=== PATIENT | female | born 1955 | race Caucasian/White ===

== ENCOUNTER 2019-12-10 15:19 | Emergency (ER) | payer MEDICARE, OTHER, SELFPAY ==
[2019-12-10 15:28] VITALS: BP 152/91; PULSE 60; RESP 17; TEMP 36.6; O2SAT 97; BMI 27.4
[2019-12-10 15:33] VITALS: O2SAT 97
--- NOTE | 2019-12-10 15:34 | ED_ITS ---
Entered by Elisa Manzo, acting as scribe for Austin Jones DO Dec 10, 2019 15:19 Documented by User: Sean Doran DO 12/10/19 21:23 HPI - Chest Pain General: Chief Complaint: Chest Pain Stated Complaint: CHEST PAIN Time Seen by Provider: 12/10/19 15:29 PFS ED PFSH: Statuses (acute, chronic, etc) shown below reflect problem list status as previously entered and may not be historically accurate Medical History Anxiety (Acute) Chronic obstructive pulmonary disease (Acute) Depression (Acute) Surgical History Hx of CABG (Acute) Social History Smoking and tobacco status: current every day smoker Course ED course: 63-year-old female checked out to me by Dr. Harkins. She presented with chest pains, on and off. Her pain started this morning, and woke her up. She is not currently having pain, and asking to go home. Her delta troponin is negative. Her EKGs did not show acute ST changes. Her chest x-ray is negative. Her other laboratory is benign. She will be allowed home for outpatient work- up Vital Signs: Vital signs: Vital Signs Temperature 97.9 F 12/10/19 15:28 Pulse Rate 84 12/10/19 19:34 Respiratory Rate 16 12/10/19 19:34 Blood Pressure 126/70 12/10/19 19:09 Pulse Oximetry 95 12/10/19 19:34 MDM - Chest Pain Lab Data: Labs: Lab Results 12/10/19 12/10/19 12/10/19 Range/Units 14:00 15:50 16:30 WBC 6.1 (4.0-10.0) 10^3/ uL RBC 5.06 (4.1-5.3) 10^6/u L Hgb 15.0 (11.5-15.3) g/dL Hct 45.8 (37.0-47.0) % MCV 90.5 (81-99) fL MCH 29.6 (28.0-34.0) pg MCHC 32.8 (30.0-36.0) g/dL RDW 13.7 (12.1-15.1) % Plt Count 216 (130-400) 10^3/c mm MPV 12.0 H (7.4-10.4) fL Neut % (Auto) 53.9 % Lymph % (Auto) 37.5 % [place] % (Auto) 6.4 % Eos % (Auto) 1.0 % Baso % (Auto) 0.5 % Neut # (Auto) 3.3 (1.8-7.7) 10^3/u L Lymph # (Auto) 2.3 (0.8-4.8) 10^3/u L [place] # (Auto) 0.4 (0.2-0.9) 10^3/u L Eos # (Auto) 0.1 (0.0-0.8) 10^3/u L Baso # (Auto) 0.0 (0.0-0.1) 10^3/u L Nucleated RBC % (a uto) 0 % Nucleated RBCs # 0.0 /100WBC Sodium 138 (136-145) mmol/L Potassium 4.4 (3.5-5.1) mmol/L Chloride 98 (98-107) mmol/L Carbon Dioxide 24 (22-29) mmol/L Anion Gap 20.4 H (5-19) BUN 16 (8-23) mg/dL Creatinine 0.9 (0.5-0.9) mg/dL GFR Calculation 63.2 L (90-130) mL/min Glucose 98 (74-106) mg/dL Calcium 10.0 (8.5-10.5) mg/dL Total Bilirubin 0.3 (0.15-1.2) mg/dL AST 15 (0-32) U/L ALT 20 (0-33) U/L Alkaline Phosphata se 65 (35-105) IU/L Troponin T Baselin e (0-10) ng/mL Troponin T 120 Min [place] (0-10) ng/mL Delta Troponin T (0-10) ABS# Total Protein 6.9 (6.6-8.7) g/dL Albumin 4.3 (3.5-5.2) g/dL Globulin 2.6 (1.3-4.6) g/dL Influenza Type A A g Negative (Negative) POC Influenza B Ag Negative (Negative) 12/10/19 12/10/19 Range/Units 16:30 18:30 WBC (4.0-10.0) 10^3/ uL RBC (4.1-5.3) 10^6/u L Hgb (11.5-15.3) g/dL Hct (37.0-47.0) % MCV (81-99) fL MCH (28.0-34.0) pg MCHC (30.0-36.0) g/dL RDW (12.1-15.1) % Plt Count (130-400) 10^3/c mm MPV (7.4-10.4) fL Neut % (Auto) % Lymph % (Auto) % [place] % (Auto) % Eos % (Auto) % Baso % (Auto) % Neut # (Auto) (1.8-7.7) 10^3/u L Lymph # (Auto) (0.8-4.8) 10^3/u L [place] # (Auto) (0.2-0.9) 10^3/u L Eos # (Auto) (0.0-0.8) 10^3/u L Baso # (Auto) (0.0-0.1) 10^3/u L Nucleated RBC % (a uto) % Nucleated RBCs # /100WBC Sodium (136-145) mmol/L Potassium (3.5-5.1) mmol/L Chloride (98-107) mmol/L Carbon Dioxide (22-29) mmol/L Anion Gap (5-19) BUN (8-23) mg/dL Creatinine (0.5-0.9) mg/dL GFR Calculation (90-130) mL/min Glucose (74-106) mg/dL Calcium (8.5-10.5) mg/dL Total Bilirubin (0.15-1.2) mg/dL AST (0-32) U/L ALT (0-33) U/L Alkaline Phosphata se (35-105) IU/L Troponin T Baselin e 9 (0-10) ng/mL Troponin T [address] [place] 9.48 (0-10) ng/mL Delta Troponin T 0.48 (0-10) ABS# Total Protein (6.6-8.7) g/dL Albumin (3.5-5.2) g/dL Globulin (1.3-4.6) g/dL Influenza Type A A g (Negative) POC Influenza B Ag (Negative) Discharge Plan Discharge Patient Disposition: Home, Self-Care Clinical Impression: Chest pain Qualifiers: Chest pain type: unspecified Qualified Code(s): R07.9 - Chest pain, unspecified Condition: Stable Prescriptions: No Action aspirin [Aspir-Low] 81 mg tablet,delayed release (DR/EC) 81 mg PO ONCE RF: 0 lisinopril 40 mg tablet 40 mg PO ONCE RF: 0 Spiriva with HandiHaler 18 mcg capsule, w/inhalation device 1 cap INHALATION ONCE RF: 0 fluticasone propion-salmeterol [Advair Diskus] 250-50 mcg/dose blister with device 1 inh INHALATION BID RF: 0 metoprolol succinate 50 mg tablet extended release 24 hr 50 mg PO ONCE RF: 0 atorvastatin 20 mg tablet 20 mg PO ONCE RF: 0 Trelegy Ellipta 100-62.5-25 mcg blister with device 1 inh INHALATION Q24H RF: 0 fluoxetine [Prozac] 20 mg capsule 20 mg PO ONCE RF: 0 fluoxetine [Prozac] 40 mg capsule 40 mg PO QAM RF: 0 Combivent Respimat 20-100 mcg/actuation mist 1 puff INHALATION QID RF: 0 omeprazole 40 mg capsule,delayed release(DR/EC) 40 mg PO ONCE RF: 0 epinephrine [EpiPen 2-Dmitri] 0.3 mg/0.3 mL auto-injector 0.3 mg IM ONCE PRNRF: 0 albuterol sulfate 2.5 mg /3 mL (0.083 %) solution for nebulization 2.5 mg INHALATION Q6H PRNRF: 0 clonazepam 1 mg tablet 1 mg PO BID PRNRF: 0 albuterol sulfate 2.5 mg /3 mL (0.083 %) solution for nebulization 2.5 mg INHALATION Q6H PRN (Reason: shortness of breath or wheezing) Qty: 180 RF: 1 ipratropium-albuterol 0.5 mg-3 mg(2.5 mg base)/3 mL solution for nebulization 3 ml INHALATION .every 6 hours PRN (Reason: wheezing) Qty: 180 RF: 1 Discharge Orders: Discharge Order (Routine); Ordered 12/10/19 Ordered By: Sean Doran Referrals: Payam Rosario, CRIMINAL INVESTIGATOR [Primary Care Provider] - 4-7 days Discharge Diet: Usual diet Discharge Activity: Limit activity as instructed Patient Instructions: Chest Pain (ED) Activity Restrictions/Additional Instructions: Return for return of her worsening chest pain, shortness of breath, cough, fever, other concerning symptoms. Follow-up with your doctor, outpatient testing will likely be needed. No strenuous activity until you have been cleared by your doctor Discharge Date/Time: 12/10/19 19:36 Sign Out Sign Out Data: Patient Sign Out occurred on 12/10/19 at 18:18. Patient's care was discussed, and care was transferred from Austin Jones DO to Sean Doran DO. Sign Out Comment: Awaiting second troponin for rule out [place] Last updated by Austin Jones DO at 12/10/19 18:13 Coding Level of Care Code ED Centrifugal Operator for Chg Fwd Documented by User: Austin Jones DO 12/11/19 10:29 HPI - Chest Pain General: Chief Complaint: Chest Pain Stated Complaint: CHEST PAIN Time Seen by Provider: 12/10/19 15:29 History of Present Illness: HPI narrative: 63 yo female presents with chest pain. pt states that she woke up this morning and had a racing heart rate, shortness of breath and cold sweats. Pt states that she felt like she might of had another heart attack. Pt states that she has had a heat attack in the past. MD complaint: chest pain Pertinent past history: coronary artery disease and CABG Onset (ago): hour(s) Timing of current episode: constant Prior episodes: Yes Onset: during rest Pain radiation: jaw/teeth Severity: moderate Quality: tightness and sharp Relieving factors: nothing Exacerbating factors: exertion Associated symptoms: Reports no associated symptoms; Deny abdominal pain, dyspnea, fever(s), nausea, palpitations, syncope or vomiting Treatment prior to arrival: none Review of Systems Const: Denies: fever, chills, body aches, fatigue, malaise or night sweats Eyes: Denies: change in vision or blurry vision ENMT: Denies: throat pain, oral sores/lesions, dental pain, nasal discharge or nasal congestion Card: Denies: chest pain, palpitations, irregular heart rhythm, edema, syncope, shortness of breath on exertion, shortness of breath when lying down or leg pain with exertion Resp: Denies: shortness of breath, productive cough, non-productive cough or wheezing GI: Denies: abdominal pain, nausea, vomiting, vomiting blood, coffee grounds in vomit, difficulty swallowing, heartburn/indigestion, diarrhea, constipation, cramping, blood in stool or black tarry stool : Denies: flank pain, painful urination, urinary frequency, urinary urgency, urinary incontinence or blood in urine Musc: Denies: neck pain, back pain, extremity pain, extremity swelling, joint pain or joint swelling Skin/Breast: Denies: rash, itching or redness Neuro: Denies: headache, numbness in extremities, weakness in extremities, changes in sensation, lack of coordination, difficulty walking, frequent falls, dizziness, vertigo or confusion Psych: Denies: anxiety, depression, loss of interest, visual hallucinations, auditory hallucinations, suicidal ideation or homicidal ideation Endo: Denies: excessive urination, excessive thirst, tired all the time or cold intolerance Tj/Lymph: Denies: easy bruising, easy bleeding, petechiae, enlarged lymph nodes or tender lymph nodes PFSH ED PFSH: Statuses (acute, chronic, etc) shown below reflect problem list status as previously entered and may not be historically accurate Medical History Anxiety (Acute) Chronic obstructive pulmonary disease (Acute) Depression (Acute) Surgical History Hx of CABG (Acute) Social History Smoking and tobacco status: current every day smoker Physical Exam Const: COMMON NORMALS: no apparent distress GENERAL APPEARANCE: cooperative and comfortable ORIENTATION/CONSCIOUSNESS: Yes awake, Yes oriented to person, Yes oriented to place and Yes oriented to time HENMT: COMMON NORMALS: normocephalic, head/scalp atraumatic, hearing grossly normal bilaterally, external ears normal, EAC's normal, TM's normal bilaterally, nasal mucous membranes and turbinates normal, moist oral mucous membranes and oropharynx normal HEAD & SCALP: normocephalic and atraumatic NOSE: nasal mucous membranes and turbinates normal EXTERNAL EAR: Yes external ears normal EXTERNAL AUDITORY CANAL: EAC's normal TYMPANIC MEMBRANE: TM's normal bilaterally Eye: COMMON NORMALS: PERRL, EOMs intact bilaterally, conjunctivae normal and no scleral icterus CONJUNCTIVA: Yes conjunctivae normal PUPIL: Yes PERRL Neck/C-Spine: COMMON NORMALS: full ROM, no lymphadenopathy, supple and no JVD Lymph: LYMPHATIC: no lymphadenopathy noted and no lymphedema noted Resp: COMMON NORMALS: normal respiratory effort, no retractions, no use of accessory muscles and clear to auscultation bilaterally AUSCULTATION: clear to auscultation bilaterally Cardio: COMMON NORMALS: no JVD, regular rate, regular rhythm and no murmurs RATE: regular rate RHYTHM: regular rhythm GI: COMMON NORMALS: soft to palpation and no hepatosplenomegaly AUSCULTATION: Yes normoactive bowel sounds PALPATION: Yes soft, No tender, No guarding and Yes no hepatosplenomegaly Extremity: COMMON NORMALS: normal to inspection, normal capillary refill, no clubbing, cyanosis or edema, no calf tenderness and no pedal edema Neuro: SENSORIUM/ORIENTATION: Yes oriented to person, Yes oriented to place and Yes oriented to time Skin: COMMON NORMALS: no rashes or lesions noted GENERAL SKIN EXAM: no rashes or lesions noted Course Vital Signs: Vital signs: Vital Signs Temperature 97.9 F 12/10/19 15:28 Pulse Rate 84 12/10/19 19:34 Respiratory Rate 16 12/10/19 19:34 Blood Pressure 126/70 12/10/19 19:09 Pulse Oximetry 95 12/10/19 19:34 MDM - Chest Pain Lab Data: Labs: Lab Results 12/10/19 12/10/19 12/10/19 Range/Units 14:00 15:50 16:30 WBC 6.1 (4.0-10.0) 10^3/ uL RBC 5.06 (4.1-5.3) 10^6/u L Hgb 15.0 (11.5-15.3) g/dL Hct 45.8 (37.0-47.0) % MCV 90.5 (81-99) fL MCH 29.6 (28.0-34.0) pg MCHC 32.8 (30.0-36.0) g/dL RDW 13.7 (12.1-15.1) % Plt Count 216 (130-400) 10^3/c mm MPV 12.0 H (7.4-10.4) fL Neut % (Auto) 53.9 % Lymph % (Auto) 37.5 % [place] % (Auto) 6.4 % Eos % (Auto) 1.0 % Baso % (Auto) 0.5 % Neut # (Auto) 3.3 (1.8-7.7) 10^3/u L Lymph # (Auto) 2.3 (0.8-4.8) 10^3/u L [place] # (Auto) 0.4 (0.2-0.9) 10^3/u L Eos # (Auto) 0.1 (0.0-0.8) 10^3/u L Baso # (Auto) 0.0 (0.0-0.1) 10^3/u L Nucleated RBC % (a uto) 0 % Nucleated RBCs # 0.0 /100WBC Sodium 138 (136-145) mmol/L Potassium 4.4 (3.5-5.1) mmol/L Chloride 98 (98-107) mmol/L Carbon Dioxide 24 (22-29) mmol/L Anion Gap 20.4 H (5-19) BUN 16 (8-23) mg/dL Creatinine 0.9 (0.5-0.9) mg/dL GFR Calculation 63.2 L (90-130) mL/min Glucose 98 (74-106) mg/dL Calcium 10.0 (8.5-10.5) mg/dL Total Bilirubin 0.3 (0.15-1.2) mg/dL AST 15 (0-32) U/L ALT 20 (0-33) U/L Alkaline Phosphata se 65 (35-105) IU/L Troponin T Baselin e (0-10) ng/mL Troponin T 120 Min [place] (0-10) ng/mL Delta Troponin T (0-10) ABS# Total Protein 6.9 (6.6-8.7) g/dL Albumin 4.3 (3.5-5.2) g/dL Globulin 2.6 (1.3-4.6) g/dL Influenza Type A A g Negative (Negative) POC Influenza B Ag Negative (Negative) 12/10/19 12/10/19 Range/Units 16:30 18:30 WBC (4.0-10.0) 10^3/ uL RBC (4.1-5.3) 10^6/u L Hgb (11.5-15.3) g/dL Hct (37.0-47.0) % MCV (81-99) fL MCH (28.0-34.0) pg MCHC (30.0-36.0) g/dL RDW (12.1-15.1) % Plt Count (130-400) 10^3/c mm MPV (7.4-10.4) fL Neut % (Auto) % Lymph % (Auto) % [place] % (Auto) % Eos % (Auto) % Baso % (Auto) % Neut # (Auto) (1.8-7.7) 10^3/u L Lymph # (Auto) (0.8-4.8) 10^3/u L [place] # (Auto) (0.2-0.9) 10^3/u L Eos # (Auto) (0.0-0.8) 10^3/u L Baso # (Auto) (0.0-0.1) 10^3/u L Nucleated RBC % (a uto) % Nucleated RBCs # /100WBC Sodium (136-145) mmol/L Potassium (3.5-5.1) mmol/L Chloride (98-107) mmol/L Carbon Dioxide (22-29) mmol/L Anion Gap (5-19) BUN (8-23) mg/dL Creatinine (0.5-0.9) mg/dL GFR Calculation (90-130) mL/min Glucose (74-106) mg/dL Calcium (8.5-10.5) mg/dL Total Bilirubin (0.15-1.2) mg/dL AST (0-32) U/L ALT (0-33) U/L Alkaline Phosphata se (35-105) IU/L Troponin T Baselin e 9 (0-10) ng/mL Troponin T [address] [place] 9.48 (0-10) ng/mL Delta Troponin T 0.48 (0-10) ABS# Total Protein (6.6-8.7) g/dL Albumin (3.5-5.2) g/dL Globulin (1.3-4.6) g/dL Influenza Type A A g (Negative) POC Influenza B Ag (Negative) Discharge Plan Discharge Patient Disposition: Home, Self-Care Clinical Impression: Chest pain Qualifiers: Chest pain type: unspecified Qualified Code(s): R07.9 - Chest pain, unspecified Condition: Stable Prescriptions: No Action aspirin [Aspir-Low] 81 mg tablet,delayed release (DR/EC) 81 mg PO ONCE RF: 0 lisinopril 40 mg tablet 40 mg PO ONCE RF: 0 Spiriva with HandiHaler 18 mcg capsule, w/inhalation device 1 cap INHALATION ONCE RF: 0 fluticasone propion-salmeterol [Advair Diskus] 250-50 mcg/dose blister with device 1 inh INHALATION BID RF: 0 metoprolol succinate 50 mg tablet extended release 24 hr 50 mg PO ONCE RF: 0 atorvastatin 20 mg tablet 20 mg PO ONCE RF: 0 Trelegy Ellipta 100-62.5-25 mcg blister with device 1 inh INHALATION Q24H RF: 0 fluoxetine [Prozac] 20 mg capsule 20 mg PO ONCE RF: 0 fluoxetine [Prozac] 40 mg capsule 40 mg PO QAM RF: 0 Combivent Respimat 20-100 mcg/actuation mist 1 puff INHALATION QID RF: 0 omeprazole 40 mg capsule,delayed release(DR/EC) 40 mg PO ONCE RF: 0 epinephrine [EpiPen 2-Dmitri] 0.3 mg/0.3 mL auto-injector 0.3 mg IM ONCE PRNRF: 0 albuterol sulfate 2.5 mg /3 mL (0.083 %) solution for nebulization 2.5 mg INHALATION Q6H PRNRF: 0 clonazepam 1 mg tablet 1 mg PO BID PRNRF: 0 albuterol sulfate 2.5 mg /3 mL (0.083 %) solution for nebulization 2.5 mg INHALATION Q6H PRN (Reason: shortness of breath or wheezing) Qty: 180 RF: 1 ipratropium-albuterol 0.5 mg-3 mg(2.5 mg base)/3 mL solution for nebulization 3 ml INHALATION .every 6 hours PRN (Reason: wheezing) Qty: 180 RF: 1 Discharge Orders: Discharge Order (Routine); Ordered 12/10/19 Ordered By: Sean Doran Referrals: Payam Rosario, CRIMINAL INVESTIGATOR [Primary Care Provider] - 4-7 days Discharge Diet: Usual diet Discharge Activity: Limit activity as instructed Patient Instructions: Chest Pain (ED) Activity Restrictions/Additional Instructions: Return for return of her worsening chest pain, shortness of breath, cough, fever, other concerning symptoms. Follow-up with your doctor, outpatient testing will likely be needed. No strenuous activity until you have been cleared by your doctor Discharge Date/Time: 12/10/19 19:36 Sign Out Sign Out Data: Patient Sign Out occurred on 12/10/19 at 18:18. Patient's care was discussed, and care was transferred from Austin Jones DO to Sean Doran DO. Sign Out Comment: Awaiting second troponin for rule out [place] Last updated by Austin Jones DO at 12/10/19 18:13 Coding Level of Care Code ED Centrifugal Operator for Chg Fwd The documentation recorded by the Jovany tabor Kialy, accurately reflects the service I personally performed and the decisions made by Karen shearer Curtis L, DO Dec 10, 2019 15:19
--- NOTE | 2019-12-10 15:39 | ECG_ITS ---
Measurements Intervals [place] Rate: 58 P: 37 IN: 159 QRS: 82 QRSD: 84 T: 92 QT: 418 QTc: [address] & T-WAVE ABNORMALITY Compared to ECG 06/18/2019 16:23:17 T-wave abnormality now present Sinus rhythm no longer present Electronically Signed On 12-11-2019 18:01:47 BAG BUILDER by Logan Hsieh M.D. [id number]
--- NOTE | 2019-12-10 15:39 | XRR_ITS ---
PROCEDURE INFORMATION: Exam: XR Chest, 1 View Exam date and time: 12/10/2019 4:02 PM Age: 63 years old Clinical indication: Pain; Shortness of breath; Chest pressure; Prior surgery; Surgery type: Bypass; Additional info: Chest pain, SOB TECHNIQUE: Imaging protocol: XR of the chest Views: 1 view. COMPARISON: CR Chest 1 [place] [id number] 06/18/2019 10:33 AM FINDINGS: Lungs: Lungs are mildly hyperinflated. There is no focal infiltrate. Pleural space: Unremarkable. No pleural effusion. No pneumothorax. Heart/Mediastinum: Sternotomy wires and mediastinal surgical clips are present, consistent with previous coronary arterial bypass grafting. Bones/joints: Unremarkable. XR/XR chest 1V portable [id number] IMPRESSION: No acute infiltrate
[2019-12-10 16:39] LABS: Basophils % 0.5 %; Eosinophils # 0.1 10^3/uL (0.0-0.8); Hematocrit 45.8 % (37.0-47.0); Lymphocytes # 2.3 10^3/uL (0.8-4.8); Lymphocytes % 37.5 %; Mean Corpuscular HGB Conc 32.8 g/dL (30.0-36.0); Mean Corpuscular Hemoglobin 29.6 pg (28.0-34.0); Mean Corpuscular Volume 90.5 fL (81-99); Monocytes # 0.4 10^3/uL (0.2-0.9); Monocytes % 6.4 %; Neutrophils # 3.3 10^3/uL (1.8-7.7); Neutrophils % 53.9 %; Nucleated Red Blood Cells % 0 %; Platelet Count 216 10^3/cmm (130-400); Red Blood Count 5.06 10^6/uL (4.1-5.3); Red Cell Distribution Width 13.7 % (12.1-15.1); White Blood Count 6.1 10^3/uL (4.0-10.0)
[2019-12-10 16:44] LABS: Influenza A by IFA Negative (Negative); Influenza B by IFA Negative (Negative)
[2019-12-10 17:14] LABS: Troponin(5th) Baseline 9 ng/mL (0-10)
--- NOTE | 2019-12-10 17:39 | ECG_ITS ---
Measurements Intervals [place] Rate: 75 P: 69 NV: 165 QRS: 87 QRSD: 90 T: 78 QT: 399 QTc: [address] & T-WAVE ABNORMALITY Compared to ECG 06/18/2019 16:23:17 T-wave abnormality now present Electronically Signed On 12-11-2019 18:02:38 DIRECTOR OF FLIGHT OPERATIONS by Logan Hsieh M.D. [id number]
[2019-12-10 18:30] LABS: Alanine Aminotransferase 20 U/L (0-33); Albumin Level 4.3 g/dL (3.5-5.2); Alkaline Phosphatase 65 IU/L (35-105); Anion Gap 20.4 (5-19); Aspartate Amino Transferase 15 U/L (0-32); Blood Urea Nitrogen 16 mg/dL (8-23); Carbon Dioxide 24 mmol/L (22-29); Chloride 98 mmol/L (98-107); Creatinine Clr Calc Pharmacy 62.4704; Globulin 2.6 g/dL (1.3-4.6); Glomerular Filtration Rate 63.2 mL/min (90-130); Glucose 98 mg/dL (74-106); Potassium 4.4 mmol/L (3.5-5.1); Sodium 138 mmol/L (136-145); Total Bilirubin 0.3 mg/dL (0.15-1.2); Total Protein 6.9 g/dL (6.6-8.7)
[2019-12-10 18:57] LABS: Troponin 5 2HR 9.48 ng/mL (0-10); Troponin 5 2HR Delta 0.48 ABS# (0-10)
--- NOTE | 2019-12-10 19:08 | PC.NURSE ---
requesting update on care, advised DR. Doran
[2019-12-10 19:09] VITALS: BP 126/70; PULSE 94; RESP 16; O2SAT 95
[2019-12-10 19:34] VITALS: PULSE 84; RESP 16; O2SAT 95
== END 2019-12-10 19:36 | disposition home or self-care (01) ==
PROVIDERS: Family Medicine; Emergency Provider Emergency Medicine; Family Provider Nurse Practitioner Family; PCP Nurse Practitioner Family
DX: R07.9 Chest pain, unspecified (principal); Z79.82 Long term (current) use of aspirin; J44.9 Chronic obstructive pulmonary disease, unspecified; F17.210 Nicotine dependence, cigarettes, uncomplicated
CPT/HCPCS: 36415; 71045; 80053; 84484; 85025; 87804; 93005; 99282

== ENCOUNTER → 2020-01-12 13:04 | Outpatient (BNVA) | payer MEDICARE, OTHER, SELFPAY | PROVIDERS: Family Provider Nurse Practitioner Family; PCP Nurse Practitioner Family; Visit Provider Nurse Practitioner | DX: F33.2 Major depressive disorder, recurrent severe without psychotic features (principal); F17.210 Nicotine dependence, cigarettes, uncomplicated | CPT/HCPCS: 99214 ==

== ENCOUNTER → 2020-01-19 11:00 | Outpatient (BNVA) | payer MEDICARE, OTHER, SELFPAY | PROVIDERS: Family Provider Nurse Practitioner Family; PCP Nurse Practitioner Family; Visit Provider Nurse Practitioner Family | DX: J22 Unspecified acute lower respiratory infection (principal); Z20.828 Contact with and (suspected) exposure to other viral communicable diseases | CPT/HCPCS: 86308 ==

== ENCOUNTER → 2020-03-13 17:11 | Outpatient (BNVA) | payer MEDICARE, OTHER, SELFPAY | PROVIDERS: Family Provider Nurse Practitioner Family; PCP Nurse Practitioner Family; Visit Provider Nurse Practitioner Family | DX: R05 Cough (principal); J44.1 Chronic obstructive pulmonary disease with (acute) exacerbation; Z20.828 Contact with and (suspected) exposure to other viral communicable diseases; Z68.27 Body mass index [BMI] 27.0-27.9, adult; F17.210 Nicotine dependence, cigarettes, uncomplicated; Z71.89 Other specified counseling | CPT/HCPCS: 87400; 87635 ==

== ENCOUNTER → 2020-04-12 08:19 | Outpatient (BNVA) | payer MEDICARE, OTHER, SELFPAY | PROVIDERS: Family Provider Nurse Practitioner Family; PCP Nurse Practitioner Family; Visit Provider Nurse Practitioner | DX: F33.2 Major depressive disorder, recurrent severe without psychotic features (principal); F17.210 Nicotine dependence, cigarettes, uncomplicated | CPT/HCPCS: 90832; 99214 ==

== ENCOUNTER 2020-04-19 13:57 | Emergency (ER) | payer MEDICARE, OTHER, SELFPAY ==
[2020-04-19 14:07] VITALS: BP 163/95; PULSE 94; RESP 24; TEMP 36.9; O2SAT 90; BMI 28.7
--- NOTE | 2020-04-19 14:14 | PC.NURSE ---
EKG done at 1412 and shown to ER doctor
--- NOTE | 2020-04-19 14:15 | XR_ITS ---
WS: [id number] XR chest 1V portable [id number] REASON FOR EXAM: dyspnea/cough FINDINGS: Previous coronary bypass changes are noted with sternotomy. Mediastinum are normal. The right lung armstrong are hyper aerated. There is no pneumonia, pleural effusion, pulmonary edema, or mass effect. [place] there is mild crease vascularity suggesting early chronic obstructive pulmonary disease change since December 10, 2019. XR/XR chest 1V portable [id number] IMPRESSION: Mild emphysematous changes. Coronary bypass changes
--- NOTE | 2020-04-19 14:15 | ECG_ITS ---
Measurements Intervals [place] Rate: 82 P: 69 [place]: 167 QRS: 88 QRSD: 80 T: 83 QT: 373 QTc: 438 SINUS RHYTHM LOW QRS VOLTAGE IN PRECORDIAL LEADS [QRS DEFLECTION < 1.0 mV IN CHEST LEADS] SEPTAL MYOCARDIAL INFARCTION , OF INDETERMINATE AGE [40+ ms Q WAVE IN V1/V2] Compared to ECG 12/10/2019 18:09:21 Low QRS voltage now present Myocardial infarct finding now present T-wave abnormality no longer present Electronically Signed On 04-19-2020 20:57:17 CDT by Petty Ward M.D. [id number]
[2020-04-19 14:36] VITALS: O2SAT 93
[2020-04-19 14:41] LABS: Basophils % 0.5 %; Eosinophils # 0.1 10^3/uL (0.0-0.8); Eosinophils % 2.1 %; Hemoglobin 12.8 g/dL (11.5-15.3); Lymphocytes # 1.7 10^3/uL (0.8-4.8); Lymphocytes % 40.6 %; Mean Corpuscular HGB Conc 31.2 g/dL (30.0-36.0); Mean Corpuscular Hemoglobin 30.1 pg (28.0-34.0); Mean Corpuscular Volume 96.5 fL (81-99); Mean Platelet Volume 11.4 fL (7.4-10.4); Monocytes # 0.3 10^3/uL (0.2-0.9); Monocytes % 6.4 %; Neutrophils # 2.1 10^3/uL (1.8-7.7); Neutrophils % 49.9 %; Nucleated Red Blood Cells % 0 %; Platelet Count 187 10^3/cmm (130-400); Red Blood Count 4.25 10^6/uL (4.1-5.3); Red Cell Distribution Width 12.7 % (12.1-15.1); White Blood Count 4.2 10^3/uL (4.0-10.0)
[2020-04-19 14:56] LABS: Alanine Aminotransferase 15 U/L (0-33); Albumin Level 3.9 g/dL (3.5-5.2); Alkaline Phosphatase 70 IU/L (35-105); Aspartate Amino Transferase 18 U/L (0-32); Blood Urea Nitrogen 8 mg/dL (8-23); Calcium 9.8 mg/dL (8.5-10.5); Carbon Dioxide 28 mmol/L (22-29); Chloride 105 mmol/L (98-107); Globulin 2.4 g/dL (1.3-4.6); Glomerular Filtration Rate 72.2 mL/min (90-130); Glucose 137 mg/dL (65-115); Osmolality Calculated 292 mOsm/kg (285-295); Sodium 142 mmol/L (136-145); Total Bilirubin 0.2 mg/dL (0.15-1.2); Total Protein 6.3 g/dL (6.6-8.7)
[2020-04-19 15:01] LABS: ABG PCO2 48.7 mmHg (35-45); Arterial Blood Gas Hematocrit 40.7 % (37-47); Base Excess ABG 3.9 mmol/L (-2.0-2.0); Blood Gas Allen Test Pos; Blood Gas Sample Site Radial, left; Blood Gas Sample Type Arterial; Carboxyhemoglobin 1.9 %THgb (0.4-20.1); HCO3 ABG 29.8 mmol/L (22-26); HGB O2 Sat 96.1 % (95-100); Ionized Calcium Level - ABG 1.3 mmol/L (1.1-1.4); Methemoglobin 0.8 % (0.4-1.5); Oxygen Device NC; Oxygen Saturation ABG 98.7; Potassium Level - ABG 3.9 mmol/L (3.5-5.0); Total Hemoglobin 13.3 g/dL (12-16)
[2020-04-19 15:27] VITALS: BP 140/86; PULSE 72; RESP 20; O2SAT 98
--- NOTE | 2020-04-19 15:32 | ED_ITS ---
HPI - SOB/Dyspnea General: Chief Complaint: Shortness of Breath/Dyspnea Stated Complaint: sob/chest pressure Time Seen by Provider: 04/19/20 14:13 History of Present Illness: HPI Narrative: 64-year-old female comes in complaining of shortness of breath last night she had some moderate fever sweats or chills with a nonproductive cough she has used inhalers in the past and has not run out she been using duo nebs regularly for the last couple of days but her last one was about 530 this morning she was using about every 3 hours she thought at home she did not get much relief from the DuoNeb this morning is not repeated throughout the day. She now would not been on any antibiotics throughout the last months she has had little chest pain associated with her coughing fits but has not had a significantly productive cough he normally is on oxygen specimen to enough liters per minute at home but only uses when she feel like she needs it she denies any other GI or symptoms or any abdominal pain lately no vomiting or diarrhea MD elicited complaint: shortness of breath, cough and chest pain (Associated with cough) Pertinent past history: COPD Onset (ago): day(s) Context: recent illness Timing: intermittent Severity: moderate Associated symptoms: Deny abdominal pain, chest pain, dizziness, extremity pain, fever(s), nausea, orthopnea, palpitations, polydipsia, polyuria, syncope or vomiting Review of Systems Const: Denies: fever(s), chills, body aches, fatigue, malaise or night sweats Eyes: Denies: change in vision or blurry vision ENMT: Denies: throat pain, oral sores, dental pain, nasal discharge or nasal congestion Card: Denies: chest pain, palpitations, irregular heart rhythm, edema, syncope, dyspnea on exertion, orthopnea or leg pain with exertion Resp: Denies: dyspnea, productive cough, non-productive cough or wheezing GI: Denies: abdominal pain, nausea, vomiting, hematemesis, coffee ground emesis, dysphagia, heartburn, diarrhea, constipation, GI cramping, hematochezia or melena : Denies: flank pain, dysuria, urinary frequency, urinary urgency, urinary incontinence or hematuria Musc: Denies: neck pain, back pain, extremity pain, extremity swelling, joint pain or joint swelling Skin/Breast: Denies: rash, pruritus or erythema Neuro: Denies: headache(s), numbness in extremities, weakness in extremities, sensory changes, lack of coordination, difficulty walking, frequent falls, dizziness, vertigo or confusion Psych: Denies: anxiety, depression, loss of interest, visual hallucinations, auditory hallucinations, suicidal ideation or homicidal ideation Endo: Denies: polyuria, polydipsia, tired all the time or cold intolerance Tj/Lymph: Denies: easy bruising, easy bleeding, petechiae, enlarged lymph nodes or tender lymph nodes PFSH ED PFSH: Medical History Anxiety Atherosclerosis of coronary artery of [place] heart with stable angina pectoris Benign essential hypertension with target blood pressure below 140/90 Chronic obstructive pulmonary disease Depression Essential hypertension Lung nodules Major depressive disorder, recurrent severe without psychotic features Mixed hyperlipidemia Nicotine dependence, cigarettes, uncomplicated Shortness of breath on exertion Surgical History Hx of CABG Social History Smoking and tobacco status: former smoker Smoking risk assessment/counseling performed?: Yes Tobacco counseling given: counseling >3 minutes Physical Exam Const: COMMON NORMALS: no acute distress GENERAL APPEARANCE: cooperative and comfortable ORIENTATION/CONSCIOUSNESS: Yes awake, Yes oriented to person, Yes oriented to place and Yes oriented to time HENMT: COMMON NORMALS: normocephalic, atraumatic, hearing grossly normal bilaterally, external ears normal, EAC's normal, TM's normal bilaterally, Normal nasal mucous membranes and turbinates present, moist oral mucous membranes and oropharynx normal HEAD & SCALP: normocephalic and atraumatic NOSE: Normal nasal mucous membranes and turbinates present EXTERNAL EAR: Yes external ears normal EXTERNAL AUDITORY CANAL: EAC's normal TYMPANIC MEMBRANE: TM's normal bilaterally Eye: COMMON NORMALS: Equal, round and reactive pupils present, EOMs intact bilaterally, conjunctivae normal and no scleral icterus CONJUNCTIVA: Yes conjunctivae normal PUPIL: Yes Equal, round and reactive pupils present Neck/C-Spine: COMMON NORMALS: full ROM, no lymphadenopathy, supple and no JVD Lymph: LYMPHATIC: no lymphadenopathy noted and no lymphedema noted Resp: EFFORT & INSPECTION: Yes tachypneic, Yes retractions and Yes audible wheezes AUSCULTATION: diminished lung sounds Cardio: COMMON NORMALS: no JVD, regular rate, regular rhythm and No murmurs present (Cardio) RATE: regular rate RHYTHM: regular rhythm GI: COMMON NORMALS: Soft to palpation and No hepatosplenomegaly present AUSCULTATION: Yes normoactive bowel sounds PALPATION: Yes Soft to palpation, No Tenderness to palpation present (GI), No Guarding due to palpation present (GI) and Yes No hepatosplenomegaly present Extremity: COMMON NORMALS: normal to inspection, capillary refill normal, no clubbing, cyanosis or edema, no calf tenderness and no pedal edema Neuro: SENSORIUM/ORIENTATION: Yes oriented to person, Yes oriented to place and Yes oriented to time Skin: COMMON NORMALS: no rashes or lesions noted GENERAL SKIN EXAM: no rashes or lesions noted Course Vital Signs: Vital signs: Vital Signs Temperature 98.5 F 04/19/20 14:07 Pulse Rate 86 04/19/20 18:00 Respiratory Rate 14 04/19/20 18:00 Blood Pressure 147/88 04/19/20 18:00 Pulse Oximetry 92 04/19/20 18:00 MDM - SOB/Dyspnea MDM Narrative: Medical decision making narrative: Patient repeatedly denies any chest pain. Thinks is acute exacerbation of her COPD the concern is whether or not she has COVID. I do not believe so at this point she is feeling much better after the nebulizers. We did test her asked her to stay in isolation until we get the results back we will start on Levaquin and Medrol Dosepak and gave her a solution for nebulizer if she has any worsening change symptoms should return immediately. Lab Data: Labs: Lab Results 04/19/20 04/19/20 04/19/20 Range/Units 14:33 14:33 14:50 WBC 4.2 (4.0-10.0) 10^3/ uL RBC 4.25 (4.1-5.3) 10^6/u L Hgb 12.8 (11.5-15.3) g/dL Hct 41.0 (37.0-47.0) % MCV 96.5 (81-99) fL MCH 30.1 (28.0-34.0) pg MCHC 31.2 (30.0-36.0) g/dL RDW 12.7 (12.1-15.1) % Plt Count 187 (130-400) 10^3/c mm MPV 11.4 H (7.4-10.4) fL Neut % (Auto) 49.9 % Lymph % (Auto) 40.6 % [place] % (Auto) 6.4 % Eos % (Auto) 2.1 % Baso % (Auto) 0.5 % Neut # (Auto) 2.1 (1.8-7.7) 10^3/u L Lymph # (Auto) 1.7 (0.8-4.8) 10^3/u L [place] # (Auto) 0.3 (0.2-0.9) 10^3/u L Eos # (Auto) 0.1 (0.0-0.8) 10^3/u L Baso # (Auto) 0.0 (0.0-0.1) 10^3/u L Nucleated RBC % (a uto) 0 % Nucleated RBCs # 0.0 /100WBC Specimen Type Arterial Sample Site Radial, left ABG pH 7.40 (7.35-7.45) ABG pCO2 48.7 H (35-45) mmHg ABG pO2 105.0 H (80.0-100.0) mmH g ABG HCO3 29.8 H (22-26) mmol/L ABG O2 Saturation 98.7 ABG Base Excess 3.9 H (-2.0-2.0) mmol/ L Jaquan Test Pos Hematocrit 40.7 (37-47) % Hgb O2 Saturation 96.1 (95-100) % Carboxyhemoglobin 1.9 (0.4-20.1) %THgb Methemoglobin 0.8 (0.4-1.5) % Total Hemoglobin 13.3 (12-16) g/dL Ionized Calcium 1.3 (1.1-1.4) mmol/L O2 Delivery Device Nc O2 Liters/Min 2.0 % Compliance Mgr ID [id number] Sodium 142 147.0 H (136-145) mmol/L Potassium 4.0 3.9 (3.5-5.1) mmol/L Chloride 105 (98-107) mmol/L Carbon Dioxide 28 (22-29) mmol/L Anion Gap 13.0 (5-19) BUN 8 (8-23) mg/dL Creatinine 0.8 (0.5-0.9) mg/dL GFR Calculation 72.2 L (90-130) mL/min Glucose 137 H 131.0 H (65-115) mg/dL Calculated Osmolal ity 292 (285-295) mOsm/k g Calcium 9.8 (8.5-10.5) mg/dL Total Bilirubin 0.2 (0.15-1.2) mg/dL AST 18 (0-32) U/L ALT 15 (0-33) U/L Alkaline Phosphata se 70 (35-105) IU/L Total Protein 6.3 L (6.6-8.7) g/dL Albumin 3.9 (3.5-5.2) g/dL Globulin 2.4 (1.3-4.6) g/dL Nasal/Oral COVID-1 9 PCR Influenza Type A A g (Negative) Influenza Type B A g (Negative) 04/19/20 04/19/20 Range/Units 15:05 15:20 WBC (4.0-10.0) 10^3/ uL RBC (4.1-5.3) 10^6/u L Hgb (11.5-15.3) g/dL Hct (37.0-47.0) % MCV (81-99) fL MCH (28.0-34.0) pg MCHC (30.0-36.0) g/dL RDW (12.1-15.1) % Plt Count (130-400) 10^3/c mm MPV (7.4-10.4) fL Neut % (Auto) % Lymph % (Auto) % [place] % (Auto) % Eos % (Auto) % Baso % (Auto) % Neut # (Auto) (1.8-7.7) 10^3/u L Lymph # (Auto) (0.8-4.8) 10^3/u L [place] # (Auto) (0.2-0.9) 10^3/u L Eos # (Auto) (0.0-0.8) 10^3/u L Baso # (Auto) (0.0-0.1) 10^3/u L Nucleated RBC % (a uto) % Nucleated RBCs # /100WBC Specimen Type Sample Site ABG pH (7.35-7.45) ABG pCO2 (35-45) mmHg ABG pO2 (80.0-100.0) mmH g ABG HCO3 (22-26) mmol/L ABG O2 Saturation ABG Base Excess (-2.0-2.0) mmol/ L Jaquan Test Hematocrit (37-47) % Hgb O2 Saturation (95-100) % Carboxyhemoglobin (0.4-20.1) %THgb Methemoglobin (0.4-1.5) % Total Hemoglobin (12-16) g/dL Ionized Calcium (1.1-1.4) mmol/L O2 Delivery Device O2 Liters/Min % Compliance Mgr ID Sodium (136-145) mmol/L Potassium (3.5-5.1) mmol/L Chloride (98-107) mmol/L Carbon Dioxide (22-29) mmol/L Anion Gap (5-19) BUN (8-23) mg/dL Creatinine (0.5-0.9) mg/dL GFR Calculation (90-130) mL/min Glucose (65-115) mg/dL Calculated Osmolal ity (285-295) mOsm/k g Calcium (8.5-10.5) mg/dL Total Bilirubin (0.15-1.2) mg/dL AST (0-32) U/L ALT (0-33) U/L Alkaline Phosphata se (35-105) IU/L Total Protein (6.6-8.7) g/dL Albumin (3.5-5.2) g/dL Globulin (1.3-4.6) g/dL Nasal/Oral COVID-1 9 PCR See comment Influenza Type A A g Negative (Negative) Influenza Type B A g Negative (Negative) Discharge Plan Discharge Patient Disposition: Home, Self-Care Clinical Impression: Acute exacerbation of chronic obstructive airways disease Condition: Stable Prescriptions: New Levaquin 750 mg tablet 750 mg PO DAILY 7 Days RF: 0 Medrol (Dmitri) 4 mg tablets,dose pack See Rx Instructions .ROUTE .COMPLEX Qty: 21 RF: 0 ipratropium-albuterol 0.5 mg-3 mg(2.5 mg base)/3 mL solution for nebulization 3 ml INHALATION Q4H PRN (Reason: shortness of breath or wheezing) Qty: 180 RF: 0 No Action fluoxetine [Prozac] 40 mg capsule 80 mg PO QAM Qty: 60 RF: 1 clonazepam 1 mg tablet 1 mg PO BID PRN (Reason: anxiety) Qty: 60 RF: 1 nitroglycerin 0.4 mg tablet, sublingual 0.4 mg SUBLINGUAL Q5M PRN (Reason: chest pain) 30 Days Qty: 30 RF: 3 aspirin [Aspir-Low] 81 mg tablet,delayed release (DR/EC) 81 mg PO DAILY RF: 0 lisinopril 40 mg tablet 40 mg PO DAILY RF: 0 fluticasone propion-salmeterol [Advair Diskus] 250-50 mcg/dose blister with device 1 inh INHALATION BID RF: 0 atorvastatin 20 mg tablet 20 mg PO DAILY RF: 0 epinephrine [EpiPen 2-Dmitri] 0.3 mg/0.3 mL auto-injector 0.3 mg IM ONCE PRN (Reason: Allergy Symptoms) RF: 0 albuterol sulfate 2.5 mg /3 mL (0.083 %) solution for nebulization 2.5 mg INHALATION Q6H PRN (Reason: Shortness Of Breath) RF: 0 omeprazole 40 mg capsule,delayed release(DR/EC) 40 mg PO DAILY RF: 0 metoprolol succinate 50 mg tablet extended release 24 hr 50 mg PO DAILY RF: 0 ipratropium-albuterol 0.5 mg-3 mg(2.5 mg base)/3 mL solution for nebulization 3 ml INHALATION .every 6 hours PRN (Reason: wheezing) Qty: 180 RF: 1 albuterol sulfate [ProAir HFA] 90 mcg/actuation HFA aerosol inhaler 2 puff INHALATION QID PRN (Reason: shortness of breath or wheezing) Qty: 8.5 RF: 5 Combivent Respimat 20-100 mcg/actuation mist 1 puff INHALATION QID Qty: 4 RF: 5 trazodone 50 mg tablet 25 mg PO BEDTIME RF: 0 Discharge Orders: Discharge Order (Routine); Ordered 04/19/20 Ordered By: Austin Jnoes Referrals: [place] Rosario, HEMODIALYSIS CHARGE NURSE [Primary Care Provider] - Discharge Diet: Advance as tolerated Discharge Activity: Limit activity as instructed Activity Restrictions/Additional Instructions: Follow-up with your doctor in the next 3 to 5 days. Return to the ER if you worsen. You were tested for Kovic today the results will be back within the next 48 hours we will contact you. Into the year the results she should self quarantine in your home and avoid contact with anyone else. Discharge Date/Time: 04/19/20 18:00 Coding Level of Care Code ED An Employee Sponsor Or Advocate And for Deidre Fwd Exam Comprehensive
[2020-04-19 16:02] LABS: Influenza A by IFA Negative (Negative); Influenza B by IFA Negative (Negative)
[2020-04-19 17:14] VITALS: BP 166/83; PULSE 80; O2SAT 94
[2020-04-19 17:30] VITALS: PULSE 70; RESP 16; O2SAT 98
[2020-04-19] MEDS: ipratropium-albuterol 3 mL Neb INHALATION (17:30)
[2020-04-19 18:00] VITALS: BP 147/88; PULSE 86; RESP 14; O2SAT 92
--- NOTE | 2020-04-19 18:00 | PC.NURSE ---
20g iv from left hand removed, tip intact, pressure dressing applied
== END 2020-04-19 18:00 | disposition home or self-care (01) ==
PROVIDERS: Emergency Provider Family Medicine; Family Provider Nurse Practitioner Family; PCP Nurse Practitioner Family
DX: J44.1 Chronic obstructive pulmonary disease with (acute) exacerbation (principal); Z79.82 Long term (current) use of aspirin; I10 Essential (primary) hypertension; E78.2 Mixed hyperlipidemia; Z87.891 Personal history of nicotine dependence
CPT/HCPCS: 12345; 36415; 36600; 71045; 80051; 80053; 82810; 83986; 85025; 87040; 87635; 87804; 93005; 94640; 96374; 96375; 99284; J2930

== ENCOUNTER → 2020-04-24 11:47 | Outpatient (BNVA) | payer MEDICARE, OTHER, SELFPAY | PROVIDERS: Family Provider Nurse Practitioner Family; PCP Nurse Practitioner Family; Visit Provider Nurse Practitioner Family | DX: I10 Essential (primary) hypertension (principal); R35.0 Frequency of micturition; J42 Unspecified chronic bronchitis | CPT/HCPCS: 80053; 81001; 83880 ==

== ENCOUNTER 2020-05-09 07:42 | Outpatient (CLI) | payer MEDICARE, OTHER, SELFPAY ==
[2020-05-09 07:55] VITALS: BMI 28.3
--- NOTE | 2020-05-09 07:58 | ECG_ITS ---
[facility] Test Date: 2020-05-09 Pat Name: Norma Varma Department: Room: Gender: Female Public Health: : 1955 Requested By: Petty Ward Order Number: [id number] Carmen MD: Petty Ward M.D. 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 Possible old anteroseptal OR. Some nonspecific T wave changes.. The baseline blood pressure was 151/83 mm Hg with a heart rate of 62 beats/min. Lexiscan was infused over a period of 20 seconds. A total of 0.4 milligrams of Lexiscan was infused. The stress phase was continued for a total of 5 minutes. Heart rate at the end of the stress phase was 127 with a blood pressure 146/88. The EKG at the peak infusion revealed no significant changes. Sestamibi was injected 20 seconds after the Lexiscan infusion. Blood pressure at the end of the recovery phase was 141/87 with a heart rate of 79 per minute. CONCLUSION: 1. No significant EKG changes with the LexiScan infusion 2. No LexiScan induced chest pain or cardiac arrhythmia 3. Normal blood pressure and heart rate response 4. Sestamibi/sestamibi perfusion scan pending; see separate report. Electronically Signed On 05-10-2020 18:24:29 CDT by Petty Ward M.D. [email or web address]
--- NOTE | 2020-05-09 07:59 | NMCV_ITS ---
NM hilaria perf SPECT r/s* [id number] Norma Varma Age: 64 Gender: F : 1955 Exam Date: 05/09/2020 09:15 Ordering Phys: Petty Ward MD ([email or web address]) Technologist: JUDITH Lewis Exam Location: [facility] Indications: CHEST PAIN STRESS TEST [facility] IMAGE PROTOCOL Rest/Stress 1 Lexiscan Day Radiopharmaceutical Dose (mCi) Administration Site Administered by Rest: Tc-99m 10.7 IV JUDITH Lewis Sestamibi Stress:Tc-99m 32.6 IV JUDITH Ramirez Sestamibi Rest: 09-May-2020 60 Discovery 630 Stress: 09-May-2020 30 Discovery 630 0.4mg Lexiscan. Images obtained in supine and prone position. SPECT RESULTS Technical Quality: Excellent Raw Data Analysis: Normal Image Corrections: No attenuation or motion correction applied Summed Stress Score: 2 Summed Rest Score: 3 Summed Difference Score: 0 PERFUSION FINDINGS Small areas of decreased tracer uptake in the apical regions FUNCTIONAL RESULTS (calculated via Gated SPECT) Stress Image LV EF (%): 65 Stress EDV (mL):75 TID: 1.02 Stress ESV (mL):26 FUNCTIONAL FINDINGS: Segmental wall motion analysis revealing no gross wall motion normalities IMPRESSIONS 1. Myocardial perfusion imaging revealing a small areas of persistent decreased tracer uptake in the apical regions, suggestive of myocardial scarring versus attenuation artifact. 2. Normal LV ejection fraction of 65%. 3. LV wall motion analysis revealing no gross wall motion abnormalities. 4. Normal LV volume. No significant coronary ischemia, based on the above findings Dr Petty Ward MD FACC (Electronically Signed) Final Date: 10 May 2020 13:34 S
--- NOTE | 2020-05-09 08:03 | USCV_ITS ---
Kojo Onrma Age: 64 Gender: F : 1955 Exam Date: 05/09/2020 08:23 Ordering Phys: Petty Ward MD ([email or web address]) Technologist: Sonya Boles Exam Location: [facility] Indication: SOB BP: 159 / 88 HR: 71 Rhythm: Sinus Technical Quality: Suboptimal MEASUREMENTS (Male / Female) Normal Values 2D ECHO LV Diastolic Diameter PLAX 3.9 cm 4.2 - 5.9 / 3.9 - 5.3 cm LV Systolic Diameter PLAX 2.9 cm LV Chamber Size 3.3 cm IVS Diastolic Thickness 1.8 cm 0.6 - 1.0 / 0.6 - 0.9 cm IVS Systolic Thickness 1.7 cm LVPW Diastolic Thickness 1.9 cm 0.6 - 1.0 / 0.6 - 0.9 cm LVPW Systolic Thickness 2.0 cm RV Chamber Size 2.0 cm LVOT Diameter 2.0 cm LV Ejection Fraction 2D Teich 48.4 % LV Ejection Fraction MOD 2C 63.4 % LV Ejection Fraction 2C AL 64.8 % LA Diameter 3.4 cm LA Width 3.6 cm LA Height 5.3 cm RA Width 2.8 cm RA Height 3.7 cm Aorta at Sinotubular Diameter 2.9 cm M-MODE LV Diastolic Diameter MM 5.1 cm 4.2 - 5.9 / 3.9 - 5.3 cm LV Systolic Diameter MM 3.1 cm LV Ejection Fraction MM Teich 69.2 % IVS Diastolic Thickness MM 1.0 cm 0.6 - 1.0 / 0.6 - 0.9 cm IVS Systolic Thickness MM 0.9 cm LVPW Diastolic Thickness MM 1.1 cm 0.6 - 1.0 / 0.6 - 0.9 cm LVPW Systolic Thickness MM 1.8 cm Aortic Annulus Diameter 3.6 cm LA Ao Ratio MM 0.9 MV E Point Septal Separation 0.8 cm DOPPLER AV Peak Velocity 134.0 cm/s LVOT Peak Velocity 113.0 cm/s AV Area Cont Eq vti 3.1 cm squared AV Area Cont Eq pk 2.7 cm squared MV Area PHT 4.0 cm squared Mitral E to A Ratio 1.0 MV E' Velocity 9.0 cm/s Mitral E to MV E' Ratio 7.5 Mitral E to LV E' Lateral Ratio 7.7 Mitral E to LV E' Septal Ratio 7.5 TR Peak Velocity 158.0 cm/s TR Peak Gradient 10.0 mmHg TV Peak E Velocity 51.0 cm/s Right Atrial Pressure 3.0 mmHg Pulmonary Artery Systolic Pressu 13.0 mmHg PV Peak Velocity 66.0 cm/s RV Acceleration Time 0.2 s RV Ejection Time 0.3 s RV AcT/ET 0.5 FINDINGS Left Ventricle Normal left ventricular size and systolic function, EF 76 %. No regional wall motion abnormalities. Mild concentric left ventricular hypertrophy Right Ventricle The right ventricle is normal in size and function. Right Atrium The right atrium is normal in size. Left Atrium Mildly increased left atrial size. Mitral Valve Thickened mitral valve. Aortic Valve Thickened aortic valve. Tricuspid Valve No gross abnormalities noted Pulmonic Valve Pulmonic valve not well visualized. Pericardium Normal pericardium without effusion. Aorta Normal aortic annulus size. CONCLUSIONS Normal left ventricular size and systolic function, EF 76 %. No regional wall motion abnormalities. Mild concentric left ventricular hypertrophy Thickened aortic and mitral valves There is no pericardial effusion. There are no intracardiac masses. Dr Petty Ward MD FACC (Electronically Signed) Final Date: 10 May 2020 01:07 S
--- NOTE | 2020-05-09 10:33 | SUR.PREOP ---
Patient reports no pain or discomfort prior to the start of the procedure.
[2020-05-09] MEDS: regadenoson 0.4 Mg/5 ml Syringe IVP (10:40)
[2020-05-09 11:08] VITALS: BP 151/83; PULSE 79
== END 2020-05-09 07:43 | disposition home or self-care (01) ==
LOC: CDL 07:50
PROVIDERS: PCP Nurse Practitioner Family; Visit Provider Internal Medicine Cardiovascular Disease
DX: R07.9 Chest pain, unspecified (principal); I35.0 Nonrheumatic aortic (valve) stenosis; R06.02 Shortness of breath; I05.8 Other rheumatic mitral valve diseases; I35.8 Other nonrheumatic aortic valve disorders
CPT/HCPCS: 78452; 93017; 93306; A9500; J2785

== ENCOUNTER → 2020-06-08 08:36 | Outpatient (BNVA) | payer MEDICARE, OTHER, SELFPAY | PROVIDERS: PCP Nurse Practitioner Family; Visit Provider Nurse Practitioner | DX: F33.2 Major depressive disorder, recurrent severe without psychotic features (principal); F17.210 Nicotine dependence, cigarettes, uncomplicated | CPT/HCPCS: 99213 ==

== ENCOUNTER 2020-06-13 11:00 | Outpatient (CLI) | payer MEDICARE, OTHER, SELFPAY | END 2020-06-13 11:01 | disposition home or self-care (01) | LOC: SLEEP 06-14 15:40 | PROVIDERS: PCP Nurse Practitioner Family; Visit Provider Internal Medicine Critical Care Medicine | DX: J44.9 Chronic obstructive pulmonary disease, unspecified (principal) | CPT/HCPCS: 94762 ==

== ENCOUNTER 2020-06-15 11:04 | Emergency (ER) | payer MEDICARE, OTHER, SELFPAY ==
[2020-06-15 11:10] VITALS: BMI 28.3
[2020-06-15 11:14] VITALS: BP 182/104; PULSE 80; RESP 18; TEMP 36.6; O2SAT 96
--- NOTE | 2020-06-15 11:20 | XRR_ITS ---
PROCEDURE INFORMATION: Exam: XR Right Toe(s) Exam date and time: 06/15/2020 11:21 AM Age: 64 years old Clinical indication: Injury or trauma; Fall; Initial encounter; Blunt trauma; Toes; Right lesser toe(s); Injury date: 06/05/20 TECHNIQUE: Imaging protocol: XR Right toes. Views: Minimum 2 views. COMPARISON: No relevant prior studies available. FINDINGS: Bones/joints: Normal. Soft tissues: Normal. Other findings: Visualized toes without fracture. XR/XR toe RT min 2V 90390 IMPRESSION: Visualized toes without fracture.
--- NOTE | 2020-06-15 11:20 | W.ED.EXTPRO ---
HPI - Extremity Problem General: Chief complaint: Extremity Injury, Lower Stated complaint: R TOE INJURY Time Seen by Provider: 06/15/20 11:10 History of Present Illness: HPI Narrative: Patient states that she stood up last night and fell backwards and her toe got caught underneath her and on her right foot #2 toe is painful now denies any other injuries Complaint: extremity pain Onset (ago): day(s) Pain Consistency: constant Location: right and toe Severity scale (1-10): 3 Quality: aching Associated symptoms: Reports no associated symptoms; Deny chest pain, fever(s) or rash Review of Systems Const: Denies: fever(s), chills or body aches Eyes: Denies: change in vision or blurry vision ENMT: Denies: throat pain or nasal congestion Card: Denies: chest pain or dyspnea on exertion Resp: Denies: dyspnea, productive cough or non-productive cough GI: Denies: abdominal pain, nausea or vomiting Musc: Reports: extremity pain (Right #2 toe with bruising from a fall last night) Skin/Breast: Denies: rash Neuro: Denies: headache(s) Psych: Denies: anxiety or depression Tj/Lymph: Denies: easy bruising PFSH ED PFSH: Medical History Acute UTI Anxiety Atherosclerosis of coronary artery of [place] heart with stable angina pectoris Benign essential hypertension with target blood pressure below 140/90 Chronic obstructive pulmonary disease Depression Essential hypertension Increased urinary frequency Lung nodules Major depressive disorder, recurrent severe without psychotic features Mixed hyperlipidemia Nicotine dependence, cigarettes, uncomplicated Otitis media Shortness of breath on exertion Surgical History Hx of CABG Social History Smoking and tobacco status: former smoker Quit status (tobacco): has quit using tobacco Year quit tobacco: 2017 - 1PPD x 50 Years Second hand smoke exposure: Yes Alcohol intake: never Lives independently: Yes Household members: family Marital status: / service: No Current occupational status: disabled History of recent travel: No Current gender identity: Female Physical Exam Const: COMMON NORMALS: no acute distress, average body habitus and patient oriented x3 HENMT: COMMON NORMALS: normocephalic HEAD & SCALP: normal to inspection and normocephalic FACE & SINUS: normal facial exam Eye: COMMON NORMALS: conjunctivae normal GENERAL EYE: appearance normal, both eyes and all related structures CONJUNCTIVA: Yes conjunctivae normal Neck/C-Spine: COMMON NORMALS: no JVD Chest: COMMONS NORMALS: normal inspection of the chest Resp: COMMON NORMALS: normal respiratory effort Cardio: COMMON NORMALS: no JVD, regular rate and regular rhythm RATE: regular rate RHYTHM: regular rhythm Extremity: COMMON NORMALS: normal to inspection and full ROM RIGHT LOWER EXTREMITY: Yes foot & digits (2. Toe with bruising tenderness mild swelling distal aspect) Neuro: COMMON NORMALS: patient oriented x3 Course Vital Signs: Vital signs: Vital Signs Temperature 97.9 F 06/15/20 11:14 Pulse Rate 80 06/15/20 11:14 Respiratory Rate 18 06/15/20 11:14 Blood Pressure 182/104 06/15/20 11:14 Pulse Oximetry 96 06/15/20 11:14 Discharge Plan Discharge Prescriptions: No Action Spiriva with HandiHaler 18 mcg capsule, w/inhalation device 1 cap INHALATION DAILY 30 Days Qty: 60 RF: 3 nitroglycerin 0.4 mg tablet, sublingual 0.4 mg SUBLINGUAL Q5M PRN (Reason: chest pain) 30 Days Qty: 30 RF: 3 aspirin [Aspir-Low] 81 mg tablet,delayed release (DR/EC) 81 mg PO DAILY RF: 0 lisinopril 40 mg tablet 40 mg PO DAILY RF: 0 fluticasone propion-salmeterol [Advair Diskus] 250-50 mcg/dose blister with device 1 inh INHALATION BID RF: 0 atorvastatin 20 mg tablet 20 mg PO DAILY RF: 0 epinephrine [EpiPen 2-Dmitri] 0.3 mg/0.3 mL auto-injector 0.3 mg IM ONCE PRN (Reason: Allergy Symptoms) RF: 0 omeprazole 40 mg capsule,delayed release(DR/EC) 40 mg PO DAILY RF: 0 metoprolol succinate 50 mg tablet extended release 24 hr 50 mg PO DAILY RF: 0 ipratropium-albuterol 0.5 mg-3 mg(2.5 mg base)/3 mL solution for nebulization 3 ml INHALATION .every 6 hours PRN (Reason: wheezing) Qty: 180 RF: 1 clonazepam 1 mg tablet 1 mg PO BID PRN (Reason: anxiety) Qty: 60 RF: 1 trazodone 50 mg tablet 50 mg PO BEDTIME Qty: 30 RF: 1 fluoxetine [Prozac] 40 mg capsule 80 mg PO QAM Qty: 180 RF: 0 albuterol sulfate [ProAir HFA] 90 mcg/actuation HFA aerosol inhaler 2 puff INHALATION QID PRN (Reason: shortness of breath or wheezing) Qty: 8.5 RF: 5 Combivent Respimat 20-100 mcg/actuation mist 1 puff INHALATION QID Qty: 4 RF: 5 Coding Level of Care Code ED Ribbon Cutter for Deidre Patton
== END 2020-06-15 12:20 | disposition home or self-care (01) ==
LOC: ER 12:16
PROVIDERS: Emergency Provider Nurse Practitioner Family; PCP Nurse Practitioner Family
DX: S90.121A Contusion of right lesser toe(s) without damage to nail, initial encounter (principal); W19.XXXA Unspecified fall, initial encounter; Z79.82 Long term (current) use of aspirin; I10 Essential (primary) hypertension; J44.9 Chronic obstructive pulmonary disease, unspecified; E78.2 Mixed hyperlipidemia; Z87.891 Personal history of nicotine dependence
CPT/HCPCS: 12345; 73660; 99281; 99282

== ENCOUNTER 2020-07-10 06:57 | Outpatient (CLI) | payer MEDICARE, OTHER, SELFPAY ==
[2020-07-10 07:50] VITALS: O2SAT 93
--- NOTE | 2020-07-10 10:20 | PFTS_ITS ---
Date of Study:07/10/20 Date of Dictation: MECHANICS: Forced vital capacity (FVC) is reduced. Forced expiratory volume in one second (FEV1) is reduced. FEV1/FVC is reduced. FLOW VOLUME LOOP: Reduced flow at all lung volumes with significant scooping. LUNG VOLUMES: Not performed due to claustrophobia. DIFFUSING CAPACITY FOR CARBON MONOXIDE: Moderate reduced. INTERPRETATION: The pulmonary function tests are consistent with moderate airflow obstruction. There is significant postbronchodilator response. Lung volumes are not measured. Gas exchange (DLCO) is moderately reduced. MTDD
== END 2020-07-10 06:58 | disposition home or self-care (01) ==
LOC: RT 06:57
PROVIDERS: PCP Nurse Practitioner Family; Visit Provider Internal Medicine Critical Care Medicine
DX: J42 Unspecified chronic bronchitis (principal)
CPT/HCPCS: 94060; 94729

== ENCOUNTER → 2020-07-19 15:15 | Outpatient (BNVA) | payer MEDICARE, OTHER, SELFPAY | PROVIDERS: PCP Nurse Practitioner Family; Visit Provider Internal Medicine Critical Care Medicine | DX: J30.9 Allergic rhinitis, unspecified (principal); J44.9 Chronic obstructive pulmonary disease, unspecified; R06.02 Shortness of breath; H66.90 Otitis media, unspecified, unspecified ear | CPT/HCPCS: 82785; 86003 ==

== ENCOUNTER → 2020-08-03 08:17 | Outpatient (BNVA) | payer MEDICARE, OTHER, SELFPAY | PROVIDERS: PCP Nurse Practitioner Family; Visit Provider Nurse Practitioner | DX: F33.2 Major depressive disorder, recurrent severe without psychotic features (principal); F17.210 Nicotine dependence, cigarettes, uncomplicated | CPT/HCPCS: 99213 ==

== ENCOUNTER → 2020-08-17 11:05 | Outpatient (BNVA) | payer MEDICARE, OTHER, SELFPAY | PROVIDERS: PCP Nurse Practitioner Family; Visit Provider Internal Medicine Cardiovascular Disease | DX: E78.2 Mixed hyperlipidemia (principal) | CPT/HCPCS: 80061; 80076 ==

== ENCOUNTER 2020-09-01 13:16 | Emergency (ER) | payer MEDICARE, OTHER, SELFPAY ==
[2020-09-01 14:05] VITALS: BP 155/75; PULSE 65; RESP 16; TEMP 36.8; O2SAT 95; BMI 28.0
== END 2020-09-01 14:43 | disposition left against medical advice (07) ==
LOC: ER 13:29
PROVIDERS: Emergency Provider Nurse Practitioner Family; PCP Nurse Practitioner Family
DX: Z53.21 Procedure and treatment not carried out due to patient leaving prior to being seen by health care provider (principal)
CPT/HCPCS: 99281

== ENCOUNTER 2020-09-19 12:05 | Outpatient (CLI) | payer MEDICARE, OTHER, SELFPAY ==
[2020-09-19 13:00] LABS: Hematocrit 44.3 % (37.0-47.0); Hemoglobin 14.2 g/dL (11.5-15.3); Mean Corpuscular HGB Conc 32.1 g/dL (30.0-36.0); Mean Corpuscular Hemoglobin 30.2 pg (28.0-34.0); Mean Corpuscular Volume 94.3 fL (81-99); Mean Platelet Volume 11.5 fL (7.4-10.4); Platelet Count 201 10^3/cmm (130-400); Red Cell Distribution Width 12.4 % (12.1-15.1); White Blood Count 4.5 10^3/uL (4.0-10.0)
[2020-09-19 13:09] LABS: Add Urine Culture? No; Bacteria Urine TRACE /hpf; Bilirubin Urine Neg (Negative); Blood Urine Neg (Negative); Glucose Urine UA Norm (Normal); Ketones Urine Negative (Negative); Leukocyte Esterase Urine Negative (Negative); Nitrate Urine Negative (Negative); Protein Urine Neg (Negative); Specific Gravity, Urine 1.015 (1.005-1.030); Squamous Epithelial Cell Urine 0-4 /hpf (0-5); Urine Appearance Clear (CLEAR); Urine Color Straw (Yellow); Urobilinogen Urine Neg (Negative); pH Urine 6.5 (5-7)
[2020-09-19 13:33] LABS: 25 Hydroxy Vitamin D 28 ng/mL (30-100); Alanine Aminotransferase 15 U/L (0-33); Albumin Level 4.2 g/dL (3.5-5.2); Alkaline Phosphatase 89 IU/L (35-105); Anion Gap 14.2 (5-19); Aspartate Amino Transferase 18 U/L (0-32); Blood Urea Nitrogen 11 mg/dL (8-23); Calcium 9.7 mg/dL (8.5-10.5); Carbon Dioxide 26 mmol/L (22-29); Chloride 103 mmol/L (98-107); Globulin 3.2 g/dL (1.3-4.6); Glomerular Filtration Rate 72.2 mL/min (90-130); Glucose 111 mg/dL (65-115); Osmolality Calculated 288 mOsm/kg (285-295); Potassium 4.2 mmol/L (3.5-5.1); Sodium 139 mmol/L (136-145); Thyroid Stimulating Hormone 1.82 uIU/mL (0.27-4.20); Total Bilirubin 0.2 mg/dL (0.15-1.2); Total Protein 7.4 g/dL (6.6-8.7)
[2020-09-19 13:51] LABS: Estmated Average Glucose 117; Hemoglobin A1C 5.7 % (4.0-6.0)
[2020-09-19 14:07] LABS: Occult Blood Stool Negative (Negative)
[2020-09-19 14:08] LABS: Occult Blood Stool Negative (Negative)
[2020-09-19 14:22] LABS: Absolute Segmented Neutrophil 2.6 10/cmm (1.6-7.1); Lymphocytes 35 %; Monocytes Absolute 0.2 10^3/cmm (0.1-0.6); Platelet Estimate Normal (Normal); Segmented Neutrophils 58 %; Total Cells Counted 100 (0-100)
[2020-09-19 17:55] LABS: Absolute Neutrophil 2.6 10^3/cmm (1.4-6.5)
[2020-09-19 17:56] LABS: Eosinophils 0 %
== END 2020-09-19 12:06 | disposition home or self-care (01) ==
LOC: LAB 12:11
PROVIDERS: PCP Nurse Practitioner Family; Visit Provider Nurse Practitioner Family
DX: R19.7 Diarrhea, unspecified (principal); E55.9 Vitamin D deficiency, unspecified; Z79.899 Other long term (current) drug therapy
CPT/HCPCS: 36415; 80053; 81001; 82306; 83036; 83630; 84443; 85007; 85027; 87506; G0328

== ENCOUNTER → 2020-10-11 16:05 | Outpatient (BNVA) | payer MEDICARE, OTHER, SELFPAY | PROVIDERS: PCP Nurse Practitioner Family; Visit Provider Internal Medicine | DX: R19.7 Diarrhea, unspecified (principal); K22.70 Barrett's esophagus without dysplasia | CPT/HCPCS: 82784; 83516 ==

== ENCOUNTER 2020-10-26 14:16 | Outpatient (CLI) | payer MEDICARE, OTHER, SELFPAY ==
--- NOTE | 2020-10-26 14:20 | XR_ITS ---
WS: [id number] XR lumbar spine 6V w f/e [id number] REASON FOR EXAM: M54.16 - Radiculopathy, lumbar region FINDINGS: There are 5 lumbar vertebral bodies. There is no significant compression deformity or focal vertebral body lesion. There is normal alignment with no significant listhesis. There is severe narrowing of the L1-L2 disc space with subchondral sclerosis and anterior spurring. T here is mild narrowing of the L1-L2 disc space. There is mild narrowing of the L5-S1 disc space. There are moderate degenerative changes in the facet joints L4-S1. There is no abnormal movement noted on the flexion and extension views. XR/XR lumbar spine 6V w f/e [id number] IMPRESSION: Changes of degenerative spondylosis as above.
--- NOTE | 2020-10-26 14:20 | XR_ITS ---
WS: [id number] PELVIS AND RIGHT HIP HISTORY: M19.90 - Unspecified osteoarthritis, unspecified site COMPARISON: None available. Right hip: No acute fracture or dislocation. No fractures or dislocation. Symmetric appearance of the hips and pelvis. XR/XR hip RT 2-3V wo/w pel* [id number] IMPRESSION: 1. No hip fracture. 2. No significant degenerative changes.
== END 2020-10-26 14:17 | disposition home or self-care (01) ==
PROVIDERS: PCP Nurse Practitioner Family; Visit Provider Nurse Practitioner Family
DX: M25.551 Pain in right hip (principal); M54.16 Radiculopathy, lumbar region
CPT/HCPCS: 72114; 73502

== ENCOUNTER 2020-11-02 07:58 | Outpatient (CLI) | payer MEDICARE, OTHER, SELFPAY ==
--- NOTE | 2020-11-02 08:00 | MR_ITS ---
WS: [id number] MRI LUMBAR SPINE NONCONTRAST HISTORY: M43.06 - Spondylolysis, lumbar region DDD COMPARISON: None available. TECHNIQUE: Sagittal and axial multisequence imaging is submitted. Mild straightening of the normal lumbar lordosis. Advanced degenerative disc space narrowing and desiccation at L1-2. There is an anterior disc protrus ion. Edema in the endplates of L1 and L2. There is also small amount of increased STIR signal along t he L1-2 disc. No adjacent soft tissue inflammatory changes. Conus terminates normally at L1. L1-L2: Diffuse annular disc bulging with a shallow central disc protrusion. No central or foraminal s tenosis. L2-L3: Diffuse annular disc bulging and mild osteophytic ridging. Very mild encroachment into the sub articular recesses with no significant stenosis. L3-L4: Mild annular disc bulging. No significant stenosis. L4-L5: Mild annular disc bulging with moderate ligamentum flavum and facet arthritis. Mild encroachme nt into the thecal sac. Mild central, subarticular recess and RIGHT foraminal stenosis. Annular fissu res in the RIGHT foraminal disc. L5-S1: Mild annular disc bulging with no stenosis. Small amount of fluid in the facet joints. Paravertebral soft tissues are normal. Mild ectasia of the abdominal aorta. MR/MR lumbar spine wo con* [id number] IMPRESSION: 1. Advanced degenerative disc disease at L1-2 with anterior disc protrusion. E lolita within the adjacent endplates of L1 and L2. These changes may all be relat ed to degenerative disc disease and spondylosis. Indolent discitis/osteomyeliti s may appear similar. There is not a lot of adjacent paravertebral body inflamm atory reaction to suggest a significant infectious process. Correlate clinicall y with any changes concerning for vertebral body osteomyelitis. Sedimentation r ate may be helpful. 2. Mild central, subarticular recess and RIGHT foraminal stenosis at L4-5.
== END 2020-11-02 07:59 | disposition home or self-care (01) ==
LOC: RADSHAW 08:02
PROVIDERS: PCP Nurse Practitioner Family; Visit Provider Nurse Practitioner Family
DX: M43.06 Spondylolysis, lumbar region (principal); M51.36 Other intervertebral disc degeneration, lumbar region; M48.061 Spinal stenosis, lumbar region without neurogenic claudication
CPT/HCPCS: 72148

== ENCOUNTER → 2020-11-07 08:14 | Outpatient (BNVA) | payer MEDICARE, OTHER, SELFPAY | PROVIDERS: PCP Nurse Practitioner Family; Visit Provider Nurse Practitioner | DX: F33.2 Major depressive disorder, recurrent severe without psychotic features (principal); F17.210 Nicotine dependence, cigarettes, uncomplicated | CPT/HCPCS: 99213 ==

== ENCOUNTER 2021-01-08 12:49 | Outpatient (CLI) | payer MEDICARE, OTHER, SELFPAY ==
[2021-01-08 13:36] LABS: Basophils % 0.8 %; Eosinophils # 0.1 10^3/uL (0.0-0.8); Eosinophils % 2.8 %; Hematocrit 43.6 % (37.0-47.0); Hemoglobin 14.1 g/dL (11.5-15.3); Lymphocytes # 2.2 10^3/uL (0.8-4.8); Lymphocytes % 44.7 %; Mean Corpuscular HGB Conc 32.3 g/dL (30.0-36.0); Mean Corpuscular Hemoglobin 30.7 pg (28.0-34.0); Mean Platelet Volume 11.4 fL (7.4-10.4); Monocytes # 0.4 10^3/uL (0.2-0.9); Neutrophils # 2.21 10^3/uL (1.8-7.7); Neutrophils % 44.5 %; Nucleated Red Blood Cells % 0 %; Platelet Count 201 10^3/cmm (130-400); Red Blood Count 4.59 10^6/uL (4.1-5.3); Red Cell Distribution Width 12.4 % (12.1-15.1)
[2021-01-08 14:01] LABS: C Reactive Protein 5.5 mg/L (0.0-4.9)
[2021-01-08 14:36] LABS: Erythrocyte Sedimentation Rate 29 mm/hr (0-15)
== END 2021-01-08 12:50 | disposition home or self-care (01) ==
PROVIDERS: PCP Nurse Practitioner Family; Visit Provider Student in an Organized Health Care Education/Training Program
DX: M86.9 Osteomyelitis, unspecified (principal)
CPT/HCPCS: 85025; 85651; 86140

== ENCOUNTER 2021-02-02 09:00 | Outpatient (CLI) | payer MEDICARE, OTHER, SELFPAY ==
--- NOTE | 2021-02-02 09:10 | CT_ITS ---
WS: [id number] LDCT LUNG CANCER SCREENING TECHNIQUE: Noncontrast CT of the chest with coronal and sagittal reformatted images. CLINICAL INFORMATION: HX OF TOBACCO USE COMPARISON: CTA chest November 2018 DLP: 51.02 mGy.cm DIvol: 1.[address] scans at [facility] use at least one of these dose optimization techniques: automat ed exposure control; mA and/or kV adjustment per patient size (includes targeted exams where dose is matched to clinical indication); or iterative reconstruction. FINDINGS: 3.5 mm noncalcified pulmonary nodule right lower lobe along the fissure. Mild chronic emphysematous changes. No acute pulmonary infiltrates. Sternotomy. Aortic calcification. Coronary calcification. No mediastinal or hilar lymphadenopathy. Adrenal glands are normal. No axillary lymphadenopathy. CT/CT lung screening [id number] IMPRESSION: LUNG-RADS: 2-Benign Appearance or Behavior FOLLOW UP: 12 Month: Continue annual screening with LDCT
== END 2021-02-02 09:01 | disposition home or self-care (01) ==
LOC: RAD 09:05
PROVIDERS: PCP Nurse Practitioner Family; Visit Provider Internal Medicine Critical Care Medicine
DX: Z12.2 Encounter for screening for malignant neoplasm of respiratory organs (principal); Z87.891 Personal history of nicotine dependence; I70.0 Atherosclerosis of aorta; I25.10 Atherosclerotic heart disease of native coronary artery without angina pectoris; R91.1 Solitary pulmonary nodule
CPT/HCPCS: 71271

== ENCOUNTER → 2021-02-16 11:20 | Outpatient (BNVA) | payer MEDICARE, OTHER, SELFPAY | PROVIDERS: PCP Nurse Practitioner Family; Visit Provider Nurse Practitioner | DX: F33.2 Major depressive disorder, recurrent severe without psychotic features (principal); F17.210 Nicotine dependence, cigarettes, uncomplicated | CPT/HCPCS: 99214 ==

== ENCOUNTER 2021-03-09 10:41 | Emergency (ER) | payer MEDICARE, OTHER, SELFPAY ==
--- NOTE | 2021-03-09 10:50 | XR_ITS ---
WS: [id number] Portable AP upright chest, 03/09/2021 Clinical Data: cough Comparison: Portable chest, 04/19/2020. Findings: There is a patchy opacity in the left lower lobe consistent with pneumonia. There is a smal l left effusion. The right lung is clear. Heart is normal. Midline sternotomy sutures are present. Th e aortic arch and descending aorta show calcification and tortuosity. No pneumothorax is seen. XR/XR chest 1V [id number] Impression: 1. Patchy left lower lobe opacity consistent with pneumonia. 2. Atherosclerosis.
[2021-03-09 11:15] VITALS: BP 118/58; PULSE 84; RESP 18; TEMP 37.3; O2SAT 90; BMI 29.7
--- NOTE | 2021-03-09 11:58 | W.ED.SOB ---
HPI - SOB/Dyspnea General: Chief Complaint: Shortness of Breath/Dyspnea Stated Complaint: TEMPM, SOB, HURTS EVERYWHERE Time Seen by Provider: 03/09/21 11:20 Source: patient Mode of arrival: ambulatory Limitations: no limitations History of Present Illness: HPI Narrative: This is a 65-year-old female with a history of COPD who presents to the emergency department with shortness of breath that started yesterday. She also noticed she had a fever yesterday as well as generalized body and joint aches. She normally wears oxygen at 3 L/min at night only but she was hypoxic in the emergency department with oxygen saturation 86% on room air so she was placed on oxygen at 3 L/min. She has increased cough and shortness of breath. MD elicited complaint: shortness of breath and cough Pertinent past history: COPD Onset (ago): day(s) (1) Timing: constant Severity: moderate Exacerbating factors: nothing Relieving factors: nothing Known history of: COPD Associated symptoms: Reports cough, fever(s), myalgias and nausea; Deny abdominal pain, chest congestion, chest pain, diaphoresis, dizziness, extremity pain, hemoptysis, lightheadedness, orthopnea, palpitations, paresthesias, polydipsia, polyuria, rash, sense of impending doom, syncope or vomiting Review of Systems General: Reports: 10 or more systems reviewed and unremarkable except in HPI and below Const: Reports: fever(s); Denies: diaphoresis Card: Denies: chest pain, palpitations, lightheadedness, syncope or orthopnea Resp: Denies: hemoptysis or chest congestion GI: Reports: nausea; Denies: abdominal pain or vomiting Musc: Denies: extremity pain Neuro: Denies: dizziness Endo: Denies: polyuria or polydipsia PFS ED PFSH: Medical History Acute exacerbation of chronic obstructive pulmonary disease Acute UTI Anxiety Arthritis Atherosclerosis of coronary artery of [place] with stable angina pectoris Benign essential hypertension with target blood pressure below 140/90 Chronic obstructive pulmonary disease DDD (degenerative disc disease), lumbar Depression Diarrhea Endometriosis Essential hypertension Increased urinary frequency Lower respiratory tract infection Lower respiratory tract infection Lumbar back pain with radiculopathy affecting right lower extremity Lumbar spondylolysis Lung nodules Major depressive disorder, recurrent severe without psychotic features Mixed hyperlipidemia Nicotine dependence, cigarettes, uncomplicated Osteomyelitis This is not a confirmed problem yet, patient is undergoing evaluation for possible osteomyelitis of the lumbar spine Otitis media Shortness of breath on exertion Urinary incontinence UTI (urinary tract infection), bacterial Vitamin D deficiency Surgical History Hx of CABG Family History Denies family history of Colon cancer Ovarian cancer Diabetes Heart disease Hypercholesteremia Breast cancer Hypertension Uterine cancer Thyroid disease Stroke Social History Smoking and tobacco status: former smoker Quit status (tobacco): has quit using tobacco Year quit tobacco: 2016 Former quit date comment: Hx of 1PPD x 40 Years Smoking risk assessment/counseling performed?: No Alcohol intake: never Counseling given: No Counseling given: No Lives independently: Yes Household members: none Marital status: / Current occupational status: retired and disabled History of recent travel: No Current gender identity: Female Physical Exam Const: COMMON NORMALS: no acute distress, average body habitus, patient oriented x3, no limitations, healthy appearing, alert and well nourished Neck/C-Spine: COMMON NORMALS: no meningeal signs and no JVD Chest: COMMONS NORMALS: normal inspection of the chest and normal palpation of entire chest wall Resp: COMMON NORMALS: normal respiratory effort, No retractions, No use of accessory muscles, clear to auscultation bilaterally and percussion normal AUSCULTATION: clear to auscultation bilaterally PERCUSSION: percussion normal Cardio: COMMON NORMALS: no JVD, regular rate, regular rhythm, S1 normal heart sound present, S2 normal heart sound present, No gallops present (Cardio), No clicks present (Cardio), No murmurs present (Cardio), No rub (Cardio) and Peripheral pulses 2+ throughout RATE: regular rate RHYTHM: regular rhythm HEART SOUNDS: S1 normal heart sound present and S2 normal heart sound present PERIPHERAL PULSES: Peripheral pulses 2+ throughout GI: COMMON NORMALS: Normal to inspection, nondistended, normoactive bowel sounds present, Soft to palpation, non-tender, No hepatosplenomegaly present, no masses and no bruits PALPATION: Yes Soft to palpation and Yes No hepatosplenomegaly present Extremity: COMMON NORMALS: normal to inspection, full ROM, capillary refill normal, no calf tenderness and no pedal edema Neuro: COMMON NORMALS: patient oriented x3 SENSORIUM/ORIENTATION: Yes alert MENINGEAL SIGNS: Yes no meningeal signs Course Reevaluation(s): Reevaluation #1: Discussed her lab and imaging findings with her. Discussed that she has pneumonia and since she is hypoxic discussed treatment options with her. Discussed inpatient versus outpatient therapy. She would like to try outpatient therapy first and if she does not improve she will return to be evaluated. Time: 14:02 Vital Signs: Vital signs: Vital Signs Temperature 99.1 F 03/09/21 11:15 Pulse Rate 88 03/09/21 15:54 Respiratory Rate 16 03/09/21 15:54 Blood Pressure 110/65 03/09/21 15:54 Pulse Oximetry 93 03/09/21 15:54 MDM - SOB/Dyspnea MDM Narrative: Medical decision making narrative: 65-year-old female patient who presents to the emergency department with a fever, myalgias, shortness of breath, cough. Evaluation in the emergency department is consistent with a left lower lobe pneumonia. Treatment options were offered to the patient and she wanted to try outpatient management, if she failed she return for hospital admission. She was given a dose of intravenous levofloxacin in the emergency department and discharged home on the same. Medical Records: Attestation: I reviewed the patient's medical records. Lab Data: Attestation: I reviewed the patient's lab results. Labs: Lab Results 03/09/21 03/09/21 03/09/21 Range/Units 11:32 11:32 12:11 WBC (4.0-10.0) 10^3/ uL RBC (4.1-5.3) 10^6/u L Hgb (11.5-15.3) g/dL Hct (37.0-47.0) % MCV (81-99) fL MCH (28.0-34.0) pg MCHC (30.0-36.0) g/dL RDW (12.1-15.1) % Plt Count (130-400) 10^3/c mm MPV (7.4-10.4) fL Neut % (Auto) % Lymph % (Auto) % Pierce % (Auto) % Eos % (Auto) % Baso % (Auto) % Neut # (Auto) (1.8-7.7) 10^3/u L Lymph # (Auto) (0.8-4.8) 10^3/u L Pierce # (Auto) (0.2-0.9) 10^3/u L Eos # (Auto) (0.0-0.8) 10^3/u L Baso # (Auto) (0.0-0.1) 10^3/u L Nucleated RBC % (a uto) % Nucleated RBCs # /100WBC Specimen Type Arterial Sample Site Radial, right ABG pH 7.41 (7.35-7.45) ABG pCO2 48.7 H (35-45) mmHg ABG pO2 70.9 L (80.0-100.0) mmH g ABG HCO3 30.5 H (22-26) mmol/L ABG Base Excess 4.8 H (-2.0-2.0) mmol/ L Jaquan Test Pos Hematocrit 38.9 (37-47) % Hgb O2 Saturation 92.6 L (95-100) % Carboxyhemoglobin 2.1 (0.4-20.1) %THgb Methemoglobin 0.9 (0.4-1.5) % Total Hemoglobin 12.7 (12-16) g/dL O2 Delivery Device Nc O2 Liters/Min 2.5 % FiO2 30.0 % Cartridge Assembler ID Monro Sodium Potassium Chloride Carbon Dioxide Anion Gap BUN Creatinine GFR Calculation Glucose Calculated Osmolal ity Lactic Acid Calcium Total Bilirubin AST ALT Alkaline Phosphata se NT-Pro-B Natriuret Pep Total Protein Albumin Globulin Influenza Type A A g Negative (Negative) Influenza Type B A g Negative (Negative) SARS-CoV-2 Ag (Rap id) Negative (Negative) 03/09/21 03/09/21 03/09/21 Range/Units 12:25 12:25 12:25 WBC 15.2 H (4.0-10.0) 10^3/ uL RBC 4.28 (4.1-5.3) 10^6/u L Hgb 13.0 (11.5-15.3) g/dL Hct 41.1 (37.0-47.0) % MCV 96.0 (81-99) fL MCH 30.4 (28.0-34.0) pg MCHC 31.6 (30.0-36.0) g/dL RDW 13.7 (12.1-15.1) % Plt Count 197 (130-400) 10^3/c mm MPV 11.5 H (7.4-10.4) fL Neut % (Auto) 84.0 % Lymph % (Auto) 10.1 % Pierce % (Auto) 4.5 % Eos % (Auto) 0.5 % Baso % (Auto) 0.3 % Neut # (Auto) 12.81 H (1.8-7.7) 10^3/u L Lymph # (Auto) 1.5 (0.8-4.8) 10^3/u L Pierce # (Auto) 0.7 (0.2-0.9) 10^3/u L Eos # (Auto) 0.1 (0.0-0.8) 10^3/u L Baso # (Auto) 0.1 (0.0-0.1) 10^3/u L Nucleated RBC % (a uto) 0 % Nucleated RBCs # 0.0 /100WBC Specimen Type Sample Site ABG pH (7.35-7.45) ABG pCO2 (35-45) mmHg ABG pO2 (80.0-100.0) mmH g ABG HCO3 (22-26) mmol/L ABG Base Excess (-2.0-2.0) mmol/ L Jaquan Test Hematocrit (37-47) % Hgb O2 Saturation (95-100) % Carboxyhemoglobin (0.4-20.1) %THgb Methemoglobin (0.4-1.5) % Total Hemoglobin (12-16) g/dL O2 Delivery Device O2 Liters/Min % FiO2 % Cartridge Assembler ID Sodium Cancelled Potassium Cancelled Chloride Cancelled Carbon Dioxide Cancelled Anion Gap Cancelled BUN Cancelled Creatinine Cancelled GFR Calculation Cancelled Glucose Cancelled Calculated Osmolal ity Cancelled Lactic Acid Cancelled Calcium Cancelled Total Bilirubin Cancelled AST Cancelled ALT Cancelled Alkaline Phosphata se Cancelled NT-Pro-B Natriuret Pep Cancelled Total Protein Cancelled Albumin Cancelled Globulin Cancelled Influenza Type A A g (Negative) Influenza Type B A g (Negative) SARS-CoV-2 Ag (Rap id) (Negative) 03/09/21 03/09/21 Range/Units 13:12 13:12 WBC (4.0-10.0) 10^3/ uL RBC (4.1-5.3) 10^6/u L Hgb (11.5-15.3) g/dL Hct (37.0-47.0) % MCV (81-99) fL MCH (28.0-34.0) pg MCHC (30.0-36.0) g/dL RDW (12.1-15.1) % Plt Count (130-400) 10^3/c mm MPV (7.4-10.4) fL Neut % (Auto) % Lymph % (Auto) % Pierce % (Auto) % Eos % (Auto) % Baso % (Auto) % Neut # (Auto) (1.8-7.7) 10^3/u L Lymph # (Auto) (0.8-4.8) 10^3/u L Pierce # (Auto) (0.2-0.9) 10^3/u L Eos # (Auto) (0.0-0.8) 10^3/u L Baso # (Auto) (0.0-0.1) 10^3/u L Nucleated RBC % (a uto) % Nucleated RBCs # /100WBC Specimen Type Sample Site ABG pH (7.35-7.45) ABG pCO2 (35-45) mmHg ABG pO2 (80.0-100.0) mmH g ABG HCO3 (22-26) mmol/L ABG Base Excess (-2.0-2.0) mmol/ L Jaquan Test Hematocrit (37-47) % Hgb O2 Saturation (95-100) % Carboxyhemoglobin (0.4-20.1) %THgb Methemoglobin (0.4-1.5) % Total Hemoglobin (12-16) g/dL O2 Delivery Device O2 Liters/Min % FiO2 % Cartridge Assembler ID Sodium 138 Potassium 4.0 Chloride 100 Carbon Dioxide 32 H Anion Gap 10.0 BUN 13 Creatinine 0.9 GFR Calculation 62.8 L Glucose 87 Calculated Osmolal ity 285 Lactic Acid 0.7 Calcium 8.6 Total Bilirubin 0.4 AST 9 ALT 11 Alkaline Phosphata se 70 NT-Pro-B Natriuret Pep 567 H Total Protein 6.0 L Albumin 3.5 Globulin 2.5 Influenza Type A A g (Negative) Influenza Type B A g (Negative) SARS-CoV-2 Ag (Rap id) (Negative) Imaging Data^: CXR: Attestation: I personally reviewed and interpreted this imaging study as follows: Radiologist's impression: [address] [address] XRay Report Signed Patient: Norma Varma #: [id number] : 6Acct#:[id number] Age/Sex: 65 / FADM Date: 03/09/21 Loc: ERRoom/Bed: Attending Dr: Ordering Provider/Ordering MD: Kelsea Harmon Date of Service: 03/09/21 Procedure(s): XR chest 1V 80464 Accession Number(s): [id number] Report Number: [id number] WS: [id number] Portable AP upright chest, 03/09/2021 Clinical Data: cough Comparison: Portable chest, 04/19/2020. Findings: There is a patchy opacity in the left lower lobe consistent with pneumonia. There is a small left effusion. The right lung is clear. Heart is normal. Midline sternotomy sutures are present. The aortic arch and descending aorta show calcification and tortuosity. No pneumothorax is seen. XR/XR chest 1V 95203 Impression: 1. Patchy left lower lobe opacity consistent with pneumonia. 2. Atherosclerosis. Dictated By:Penelope Madden MD Signed By:Penelope Madden MDSigned Date/Time:03/09/21 1116 DD/ 111 Discharge Plan Discharge Patient Disposition: Home Clinical Impression: Hypoxia Community acquired pneumonia Qualifiers: Laterality: left Lung location: lower lobe of lung Qualified Code(s): J18.9 - Pneumonia, unspecified organism Condition: Stable Prescriptions: Continued Spiriva with HandiHaler 18 mcg capsule, w/inhalation device 1 cap INHALATION DAILY 30 Days Qty: 60 RF: 3 azithromycin 250 mg tablet 250 mg PO .COMPLEX 90 Days Qty: 45 RF: 3 clonazepam 1 mg tablet 1 mg PO BID PRN (Reason: anxiety) Qty: 60 RF: 2 nitroglycerin 0.4 mg tablet, sublingual 0.4 mg SUBLINGUAL Q5M PRN (Reason: chest pain) 30 Days Qty: 30 RF: 3 fluticasone propion-salmeterol [Advair Diskus] 250-50 mcg/dose blister with device 1 inh INHALATION BID@1000,2200 RF: 0 epinephrine [EpiPen 2-Dmitri] 0.3 mg/0.3 mL auto-injector 0.3 mg IM ONCE PRN (Reason: Allergy Symptoms) RF: 0 albuterol sulfate [ProAir HFA] 90 mcg/actuation HFA aerosol inhaler 2 puff INHALATION QID PRN (Reason: shortness of breath or wheezing) Qty: 8.5 RF: 5 ipratropium-albuterol [Combivent Respimat] 20-100 mcg/actuation mist See Rx Instructions .ROUTE .COMPLEX Qty: 3 RF: 3 lidocaine [Lidoderm] 5 % adhesive patch,medicated 2 patch topical DAILY 30 Days Qty: 60 RF: 2 ipratropium-albuterol 0.5 mg-3 mg(2.5 mg base)/3 mL solution for nebulization 3 ml INHALATION .every 6 hours PRN (Reason: wheezing) Qty: 180 RF: 1 No Action Aspir-81 81 mg Tablet,Delayed Release (Dr/Ec) 81 mg PO DAILY@1000 RF: 0 Prozac 40 mg capsule 80 mg PO DAILY@1000 RF: 0 atorvastatin 40 mg tablet 40 mg PO DAILY@1000 RF: 0 trazodone 50 mg tablet 50 mg PO BEDTIME@2200 RF: 0 metoprolol succinate 50 mg tablet extended release 24 hr 50 mg PO DAILY@1000 RF: 0 lisinopril 40 mg tablet 40 mg PO DAILY@1000 RF: 0 Flonase Allergy Relief 50 mcg/actuation spray,suspension 2 spray INTRANASAL DAILY@1000 RF: 0 Discharge Orders: Discharge ED (Routine); Ordered 03/09/21 Ordered By: Rochelle Mosquera Referrals: [place] Rosario, SENIOR SALES OPERATIONS MANAGER [Primary Care Provider] - 1-3 days Discharge Diet: Usual diet Discharge Activity: Increase activity as tolerated Patient Instructions: Community-acquired Pneumonia (ED) Activity Restrictions/Additional Instructions: Return for any new or worsening symptoms. Follow-up with your primary care provider within 3 days. Use your oxygen all the time for now until you feel better. Take antibiotic as prescribed. Coding Level of Care Code ED Lead Supply Worker for Deidre Fwd Exam Detailed
[2021-03-09 12:13] LABS: Influenza A by IFA Negative (Negative); Influenza B by IFA Negative (Negative); SARS Covid-2 Antigen Negative (Negative)
[2021-03-09 12:24] LABS: ABG PCO2 48.7 mmHg (35-45); ABG PH Result 7.41 (7.35-7.45); Arterial Blood Gas Hematocrit 38.9 % (37-47); Base Excess ABG 4.8 mmol/L (-2.0-2.0); Blood Gas Allen Test Pos; Blood Gas LPM 2.5 %; Blood Gas Operator Identificat MONRO; Blood Gas Sample Site Radial, right; Blood Gas Sample Type Arterial; Carboxyhemoglobin 2.1 %THgb (0.4-20.1); HCO3 ABG 30.5 mmol/L (22-26); HGB O2 Sat 92.6 % (95-100); Methemoglobin 0.9 % (0.4-1.5); Oxygen Device NC; PO2 ABG 70.9 mmHg (80.0-100.0); Total Hemoglobin 12.7 g/dL (12-16)
[2021-03-09 12:38] LABS: Basophils # 0.1 10^3/uL (0.0-0.1); Basophils % 0.3 %; Eosinophils # 0.1 10^3/uL (0.0-0.8); Eosinophils % 0.5 %; Hematocrit 41.1 % (37.0-47.0); Lymphocytes # 1.5 10^3/uL (0.8-4.8); Lymphocytes % 10.1 %; Mean Corpuscular HGB Conc 31.6 g/dL (30.0-36.0); Mean Corpuscular Hemoglobin 30.4 pg (28.0-34.0); Mean Platelet Volume 11.5 fL (7.4-10.4); Monocytes # 0.7 10^3/uL (0.2-0.9); Monocytes % 4.5 %; Neutrophils # 12.81 10^3/uL (1.8-7.7); Nucleated Red Blood Cells % 0 %; Platelet Count 197 10^3/cmm (130-400); Red Blood Count 4.28 10^6/uL (4.1-5.3); Red Cell Distribution Width 13.7 % (12.1-15.1); White Blood Count 15.2 10^3/uL (4.0-10.0)
[2021-03-09 13:40] LABS: Lactic Sepsis W/Reflex 0.7 mmol/L (0.5-2.2)
[2021-03-09 13:49] LABS: Alanine Aminotransferase 11 U/L (0-33); Albumin Level 3.5 g/dL (3.5-5.2); Alkaline Phosphatase 70 IU/L (35-105); Aspartate Amino Transferase 9 U/L (0-32); Blood Urea Nitrogen 13 mg/dL (8-23); Calcium 8.6 mg/dL (8.5-10.5); Carbon Dioxide 32 mmol/L (22-29); Chloride 100 mmol/L (98-107); Globulin 2.5 g/dL (1.3-4.6); Glomerular Filtration Rate 62.8 mL/min (90-130); Glucose 87 mg/dL (65-115); NT Pro B Type Natriuretic Pept 567 pg/mL (0-125); Osmolality Calculated 285 mOsm/kg (285-295); Sodium 138 mmol/L (136-145); Total Bilirubin 0.4 mg/dL (0.15-1.2)
[2021-03-09] MEDS: levofloxacin-dextrose 5 % 750 MG/150 ML PREMIX 100 MG IV (14:24)
[2021-03-09 14:26] VITALS: BP 138/106; PULSE 83; RESP 17; O2SAT 95
[2021-03-09 15:54] VITALS: BP 110/65; PULSE 88; RESP 16; O2SAT 93
== END 2021-03-09 15:56 | disposition home or self-care (01) ==
PROVIDERS: Nurse Practitioner Family; Emergency Provider Family Medicine; PCP Nurse Practitioner Family
DX: J44.0 Chronic obstructive pulmonary disease with (acute) lower respiratory infection (principal); J18.9 Pneumonia, unspecified organism; J44.1 Chronic obstructive pulmonary disease with (acute) exacerbation; R09.02 Hypoxemia; Z79.82 Long term (current) use of aspirin; I25.10 Atherosclerotic heart disease of native coronary artery without angina pectoris; I10 Essential (primary) hypertension; E78.2 Mixed hyperlipidemia; Z95.1 Presence of aortocoronary bypass graft; Z87.891 Personal history of nicotine dependence
CPT/HCPCS: 36415; 36600; 71045; 80053; 82805; 83605; 83880; 85025; 87040; 87426; 87804; 96365; 99284; J1956

== ENCOUNTER → 2021-05-10 12:37 | Outpatient (BNVA) | payer MEDICARE, OTHER, SELFPAY | PROVIDERS: PCP Nurse Practitioner Family; Visit Provider Nurse Practitioner | DX: F33.2 Major depressive disorder, recurrent severe without psychotic features (principal); F17.210 Nicotine dependence, cigarettes, uncomplicated | CPT/HCPCS: 99214 ==

== ENCOUNTER 2021-06-18 11:33 | Inpatient (IN) | payer MEDICARE, OTHER, SELFPAY ==
[2021-06-18] VITALS (39 sets, daily range): BP systolic 111–186; BP diastolic 67–103; PULSE 46–93; RESP 12–28; TEMP 36.6; O2SAT 90–100; BMI 28.3
--- NOTE | 2021-06-18 11:36 | XR_ITS ---
WS: [id number] Portable AP upright chest, 06/18/2021 Clinical Data: dyspnea Comparison: Portable chest, 03/09/2021. Findings: No nodules, masses or effusions are seen. The heart is normal. The pulmonary vascularity is not increased. No pneumothorax is seen. There is minimal patchy opacity at the left cardiophrenic a ngle which could represent atelectasis and/or minimal pneumonia. The aortic arch shows minimal tortuo sity and calcification. There are midline sternotomy sutures. XR/XR chest 1V portable [id number] Impression: 1. Minimal patchy opacity at left cardiophrenic angle which may represent pneum onia. 2. Atherosclerosis.
--- NOTE | 2021-06-18 11:37 | ECG_ITS ---
[facility] ED Test Date: 2021-06-18 Pat Name: Norma Varma Department: Room: Gender: Female Graphic Art Designer: ARLYN : 1955 Requested By: Austin Garnett Order Number: [id number] Carmen MD: Violetta Mc M.D. Measurements Intervals [place] Rate: 44 P: 52 NC: 173 QRS: 78 QRSD: 88 T: 83 QT: 488 QTc: 418 Interpretive Statements SINUS BRADYCARDIA Compared to ECG 06/18/2021 11:37:54 No significant changes Electronically Signed On 06-21-2021 9:54:42 CDT by Violetta Mc M.D. [id number]
--- NOTE | 2021-06-18 12:05 | ED_ITS ---
HPI - Chest Pain General: Chief Complaint: Chest Pain Stated Complaint: chest pain Time Seen by Provider: 06/18/21 11:36 History of Present Illness: HPI narrative: 65-year-old female with a history of coronary disease presents emergency room with complaints of chest pain that began this morning around 830. She took sublingual nitro a total of 3. At that time she said her chest pain was 10 of 10 got down to a 5-6 out of 10 on arrival here with an inch Nitropaste on her chest that is down to 2 or 3. She is a former smoker is nondiabetic. She does have chronic bronchitis wears oxygen at night. She is also noticed some orthopnea recently. She denies fever sweats or chills. Pain did radiate into her neck back and her arms. Patient has a known history of coronary disease and previously had an PA with coronary artery bypass graft approximately 4 years ago. Per EMS she was given an additional 3 aspirin in the field as well as an inch of Nitropaste after the sublingual nitro she had taken. MD complaint: chest pain and chest heaviness Pertinent past history: coronary artery disease Onset (ago): hour(s) Timing of current episode: episodic Prior episodes: No Onset: during rest Pain location: substernal Pain radiation: back, neck and jaw/teeth Pain scale (0-10): 10 Quality: heaviness and sharp Relieving factors: nitroglycerin Exacerbating factors: nothing Associated symptoms: Reports dyspnea; Deny abdominal pain, diaphoresis, leg edema, palpitations or sense of impending doom Treatment prior to arrival: aspirin and nitroglycerin Review of Systems Const: Denies: diaphoresis ENMT: Denies: throat pain, ear or mastoid pain, nasal discharge or nasal co ngestion Card: Denies: palpitations Resp: Reports: dyspnea GI: Denies: abdominal pain : Denies: flank pain, difficulty voiding, dysuria, urinary frequency or urinary urgency Skin/Breast: Denies: rash or pruritus PFS ED PFSH: Medical History (Updated 06/20/21 @ 16:58 by Austin Jones DO) Acute exacerbation of chronic obstructive pulmonary disease Acute UTI Anxiety Arthritis Atherosclerosis of coronary artery of [place] heart with stable angina pectoris Benign essential hypertension with target blood pressure below 140/90 Chronic obstructive pulmonary disease DDD (degenerative disc disease), lumbar Depression Diarrhea Endometriosis Essential hypertension Increased urinary frequency Lower respiratory tract infection Lower respiratory tract infection Lumbar back pain with radiculopathy affecting right lower extremity Lumbar spondylolysis Lung nodules Major depressive disorder, recurrent severe without psychotic features Mixed hyperlipidemia Nicotine dependence, cigarettes, uncomplicated Osteomyelitis This is not a confirmed problem yet, patient is undergoing evaluation for possible osteomyelitis of the lumbar spine Otitis media Shortness of breath on exertion Urinary incontinence UTI (urinary tract infection), bacterial Vitamin D deficiency Surgical History (Updated 06/18/21 @ 19:28 by Logan Hsieh MD) Hx of CABG Family History Denies family history of Colon cancer Ovarian cancer Diabetes Heart disease Hypercholesteremia Breast cancer Hypertension Uterine cancer Thyroid disease Stroke Social History Smoking and tobacco status: former smoker Quit status (tobacco): has quit using tobacco Year quit tobacco: 2016 Former quit date comment: Hx of 1PPD x 40 Years Smoking risk assessment/counseling performed?: No Alcohol intake: never Counseling given: No Counseling given: No Lives independently: Yes Household members: none Marital status: / Current occupational status: retired and disabled History of recent travel: No Current gender identity: Female Physical Exam Const: COMMON NORMALS: no acute distress GENERAL APPEARANCE: cooperative and comfortable ORIENTATION/CONSCIOUSNESS: Yes awake, Yes oriented to person, Yes oriented to place and Yes oriented to time HENMT: COMMON NORMALS: normocephalic, atraumatic and hearing grossly normal bilaterally HEAD & SCALP: normocephalic and atraumatic Neck/C-Spine: COMMON NORMALS: no JVD Resp: AUSCULTATION: crackles Cardio: COMMON NORMALS: no JVD, regular rate, regular rhythm and No murmurs present (Cardio) RATE: regular rate RHYTHM: regular rhythm GI: COMMON NORMALS: Soft to palpation and No hepatosplenomegaly present AUSCULTATION: Yes normoactive bowel sounds PALPATION: Yes Soft to palpation, No Tenderness to palpation present (GI), No Guarding due to palpation present (GI) and Yes No hepatosplenomegaly present Extremity: COMMON NORMALS: normal to inspection, capillary refill normal, no clubbing, cyanosis or edema, no calf tenderness and no pedal edema Neuro: SENSORIUM/ORIENTATION: Yes oriented to person, Yes oriented to place and Yes oriented to time Skin: COMMON NORMALS: no rashes or lesions noted GENERAL SKIN EXAM: no rashes or lesions noted Course Vital Signs: Vital signs: Vital Signs Temperature 98 F 06/19/21 03:14 Pulse Rate 57 L 06/19/21 16:45 Respiratory Rate 21 H 06/19/21 14:15 Blood Pressure 136/68 06/19/21 17:15 Pulse Oximetry 94 06/19/21 16:39 MDM - Chest Pain MDM Narrative: Medical decision making narrative: Reviewed with hospitalist orders written will admit for complete rule out and further cardiac evaluation Lab Data: Labs: Lab Results 06/18/21 06/18/21 06/18/21 Range/Units 12:48 12:48 12:48 WBC 4.7 (4.0-10.0) 10^3/ uL RBC 4.25 (4.1-5.3) 10^6/u L Hgb 12.8 (11.5-15.3) g/dL Hct 41.0 (37.0-47.0) % MCV 96.5 (81-99) fL MCH 30.1 (28.0-34.0) pg MCHC 31.2 (30.0-36.0) g/dL RDW 13.1 (12.1-15.1) % Plt Count 150 (130-400) 10^3/c mm MPV 11.5 H (7.4-10.4) fL Neut % (Auto) 46.3 % Lymph % (Auto) 43.4 % [place] % (Auto) 6.2 % Eos % (Auto) 2.8 % Baso % (Auto) 0.9 % Neut # (Auto) 2.15 (1.8-7.7) 10^3/u L Lymph # (Auto) 2.0 (0.8-4.8) 10^3/u L [place] # (Auto) 0.3 (0.2-0.9) 10^3/u L Eos # (Auto) 0.1 (0.0-0.8) 10^3/u L Baso # (Auto) 0.0 (0.0-0.1) 10^3/u L Nucleated RBC % (a uto) 0 % Nucleated RBCs # 0.0 /100WBC Sodium 140 (136-145) mmol/L Potassium 4.4 (3.5-5.1) mmol/L Chloride 105 (98-107) mmol/L Carbon Dioxide 28 (22-29) mmol/L Anion Gap 11.4 (5-19) BUN 9 (8-23) mg/dL Creatinine 0.6 (0.5-0.9) mg/dL GFR Calculation 100.3 (90-130) mL/min Glucose 87 (65-115) mg/dL Calculated Osmolal ity 288 (285-295) mOsm/k g Calcium 9.3 (8.5-10.5) mg/dL Total Bilirubin 0.2 (0.15-1.2) mg/dL AST 16 (0-32) U/L ALT 12 (0-33) U/L Alkaline Phosphata se 72 (35-105) IU/L Troponin T Baselin e 6 (0-10) ng/L C-Reactive Protein (0.0-4.9) mg/L NT-Pro-B Natriuret Pep 421 H (0-125) pg/mL Total Protein 6.0 L (6.6-8.7) g/dL Albumin 3.9 (3.5-5.2) g/dL Globulin 2.1 (1.3-4.6) g/dL SARS-CoV-2 Ag (Rap id) (Negative) 06/18/21 06/18/21 Range/Units 12:48 13:24 WBC (4.0-10.0) 10^3/ uL RBC (4.1-5.3) 10^6/u L Hgb (11.5-15.3) g/dL Hct (37.0-47.0) % MCV (81-99) fL MCH (28.0-34.0) pg MCHC (30.0-36.0) g/dL RDW (12.1-15.1) % Plt Count (130-400) 10^3/c mm MPV (7.4-10.4) fL Neut % (Auto) % Lymph % (Auto) % [place] % (Auto) % Eos % (Auto) % Baso % (Auto) % Neut # (Auto) (1.8-7.7) 10^3/u L Lymph # (Auto) (0.8-4.8) 10^3/u L [place] # (Auto) (0.2-0.9) 10^3/u L Eos # (Auto) (0.0-0.8) 10^3/u L Baso # (Auto) (0.0-0.1) 10^3/u L Nucleated RBC % (a uto) % Nucleated RBCs # /100WBC Sodium (136-145) mmol/L Potassium (3.5-5.1) mmol/L Chloride (98-107) mmol/L Carbon Dioxide (22-29) mmol/L Anion Gap (5-19) BUN (8-23) mg/dL Creatinine (0.5-0.9) mg/dL GFR Calculation (90-130) mL/min Glucose (65-115) mg/dL Calculated Osmolal ity (285-295) mOsm/k g Calcium (8.5-10.5) mg/dL Total Bilirubin (0.15-1.2) mg/dL AST (0-32) U/L ALT (0-33) U/L Alkaline Phosphata se (35-105) IU/L Troponin T Baselin e (0-10) ng/L C-Reactive Protein 1.5 (0.0-4.9) mg/L NT-Pro-B Natriuret Pep (0-125) pg/mL Total Protein (6.6-8.7) g/dL Albumin (3.5-5.2) g/dL Globulin (1.3-4.6) g/dL SARS-CoV-2 Ag (Rap id) Negative (Negative) Discharge Plan Discharge Patient Disposition: Admitted As Inpatient Admit Provider: Devang Cobian Clinical Impression: Chest pain, Atherosclerosis of coronary artery of [place] heart with stable angina pectoris, Essential hypertension Condition: Stable Coding Level of Care Code ED [employer] for Chg Fwd Exam Comprehensive
[2021-06-18 12:56] LABS: Basophils % 0.9 %; Eosinophils # 0.1 10^3/uL (0.0-0.8); Eosinophils % 2.8 %; Hemoglobin 12.8 g/dL (11.5-15.3); Lymphocytes % 43.4 %; Mean Corpuscular HGB Conc 31.2 g/dL (30.0-36.0); Mean Corpuscular Hemoglobin 30.1 pg (28.0-34.0); Mean Corpuscular Volume 96.5 fL (81-99); Mean Platelet Volume 11.5 fL (7.4-10.4); Monocytes # 0.3 10^3/uL (0.2-0.9); Monocytes % 6.2 %; Neutrophils # 2.15 10^3/uL (1.8-7.7); Neutrophils % 46.3 %; Nucleated Red Blood Cells % 0 %; Platelet Count 150 10^3/cmm (130-400); Red Blood Count 4.25 10^6/uL (4.1-5.3); Red Cell Distribution Width 13.1 % (12.1-15.1); White Blood Count 4.7 10^3/uL (4.0-10.0)
[2021-06-18 13:24] LABS: Alanine Aminotransferase 12 U/L (0-33); Albumin Level 3.9 g/dL (3.5-5.2); Alkaline Phosphatase 72 IU/L (35-105); Blood Urea Nitrogen 9 mg/dL (8-23); Calcium 9.3 mg/dL (8.5-10.5); Carbon Dioxide 28 mmol/L (22-29); Chloride 105 mmol/L (98-107); Creatinine Clr Calc Pharmacy 66.9264; Globulin 2.1 g/dL (1.3-4.6); Glomerular Filtration Rate 100.3 mL/min (90-130); Glucose 87 mg/dL (65-115); NT Pro B Type Natriuretic Pept 421 pg/mL (0-125); Osmolality Calculated 288 mOsm/kg (285-295); Sodium 140 mmol/L (136-145); Total Bilirubin 0.2 mg/dL (0.15-1.2)
[2021-06-18 13:28] LABS: Troponin(5th) Baseline 6 ng/L (0-10)
--- NOTE | 2021-06-18 13:37 | ECG_ITS ---
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 Measurements Intervals [place] Rate: 52 P: 71 DE: 174 QRS: 95 QRSD: 93 T: 91 QT: 469 QTc: 437 Interpretive Statements SINUS BRADYCARDIA BORDERLINE RIGHT AXIS DEVIATION [QRS AXIS > 90] Compared to ECG 04/19/2020 14:17:19 Sinus rhythm no longer present Myocardial infarct finding no longer present Electronically Signed On 06-21-2021 12:41:44 CDT by Violetta Mc M.D. [id number]
[2021-06-18] MEDS: nitroglycerin drip 50 MG/250 ML PREMIX IV (13:39)
[2021-06-18 13:40] LABS: Anion Gap 11.4 (5-19); Aspartate Amino Transferase 16 U/L (0-32); Potassium 4.4 mmol/L (3.5-5.1)
[2021-06-18 14:49] LABS: C Reactive Protein 1.5 mg/L (0.0-4.9)
--- NOTE | 2021-06-18 14:52 | PM.HP ---
Providers/Chief Complaint Primary Care Provider: YORDAN Mclain Chief Complaint: chest pain History of Present Illness Norma Varma is a 65 year old female with a past medical history of CAD with four-vessel bypass graft, history of COPD asthma overlap, degenerative disc disease, hypertension, anxiety and depression, who presents to [facility] due to complaints of chest pain. Patient tells me that last night she just did not feel well, she was tossing and turning in bed, recently she has been feeling more weak, she has had generalized weakness is feeling tired all the time. No reported shortness of breath with exertion, no recent chest pain. She tells me that this morning she, when she woke up she developed severe substernal chest pain, radiating to the back, radiating to the left shoulder, her right under her left breast, a pressure-like pain, lasting a few minutes, she had to lie down due to the pain, some associate shortness of breath, no lightheadedness, dizziness, no diaphoresis, she is never had pain like this before, no hematemesis, no calf pain, no calf swelling, recent travel, no Covid vaccine, no known exposure to Covid. She took 2 nitroglycerin and EMS were called and she had a nitro paste placed and the pain started to joanie, she also received full dose aspirin, here in the emergency room she continued to have episodes of chest pain, and she was started on nitroglycerin drip, and then became chest pain-free. Patient's initial EKG shows sinus bradycardia, no acute ST-T wave changes, her first baseline troponin is 6, EKG shows some pulmonary vascular congestion, some degree of patchy opacity of left cardiophrenic angle. Currently she is chest pain-free, on 5 nitroglycerin, blood pressure 156/82, pulse 54, respiratory rate 17, temperature 97.9. During my discussion with patient, I did notice that she was speaking her oxygen saturations would drop into high 80s. Hospitalist team was called for admission. Review of Systems Const: Denies: fever(s) ENMT: Denies: nasal congestion Card: Reports: chest pain; Denies: palpitations, irregular heart rhythm, edema, lightheadedness, syncope, dyspnea on exertion or orthopnea Resp: Denies: dyspnea or non-productive cough GI: Denies: abdominal pain, nausea or vomiting : Denies: flank pain Skin/Breast: Denies: rash Neuro: Denies: headache(s) Psych: Denies: anxiety Medications/Allergies Home Medications Medication Instructions Recorded Confirmed Last Taken Type epinephrine 0.3 mg/0.3 mL 0.3 mg IM ONCE PRN 11/21/19 06/18/21 06/17/21 History injection, auto-injector nitroglycerin 0.4 mg sublingual 0.4 mg SUBLINGUAL Q5M PRN 30 Days 04/11/20 06/18/21 06/18/21 Rx tablet #30 tab tiotropium bromide 18 mcg capsule 1 cap INHALATION DAILY 30 Days #60 05/24/20 06/18/21 03/08/21 Rx with inhalation device inh ipratropium 20 mcg-albuterol 100 See Rx Instructions .ROUTE 12/25/20 06/18/21 06/17/21 Rx mcg/actuation mist for inhalation .COMPLEX #3 g lidocaine 5 % topical patch 2 patch TOPICAL DAILY 30 Days #60 12/27/20 06/18/21 06/17/21 Rx ea azithromycin 250 mg tablet 250 mg PO .COMPLEX 90 Days #45 tab 02/01/21 06/18/21 06/15/21 Rx ipratropium 0.5 mg-albuterol 3 mg 3 ml INHALATION .every 6 hours PRN 02/09/21 06/18/21 06/17/21 Rx (2.5 mg base)/3 mL nebulization #180 ml soln aspirin [Aspir-81] 81 mg PO DAILY@1000 03/09/21 06/18/21 06/17/21 History atorvastatin 40 mg PO DAILY@99903/09/21 06/18/21 06/17/21 History fluticasone propionate [Flonase 2 spray INTRANASAL DAILY@99903/09/21 06/18/21 06/17/21 History Allergy Relief] lisinopril 40 mg PO DAILY@99903/09/21 06/18/21 06/17/21 History metoprolol succinate 50 mg PO DAILY@99903/09/21 06/18/21 06/17/21 History albuterol sulfate 90 mcg/actuation 2 puff INHALATION QID PRN #8.5 gm 03/15/21 06/18/21 06/17/21 Rx aerosol inhaler fluticasone 250 mcg-salmeterol 50 1 inh INHALATION BID@1000,2200 #60 04/17/21 06/18/21 06/17/21 Rx mcg/dose blistr powdr for ea inhalation clonazepam 1 mg tablet 1 mg PO BID PRN #60 tab 05/10/21 06/18/21 06/17/21 Rx fluoxetine 40 mg capsule 80 mg PO DAILY@1000 #30 cap 05/10/21 06/18/21 06/17/21 Rx trazodone 50 mg tablet 50 mg PO BEDTIME@2200 #30 tab 05/10/21 06/18/21 06/17/21 Rx wei-oltreophcgx-ansadjaonnbfy 1 tab PO Q4H PRN 06/18/21 06/18/21 06/17/21 History [Sinus Aid] guaifenesin [Mucinex] 1,200 mg PO BID 06/18/21 06/18/21 06/17/21 History Allergies Allergy/AdvReac Type Severity Reaction Status Date / Time aspirin Allergy ADR-Diarrhe Verified 05/28/21 09:02 a cefaclor [From Ceclor] Allergy ALGY-Anaphy Verified 05/28/21 09:02 laxis PFSH Acute PFSH: Medical History Acute exacerbation of chronic obstructive pulmonary disease Acute UTI Anxiety Arthritis Atherosclerosis of coronary artery of [place] heart with stable angina pectoris Benign essential hypertension with target blood pressure below 140/90 Chronic obstructive pulmonary disease DDD (degenerative disc disease), lumbar Depression Diarrhea Endometriosis Essential hypertension Increased urinary frequency Lower respiratory tract infection Lower respiratory tract infection Lumbar back pain with radiculopathy affecting right lower extremity Lumbar spondylolysis Lung nodules Major depressive disorder, recurrent severe without psychotic features Mixed hyperlipidemia Nicotine dependence, cigarettes, uncomplicated Osteomyelitis This is not a confirmed problem yet, patient is undergoing evaluation for possible osteomyelitis of the lumbar spine Otitis media Shortness of breath on exertion Urinary incontinence UTI (urinary tract infection), bacterial Vitamin D deficiency Surgical History Hx of CABG Family History Denies family history of Colon cancer Ovarian cancer Diabetes Heart disease Hypercholesteremia Breast cancer Hypertension Uterine cancer Thyroid disease Stroke Social History Smoking and tobacco status: former smoker Quit status (tobacco): has quit using tobacco Year quit tobacco: 2016 Former quit date comment: Hx of 1PPD x 40 Years Smoking risk assessment/counseling performed?: No Alcohol intake: never Counseling given: No Counseling given: No Lives independently: Yes Household members: none Marital status: / Current occupational status: retired and disabled History of recent travel: No Current gender identity: Female Vitals/I&O/Wt Last Vital Signs Temp 97.9 F 06/18/21 12:13 Pulse 54 L 06/18/21 14:30 Resp 17 06/18/21 14:30 BP 156/82 06/18/21 14:30 Pulse Ox 90 06/18/21 14:05 Weight last 48 hrs Weight 72.575 kg Physical Exam Const: COMMON NORMALS: no acute distress and patient oriented x3 GENERAL APPEARANCE: cooperative and comfortable HENMT: COMMON NORMALS: normocephalic HEAD & SCALP: normocephalic Eye: COMMON NORMALS: Equal, round and reactive pupils present GENERAL EYE: appearance normal, both eyes and all related structures PUPIL: Yes Equal, round and reactive pupils present Neck/C-Spine: COMMON NORMALS: full ROM and no JVD THYROID: Thyroid normal Lymph: LYMPHATIC: no lymphadenopathy noted Resp: COMMON NORMALS: normal respiratory effort, No retractions, No use of accessory muscles and clear to auscultation bilaterally AUSCULTATION: clear to auscultation bilaterally Cardio: COMMON NORMALS: no JVD, regular rate, regular rhythm, S1 normal heart sound present, S2 normal heart sound present, No gallops present (Cardio), No clicks present (Cardio) and No murmurs present (Cardio) RATE: regular rate RHYTHM: regular rhythm HEART SOUNDS: S1 normal heart sound present and S2 normal heart sound present GI: COMMON NORMALS: Normal to inspection, nondistended, normoactive bowel sounds present, Soft to palpation and non-tender Extremity: COMMON NORMALS: no pedal edema Neuro: COMMON NORMALS: CN's II-XII intact bilaterally, moves all extremities and no focal motor deficits Psych: COMMON NORMALS: mental status grossly normal, Normal thought process present and cooperative THOUGHT PROCESS: Normal thought process present Data : 06/18/21 12:48 06/18/21 12:48 A&P Assessment and plan (1) Chest pain: -History sounds cardiac in nature -Initial troponin -Initial EKG no acute ST-T wave changes, sinus bradycardia -Currently chest pain-free on 5 of nitro -However does have complaints of chest pain radiating to the back, will need to evaluate for aortic dissection and/or PE -Stress test on May 10, 2020 showed an EF of 65%, small areas of persistent decreased tracer uptake in the apical regions, suggestive of myocardial scarring versus attenuation artifact, no gross wall motion abnormalities -EF of 76%, no regional wall motion abnormalities, mild LVH Plan: -Admit to cardiac stepdown unit -Aspirin, statin, metoprolol, continue nitro drip, wean as tolerated -Await CT angiogram -Cardiac echo -Serial troponins, serial EKGs, telemetry monitoring -Monitor chest pain -We will discuss with cardiology service -Potential for n.p.o. midnight, stress test tomorrow morning Status: Acute (2) DDD (degenerative disc disease), lumbar: Status: Acute (3) Asthma-COPD overlap syndrome: Status: Acute (4) Essential hypertension: Status: Acute (5) Mixed hyperlipidemia: Status: Acute (6) Benign essential hypertension with target blood pressure below 140/90: Status: Acute (7) Atherosclerosis of coronary artery of [place] heart with stable angina pectoris: Status: Acute Qualifiers: Coronary Disease-Associated Artery/Lesion type: unspecified vessel or lesion type Qualified Code(s): I25.118 - Atherosclerotic heart disease of [place] coronary artery with other forms of angina pectoris (8) Anxiety: Status: Acute (9) Depression: Status: Acute (10) Major depressive disorder, recurrent severe without psychotic features: Status: Acute Attestations Medical Necessity Statement*: Patient requires hospitalization, inpatient, greater than 2 midnights, for chest pain Coding Level of Care Code Acute Chief Privacy Officer for [facility] Diagnoses Chest pain R07.9 DDD (degenerative disc disease), lumbar M51.36 Asthma-COPD overlap syndrome J44.9 Essential hypertension I10 Mixed hyperlipidemia E78.2 Benign essential hypertension with target blood pressure below 140/90 I10 Atherosclerosis of coronary artery of [place] heart with stable angina pectoris I25.118 Coronary Disease-Associated Artery/Lesion type: unspecified vessel or lesion type Anxiety F41.9 Depression F32.9 Major depressive disorder, recurrent severe without psychotic features F33.2
[2021-06-18 15:08] LABS: SARS Covid-2 Antigen Negative (Negative)
[2021-06-18 15:13] LABS: D Dimer 1.15 ug/mIFEU (0-0.59)
[2021-06-18 15:26] LABS: Troponin 5 2HR Delta 0 ABS# (0-10)
--- NOTE | 2021-06-18 19:19 | P.CONIM_ITS ---
Providers/Reason For Consult Consulting Physician/Specialty*: Cardiology Reason for Consult*: Chest pain in a patient with history of CABG Attending Physician: Devang Cobian MD Primary Care Provider: YORDAN Mclain History of Present Illness History of Present Illness Norma Varma is a 65 year old female past medical history significant for hypertension hyperlipidemia coronary disease status post CABG with normal ejection fraction presented with worsening of chest pain shortness of breath. Upon arrival patient complained of that chest pressure like a squeeze and 8 x 10. It was relieved with painkiller and IV nitroglycerin. Patient had negative stress test last year. According to her this is going on for the last few months menses experiencing off-and-on these kind of symptoms and not become consistent difficulty came to the hospital. She is being admitted to rule out for acute coronary syndrome initial cardiac markers are negative Review of Systems Const: Denies: fever(s) or diaphoresis Eyes: Reports: photophobia ENMT: Denies: throat pain, enlarged tonsils, ear or mastoid pain, nasal discharge or nasal congestion Card: Reports: chest pain; Denies: palpitations, irregular heart rhythm, edema, lightheadedness, syncope, dyspnea on exertion or orthopnea Resp: Denies: dyspnea or non-productive cough GI: Denies: abdominal pain, nausea or vomiting : Denies: flank pain, difficulty voiding, dysuria, urinary frequency or urinary urgency Musc: Denies: joint warmth Skin/Breast: Denies: rash or pruritus Neuro: Denies: headache(s) Psych: Denies: anxiety All/Imm: Denies: acute wheezing Meds/Allergies Home Medications and Allergies Home Medications Medication Instructions Recorded Confirmed Last Taken Type epinephrine 0.3 mg/0.3 mL 0.3 mg IM ONCE PRN 11/21/19 06/18/21 06/17/21 History injection, auto-injector nitroglycerin 0.4 mg sublingual 0.4 mg SUBLINGUAL Q5M PRN 30 Days 04/11/20 06/18/21 06/18/21 Rx tablet #30 tab tiotropium bromide 18 mcg capsule 1 cap INHALATION DAILY 30 Days #60 05/24/20 06/18/21 03/08/21 Rx with inhalation device inh ipratropium 20 mcg-albuterol 100 See Rx Instructions .ROUTE 12/25/20 06/18/21 06/17/21 Rx mcg/actuation mist for inhalation .COMPLEX #3 g lidocaine 5 % topical patch 2 patch TOPICAL DAILY 30 Days #60 12/27/20 06/18/21 06/17/21 Rx ea azithromycin 250 mg tablet 250 mg PO .COMPLEX 90 Days #45 tab 02/01/21 06/18/21 06/15/21 Rx ipratropium 0.5 mg-albuterol 3 mg 3 ml INHALATION .every 6 hours PRN 02/09/21 06/18/21 06/17/21 Rx (2.5 mg base)/3 mL nebulization #180 ml soln aspirin [Aspir-81] 81 mg PO DAILY@1000 03/09/21 06/18/21 06/17/21 History atorvastatin 40 mg PO DAILY@1000 03/09/21 06/18/21 06/17/21 History fluticasone propionate [Flonase 2 spray INTRANASAL DAILY@1000 03/09/21 06/18/21 06/17/21 History Allergy Relief] lisinopril 40 mg PO DAILY@1000 03/09/21 06/18/21 06/17/21 History metoprolol succinate 50 mg PO DAILY@1000 03/09/21 06/18/21 06/17/21 History albuterol sulfate 90 mcg/actuation 2 puff INHALATION QID PRN #8.5 gm 03/15/21 06/18/21 06/17/21 Rx aerosol inhaler fluticasone 250 mcg-salmeterol 50 1 inh INHALATION BID@1000,2200 #60 04/17/21 06/18/21 06/17/21 Rx mcg/dose blistr powdr for ea inhalation clonazepam 1 mg tablet 1 mg PO BID PRN #60 tab 05/10/21 06/18/21 06/17/21 Rx fluoxetine 40 mg capsule 80 mg PO DAILY@1000 #30 cap 05/10/21 06/18/21 06/17/21 Rx trazodone 50 mg tablet 50 mg PO BEDTIME@2200 #30 tab 05/10/21 06/18/21 06/17/21 Rx aqt-iqjrpujxnco-qiwnhezmnspxh 1 tab PO Q4H PRN 06/18/21 06/18/21 06/17/21 History [Sinus Aid] guaifenesin [Mucinex] 1,200 mg PO BID 06/18/21 06/18/21 06/17/21 History Allergies Allergy/AdvReac Type Severity Reaction Status Date / Time aspirin Allergy ADR-Diarrhe Verified 05/28/21 09:02 a cefaclor [From Ceclor] Allergy ALGY-Anaphy Verified 05/28/21 09:02 laxis Current Medications Current Medications Generic Name Dose Route Start Last Admin Trade Name Freq PRN Reason Stop Dose Admin Nitroglycerin/Dextrose 50 mg in 250 mls @ 0 mls/hr 06/18/21 13:15 06/18/21 13:39 Nitroglycerin Drip IV 5 mcg/min .Q0M ROB 1.5 mls/hr Administration Protocol Per Protocol PFSH Acute PFSH: Medical History (Updated 06/18/21 @ 19:28 by Logan Hsieh MD) Acute exacerbation of chronic obstructive pulmonary disease Acute UTI Anxiety Arthritis Atherosclerosis of coronary artery of [place] heart with stable angina pectoris Benign essential hypertension with target blood pressure below 140/90 Chronic obstructive pulmonary disease DDD (degenerative disc disease), lumbar Depression Diarrhea Endometriosis Essential hypertension Increased urinary frequency Lower respiratory tract infection Lower respiratory tract infection Lumbar back pain with radiculopathy affecting right lower extremity Lumbar spondylolysis Lung nodules Major depressive disorder, recurrent severe without psychotic features Mixed hyperlipidemia Nicotine dependence, cigarettes, uncomplicated Osteomyelitis This is not a confirmed problem yet, patient is undergoing evaluation for possible osteomyelitis of the lumbar spine Otitis media Shortness of breath on exertion Urinary incontinence UTI (urinary tract infection), bacterial Vitamin D deficiency Surgical History (Updated 06/18/21 @ 19:28 by Logan Hsieh MD) Hx of CABG Family History Denies family history of Colon cancer Ovarian cancer Diabetes Heart disease Hypercholesteremia Breast cancer Hypertension Uterine cancer Thyroid disease Stroke Social History Smoking and tobacco status: former smoker Quit status (tobacco): has quit using tobacco Year quit tobacco: 2017 Former q uit date comment: Hx of 1PPD x 40 Years Smoking risk assessment/counseling performed?: No Alcohol intake: never Counseling given: No Counseling given: No Lives independently: Yes Household members: none Marital status: / Current occupational status: retired and disabled History of recent travel: No Current gender identity: Female Dietary Habits: Current diet type/program: regular Caffeine: Yes Vitals/I&O/Wt Last Vital Signs Temp 97.9 F 06/18/21 12:13 Pulse 54 L 06/18/21 18:57 Resp 16 06/18/21 18:57 BP 158/78 06/18/21 18:57 Pulse Ox 96 06/18/21 18:57 Weight last 48 hrs Weight 160 lb Physical Exam Narrative: EXAM NARRATIVE: GENERAL: Patient is alert, awake and oriented x3. NECK: No jugular vein distension. HEENT: No cyanosis. No icterus. No pallor. HEART: Regular S1 and S2. No murmur, rub or gallop. LUNGS: Clear to auscultate bilaterally. ABDOMEN: Soft, nontender and nondistended. Positive bowel sounds. No guarding, rebound or tenderness. CENTRAL NERVOUS SYSTEM: Grossly nonfocal. EXTREMITIES: Lower extremities without edema bilaterally. Data Labs: Other Labs: SINUS BRADYCARDIA BORDERLINE RIGHT AXIS DEVIATION [QRS AXIS > 90] Compared to ECG 04/19/2020 14:17:19 Sinus rhythm no longer present Myocardial infarct finding no longer present A&P Assessment and plan (1) Chest pain: Worsening of chest pain along with shortness of breath in a patient with history of CABG despite of optimal medical management meant with concern for angina. Patient is stable on nitro drip continue anticoagulation continue aspirin statin beta-mayte. We are planning to proceed with left heart cath patient may be appropriate in her case as she had a negative stress test last year and would not like to do another one. I have explained all risk benefit and already for the procedure she would like to proceed with left heart cath in the morning. She will be n.p.o. in the morning. Status: Acute Qualifiers: Chest pain type: precordial pain Qualified Code(s): R07.2 - Precordial pain (2) Hx of CABG: S/p history of CABG chest pain suspicious for angina patient is high risk for acute coronary syndrome we will proceed with left heart cath. Status: Acute (3) Essential hypertension: Well-controlled continue current regimen Status: Acute Consult Attestations Medical Necessity Statement: Patient require continuation hospitalization for above defined care. 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
[2021-06-18] MEDS: sodium chloride 0.9% 1,000 ML 50 ML IV (20:31)
[2021-06-18] MEDS: diphenhydrAMINE 50 mg Capsule PO (20:31)
--- NOTE | 2021-06-18 21:09 | CTR_ITS ---
PROCEDURE INFORMATION: Exam: CTA Chest With and Without Contrast Exam date and time: 06/18/2021 9:09 PM Age: 65 years old Clinical indication: Shortness of breath; Sternal or substernal pain; Prior surgery; Additional info: Chest pain radiating to the back, evaluate for dissection and pe TECHNIQUE: Imaging protocol: Computed tomographic angiography of the chest with contrast. 3D rendering (Not supervised by radiologist): MIP and/or 3D reconstructed images were created by the technologist. Total images: 558 Radiation optimization: All CT scans at this facility use at least one of these dose optimization techniques: automated exposure control; mA and/or kV adjustment per patient size (includes targeted exams where dose is matched to clinical indication); or iterative reconstruction. Contrast material: OMNI 350; Contrast volume: 95 ml; Contrast route: INTRAVENOUS (IV); COMPARISON: 1. CTA Chest-Pulmonary Emb [id number] 11/25/2018 5:57 PM 2. CTA Chest-Pulmonary Emb [id number] 05/06/2018 4:09:43 PM RADIATION DOSE METRICS: Total DLP (mGy-cm): 927.26 FINDINGS: Pulmonary arteries: No visible evidence of pulmonary embolism/pulmonary arterial thrombus. Aorta: The thoracic aorta is is without evidence of intimal flap or dissection. No fusiform aneurysmal dilatation. Moderate arterial sclerotic disease. Mild intramural thrombus of the distal thoracic aorta stable. 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 Other arteries: Incidental note of hemodynamically significant stenosis of greater than 60% ostium of the right renal artery. No occlusion. Lungs: No visible active interstitial or alveolar airspace disease. Pleural spaces: Unremarkable. No pneumothorax. No pleural effusion. Heart: Status post sternotomy chest and CABG. No cardiomegaly. No visible pericardial effusion. Left ventricular prominence. Coronary artery disease. Lymph nodes: No visible evidence of active mediastinal or hilar lymphadenopathy. Calcified complexes of antecedent granulomatous disease. Bones/joints: No visible active or acute osseous pathology. Soft tissues: Unremarkable. CT/CT angio chest [id number] IMPRESSION: 1. No visible evidence of pulmonary embolism/pulmonary arterial thrombus. 2. No visible evidence of thoracic aortic dissection or intimal flap. 3. Other nonurgent, nonemergent, chronic, and age related findings as detailed in text above. Radiation Dose CTDIVOL = (mGy): DLP = 927.26 (mGy-cm)
--- NOTE | 2021-06-18 21:28 | PC.NURSE ---
report to Arabella SAUCEDA
[2021-06-18] MEDS: iohexol 350 mg/mL 100 mL Btl IV (21:36)
[2021-06-18] MEDS: trazodone 50 mg Tablet PO (23:07)
[2021-06-18] MEDS: enoxaparin 40 mg/0.4 mL Syringe SUBCUT (23:07)
[2021-06-19] VITALS (57 sets, daily range): BP systolic 94–153; BP diastolic 47–103; PULSE 49–89; RESP 12–24; TEMP 36.6; O2SAT 86–99
--- NOTE | 2021-06-19 00:44 | PC.NURSE ---
Patient alert and oriented. Nitro gtt running at 5 mcg. Patient is alert and oriented and has been oriented to her room and call light and verbalized understanding. Patient does not c/o any pain. Patient states that she has chronic diarrhea and goes several times a day.
--- NOTE | 2021-06-19 00:55 | PC.NURSE ---
Patient is currently resting with eyes closed. Will monitor.
[2021-06-19 04:26] LABS: Basophils % 0.8 %; Eosinophils # 0.1 10^3/uL (0.0-0.8); Eosinophils % 2.9 %; Hematocrit 40.4 % (37.0-47.0); Hemoglobin 12.4 g/dL (11.5-15.3); Lymphocytes # 2.2 10^3/uL (0.8-4.8); Lymphocytes % 46.7 %; Mean Corpuscular HGB Conc 30.7 g/dL (30.0-36.0); Mean Corpuscular Hemoglobin 30.2 pg (28.0-34.0); Mean Corpuscular Volume 98.5 fL (81-99); Mean Platelet Volume 11.6 fL (7.4-10.4); Monocytes # 0.3 10^3/uL (0.2-0.9); Monocytes % 6.7 %; Neutrophils # 2.04 10^3/uL (1.8-7.7); Neutrophils % 42.5 %; Nucleated Red Blood Cells % 0 %; Platelet Count 169 10^3/cmm (130-400); White Blood Count 4.8 10^3/uL (4.0-10.0)
[2021-06-19 04:48] LABS: Alanine Aminotransferase 11 U/L (0-33); Albumin Level 3.5 g/dL (3.5-5.2); Alkaline Phosphatase 70 IU/L (35-105); Aspartate Amino Transferase 14 U/L (0-32); Blood Urea Nitrogen 10 mg/dL (8-23); Calcium 8.8 mg/dL (8.5-10.5); Carbon Dioxide 26 mmol/L (22-29); Chloride 105 mmol/L (98-107); Creatinine Clr Calc Pharmacy 66.9264; Globulin 2.3 g/dL (1.3-4.6); Glucose 76 mg/dL (65-115); Osmolality Calculated 284 mOsm/kg (285-295); Sodium 138 mmol/L (136-145); Total Bilirubin 0.3 mg/dL (0.15-1.2); Total Protein 5.8 g/dL (6.6-8.7)
[2021-06-19 05:02] LABS: Chol HDL Ratio 3.31 mg/dL (0.0-4.40); Cholesterol 195 mg/dL (0-200); HDL Cholesterol 59 mg/dL (60-100); LDL Cholesterol Calculated 108 mg/dL (50-129); LDL HDL Ratio 1.83 RATIO (0.00-3.22); Magnesium 1.8 mg/dL (1.7-2.3); NT Pro B Type Natriuretic Pept 337 pg/mL (0-125); Phosphorus 3.9 mg/dL (2.5-4.5); Thyroid Stimulating Hormone 1.48 uIU/mL (0.27-4.20); Triglycerides 138 mg/dL (0-150)
[2021-06-19] MEDS: albuterol 8 gm MDI 2 PUFF INHALATION ×2 (08:34→16:48)
[2021-06-19] MEDS: lidocaine 5% Patch 2 PATCH TOPICAL (09:53)
[2021-06-19] MEDS: aspirin 81 mg EC Tablet PO (09:54)
[2021-06-19] MEDS: lisinopril 20 mg Tablet 40 MG PO (09:54)
[2021-06-19] MEDS: fluoxetine 20 mg Capsule 80 MG PO (09:54)
[2021-06-19] MEDS: atorvastatin 40 mg Tablet PO (09:55)
[2021-06-19] MEDS: metoprolol succinate ER (24 HR) 50 mg Tablet PO (09:55)
[2021-06-19] MEDS: fluticasone nasal spray 16gm Btl 2 SPRAY INTRANASAL (09:57)
--- NOTE | 2021-06-19 10:17 | PC.CHAP ---
Pastoral Care Encounter/Spiritual Assessment Type of Contact [] Declined automation machine builder visit [] Patient/Family/Request visit [] Outpatient visit [] Follow-up visit [] Physician referral [] Code/Alert [x] Routine visit [] Staff referral [] Actively dying [] Patient sleeping [] Family support [] [] Out of room [] Palliative care [] [] Receiving care in room [] Pre-surgical visit [] Trauma [] Long length of stay [] ICU visit [] Other: Relational/Emotional Strength [] Patient feels connected with others/family/visitors/staff [] Distress [] Loneliness/isolation [] Abandonment Spirituality of Patient [] Person of Arabella [] Attends Mandaeism of their Arabella [] Believes in Prayer [] Reads Bible or Cheondoism materials [] There are Spiritual issues to be addressed Bead Builder Interventions [x] Prayer [] Active listening [] Non-anxious presence [] Spiritual/emotional support [] Crisis/trauma care [] Spiritual counseling [] Bereavement support [] Provided bereavement packet [] Provided Bible/devotional materials [] Provided toy/stuffed animal, coloring book to patient or family member [] Provided Communion [] Anointing/[place] [] Salvation [x] Completed spiritual assessment [] Other: Impact on Illness or Injury [] Angry [] Fearful [] Anxious [] Often cries [] Exhaustion [] Unable to work [] Unable to attend yarsanism [] Unable to walk/stand [] Unable to read [] Unable to drive [] Unable to eat/drink [] Unable to sleep [] Unable to be with family [] Patient intubated [] Other: Summary feeling somewhat better... Time spent with patient 5 min
--- NOTE | 2021-06-19 11:17 | W.PM.OPSUD ---
Surgery/Procedure H&P Update DATE OF PROCEDURE: June 19, 2021 DATE H&P PERFORMED: 06/19/21 H&P UPDATE INFORMATION: I have reviewed H&P completed within last 30 days, I have examined patient prior to procedure and No changes to prior documentation PREOP DIAGNOSIS: Unstable angina PATIENT REASSESSED PRIOR TO SEDATION, WITH NO CHANGE NOTED: Yes PHYSICAL EXAM: alert, oriented x 3 and clear to auscultation bilaterally AIRWAY EVAL/ANESTHESIA PLAN: ASA II, Risks, benefits & alternatives of sedation and/or procedure discussed and Patient agrees to continue as planned
--- NOTE | 2021-06-19 11:18 | XACV_ITS ---
Exam Room: [facility] Ht: 160 cm Wt: 73 kg BSA: 1.82 m2 Gender: Female : 1955 Any Known Allergies: Other Exam Priority: Routine Indication(s): - Unstable angina Procedure(s): Procedure Description: Diagnostic procedure Procedure Description: Venous Graft Catheterization Procedure Description: NOLASCO Graft Catheterization Procedure Description: Coronary Angiography Diagnostic Cath Status: Urgent Diagnostic Findings * Left Main has no disease. * Mid Left Anterior Descending: total occlusion, BONIFACIO: 0 flow. * Left Internal Mammary Artery to Distal Left Anterior Descending graft: patent. * Proximal Right Coronary Artery to Mid Right Coronary Artery: total occlusion, BONIFACIO: 0 flow. * Ascending Aorta to Distal Right Coronary Artery graft: patent. * Proximal Circumflex: severe 90% stenosis, BONIFACIO: 3 flow. * 1st Diagonal: severe 90% stenosis, BONIFACIO: 0 flow. * Ascending Aorta to Lateral First Obtuse Marginal Branch Segment graft: patent. * Sequential SVG graft from Lateral First Obtuse Marginal Branch Segment to 1st Diagonal: patent. * Four grafts visualized. * Coronary angiography shows right dominance. Conclusions 1. There is total occlusion coronary artery disease with three vessel disease. 2. Four coronary grafts visualized: all grafts patent. 3. Patient has prior CABG. Recommendations * Continue current medical management and risk factor modification. Pressures Phase:Rest AO : 87 / 22 ( 33 ) @ 10:36:00 AM 116 / 65 ( 84 ) @ 10:39:00 AM 96 / 55 ( 74 ) @ 10:44:00 AM Clinical Evaluation EBL: 5mL-10mL Procedural Details Procedure Consent Obtained. Pre-Procedure Time Out. Identified patient by full name and date of as verbalized by the patient/guarantor. Does the consent match the physician's order: Yes. Accurate & Complete Informed Consent: Yes. Inpatient/Outpatient History & Physical on Chart: Yes. If H&P is completed, is and addenduem needed: No. Visualize and Verify Site with Patient/Guarantor: N/A. Relevant Radiology Images available: Yes. The risks, benefits, and alternatives of sedation and/or procedure were discussed by physician. The patient agrees to continue. Procedure started. [facility] Clinical Fraility Score: 3: Managing Well. Block Layer Indications: New Onset Angina (unstable angina). Chest Pain Symptom Assessment: Typical Angina Symptoms. Cardiovascular Instability: No. Correct patient, site and procedure confirmed by cath team. Current diagnosis: Unstable angina. PERRLA. 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 Lungs clear x 5 lobes. IV Site on Arrival: 20 gauge in the left wrist. IV Fluids: 0.9% NaCl at KVO. 500 mL infused prior to medical lab director. Pre Procedural Pulses: bilateral dorsalis pedis was 2+. Pre Procedural Pulses: bilateral posterior tibial was 2+. Pre Procedural Pulses: bilateral radial was 2+. Oxygen started at 2liters/min via nasal canula. right groin was prepped with chloroprep then draped in the usual sterile fashion. Physician notified. Baseline sample Acquired. HR: 56 BPM. Patient's family unavailable due to current Covid restrictions. Equipment: 6F - Femoral. Physician arrived. Physician scrubbed in. Immediate Pre-Procedure Time Out. Correct Patient: Yes; Correct Procedure: Yes; Correct Site: Yes; Correct Patient Position: Yes; Correct Supplies: Yes Dried Flammable Prep: Yes; Blood Products Available: N/A. Current Diagnosis : Unstable angina. Lidocaine 1% infiltrated to the right groin. ACIST Manifold Kit Model BT 2000. Heparinized Saline (2 units/mL), 1000 mL bag. Cardiac Cath Pack. Kit, Micropuncture. Arterial access obtained with micropuncture set. A 5 slovenian JL4 catheter in over wire. Multiple views taken of left coronary artery. Catheter removed over the standard wire. A 5 slovenian JR4 catheter in over wire. Cine of right coronary artery performed. SVG's to RCA visualized and patent. Y-Graft to the OM and Diagonal visualized and patent. NOLASCO to LAD visualized and patent. Catheter removed over the standard wire. Physician scrubbed out to view cine. A Right femoral angiogram was performed to determine safe placement of closure device. Mynx placed without complications. No signs or symptoms of hematoma noted. Sterile dressing applied per usual sterile fashion. Lot #[id number]. Post Procedure: Pulses reassessed and unchanged. PERRLA. 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 No VTE prophylaxis required. Medication's Wasted: Lidocaine 1% = 10 mL. Medication's Wasted: Heparin = 1000 units. Total IV fluids: 34.7 mL. Post-op diagnosis: Multi vessel CAD/Patent grafts. Complications: none. Estimated blood loss: 5mL-10mL. A Mynx was successful obtaining hemostatsis at the Right Femoral artery insertion site. Lot # [id number]. Procedure completed. Patient transferred by bed to 1st floor. Vital chart was stopped. Access Site Site: Right Femoral artery Sheath Size: 6 Fr Hemostasis Method: Mynx Hemostasis Success: Successful Procedure Medications Start: 11:23 AM Stop: 11:23 AM Medication: Benadryl Amount: 50 mg Route: I.V. Start: 11:27 AM Stop: 11: AM Medication: Versed Amount: 1 mg Route: I.V. Start: 11:27 AM Stop: 11: AM Medication: Fentanyl Amount: 50 mcg Route: I.V. Start: 11:28 AM Stop: 11:28 AM Medication: Versed Amount: 1 mg Route: I.V. Start: 11:28 AM Stop: 11: AM Medication: Fentanyl Amount: 50 mcg Route: I.V. I, the attending physician, have reviewed and verified all procedure medications. Yes, all medications given per verbal order History/Risk Factors Hypertension: Yes Dyslipidemia: Yes Peripheral Arterial Disease (PAD): No Myocardial Infarction (NC): No Obesity: No Renal Disease: No Tobacco Use: Former Prior Interventions PCI: No CABG: Yes Valve Surgery: No Report Signatures Finalized by Logan Hsieh MD on 07/02/2021 07:46 PM
--- NOTE | 2021-06-19 12:43 | P.DS_ITS ---
Discharge Providers Date of Admission: 06/18/21 14:20 Date of Discharge: June 19, 2021 Attending Provider at Admission: Devang Cobian MD Attending Provider at Discharge: Devang Cobian MD Primary Care Provider: YORDAN Mclain Diagnoses at Discharge Discharge Diagnosis (1) Chest pain: Status: Acute Qualifiers: Chest pain type: precordial pain Qualified Code(s): R07.2 - Precordial pain (2) Hx of CABG: Status: Acute (3) Essential hypertension: Status: Acute Reason for Visit Reason for Visit: chest pain Hospital Course Hospital Course This is a 65 old female with a past medical history of CAD with four-vessel bypass, COPD asthma overlap, degenerative disc disease, hypertension, anxiety depression, who presents to [facility] due to complaints of chest pain Patient was admitted to [facility] for chest pain, EKG had no acute ST-T wave changes, troponin no significant delta, she underwent cardiac catheterization with no intervention. Patient is to follow-up with cardiology as outpatient, continue aspirin, statin. Incidentally noted was hemodynamically significant stenosis of greater than 60% ostium of the right renal artery, no occlusion, patient is on lisinopril, patient is to follow-up with nephrology within 1 week, monitor blood pressures through primary care, follow-up with vascular surgery in 1 month Patient was also found to have: Mild intramural thrombus of the distal thoracic aorta stable. 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 Patient is to follow-up with vascular surgery as outpatient Physical Exam Const: COMMON NORMALS: no acute distress and patient oriented x3 Resp: COMMON NORMALS: normal respiratory effort, No retractions, No use of accessory muscles and clear to auscultation bilaterally AUSCULTATION: clear to auscultation bilaterally Cardio: COMMON NORMALS: regular rate, regular rhythm, S1 normal heart sound present and S2 normal heart sound present RATE: regular rate RHYTHM: regular rhythm HEART SOUNDS: S1 normal heart sound present and S2 normal heart sound present GI: COMMON NORMALS: Normal to inspection, nondistended, normoactive bowel so unds present, Soft to palpation and non-tender PALPATION: Yes Soft to palpation Extremity: COMMON NORMALS: no pedal edema Neuro: COMMON NORMALS: patient oriented x3 Discharge Data Data Completed and Pending: Completed Studies During Hospitalization Category Date Time Status CT angio chest 71 275 Urgent Cat Scan 06/18/21 21:09 Completed XR chest 1V nina ble [id number] Stat Exams 06/18/21 11:36 Completed Pending at discharge Category Date Time Status PREPAROLE COUNSELING AIDE request for service Routin e Exams 06/19/21 11:18 Taken Magnesium AM LABS Lab 06/20/21 04:00 Ordered Magnesium AM LABS Lab 06/21/21 04:00 Ordered Partial Thrombopl astin Time Routine Lab 06/19/21 14:05 Ordered Phosphorus AM LAB S Lab 06/20/21 04:00 Ordered Phosphorus AM LAB S Lab 06/21/21 04:00 Ordered CV. echo wo/w con trast [id number] Routin e Ultrasound 06/19/21 21:09 Taken Labs from last 24 hours 06/19/21 06/19/21 06/19/21 03:57 03:57 03:57 WBC RBC Hgb Hct MCV MCH MCHC RDW Plt Count MPV Neut % (Auto) Lymph % (Auto) [place] % (Auto) Eos % (Auto) Baso % (Auto) Neut # (Auto) Lymph # (Auto) [place] # (Auto) Eos # (Auto) Baso # (Auto) Nucleated RBC % (a uto) Nucleated RBCs # D-Dimer Sodium 138 Potassium 4.0 Chloride 105 Carbon Dioxide 26 Anion Gap 11.0 BUN 10 Creatinine 0.7 GFR Calculation 84.0 L Glucose 76 Calculated Osmolal ity 284 L Calcium 8.8 Phosphorus 3.9 Magnesium 1.8 Total Bilirubin 0.3 AST 14 ALT 11 Alkaline Phosphata se 70 Troponin T Baselin e Troponin T 120 Min [place] Delta Troponin T C-Reactive Protein NT-Pro-B Natriuret Pep Cancelled 337 H Total Protein 5.8 L Albumin 3.5 Globulin 2.3 Triglycerides Cancelled 138 Cholesterol Cancelled 195 LDL Cholesterol, C alc Cancelled 108 HDL Cholesterol Cancelled 59 L LDL/HDL Ratio Cancelled 1.83 Cholesterol/HDL Ra samuel Cancelled 3.31 TSH 1.48 SARS-CoV-2 Ag (Rap id) 06/19/21 06/18/21 06/18/21 03:57 14:54 14:54 WBC 4.8 RBC 4.10 Hgb 12.4 Hct 40.4 MCV 98.5 MCH 30.2 MCHC 30.7 RDW 13.0 Plt Count 169 MPV 11.6 H Neut % (Auto) 42.5 Lymph % (Auto) 46.7 [place] % (Auto) 6.7 Eos % (Auto) 2.9 Baso % (Auto) 0.8 Neut # (Auto) 2.04 Lymph # (Auto) 2.2 [place] # (Auto) 0.3 Eos # (Auto) 0.1 Baso # (Auto) 0.0 Nucleated RBC % (a uto) 0 Nucleated RBCs # 0.0 D-Dimer 1.15 H Sodium Potassium Chloride Carbon Dioxide Anion Gap BUN Creatinine GFR Calculation Glucose Calculated Osmolal ity Calcium Phosphorus Magnesium Total Bilirubin AST ALT Alkaline Phosphata se Troponin T Baselin e Troponin T 120 Min [place] 6.00 Delta Troponin T 0 C-Reactive Protein NT-Pro-B Natriuret Pep Total Protein Albumin Globulin Triglycerides Cholesterol LDL Cholesterol, C alc HDL Cholesterol LDL/HDL Ratio Cholesterol/HDL Ra samuel TSH SARS-CoV-2 Ag (Rap id) 06/18/21 06/18/21 06/18/21 13:24 12:48 12:48 WBC RBC Hgb Hct MCV MCH MCHC RDW Plt Count MPV Neut % (Auto) Lymph % (Auto) [place] % (Auto) Eos % (Auto) Baso % (Auto) Neut # (Auto) Lymph # (Auto) [place] # (Auto) Eos # (Auto) Baso # (Auto) Nucleated RBC % (a uto) Nucleated RBCs # D-Dimer Sodium Potassium Chloride Carbon Dioxide Anion Gap BUN Creatinine GFR Calculation Glucose Calculated Osmolal ity Calcium Phosphorus Magnesium Total Bilirubin AST ALT Alkaline Phosphata se Troponin T Baselin e 6 Troponin T 120 Min [place] Delta Troponin T C-Reactive Protein 1.5 NT-Pro-B Natriuret Pep Total Protein Albumin Globulin Triglycerides Cholesterol LDL Cholesterol, C alc HDL Cholesterol LDL/HDL Ratio Cholesterol/HDL Ra samuel TSH SARS-CoV-2 Ag (Rap id) Negative 06/18/21 06/18/21 12:48 12:48 WBC 4.7 RBC 4.25 Hgb 12.8 Hct 41.0 MCV 96.5 MCH 30.1 MCHC 31.2 RDW 13.1 Plt Count 150 MPV 11.5 H Neut % (Auto) 46.3 Lymph % (Auto) 43.4 [place] % (Auto) 6.2 Eos % (Auto) 2.8 Baso % (Auto) 0.9 Neut # (Auto) 2.15 Lymph # (Auto) 2.0 [place] # (Auto) 0.3 Eos # (Auto) 0.1 Baso # (Auto) 0.0 Nucleated RBC % (a uto) 0 Nucleated RBCs # 0.0 D-Dimer Sodium 140 Potassium 4.4 Chloride 105 Carbon Dioxide 28 Anion Gap 11.4 BUN 9 Creatinine 0.6 GFR Calculation 100.3 Glucose 87 Calculated Osmolal ity 288 Calcium 9.3 Phosphorus Magnesium Total Bilirubin 0.2 AST 16 ALT 12 Alkaline Phosphata se 72 Troponin T Baselin e Troponin T 120 Min [place] Delta Troponin T C-Reactive Protein NT-Pro-B Natriuret Pep 421 H Total Protein 6.0 L Albumin 3.9 Globulin 2.1 Triglycerides Cholesterol LDL Cholesterol, C alc HDL Cholesterol LDL/HDL Ratio Cholesterol/HDL Ra samuel TSH SARS-CoV-2 Ag (Rap id) Vitals: Last Vital Signs Temp 98 F 06/19/21 03:14 Pulse 89 06/19/21 08:00 Resp 15 06/19/21 08:00 BP 138/65 06/19/21 08:00 Pulse Ox 97 06/19/21 08:00 Discharge Plan Discharge Patient Disposition: Home Condition: Stable Prescriptions: Continued Spiriva with HandiHaler 18 mcg capsule, w/inhalation device 1 cap INHALATION DAILY 30 Days Qty: 60 RF: 3 azithromycin 250 mg tablet 250 mg PO .COMPLEX 90 Days Qty: 45 RF: 3 trazodone 50 mg tablet 50 mg PO BEDTIME@2200 Qty: 30 RF: 2 Prozac 40 mg capsule 80 mg PO DAILY@1000 Qty: 30 RF: 2 clonazepam 1 mg tablet 1 mg PO BID PRN (Reason: anxiety) Qty: 60 RF: 2 nitroglycerin 0.4 mg tablet, sublingual 0.4 mg SUBLINGUAL Q5M PRN (Reason: chest pain) 30 Days Qty: 30 RF: 3 epinephrine [EpiPen 2-Dmitri] 0.3 mg/0.3 mL auto-injector 0.3 mg IM ONCE PRN (Reason: Allergy Symptoms) RF: 0 albuterol sulfate [ProAir HFA] 90 mcg/actuation HFA aerosol inhaler 2 puff INHALATION QID PRN (Reason: shortness of breath or wheezing) Qty: 8.5 RF: 0 ipratropium-albuterol [Combivent Respimat] 20-100 mcg/actuation mist See Rx Instructions .ROUTE .COMPLEX Qty: 3 RF: 3 lidocaine [Lidoderm] 5 % adhesive patch,medicated 2 patch topical DAILY 30 Days Qty: 60 RF: 2 ipratropium-albuterol 0.5 mg-3 mg(2.5 mg base)/3 mL solution for nebulization 3 ml INHALATION .every 6 hours PRN (Reason: wheezing) Qty: 180 RF: 1 fluticasone propion-salmeterol [Advair Diskus] 250-50 mcg/dose blister with device 1 inh INHALATION BID@1000,2200 Qty: 60 RF: 2 Sinus Aid 2-30-500 mg Tablet 1 tab PO Q4H PRN (Reason: sinus/allergy symptoms) RF: 0 Mucinex 1,200 mg Tablet Extended Release 12hr 1,200 mg PO BID RF: 0 aspirin [Aspir-81] 81 mg Tablet,Delayed Release (Dr/Ec) 81 mg PO DAILY@1000 RF: 0 atorvastatin 40 mg tablet 40 mg PO DAILY@1000 RF: 0 metoprolol succinate 50 mg tablet extended release 24 hr 50 mg PO DAILY@1000 RF: 0 lisinopril 40 mg tablet 40 mg PO DAILY@1000 RF: 0 fluticasone propionate [Flonase Allergy Relief] 50 mcg/actuation spray,suspension 2 spray INTRANASAL DAILY@1000 RF: 0 Discharge Orders: Discharge Order (Routine); Ordered 06/19/21 Ordered By: Devang Cobian Referrals: Janis Toscano NP [Referring] - 1 week (old thrombosed lateral 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 and proximal aortic arch measuring 33 mm x 18 mm x 28 mm stable left right renal artery stenosis ) Jayson Pepe MD [Referring] - 1 month (right renal artery stenosis) Leonidas Babcock APRN [Nurse Practitioner] - Discharge Diet: Cardiac Discharge Activity: Resume usual activity Patient Instructions: Opioid Safety Activity Restrictions/Additional Instructions: -If you have chest pain please come back to emergency room -For your right renal artery stenosis please follow-up with nephrology and vascular surgery -For your aneurysm dilatation of descending thoracic aorta follow-up with vascular surgery Discharge Attestations Time Spent in Discharge Care*: less than 30 min Quality Metrics Clinical Quality Measures During this hospital stay, did patient experience: None Coding Level of Care Code Acute Chg FW DC note Exam Detailed Diagnoses Chest pain R07.2 Chest pain type: precordial pain Hx of CABG Z95.1 Essential hypertension I10
--- NOTE | 2021-06-19 15:09 | PC.NURSE ---
received from cardiac laboratory machinist at 1230 via bed.report received.pt is alert and awake.denies pain at present.sr on monitor.right femoral sheath is out..minx closure device was used to achieve hemostasis.drsg to site is dry and intact.no hematoma noted.right leg is warm to touch and with brisk capillary refill.palpable radial pulse noted.instructed in activity restrictions s/p femoral artery procedure ...and instructed to notify staff for any bleeding,pain,sob..or for any concerns at all.pt verb understanding of instructions.
[2021-06-19 15:14] LABS: Partial Thromboplastin Time 29.9 SECONDS (23.9-36.7)
--- NOTE | 2021-06-19 17:21 | PC.NURSE ---
discharge instructions given and explaine.pt verb understanding of instructions.discharged via w/c to exit.daughter to drive pt home.
--- NOTE | 2021-06-19 20:54 | P.PN_ITS ---
Subjective Subjective: Interval history: Patient underwent left heart cath noted to have patent all grafts including SVG to RCA, SVG to obtuse marginal and Y graft to diagonal, NOLASCO to LAD. [place] vessels LAD chronically occluded in the proximal segment while there is a high-grade stenosis in the proximal circumflex and RCA is chronically occluded in the proximal segment. Vitals/I&O/Wt Last Vital Signs Temp 98 F 06/19/21 03:14 Pulse 57 L 06/19/21 16:45 Resp 21 H 06/19/21 14:15 BP 136/68 06/19/21 17:15 Pulse Ox 94 06/19/21 16:39 06/19/21 06/19/21 06/19/21 06:59 14:59 22:59 Intake Total 18.325 / 18.325 Output Total 200 / 200 Balance -181.675 / -181.675 Weight last 48 hrs Weight 160 lb Physical Exam Narrative: EXAM NARRATIVE: GENERAL: Patient is alert, awake and oriented x3. NECK: No jugular vein distension. HEENT: No cyanosis. No icterus. No pallor. HEART: Regular S1 and S2. No murmur, rub or gallop. LUNGS: Clear to auscultate bilaterally. ABDOMEN: Soft, nontender and nondistended. Positive bowel sounds. No guarding, rebound or tenderness. CENTRAL NERVOUS SYSTEM: Grossly nonfocal. EXTREMITIES: Lower extremities without edema bilaterally. Const: COMMON NORMALS: alert Resp: COMMON NORMALS: clear to auscultation bilaterally AUSCULTATION: clear to auscultation bilaterally Neuro: SENSORIUM/ORIENTATION: Yes alert Data : 06/19/21 03:57 06/19/21 03:57 A&P Assessment and plan (1) Chest pain: Most likely noncardiac or small vessel disease continue optimization medicine patent all the grafts as above. Continue to follow with Dr. Ward Status: Acute Qualifiers: Chest pain type: precordial pain Qualified Code(s): R07.2 - Precordial pain (2) Hx of CABG: Stable from a coronary disease perspective . 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
--- NOTE | 2021-06-19 21:09 | USCV_ITS ---
Norma Varma Age: 65 Gender: F : 1955 Exam Date: 06/19/2021 06:36 Ordering Phys: Devang Cobian MD Technologist: Exam Location: [facility] – [place] Indication: SOB BP: 123 / 74 HR: 50 Rhythm: Sinus Technical Quality: Adequate MEASUREMENTS (Male / Female) Normal Values 2D ECHO LV Diastolic Diameter PLAX 4.2 cm 4.2 - 5.9 / 3.9 - 5.3 cm LV Systolic Diameter PLAX 2.5 cm IVS Diastolic Thickness 0.8 cm 0.6 - 1.0 / 0.6 - 0.9 cm IVS Systolic Thickness 1.4 cm LVPW Diastolic Thickness 1.1 cm 0.6 - 1.0 / 0.6 - 0.9 cm LVPW Systolic Thickness 1.5 cm LVOT Diameter 2.0 cm LV Ejection Fraction 2D Teich 71.4 % LV Ejection Fraction MOD 2C 57.7 % LV Ejection Fraction 2C AL 58.6 % LA Diameter 3.6 cm LA Width 3.7 cm LA Height 4.9 cm RA Width 3.6 cm RA Height 4.0 cm Aorta at Sinotubular Diameter 2.6 cm DOPPLER AV Peak Velocity 129.0 cm/s LVOT Peak Velocity 69.0 cm/s AV Area Cont Eq vti 1.8 cm squared AV Area Cont Eq pk 1.7 cm squared MV Area PHT 5.0 cm squared Mitral E to A Ratio 1.3 MV E' Velocity 46.5 cm/s Mitral E to MV E' Ratio 11.8 Mitral E to LV E' Lateral Ratio 11.7 Mitral E to LV E' Septal Ratio 12.1 TR Peak Velocity 134.7 cm/s TR Peak Gradient 7.3 mmHg TV Peak E Velocity 77.0 cm/s Right Atrial Pressure 3.0 mmHg Pulmonary Artery Systolic Pressu 10.3 mmHg FINDINGS Left Ventricle Normal left ventricular size and systolic function. Left ventricular ejection fraction is estimated at 60 %. There is moderate hypokinesis of apical septal and apical sylvester. Normal diastolic function. Right Ventricle Normal right ventricular size and systolic function. RVSP could not be calculated due to incomplete tricuspid regurgitation velocity profile. Right Atrium Normal right atrial size. Left Atrium Mildly increased left atrial size. Mitral Valve Structurally normal mitral valve. No mitral valve stenosis. No significant mitral valve regurgitation. Aortic Valve Aortic valve not well visualized. No aortic valve stenosis. No aortic valve regurgitation. Tricuspid Valve Tricuspid valve not well visualized. Pulmonic Valve Pulmonic valve not well visualized. Pericardium No pericardial effusion. Aorta Normal-sized aortic root. CONCLUSIONS 1. This is a technically difficult study. Ultrasound enhancing agent Optison was used per protocol. 2. Normal left ventricular size and systolic function. Left ventricular ejection fraction is estimated at 60 %. There is moderate hypokinesis of apical septal and apical sylvester. Normal diastolic function. 3. Normal right ventricular size and systolic function. 4. Mildly increased left atrial size. 5. No gross valvular abnormality based on the study. Violetta Mc MD (Electronically Signed) Final Date: 19 June 2021 12:57 S
--- NOTE | 2021-06-20 16:17 | PC.RESP ---
Pulmonary Rehab information sent to patient.
== END 2021-06-19 17:22 | disposition home or self-care (01) | DRG 287 ==
LOC: ER 11:52 → CSU 19:14
PROVIDERS: Internal Medicine Cardiovascular Disease; Admitting Provider Family Medicine; Emergency Provider Family Medicine; PCP Nurse Practitioner Family; Visit Provider Family Medicine
PROC: B2131ZZ Fluoroscopy of Multiple Coronary Artery Bypass Grafts using Low Osmolar Contrast (ICD-10-PCS; principal; 2021-06-19 10:00)
DX: R07.2 Precordial pain (principal); I25.10 Atherosclerotic heart disease of native coronary artery without angina pectoris; Z95.1 Presence of aortocoronary bypass graft; J44.9 Chronic obstructive pulmonary disease, unspecified; M51.16 Intervertebral disc disorders with radiculopathy, lumbar region; I10 Essential (primary) hypertension; F41.8 Other specified anxiety disorders; E78.2 Mixed hyperlipidemia; Z87.891 Personal history of nicotine dependence; Z87.440 Personal history of urinary (tract) infections; I71.2 Thoracic aortic aneurysm, without rupture; Z79.51 Long term (current) use of inhaled steroids; Z79.82 Long term (current) use of aspirin
CPT/HCPCS: 36415; 71045; 71275; 80053; 80061; 83735; 83880; 84100; 84443; 84484; 85025; 85378; 85730; 86140; 87426; 93005; 93455; 94640; 96365; 96372; 99291; C1760; C1769; C1887; C1894; C8929; J1200; J1644; J1650; J2250; J3010; J3490; J3535; J7030; Q0163; Q9967

== ENCOUNTER 2021-06-24 14:09 | Emergency (ER) | payer MEDICARE, OTHER, SELFPAY ==
[2021-06-24 14:30] VITALS: BP 148/80; PULSE 73; RESP 20; O2SAT 92; BMI 28.3
[2021-06-24 14:38] VITALS: BP 148/80; PULSE 66; O2SAT 94
--- NOTE | 2021-06-24 14:47 | W.ED.GENADLT ---
HPI - General Adult General: Chief complaint: General Medical Stated complaint: Bruising/Inflammation on R. Leg/Trouble Walking Time Seen by Provider: 06/24/21 14:41 History of Present Illness: HPI narrative: Ms. Varma is a 65-year-old lady with a significant past medical history of hypertension, hyperlipidemia, CAD status post CABG who presents to the emergency department with a chief complaint of groin pain. Symptom onset was approximately 4 and described as aching. She was hospitalized and underwent heart cath without intervention. She does take 81 mg of aspirin but no other anticoagulation or antiplatelet agent. The patient reports associated increased pain with range of motion and ambulation. They rate the intensity of their symptoms as moderate to severe and describe the character as aching. Overall the course of symptoms has been persistent The patient has tried Tylenol at home which has provided minimal relief. There are no other specific exacerbating or alleviating factors reported. Review of Systems General: Reports: 10 or more systems reviewed and unremarkable except in HPI and below Narrative: CONSTITUTIONAL: denies fever, fatigue, weakness EYES - denies pain, denies loss of vision EARS - denies ear issues. NOSE - denies congestion or rhinorrhea. THROAT - denies sore throat or difficulty swallowing. CARDIOVASCULAR - denies chest pain and palpitations RESPIRATORY - denies shortness of breath and cough GASTROINTESTINAL - denies abdominal pain, no nausea vomiting, no changes in bowel habits GENITOURINARY - denies dysuria or urinary frequency MUSCULOSKELETAL- denies deformity or pain SKIN - denies rashes. Bruising at right access site with mild tracking down anterior thigh. No active bleeding. Swelling as noted in HPI. NEUROLOGIC - denies focal weakness or sensory changes HEMATOLOGIC/LYMPHATIC - denies easy bruising or lymphadenopathy. PFS ED PFSH: Medical History Acute exacerbation of chronic obstructive pulmonary disease Acute UTI Anxiety Arthritis Atherosclerosis of coronary artery of [place] with stable angina pectoris Benign essential hypertension with target blood pressure below 140/90 Chronic obstructive pulmonary disease DDD (degenerative disc disease), lumbar Depression Diarrhea Endometriosis Essential hypertension Increased urinary frequency Lower respiratory tract infection Lower respiratory tract infection Lumbar back pain with radiculopathy affecting right lower extremity Lumbar spondylolysis Lung nodules Major depressive disorder, recurrent severe without psychotic features Mixed hyperlipidemia Nicotine dependence, cigarettes, uncomplicated Osteomyelitis This is not a confirmed problem yet, patient is undergoing evaluation for possible osteomyelitis of the lumbar spine Otitis media Shortness of breath on exertion Urinary incontinence UTI (urinary tract infection), bacterial Vitamin D deficiency Surgical History Hx of CABG Family History Denies family history of Colon cancer Ovarian cancer Diabetes Heart disease Hypercholesteremia Breast cancer Hypertension Uterine cancer Thyroid disease Stroke Social History Smoking and tobacco status: former smoker Quit status (tobacco): has quit using tobacco Year quit tobacco: 2016 Former quit date comment: Hx of 1PPD x 40 Years Smoking risk assessment/counseling performed?: No Alcohol intake: never Counseling given: No Counseling given: No Lives independently: Yes Household members: none Marital status: / Current occupational status: retired and disabled History of recent travel: No Current gender identity: Female Physical Exam Narrative: EXAM NARRATIVE: GENERAL/CONSTITUTIONAL - well-appearing. No acute distress. Mildly uncomfortable. Eyes - PERRL, no conjunctival injection ENMT - Atraumatic external nose and ears. Moist mucous membranes NECK - supple. trachea midline CARDIOVASCULAR - regular rate and rhythm. Peripheral pulses 2+ and equal RESPIRATORY -clear to auscultation bilaterally. No retractions or accessory muscle use. ABDOMEN/GI - Nontender/Nondistended. No tenderness to percussion or evidence of peritonitis. Palpable approximately 3 cm in diameter mass which is mildly tender and nonpulsatile in the groin region. MSK - Extremities without obvious deformity or tenderness to palpation SKIN - Warm, Dry. Bruising in the medial thigh region and right groin along the inguinal ligament tracking mildly superiorly and laterally. No active bleeding or lesion appreciated. Palpable approximately 3 cm in diameter mass which is mildly tender and nonpulsatile in the groin region. NEURO - alert and appropriately oriented. strength and sensation intact. Moves all extremities equally. PSYCH - Appropriate mood and affect Course ED course: - Patient was seen and evaluated by me at bedside - Patient placed on cardiac monitors - Initial evaluation notable for mildly uncomfortable appearance, no acute distress. The patient has a palpable tender nonerythematous area at groin access site without palpable thrill or pulse. - In the absence of symptoms of hypovolemia or significant anemia labs not ordered at this time - Imaging notable for no evidence of clot or pseudoaneurysm or hematoma. X-ray negative. - Upon serial reexamination after treatment the patient was improved with oral analgesia - Based on patient history, evaluation, labs, and imaging as interpreted the most likely cause of the patient's condition is unclear, may be local tissue irritation/induration without evidence of infection secondary to procedure - The results of ED evaluation were discussed with the patient including prescriptions and/or symptomatic cares including appropriate and responsible use, followup plan, and return precautions. The patient verbalized understanding and felt safe for discharge. - Patient discharged in satisfactory condition. Vital Signs: Vital signs: Vital Signs Pulse Rate 70 06/24/21 19:32 Respiratory Rate 18 06/24/21 19:32 Blood Pressure 132/74 06/24/21 19:32 Pulse Oximetry 96 06/24/21 19:32 [facility] - General Adult Medical Records: Attestation: I reviewed the patient's medical records. Lab Data: Attestation: I reviewed the patient's lab results. Imaging Data^: Xray Ortho: Attestation: I personally reviewed and interpreted this imaging study as follows: My impression: No acute hip fracture US: Radiologist's impression: IMPRESSION: There is edema in the right inguinal soft tissues. No mass or pseudoaneurysm identified. Discharge Plan Discharge Patient Disposition: Home Clinical Impression: Acute hip pain, Post-op pain Condition: Stable Prescriptions: New oxycodone 5 mg capsule 5 mg PO Q6H Qty: 14 RF: 0 No Action Spiriva with HandiHaler 18 mcg capsule, w/inhalation device 1 cap INHALATION DAILY 30 Days Qty: 60 RF: 3 azithromycin 250 mg tablet 250 mg PO .COMPLEX 90 Days Qty: 45 RF: 3 trazodone 50 mg tablet 50 mg PO BEDTIME@2200 Qty: 30 RF: 2 Prozac 40 mg capsule 80 mg PO DAILY@1000 Qty: 30 RF: 2 clonazepam 1 mg tablet 1 mg PO BID PRN (Reason: anxiety) Qty: 60 RF: 2 nitroglycerin 0.4 mg tablet, sublingual 0.4 mg SUBLINGUAL Q5M PRN (Reason: chest pain) 30 Days Qty: 30 RF: 3 epinephrine [EpiPen 2-Dmitri] 0.3 mg/0.3 mL auto-injector 0.3 mg IM ONCE PRN (Reason: Allergy Symptoms) RF: 0 albuterol sulfate [ProAir HFA] 90 mcg/actuation HFA aerosol inhaler 2 puff INHALATION QID PRN (Reason: shortness of breath or wheezing) Qty: 8.5 RF: 0 ipratropium-albuterol [Combivent Respimat] 20-100 mcg/actuation mist See Rx Instructions .ROUTE .COMPLEX Qty: 3 RF: 3 lidocaine [Lidoderm] 5 % adhesive patch,medicated 2 patch topical DAILY 30 Days Qty: 60 RF: 2 ipratropium-albuterol 0.5 mg-3 mg(2.5 mg base)/3 mL solution for nebulization 3 ml INHALATION .every 6 hours PRN (Reason: wheezing) Qty: 180 RF: 1 fluticasone propion-salmeterol [Advair Diskus] 250-50 mcg/dose blister with device 1 inh INHALATION BID@1000,2200 Qty: 60 RF: 2 evc-[id number]-ijcgvwfymehsd 2-30-500 mg Tablet 1 tab PO Q4H PRN (Reason: sinus/allergy symptoms) RF: 0 Mucinex 1,200 mg Tablet Extended Release 12hr 1,200 mg PO BID RF: 0 aspirin 81 mg Tablet,Delayed Release (Dr/Ec) 81 mg PO DAILY@1000 RF: 0 atorvastatin 40 mg tablet 40 mg PO DAILY@1000 RF: 0 metoprolol succinate 50 mg tablet extended release 24 hr 50 mg PO DAILY@1000 RF: 0 lisinopril 40 mg tablet 40 mg PO DAILY@1000 RF: 0 fluticasone propionate [Flonase Allergy Relief] 50 mcg/actuation spray,suspension 2 spray INTRANASAL DAILY@1000 RF: 0 Discharge Orders: Discharge ED (Routine); Ordered 06/24/21 Ordered By: Onel Chamberlain Referrals: [place] Rosario, WARM IN WORKER [Primary Care Provider] - Discharge Diet: Usual diet Discharge Activity: Resume usual activity Patient Instructions: Arthralgia (ED), Opioid Safety Activity Restrictions/Additional Instructions: Thank you for visiting the emergency department. You were seen and evaluated for hip pain. The exact cause of your symptoms is somewhat unclear though there is some soft tissue swelling. Please follow-up with your primary care provider. Please return to the emergency department if your symptoms worsen, you have numbness or tingling, you have uncontrolled swelling or bleeding, or anything else that you are concerned about and feel needs emergency department evaluation. You will be given a prescription for oxycodone, you may continue to use Tylenol and ibuprofen as long as no other doctors told you to avoid those. Do not combine opioids with other sedating medications or substances. Do not drive while taking opioids. Coding Level of Care Code ED Laundry Assistant for Deidre Patton
--- NOTE | 2021-06-24 14:54 | USR_ITS ---
/ soft tissue/extremity [id number] PROCEDURE INFORMATION: Exam: US Noninvasive Physiologic Study of the right groin Exam date and time: 06/24/2021 2:54 PM Age: 65 years old Clinical indication: Pain: Bruising, inflammation, pain right groin area. (s/p angiogram 4 days ago); Additional info: Right groin eval for pseudoaneurysm vs hematoma post cath TECHNIQUE: Imaging protocol: Limited evaluation of the right groin COMPARISON: CR XR toe RT min 2V [id number] 06/15/2020 11:41 AM FINDINGS: There are normal appearing right inguinal lymph nodes. Edema is present in the soft tissues of the right groin. No definite mass or pseudoaneurysm identified. Right common femoral artery and common femoral vein show normal flow. Please note the images submitted to me labeled left common femoral artery and left common femoral vein however after speaking to the cotton program technician, she assured me these were mislabeled and they are the right common femoral artery and common femoral vein. IMPRESSION: There is edema in the right inguinal soft tissues. No mass or pseudoaneurysm identified.
[2021-06-24] MEDS: oxyCODONE 5 mg IR Tab/Cap PO ×2 (14:58→18:05)
--- NOTE | 2021-06-24 17:23 | XRR_ITS ---
PROCEDURE INFORMATION: Exam: XR Right Hip Exam date and time: 06/24/2021 5:23 PM Age: 65 years old Clinical indication: Hip pain; Right hip; Additional info: Non traumatic hip pain TECHNIQUE: Imaging protocol: XR Right hip. Views: 1 view hip with pelvis when performed. COMPARISON: CR XR hip RT 2-3V wo/w pel* [id number] 10/26/2020 2:58 PM FINDINGS: Bones/joints: Unremarkable. No acute fracture. Soft tissues: Unremarkable. XR/XR hip RT 2-3V wo/w pel* [id number] IMPRESSION: No acute findings.
[2021-06-24] MEDS: acetaminophen 325 mg Tablet 650 MG PO (18:05)
[2021-06-24] MEDS: ketorolac 30 mg/mL INJ 15 MG IM (18:05)
[2021-06-24 19:32] VITALS: BP 132/74; PULSE 70; RESP 18; O2SAT 96
== END 2021-06-24 19:25 | disposition home or self-care (01) ==
PROVIDERS: Emergency Provider Emergency Medicine; PCP Nurse Practitioner Family
DX: G89.18 Other acute postprocedural pain (principal); M25.551 Pain in right hip; I25.10 Atherosclerotic heart disease of native coronary artery without angina pectoris; I10 Essential (primary) hypertension; J44.9 Chronic obstructive pulmonary disease, unspecified; E78.2 Mixed hyperlipidemia; Z95.1 Presence of aortocoronary bypass graft; Z87.891 Personal history of nicotine dependence
CPT/HCPCS: 73502; 76882; 96372; 99283; J1885

== ENCOUNTER → 2021-07-03 15:31 | Outpatient (BNVA) | payer MEDICARE, OTHER, SELFPAY | PROVIDERS: PCP Nurse Practitioner Family; Referring Provider Nurse Practitioner Family; Visit Provider Orthopaedic Surgery | DX: S62.306A Unspecified fracture of fifth metacarpal bone, right hand, initial encounter for closed fracture (principal); S61.411A Laceration without foreign body of right hand, initial encounter; W19.XXXA Unspecified fall, initial encounter; Z46.89 Encounter for fitting and adjustment of other specified devices; S62.396D Other fracture of fifth metacarpal bone, right hand, subsequent encounter for fracture with routine healing; X58.XXXD Exposure to other specified factors, subsequent encounter | CPT/HCPCS: 73130; 97760; L3984 ==

== ENCOUNTER 2021-07-03 16:18 | Outpatient (CLI) | payer MEDICARE, OTHER, SELFPAY | END 2021-07-03 16:19 | disposition home or self-care (01) | LOC: SPT 16:19 | PROVIDERS: PCP Nurse Practitioner Family; Visit Provider Orthopaedic Surgery | DX: Z46.89 Encounter for fitting and adjustment of other specified devices (principal); S62.396D Other fracture of fifth metacarpal bone, right hand, subsequent encounter for fracture with routine healing; X58.XXXD Exposure to other specified factors, subsequent encounter | CPT/HCPCS: 97760; L3984 ==

== ENCOUNTER → 2021-07-24 08:29 | Outpatient (BNVA) | payer MEDICARE, OTHER, SELFPAY | PROVIDERS: PCP Nurse Practitioner Family; Visit Provider Orthopaedic Surgery | DX: S62.306A Unspecified fracture of fifth metacarpal bone, right hand, initial encounter for closed fracture (principal); X58.XXXA Exposure to other specified factors, initial encounter | CPT/HCPCS: 73130 ==

== ENCOUNTER → 2021-08-06 12:40 | Outpatient (BNVA) | payer MEDICARE, OTHER, SELFPAY | PROVIDERS: PCP Nurse Practitioner Family; Visit Provider Nurse Practitioner | DX: F33.2 Major depressive disorder, recurrent severe without psychotic features (principal); F17.210 Nicotine dependence, cigarettes, uncomplicated | CPT/HCPCS: 99214 ==

== ENCOUNTER 2021-09-21 16:40 | Outpatient (CLI) | payer MEDICARE, OTHER, SELFPAY ==
--- NOTE | 2021-09-21 16:49 | MR_ITS ---
WS: [id number] MRCP (MAGNETIC RESONANCE CHOLANGIOPANCREATOGRAPHY) HISTORY: LEFT upper quadrant pain. Diarrhea. COMPARISON: None available. TECHNIQUE: Multiple sequences are performed to evaluate the intra and extrahepatic ducts. Normal common bile duct. Size normal. Diameter is approximately 4 mm. No intrahepatic duct dilatation . No pancreatic head mass. Gallbladder is normally distended. Liver and spleen are normal. No adrenal mass. Aorta demonstrates mild atherosclerotic change. Irregular eccentric thrombus in the aorta near the diaphragmatic hiatus. No adenopathy or ascites. MR/MR MRCP [id number] IMPRESSION: 1. Normal common bile duct. 2. Normal gallbladder. 3. Eccentric atherosclerotic plaque within the aorta near the diaphragmatic hi atus.
== END 2021-09-21 16:41 | disposition home or self-care (01) ==
PROVIDERS: PCP Nurse Practitioner Family; Visit Provider Internal Medicine
DX: K86.81 Exocrine pancreatic insufficiency (principal); R10.12 Left upper quadrant pain; R19.7 Diarrhea, unspecified; I70.0 Atherosclerosis of aorta
CPT/HCPCS: 74181

== ENCOUNTER → 2021-10-30 10:27 | Outpatient (BNVA) | payer MEDICARE, OTHER, SELFPAY | PROVIDERS: PCP Nurse Practitioner Family; Visit Provider Nurse Practitioner | DX: F33.2 Major depressive disorder, recurrent severe without psychotic features (principal); F17.210 Nicotine dependence, cigarettes, uncomplicated | CPT/HCPCS: 99214 ==

== ENCOUNTER 2021-12-05 13:37 | Outpatient (CLI) | payer MEDICARE, OTHER, SELFPAY ==
[2021-12-05 14:22] LABS: Hematocrit 44.1 % (37.0-47.0); Hemoglobin 14.4 g/dL (11.5-15.3); Mean Corpuscular HGB Conc 32.7 g/dL (30.0-36.0); Mean Corpuscular Hemoglobin 30.8 pg (28.0-34.0); Mean Corpuscular Volume 94.2 fl (81-99); Mean Platelet Volume 10.8 fL (7.4-10.4); Platelet Count 206 10^3/cmm (130-400); Red Blood Count 4.68 10^6/uL (4.1-5.3); Red Cell Distribution Width 12.3 % (12.1-15.1); White Blood Count 5.6 10^3/uL (4.0-10.0)
[2021-12-05 14:42] LABS: Absolute Segmented Neutrophil 2.5 10/cmm (1.6-7.1); Lymphocytes 40 %; Segmented Neutrophils 45 %; Total Cells Counted 100 (0-100)
[2021-12-05 14:43] LABS: Absolute Eosinophils 0.1 10^3/cmm (0.0-0.7); Absolute Neutrophil 2.5 10^3/cmm (1.4-6.5); Alanine Aminotransferase 11 U/L (0-33); Albumin Level 4.4 g/dL (3.5-5.2); Alkaline Phosphatase 85 IU/L (35-105); Amylase 44 U/L (28-100); Anion Gap 17.9 (5-19); Aspartate Amino Transferase 16 U/L (0-32); Blood Urea Nitrogen 10 mg/dL (8-23); C Reactive Protein 4.1 mg/L (0.0-4.9); Calcium 9.2 mg/dL (8.5-10.5); Carbon Dioxide 23 mmol/L (22-29); Chloride 100 mmol/L (98-107); Eosinophils 3 %; Glucose 71 mg/dL (65-115); Lipase 80 U/L (13-60); Lymphocytes Absolute 2.6 10^3/cmm (1.2-3.4); Monocytes Absolute 0.3 10^3/cmm (0.1-0.6); Osmolality Calculated 282 mOsm/kg (285-295); Platelet Estimate Normal (Normal); Potassium 3.9 mmol/L (3.5-5.1); Sodium 137 mmol/L (136-145); Total Bilirubin 0.3 mg/dL (0.15-1.2); Total Protein 7.4 g/dL (6.6-8.7)
[2021-12-08 05:54] LABS: Immunoglobulin A 226 mg/dL (70-320); Tissue Transglutaminase AB IGA <1.0 U/mL
== END 2021-12-05 13:38 | disposition home or self-care (01) ==
PROVIDERS: Visit Provider Nurse Practitioner
DX: R10.84 Generalized abdominal pain (principal); R19.7 Diarrhea, unspecified
CPT/HCPCS: 80053; 82150; 82784; 83516; 83690; 85007; 85027; 86140; 87177; 87209; 87338; 87493

== ENCOUNTER → 2022-01-28 10:39 | Outpatient (BNVA) | payer MEDICARE, OTHER, SELFPAY | PROVIDERS: PCP Nurse Practitioner Family; Visit Provider Nurse Practitioner | DX: F33.2 Major depressive disorder, recurrent severe without psychotic features (principal); F17.210 Nicotine dependence, cigarettes, uncomplicated | CPT/HCPCS: 99214 ==

== ENCOUNTER 2022-01-28 19:37 | Emergency (ER) | payer MEDICARE, OTHER, SELFPAY ==
[2022-01-28 19:57] VITALS: BP 188/92; PULSE 59; RESP 16; TEMP 36.5; O2SAT 96; BMI 27.4
[2022-01-28 21:24] LABS: Basophils # 0.1 10^3/uL (0.0-0.1); Basophils % 0.6 %; Eosinophils # 0.1 10^3/uL (0.0-0.8); Eosinophils % 0.9 %; Hematocrit 42.9 % (37.0-47.0); Hemoglobin 13.5 g/dL (11.5-15.3); Lymphocytes # 3.7 10^3/uL (0.8-4.8); Lymphocytes % 45.7 %; Mean Corpuscular HGB Conc 31.5 g/dL (30.0-36.0); Mean Corpuscular Hemoglobin 30.1 pg (28.0-34.0); Mean Corpuscular Volume 95.8 fl (81-99); Monocytes # 0.6 10^3/uL (0.2-0.9); Monocytes % 6.9 %; Neutrophils # 3.65 10^3/uL (1.8-7.7); Nucleated Red Blood Cells % 0 %; Platelet Count 318 10^3/cmm (130-400); Red Blood Count 4.48 10^6/uL (4.1-5.3); Red Cell Distribution Width 13.1 % (12.1-15.1); White Blood Count 8.1 10^3/uL (4.0-10.0)
[2022-01-28 21:44] LABS: Alanine Aminotransferase 16 U/L (0-33); Albumin Level 4.2 g/dL (3.5-5.2); Alkaline Phosphatase 84 IU/L (35-105); Anion Gap 14.4 (5-19); Aspartate Amino Transferase 14 U/L (0-32); Blood Urea Nitrogen 15 mg/dL (8-23); Carbon Dioxide 27 mmol/L (22-29); Chloride 102 mmol/L (98-107); Globulin 2.9 g/dL (1.3-4.6); Glomerular Filtration Rate 62.6 mL/min (90-130); Glucose 100 mg/dL (65-115); Lipase 76 U/L (13-60); Osmolality Calculated 291 mOsm/kg (285-295); Potassium 3.4 mmol/L (3.5-5.1); Sodium 140 mmol/L (136-145); Total Bilirubin 0.2 mg/dL (0.15-1.2); Total Protein 7.1 g/dL (6.6-8.7)
[2022-01-28 22:52] LABS: Add Urine Microscopic? NO; Charge for UA Resulting for Rev
--- NOTE | 2022-01-28 22:52 | USR_ITS ---
PROCEDURE INFORMATION: Exam: US Abdomen, Limited; Right Upper Quadrant Exam date and time: 01/28/2022 10:52 PM Age: 66 years old Clinical indication: Nausea and vomiting; Abdominal pain; Acute; Prior surgery; Surgery date: 1-6 months; Surgery type: Pancreas surgery for stint placement/removal; Additional info: Ruq pain, n/v? D, worse after eating TECHNIQUE: Imaging protocol: US abdomen. Real time ultrasound with image documentation. Limited exam focused on the right upper quadrant. COMPARISON: US gall bladder [id number] 02/13/2015 7:07 AM FINDINGS: Liver: Unremarkable liver, no focal abnormality. Gallbladder: No cholelithiasis. Gallbladder wall thickness is upper range of normal, measuring up to about 3 mm. No pericholecystic fluid. The gallbladder does not appear abnormally distended at this time. Common bile duct: No biliary dilation, common duct measures 4.2 mm. Pancreas: Pancreas may be upper normal in size, significance uncertain. No peripancreatic fluid on the provided images. Right kidney: Images of the right kidney show no hydronephrosis. US/US gall bladder [id number] IMPRESSION: 1. No cholelithiasis or biliary tree dilation. 2. Other details/findings discussed above.
[2022-01-28 22:54] VITALS: BP 173/83; PULSE 65; RESP 16; O2SAT 95
[2022-01-28 22:54] LABS: Bilirubin Urine Neg (Negative); Blood Urine Neg (Negative); Glucose Urine UA Norm (Normal); Ketones Urine Negative (Negative); Leukocyte Esterase Urine Negative (Negative); Nitrate Urine Negative (Negative); Protein Urine Neg (Negative); Specific Gravity, Urine 1.025 (1.005-1.030); Urine Appearance Clear (CLEAR); Urine Color Yellow (Yellow); Urobilinogen Urine Norm (Negative); pH Urine 5 (5-7)
--- NOTE | 2022-01-28 22:56 | ED_ITS ---
Documented by User: JUAN Phillips 01/29/22 02:01 HPI - Abdominal Pain General: Chief Complaint: Abdominal Pain Stated Complaint: Gall Bladder Pain N\V Time Seen by Provider: 01/28/22 22:40 History of Present Illness: Patient is a 66-year-old male comes to the ED with abdominal pain. Symptoms started approximately 2 days ago. She reports having nausea, vomiting and diarrhea as well. Abdominal pain is located in the right upper quadrant of the abdomen. Pain radiates to middle of the back. She rates it currently a 7 out of 10. Pain worsens after she eats. She has had trouble keeping any food or fluids down for the past couple days since onset of symptoms. She had some temporary stents placed in pancreas approximately 3 weeks ago at a hospital up in [facility]. They were going to electively remove her gallbladder as well at that time, but patient tested positive for Covid and they elected not to go forward with the surgery then. Denies any fever, chills, chest pain, shortness of breath, upper respiratory symptoms, dysuria or hematuria. Associated Symptoms: Reports diarrhea, nausea and vomiting; Denies chills, constipation, dysuria, fever(s), hematochezia and hematuria Review of Systems Const: Denies: fever(s), chills or fatigue Eyes: Denies: change in vision or eye discomfort ENMT: Denies: throat pain, odynophagia, nasal discharge or nasal congestion Card: Denies: chest pain, palpitations, edema, swelling of feet/ankles, dysp gillian on exertion or orthopnea Resp: Denies: dyspnea, productive cough or non-productive cough GI: Reports: abdominal pain, nausea, vomiting and diarrhea; Denies: constipation or hematochezia : Denies: flank pain, dysuria or hematuria Musc: Denies: neck pain, back pain or extremity swelling Skin/Breast: Denies: rash or new lesions Neuro: Denies: headache(s), numbness in extremities or weakness in extremities PFS ED PFSH: Medical History Acute exacerbation of chronic obstructive pulmonary disease Acute UTI Anxiety Arthritis Atherosclerosis of coronary artery of [place] heart with stable angina pectoris Benign essential hypertension with target blood pressure below 140/90 Chronic obstructive pulmonary disease Comminuted fracture DDD (degenerative disc disease), lumbar Depression Desmoplastic malignant melanoma Diarrhea Endometriosis Essential hypertension H/O angiography Increased urinary frequency Lower respiratory tract infection Lower respiratory tract infection Lumbar back pain with radiculopathy affecting right lower extremity Lumbar spondylolysis Lung nodules Major depressive disorder, recurrent severe without psychotic features Mixed hyperlipidemia Nicotine dependence, cigarettes, uncomplicated No pertinent past medical history neghx: dm,thyroid,dvt/pe PCP: [place] [facility] Osteomyelitis This is not a confirmed problem yet, patient is undergoing evaluation for possible osteomyelitis of the lumbar spine Otitis media Psychiatric care Renal artery stenosis Shortness of breath on exertion Urinary incontinence UTI (urinary tract infection), bacterial Vitamin D deficiency Surgical History Hx of CABG Family History Denies family history of Colon cancer Ovarian cancer Diabetes Heart disease Hypercholesteremia Breast cancer Hypertension Uterine cancer Thyroid disease Stroke Social History Quit status (tobacco): has quit using tobacco Year quit tobacco: 2016 Former quit date comment: Hx of 1PPD x 40 Years Smoking risk assessment/counseling performed?: No Alcohol intake: never Counseling given: No Counseling given: No Lives independently: Yes Household members: none Marital status: / Current occupational status: retired and disabled History of recent travel: No Current gender identity: Female Physical Exam Const: COMMON NORMALS: patient oriented x3, healthy appearing and alert GENERAL APPEARANCE: cooperative and comfortable HENMT: COMMON NORMALS: normocephalic HEAD & SCALP: normocephalic MOUTH: Normal oral and palatal mucosa present THROAT: posterior oropharynx normal and uvula midline Eye: COMMON NORMALS: Equal, round and reactive pupils present and conjunctivae normal CONJUNCTIVA: Yes conjunctivae normal PUPIL: Yes Equal, round and reactive pupils present Neck/C-Spine: COMMON NORMALS: supple GENERAL: Yes normal visual inspection Resp: COMMON NORMALS: normal respiratory effort, No retractions, No use of accessory muscles and clear to auscultation bilaterally AUSCULTATION: clear to auscultation bilaterally Cardio: COMMON NORMALS: regular rate, regular rhythm, S1 normal heart sound present, S2 normal heart sound present, No gallops present (Cardio), No clicks present (Cardio), No murmurs present (Cardio) and Peripheral pulses 2+ t hroughout RATE: regular rate RHYTHM: regular rhythm HEART SOUNDS: S1 normal heart sound present and S2 normal heart sound present PERIPHERAL PULSES: Peripheral pulses 2+ throughout GI: COMMON NORMALS: Normal to inspection, nondistended, normoactive bowel sounds present, Soft to palpation and no masses PALPATION: Yes Soft to palpation and Yes Tenderness to palpation present (GI) Details: RUQ (Right upper quadrant tenderness with positive Pelayo sign.) : COMMON NORMALS: Yes no CVA tenderness BLADDER/KIDNEY EXAM: Yes no CVA t enderness Back/Pelvis: COMMON NORMALS: no CVA tenderness Extremity: COMMON NORMALS: normal to inspection and no pedal edema Neuro: COMMON NORMALS: patient oriented x3 SENSORIUM/ORIENTATION: Yes alert GAIT: Yes Normal gait present Skin: GENERAL SKIN EXAM: dry skin Course Reevaluation(s): Reevaluation #1: After patient received IV fluids, Zofran and morphine her pain was controlled. She says she is feeling a lot better and does not have any nausea currently. Vital Signs: Vital signs: Vital Signs Temperature 97.7 F 01/28/22 19:57 Pulse Rate 74 01/29/22 02:20 Respiratory Rate 16 01/29/22 02:20 Blood Pressure 149/82 01/29/22 02:20 Pulse Oximetry 97 01/29/22 02:20 MDM - Abdominal Pain Medical Decision Making Patient is a 66-year-old female comes to the ED with right upper quadrant abdominal pain. Patient had a couple stents put in pancreas approximately 3 weeks ago at a hospital in [place] [facility].Symptoms started 2 days ago and worsen after eating. She has some nausea and vomiting and diarrhea. Vitals are stable. Patient is right upper quadrant abdominal tenderness but rest of exam is benign. She appears nontoxic and in no acute distress or pain. Labs are unremarkable and white blood cell count was 8.1. Ultrasound of gallbladder showed no cholelithiasis, biliary tree dilation or cholecystitis. Patient was g iven IV fluids, Zofran and morphine here in the ED and symptoms improved greatly. She felt a lot better and was stable for discharge home. I placed an order with case management for patient be referred to general surgery for further evaluation of gallbladder. Return to ED precautions given. Patient discharged home with prescription for Zofran and hydrocodone for pain. She was told to go on a clear liquid diet for the next 24 hours and advance as tolerated. Patient understood and agreed with plan. Lab Data I reviewed the patient's lab results. : 01/28/22 21:20 01/28/22 21:20 Labs/Radiology: Radiology Impressions Gallbladder Ultrasound 01/28/22 22:52 IMPRESSION: 1. No cholelithiasis or biliary tree dilation. 2. Other details/findings discussed above. Laboratory Results WBC 8.1 10^3/uL (4.0-10.0) 01/28/22 21:20 RBC 4.48 10^6/uL (4.1-5.3) 01/28/22 21:20 Hgb 13.5 g/dL (11.5-15.3) 01/28/22 21:20 Hct 42.9 % (37.0-47.0) 01/28/22 21:20 MCV 95.8 fl (81-99) 01/28/22 21:20 MCH 30.1 pg (28.0-34.0) 01/28/22 21: MCHC 31.5 g/dL (30.0-36.0) 01/28/22 21:20 RDW 13.1 % (12.1-15.1) 01/28/22 21:20 Plt Count 318 10^3/cmm (130-400) 01/28/22 21:20 MPV 11.0 fL (7.4-10.4) H 01/28/22 21:20 Neut % (Auto) 45.0 % 01/28/22 21:20 Lymph % (Auto) 45.7 % 01/28/22 21:20 [place] % (Auto) 6.9 % 01/28/22 21:20 Eos % (Auto) 0.9 % 01/28/22 21:20 Baso % (Auto) 0.6 % 01/28/22 21:20 Neut # (Auto) 3.65 10^3/uL (1.8-7.7) 01/28/22 21:20 Lymph # (Auto) 3.7 10^3/uL (0.8-4.8) 01/28/22 21:20 [place] # (Auto) 0.6 10^3/uL (0.2-0.9) 01/28/22 21:20 Eos # (Auto) 0.1 10^3/uL (0.0-0.8) 01/28/22 21:20 Baso # (Auto) 0.1 10^3/uL (0.0-0.1) 01/28/22 21:20 Nucleated RBC % (auto) 0 % 01/28/22 21:20 Nucleated RBCs # 0.0 /100WBC 01/28/22 21:20 Sodium 140 mmol/L (136-145) 01/28/22 21:20 Potassium 3.4 mmol/L (3.5-5.1) L 01/28/22 21:20 Chloride 102 mmol/L (98-107) 01/28/22 21:20 Carbon Dioxide 27 mmol/L (22-29) 01/28/22 21:20 Anion Gap 14.4 (5-19) 01/28/22 21:20 BUN 15 mg/dL (8-23) 01/28/22 21:20 Creatinine 0.9 mg/dL (0.5-0.9) 01/28/22 21:20 GFR Calculation 62.6 mL/min (90-130) L 01/28/22 21:20 Glucose 100 mg/dL (65-115) 01/28/22 21:20 Calculated Osmolality 291 mOsm/kg (285-295) 01/28/22 21:20 Calcium 9.0 mg/dL (8.5-10.5) 01/28/22 21:20 Total Bilirubin 0.2 mg/dL (0.15-1.2) 01/28/22 21:20 AST 14 U/L (0-32) 01/28/22 21:20 ALT 16 U/L (0-33) 01/28/22 21:20 Alkaline Phosphatase 84 IU/L (35-105) 01/28/22 21:20 Total Protein 7.1 g/dL (6.6-8.7) 01/28/22 21:20 Albumin 4.2 g/dL (3.5-5.2) 01/28/22 21:20 Globulin 2.9 g/dL (1.3-4.6) 01/28/22 21:20 Lipase 76 U/L (13-60) H 01/28/22 21:20 Urine Color Yellow (Yellow) 01/28/22 22:45 Urine Appearance Clear (CLEAR) 01/28/22 22:45 Urine pH 5 (5-7) 01/28/22 22:45 Ur Specific [place] 1.025 (1.005-1.030) 01/28/22 22:45 Urine Protein Neg (Negative) 01/28/22 22:45 Urine Glucose (UA) Norm (Normal) 01/28/22 22:45 Urine Ketones Negative (Negative) 01/28/22 22:45 Urine Blood Neg (Negative) 01/28/22 22:45 Urine Nitrate Negative (Negative) 01/28/22 22:45 Urine Bilirubin Neg (Negative) 01/28/22 22:45 Urine Urobilinogen Norm mg/dL (Negative) 01/28/22 22:45 Ur Leukocyte Esterase Negative (Negative) 01/28/22 22:45 Discharge Plan Discharge Patient Disposition: Home Clinical Impression: Biliary colic Condition: Stable Prescriptions: New ondansetron 4 mg tablet,disintegrating 4 mg PO Q8H PRN (Reason: nausea and vomiting) Qty: 20 0RF No Action fluoxetine [Prozac] 40 mg capsule 80 mg PO DAILY@1000 Qty: 30 2RF trazodone 50 mg tablet 50 mg PO BEDTIME@2200 Qty: 30 2RF clonazepam 1 mg tablet 1 mg PO BID PRN (Reason: anxiety) Qty: 60 2RF Rx Instructions: 1/2 to 1 tablet twice daily nitroglycerin 0.4 mg tablet, sublingual 0.4 mg SUBLINGUAL Q5M PRN (Reason: chest pain) 30 Days Qty: 30 3RF Rx Instructions: until response; do not exceed 3 doses per episode epinephrine [EpiPen 2-Dmitri] 0.3 mg/0.3 mL auto-injector 0.3 mg IM ONCE PRN (Reason: Allergy Symptoms) 0RF (DME) Fast Form ulnar gutter See Rx Instructions .ROUTE .MEDSUPPLY Qty: 1 0RF Rx Instructions: As directed Creon 3,000-9,500- 15,000 unit capsule,delayed release(DR/EC) 1 cap PO TID Qty: 30 8RF mupirocin 2 % ointment 1 applic topical BID Qty: 15 0RF Rx Instructions: Apply to both nostrils two times a day x 10 days. lidocaine [Lidoderm] 5 % adhesive patch,medicated 2 patch topical DAILY 30 Days Qty: 60 2RF Rx Instructions: leave on most painful area for up to 12 hrs ipratropium-albuterol 0.5 mg-3 mg(2.5 mg base)/3 mL solution for nebulization 3 ml INHALATION .every 6 hours PRN (Reason: wheezing) Qty: 180 1RF fluticasone propion-salmeterol [Advair Diskus] 250-50 mcg/dose blister with device 1 inh INHALATION BID@1000,2200 Qty: 60 2RF omeprazole 40 mg capsule,delayed release(DR/EC) 40 mg PO DAILY Qty: 90 3RF Combivent Respimat 20-100 mcg/actuation mist See Rx Instructions .ROUTE .COMPLEX Qty: 3 3RF Dose Instruction: INHALE ONE PUFF BY MOUTH FOUR TIMES A DAY SPACE EVENLY DURING WAKING HOURS- (DISCARD UNIT 3 MONTHS AFTER INITIAL USE) Rx Instructions: INHALE ONE PUFF BY MOUTH FOUR TIMES A DAY SPACE EVENLY DURING WAKING HOURS- (DISCARD UNIT 3 MONTHS AFTER INITIAL USE) albuterol sulfate [ProAir HFA] 90 mcg/actuation HFA aerosol inhaler 2 puff INHALATION QID PRN (Reason: shortness of breath or wheezing) Qty: 8.5 3RF Spiriva with HandiHaler 18 mcg capsule, w/inhalation device 1 cap INHALATION DAILY 30 Days Qty: 60 3RF Rx Instructions: puncture 1 cap using device; one dose = 2 inhalations fluticasone propionate [Flonase Allergy Relief] 50 mcg/actuation spray,suspension 2 spray INTRANASAL DAILY@1000 Qty: 16 5RF Rx Instructions: administer into each nostril dicyclomine 10 mg capsule 10 mg PO TID Qty: 90 0RF yjf-liyrmzynnis-ftwsejfynrnvr 2-30-500 mg Tablet 1 tab PO Q4H PRN (Reason: sinus/allergy symptoms) 0RF Mucinex 1,200 mg Tablet Extended Release 12hr 1,200 mg PO BID 0RF aspirin 81 mg Tablet,Delayed Release (Dr/Ec) 81 mg PO DAILY@1000 0RF atorvastatin 40 mg tablet 40 mg PO DAILY@1000 0RF metoprolol succinate 50 mg tablet extended release 24 hr 50 mg PO DAILY@1000 0RF lisinopril 40 mg tablet 40 mg PO DAILY@1000 0RF Discharge Orders: Discharge ED (Routine); Ordered 01/29/22 Ordered By: Johny Amos Referrals: [place] Rosario, GL[place]BLOWER [Primary Care Provider] - Discharge Diet: Advance as tolerated and Clear Liquid Discharge Activity: Increase activity as tolerated Patient Instructions: Biliary Colic (ED), Opioid Safety Activity Restrictions/Additional Instructions: Follow-up with medical provider as directed. Case management should be contacting you in the next several days to set up an appointment with general surgery for follow-up on right upper quadrant abdominal pain. take medications as prescribed. Have a clear liquid diet for the next 24 hours then slowly advance diet as tolerated. Return to the ER or your medical provider if condition worsens. Please read and understand discharge instructions. Thank you for choosing [facility] for your healthcare needs today. Please realize this is an emergency room and that we are providing you with a medical screening exam and this may not be complete and all inclusive of all the testing and or work up that you may need to determine your ailment or severity of your illness. It is very important that you follow up as instructed or that you return to the Emergency Department should you have concerns or if your condition changes or worsens in any way. Coding Level of Care Code ED [employer] Paral[employer] for Chg Fwd Exam Comprehensive Documented by User: Onel Chamberlain MD 02/01/22 07:58 HPI - Abdominal Pain General: Chief Complaint: Abdominal Pain Stated Complaint: Gall Bladder Pain N\V Time Seen by Provider: 01/28/22 22:40 [facility] ED PFSH: Medical History Acute exacerbation of chronic obstructive pulmonary disease Acute UTI Anxiety Arthritis Atherosclerosis of coronary artery of [place] heart with stable angina pectoris Benign essential hypertension with target blood pressure below 140/90 Chronic obstructive pulmonary disease Comminuted fracture DDD (degenerative disc disease), lumbar Depression Desmoplastic malignant melanoma Diarrhea Endometriosis Essential hypertension H/O angiography Increased urinary frequency Lower respiratory tract infection Lower respiratory tract infection Lumbar back pain with radiculopathy affecting right lower extremity Lumbar spondylolysis Lung nodules Major depressive disorder, recurrent severe without psychotic features Mixed hyperlipidemia Nicotine dependence, cigarettes, uncomplicated No pertinent past medical history neghx: dm,thyroid,dvt/pe PCP: [place] [facility] Osteomyelitis This is not a confirmed problem yet, patient is undergoing evaluation for possible osteomyelitis of the lumbar spine Otitis media Psychiatric care Renal artery stenosis Shortness of breath on exertion Urinary incontinence UTI (urinary tract infection), bacterial Vitamin D deficiency Surgical History Hx of CABG Family History Denies family history of Colon cancer Ovarian cancer Diabetes Heart disease Hypercholesteremia Breast cancer Hypertension Uterine cancer Thyroid disease Stroke Social History Quit status (tobacco): has quit using tobacco Year quit tobacco: 2016 Former quit date comment: Hx of 1PPD x 40 Years Smoking risk assessment/counseling performed?: No Alcohol intake: never Counseling given: No Counseling given: No Lives independently: Yes Household members: none Marital status: / Current occupational status: retired and disabled History of recent travel: No Current gender identity: Female Course Vital Signs: Vital signs: Vital Signs Temperature 97.7 F 01/28/22 19:57 Pulse Rate 74 01/29/22 02:20 Respiratory Rate 16 01/29/22 02:20 Blood Pressure 149/82 01/29/22 02:20 Pulse Oximetry 97 01/29/22 02:20 MDM - Abdominal Pain Medical Decision Making Patient is a 66-year-old female comes to the ED with right upper quadrant abdominal pain. Patient had a couple stents put in pancreas approximately 3 weeks ago at a hospital in [place] [facility].Symptoms started 2 days ago and worsen after eating. She has some nausea and vomiting and diarrhea. Vitals are stable. Patient is right upper quadrant abdominal tenderness but rest of exam is benign. She appears nontoxic and in no acute distress or pain. Labs are unremarkable and white blood cell count was 8.1. Ultrasound of gallbladder showed no cholelithiasis, biliary tree dilation or cholecystitis. Patient was given IV fluids, Zofran and morphine here in the ED and symptoms improved greatly. She felt a lot better and was stable for discharge home. I placed an order with case management for patient be referred to general surgery for further evaluation of gallbladder. Return to ED precautions given. Patient discharged home with prescription for Zofran and hydrocodone for pain. She was told to go on a clear liquid diet for the next 24 hours and advance as tolerated. Patient understood and agreed with plan. I have reviewed this documentation by JUAN Phillips. Onel Chamberlain MD Emergency Medicine Lab Data : 01/28/22 21:20 01/28/22 21:20 Labs/Radiology: Radiology Impressions Gallbladder Ultrasound 01/28/22 22:52 IMPRESSION: 1. No cholelithiasis or biliary tree dilation. 2. Other details/findings discussed above. Laboratory Results WBC 8.1 10^3/uL (4.0-10.0) 01/28/22 21:20 RBC 4.48 10^6/uL (4.1-5.3) 01/28/22 21:20 Hgb 13.5 g/dL (11.5-15.3) 01/28/22 21:20 Hct 42.9 % (37.0-47.0) 01/28/22 21:20 MCV 95.8 fl (81-99) 01/28/22 21:20 MCH 30.1 pg (28.0-34.0) 01/28/22 21:20 MCHC 31.5 g/dL (30.0-36.0) 01/28/22 21:20 RDW 13.1 % (12.1-15.1) 01/28/22 21:20 Plt Count 318 10^3/cmm (130-400) 01/28/22 21:20 MPV 11.0 fL (7.4-10.4) H 01/28/22 21:20 Neut % (Auto) 45.0 % 01/28/22 21:20 Lymph % (Auto) 45.7 % 01/28/22 21:20 [place] % (Auto) 6.9 % 01/28/22 21:20 Eos % (Auto) 0.9 % 01/28/22 21:20 Baso % (Auto) 0.6 % 01/28/22 21:20 Neut # (Auto) 3.65 10^3/uL (1.8-7.7) 01/28/22 21:20 Lymph # (Auto) 3.7 10^3/uL (0.8-4.8) 01/28/22 21:20 [place] # (Auto) 0.6 10^3/uL (0.2-0.9) 01/28/22 21:20 Eos # (Auto) 0.1 10^3/uL (0.0-0.8) 01/28/22 21:20 Baso # (Auto) 0.1 10^3/uL (0.0-0.1) 01/28/22 21:20 Nucleated RBC % (auto) 0 % 01/28/22 21:20 Nucleated RBCs # 0.0 /100WBC 01/28/22 21:20 Sodium 140 mmol/L (136-145) 01/28/22 21:20 Potassium 3.4 mmol/L (3.5-5.1) L 01/28/22 21:20 Chloride 102 mmol/L (98-107) 01/28/22 21:20 Carbon Dioxide 27 mmol/L (22-29) 01/28/22 21:20 Anion Gap 14.4 (5-19) 01/28/22 21:20 BUN 15 mg/dL (8-23) 01/28/22 21:20 Creatinine 0.9 mg/dL (0.5-0.9) 01/28/22 21:20 GFR Calculation 62.6 mL/min (90-130) L 01/28/22 21:20 Glucose 100 mg/dL (65-115) 01/28/22 21:20 Calculated Osmolality 291 mOsm/kg (285-295) 01/28/22 21:20 Calcium 9.0 mg/dL (8.5-10.5) 01/28/22 21:20 Total Bilirubin 0.2 mg/dL (0.15-1.2) 01/28/22 21:20 AST 14 U/L (0-32) 01/28/22 21:20 ALT 16 U/L (0-33) 01/28/22 21:20 Alkaline Phosphatase 84 IU/L (35-105) 01/28/22 21:20 Total Protein 7.1 g/dL (6.6-8.7) 01/28/22 21:20 Albumin 4.2 g/dL (3.5-5.2) 01/28/22 21:20 Globulin 2.9 g/dL (1.3-4.6) 01/28/22 21:20 Lipase 76 U/L (13-60) H 01/28/22 21:20 Urine Color Yellow (Yellow) 01/28/22 22:45 Urine Appearance Clear (CLEAR) 01/28/22 22:45 Urine pH 5 (5-7) 01/28/22 22:45 Ur Specific [place] 1.025 (1.005-1.030) 01/28/22 22:45 Urine Protein Neg (Negative) 01/28/22 22:45 Urine Glucose (UA) Norm (Normal) 01/28/22 22:45 Urine Ketones Negative (Negative) 01/28/22 22:45 Urine Blood Neg (Negative) 01/28/22 22:45 Urine Nitrate Negative (Negative) 01/28/22 22:45 Urine Bilirubin Neg (Negative) 01/28/22 22:45 Urine Urobilinogen Norm mg/dL (Negative) 01/28/22 22:45 Ur Leukocyte Esterase Negative (Negative) 01/28/22 22:45 Discharge Plan Discharge Patient Disposition: Home Clinical Impression: Biliary colic Condition: Stable Prescriptions: New ondansetron 4 mg tablet,disintegrating 4 mg PO Q8H PRN (Reason: nausea and vomiting) Qty: 20 0RF No Action fluoxetine [Prozac] 40 mg capsule 80 mg PO DAILY@1000 Qty: 30 2RF trazodone 50 mg tablet 50 mg PO BEDTIME@2200 Qty: 30 2RF clonazepam 1 mg tablet 1 mg PO BID PRN (Reason: anxiety) Qty: 60 2RF Rx Instructions: 1/2 to 1 tablet twice daily nitroglycerin 0.4 mg tablet, sublingual 0.4 mg SUBLINGUAL Q5M PRN (Reason: chest pain) 30 Days Qty: 30 3RF Rx Instructions: until response; do not exceed 3 doses per episode epinephrine [EpiPen 2-Dmitri] 0.3 mg/0.3 mL auto-injector 0.3 mg IM ONCE PRN (Reason: Allergy Symptoms) 0RF (DME) Fast Form dennise raman See Rx Instructions .ROUTE .MEDSUPPLY Qty: 1 0RF Rx Instructions: As directed Creon 3,000-9,500- 15,000 unit capsule,delayed release(DR/EC) 1 cap PO TID Qty: 30 8RF mupirocin 2 % ointment 1 applic topical BID Qty: 15 0RF Rx Instructions: Apply to both nostrils two times a day x 10 days. lidocaine [Lidoderm] 5 % adhesive patch,medicated 2 patch topical DAILY 30 Days Qty: 60 2RF Rx Instructions: leave on most painful area for up to 12 hrs ipratropium-albuterol 0.5 mg-3 mg(2.5 mg base)/3 mL solution for nebulization 3 ml INHALATION .every 6 hours PRN (Reason: wheezing) Qty: 180 1RF fluticasone propion-salmeterol [Advair Diskus] 250-50 mcg/dose blister with device 1 inh INHALATION BID@1000,2200 Qty: 60 2RF omeprazole 40 mg capsule,delayed release(DR/EC) 40 mg PO DAILY Qty: 90 3RF Combivent Respimat 20-100 mcg/actuation mist See Rx Instructions .ROUTE .COMPLEX Qty: 3 3RF Dose Instruction: INHALE ONE PUFF BY MOUTH FOUR TIMES A DAY SPACE EVENLY DURING WAKING HOURS- (DISCARD UNIT 3 MONTHS AFTER INITIAL USE) Rx Instructions: INHALE ONE PUFF BY MOUTH FOUR TIMES A DAY SPACE EVENLY DURING WAKING HOURS- (DISCARD UNIT 3 MONTHS AFTER INITIAL USE) albuterol sulfate [ProAir HFA] 90 mcg/actuation HFA aerosol inhaler 2 puff INHALATION QID PRN (Reason: shortness of breath or wheezing) Qty: 8.5 3RF Spiriva with HandiHaler 18 mcg capsule, w/inhalation device 1 cap INHALATION DAILY 30 Days Qty: 60 3RF Rx Instructions: puncture 1 cap using device; one dose = 2 inhalations fluticasone propionate [Flonase Allergy Relief] 50 mcg/actuation spray,suspension 2 spray INTRANASAL DAILY@1000 Qty: 16 5RF Rx Instructions: administer into each nostril dicyclomine 10 mg capsule 10 mg PO TID Qty: 90 0RF plk-yhpxfraahvg-wtrbxlolwpxya 2-30-500 mg Tablet 1 tab PO Q4H PRN (Reason: sinus/allergy symptoms) 0RF Mucinex 1,200 mg Tablet Extended Release 12hr 1,200 mg PO BID 0RF aspirin 81 mg Tablet,Delayed Release (Dr/Ec) 81 mg PO DAILY@1000 0RF atorvastatin 40 mg tablet 40 mg PO DAILY@1000 0RF metoprolol succinate 50 mg tablet extended release 24 hr 50 mg PO DAILY@1000 0RF lisinopril 40 mg tablet 40 mg PO DAILY@1000 0RF Discharge Orders: Discharge ED (Routine); Ordered 01/29/22 Ordered By: Johny Amos Referrals: [place] Rosario, [place] [Primary Care Provider] - Discharge Diet: Advance as tolerated and Clear Liquid Discharge Activity: Increase activity as tolerated Patient Instructions: Biliary Colic (ED), Opioid Safety Activity Restrictions/Additional Instructions: Follow-up with medical provider as directed. Case management should be contacting you in the next several days to set up an appointment with general surgery for follow-up on right upper quadrant abdominal pain. take medications as prescribed. Have a clear liquid diet for the next 24 hours then slowly advance diet as tolerated. Return to the ER or your medical provider if condition worsens. Please read and understand discharge instructions. Thank you for choosing [facility] for your healthcare needs today. Please realize this is an emergency room and that we are providing you with a medical screening exam and this may not be complete and all inclusive of all the testing and or work up that you may need to determine your ailment or severity o f your illness. It is very important that you follow up as instructed or that you return to the Emergency Department should you have concerns or if your condition changes or worsens in any way. Coding Level of Care Code ED [employer] Paralegal for Deidre Patton Exam Comprehensive
[2022-01-28 23:10] VITALS: RESP 16
[2022-01-28] MEDS: morphine 4 mg/mL SDV 1 mL IVP (23:10)
[2022-01-28] MEDS: ondansetron 2 mg/ML SDV 2 mL 4 MG IVP (23:10)
[2022-01-28] MEDS: sodium chloride 0.9% 500 ML 999 ML IV (23:18)
[2022-01-29] MEDS: HYDROcodone-acetaminophen 5-325 mg Tablet 1 TAB PO (02:07)
[2022-01-29 02:20] VITALS: BP 149/82; PULSE 74; RESP 16; O2SAT 97
--- NOTE | 2022-01-29 11:33 | DCPLANNER ---
Addendum entered by Eneida Ivey 02/22/22 08:51: Patient had a follow up appointment scheduled with general surgery - patient did attend appointment. Addendum entered by Eneida Ivey 02/04/22 08:35: Patient has a follow up appointment scheduled for Friday, February 06, 2022 at 11:[address] Andrews at [facility] General Surgery / ENT clinic. Clinic will call patient with appointment information. Original Note: instrumentation manager had message to schedule a follow up appointment for patient with general surgery. instrumentation manager emailed patients information to Teresa Ling at [facility] General Surgery. Patients information will be printed and reviewed. Clinic will call patient with appointment information.
== END 2022-01-29 02:22 | disposition home or self-care (01) ==
PROVIDERS: Emergency Provider Physician Assistant; PCP Nurse Practitioner Family
DX: R10.11 Right upper quadrant pain (principal); Z79.82 Long term (current) use of aspirin; Z96.49 Presence of other endocrine implants; Z87.891 Personal history of nicotine dependence; I10 Essential (primary) hypertension; E78.2 Mixed hyperlipidemia
CPT/HCPCS: 76705; 80053; 81003; 83690; 85025; 96361; 96374; 96375; 99284; J2270; J2405; J7040

== ENCOUNTER 2022-03-15 07:32 | Outpatient (CLI) | payer MEDICARE, OTHER, SELFPAY ==
--- NOTE | 2022-03-15 08:00 | NM_ITS ---
WS: [id number] NUCLEAR MEDICINE HIDA SCAN CLINICAL INFORMATION: R10.11 - Right upper quadrant pain TECHNIQUE: Following intravenous administration of 7.8 mCi of technetium 99m mebrofenin, images of th e abdomen were obtained over the course of 60 minutes. Next, gallbladder ejection fraction was determ ined by obtaining preprandial and one-hour postprandial images of the gallbladder following oral steve stion of Ensure. COMPARISON: Ultrasound January 28, 2022 FINDINGS: Normal hepatic uptake at 5 minutes. Normal hepatic excretion. Gallbladder is visualized by 10-15 janine priti. No evidence of acute cholecystitis. Normal common bile duct and small bowel activity. Gallbladder ejection fraction 99% within normal limits. No evidence of chronic cholecystitis. NM/NM hepatobiliary w phar* [id number] IMPRESSION: 1. No evidence of acute or chronic cholecystitis. 2. Gallbladder ejection fraction 99% within normal limits.
== END 2022-03-15 07:33 | disposition home or self-care (01) ==
PROVIDERS: PCP Nurse Practitioner Family; Visit Provider Surgery
DX: R10.11 Right upper quadrant pain (principal)
CPT/HCPCS: 78227; A9537

== ENCOUNTER → 2022-04-03 11:34 | Outpatient (BNVA) | payer MEDICARE, OTHER, SELFPAY | PROVIDERS: PCP Nurse Practitioner Family; Visit Provider Registered Nurse Neonatal Intensive Care | DX: A49.9 Bacterial infection, unspecified (principal); N39.0 Urinary tract infection, site not specified | CPT/HCPCS: 81000 ==

== ENCOUNTER → 2022-04-29 11:15 | Outpatient (BNVA) | payer MEDICARE, OTHER, SELFPAY | PROVIDERS: PCP Nurse Practitioner Family; Visit Provider Internal Medicine Critical Care Medicine | DX: J42 Unspecified chronic bronchitis (principal); J30.9 Allergic rhinitis, unspecified; G47.34 Idiopathic sleep related nonobstructive alveolar hypoventilation; R53.82 Chronic fatigue, unspecified; Z87.891 Personal history of nicotine dependence; I10 Essential (primary) hypertension; E78.5 Hyperlipidemia, unspecified | CPT/HCPCS: 99214 ==

== ENCOUNTER → 2022-04-30 12:53 | Outpatient (BNVA) | payer MEDICARE, OTHER, SELFPAY | PROVIDERS: PCP Nurse Practitioner Family; Visit Provider Nurse Practitioner | DX: F33.2 Major depressive disorder, recurrent severe without psychotic features (principal); F17.210 Nicotine dependence, cigarettes, uncomplicated | CPT/HCPCS: 99214 ==

== ENCOUNTER → 2022-05-30 13:05 | Outpatient (BNVA) | payer MEDICARE, OTHER, SELFPAY | PROVIDERS: PCP Nurse Practitioner Family; Visit Provider Internal Medicine Cardiovascular Disease | DX: I25.118 Atherosclerotic heart disease of native coronary artery with other forms of angina pectoris (principal); I10 Essential (primary) hypertension; J42 Unspecified chronic bronchitis; F41.9 Anxiety disorder, unspecified; E78.2 Mixed hyperlipidemia; Z87.891 Personal history of nicotine dependence | CPT/HCPCS: 99214 ==

== ENCOUNTER → 2022-06-28 09:34 | Outpatient (BNVA) | payer MEDICARE, OTHER, SELFPAY | PROVIDERS: PCP Nurse Practitioner Family; Visit Provider Internal Medicine Critical Care Medicine | DX: J30.9 Allergic rhinitis, unspecified (principal); G47.34 Idiopathic sleep related nonobstructive alveolar hypoventilation; R53.82 Chronic fatigue, unspecified; J43.2 Centrilobular emphysema; F41.9 Anxiety disorder, unspecified; F32.A Depression, unspecified; Z87.891 Personal history of nicotine dependence | CPT/HCPCS: 99214 ==

== ENCOUNTER 2022-06-29 07:39 | Emergency (ER) | payer MEDICARE, OTHER, SELFPAY ==
[2022-06-29] VITALS (7 sets, daily range): BP systolic 144–162; BP diastolic 69–89; PULSE 52–71; RESP 14–20; TEMP 36.5; O2SAT 96–100; BMI 26.5
--- NOTE | 2022-06-29 07:44 | CTR_ITS ---
PROCEDURE INFORMATION: Exam: CT Abdomen And Pelvis Without Contrast Exam date and time: 06/29/2022 8:19 AM Age: 66 years old Clinical indication: Abdominal pain; Generalized; Additional info: Abd pain TECHNIQUE: Imaging protocol: Computed tomography of the abdomen and pelvis without contrast. Radiation optimization: All CT scans at this facility use at least one of these dose optimization techniques: automated exposure control; mA and/or kV adjustment per patient size (includes targeted exams where dose is matched to clinical indication); or iterative reconstruction. COMPARISON: MR MRCP [id number] 09/21/2021 5:08 PM RADIATION DOSE METRICS: Total DLP (mGy-cm): 462.99 FINDINGS: Lungs: The visualized portions of the lung bases are normal. The patient is status post prior median sternotomy with sternal wires. Some retained inferior epicardial leads are seen. Liver: The non-contrast enhanced liver appears unremarkable. Gallbladder and bile ducts: The gallbladder is normal. Pancreas: The non-contrast enhanced pancreas appears grossly unremarkable. No ductal dilation. Spleen: The non-contrast enhanced spleen appears unremarkable. No splenomegaly. Adrenal glands: Unremarkable non-contrast CT appearance of the adrenals. No definte masses. Kidneys and ureters: No contour deforming masses seen on the non-contrast CT. No renal calculi. Some intrarenal atherosclerotic vascular calcifications are seen bilaterally. No hydronephrosis or ureterectasis. Stomach and bowel: The noncontrast opacified stomach appears unremarkable. The noncontrast opacified small bowel loops appear unremarkable. The noncontrast opacified loops of colon show poor distension of the ascending colon and transverse colon with relative mild wall prominence. Mild segmental colitis cannot be excluded. Recommend correlation with clinical findings. Some sigmoid colonic diverticula are seen, without CT evidence of diverticulitis. The lack of orally administered contrast material limits assessment. Appendix: No appendix is specifically identified. There is no evidence of fluid collections or inflammatory stranding in the right lower quadrant. Intraperitoneal space: No abdominal ascites. No free air. There are numerous benign phleboliths in the pelvis. Vasculature: Moderate to severe atherosclerotic vascular calcifications are seen. Curvilinear calcification is seen in the upper infrarenal abdominal aorta (series 4 images 31 and 32), which may represent a calcified intimal flap. 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 Associated intimal calcified flap is seen. Contrast enhanced CT may be performed for further assessment. Lymph nodes: No enlarged lymph nodes. Urinary bladder: Unremarkable as visualized. Reproductive: Status post prior hysterectomy. Bones/joints: Severe degenerative disc disease and endplate degenerative changes are seen at the L1-L2 level. Mild bilateral hip degenerative changes are seen. Moderate symphysis pubis and sacroiliac joint degenerative changes are seen. Soft tissues: Unremarkable. CT/CT abdomen pelvis wo con [id number] IMPRESSION: 1. Poor distension of the ascending colon and transverse colon with relative mild wall prominence. Mild segmental colitis cannot be excluded. Recommend correlation with clinical findings. Some sigmoid colonic diverticula, without CT evidence of diverticulitis. 2. Curvilinear calcification seen in the upper infrarenal abdominal aorta (series 4 images 31 and 32), which may represent a calcified intimal flap. 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 Associated intimal calcified flap seen. Contrast enhanced CT may be performed for further assessment. 3. Severe degenerative changes at the L1-L2 level.
--- NOTE | 2022-06-29 07:46 | ED_ITS ---
HPI - Abdominal Pain General: Chief Complaint: Abdominal Pain Stated Complaint: RUQ PAIN Time Seen by Provider: 06/29/22 07:42 Source: patient Mode of arrival: ambulatory Limitations: no limitations History of Present Illness: 66-year-old female states that she woke up this morning at 6 AM with abdominal pain she states she is having severe epigastric and right upper quadrant pain. States pain is sharp in nature rates an 8 out of 10 has had some nausea no vomiting denies any fever she states it radiates all over her abdomen denies any chest pain she had appendectomy in the past still has her gallbladder. Associated Symptoms: Denies chills, dysuria and fever(s) Review of Systems Const: Denies: fever(s), chills, body aches or change in appetite Eyes: Denies: blurry vision or eye discomfort ENMT: Denies: throat pain or dental pain Card: Denies: chest pain Resp: Denies: dyspnea GI: Reports: abdominal pain : Denies: dysuria Musc: Denies: neck pain or back pain Skin/Breast: Denies: rash Neuro: Denies: headache(s) Psych: Denies: depression Tj/Lymph: Denies: easy bruising All/Imm: Denies: urticaria PFSH ED PFSH: Medical History Acute exacerbation of chronic obstructive pulmonary disease Acute UTI Anxiety Arthritis Atherosclerosis of coronary artery of [place] heart with stable angina pectoris Benign essential hypertension with target blood pressure below 140/90 Chronic obstructive pulmonary disease Comminuted fracture DDD (degenerative disc disease), lumbar Depression Desmoplastic malignant melanoma Diarrhea Endometriosis Essential hypertension H/O angiography Increased urinary frequency Lower respiratory tract infection Lower respiratory tract infection Lumbar back pain with radiculopathy affecting right lower extremity Lumbar spondylolysis Lung nodules Major depressive disorder, recurrent severe without psychotic features Mixed hyperlipidemia MRSA nasal colonization Nicotine dependence, cigarettes, uncomplicated No pertinent past medical history neghx: dm,thyroid,dvt/pe PCP: [place] Gross Osteomyelitis This is not a confirmed problem yet, patient is undergoing evaluation for possible osteomyelitis of the lumbar spine Otitis media Psychiatric care Renal artery stenosis Shortness of breath on exertion Urinary incontinence UTI (urinary tract infection), bacterial Vitamin D deficiency Surgical History Hx of CABG Family History Father CAD (coronary artery disease) 50s Cancer Lung disease Sister CAD (coronary artery disease) 40s Cancer Chronic kidney disease (CKD) Lung disease Brother CAD (coronary artery disease) 40s Lung disease Mother Cancer Lung disease Family/Other Cancer Suicide Denies family history of Colon cancer Ovarian cancer Diabetes Clotting disorder Dementia Heart disease Hypercholesteremia Breast cancer Anesthesia complication Bleeding disorder Hypertension Uterine cancer Thyroid disease Stroke Social History Smoking and tobacco status: former smoker Quit status (tobacco): has quit using tobacco Year quit tobacco: 2016 Former quit date comment: Hx of 1PPD x 40 Years Smoking risk assessment/counseling performed?: No Alcohol intake: never Counseling given: No Counseling given: No Lives independently: Yes Household members: none Marital status: / Current occupational status: retired and disabled History of recent travel: No Current gender identity: Female Physical Exam Const: COMMON NORMALS: no acute distress, patient oriented x3 and healthy appearing HENMT: COMMON NORMALS: normocephalic and atraumatic HEAD & SCALP: normocephalic and atraumatic Eye: COMMON NORMALS: Equal, round and reactive pupils present and EOMs intact bilaterally PUPIL: Yes Equal, round and reactive pupils present Neck/C-Spine: COMMON NORMALS: full ROM and supple Chest: COMMONS NORMALS: normal inspection of the chest and normal palpation of entire chest wall Resp: COMMON NORMALS: normal respiratory effort, No retractions, No use of accessory muscles and clear to auscultation bilaterally AUSCULTATION: clear to auscultation bilaterally Cardio: COMMON NORMALS: regular rate, regular rhythm and No murmurs present (Cardio) RATE: regular rate RHYTHM: regular rhythm GI: COMMON NORMALS: Normal to inspection, nondistended, normoactive bowel sounds present, Soft to palpation and no masses PALPATION: Yes Soft to p alpation OTHER: epigastric tenderness Extremity: COMMON NORMALS: normal to inspection and full ROM Neuro: COMMON NORMALS: patient oriented x3, moves all extremities and no focal motor deficits Psych: COMMON NORMALS: mental status grossly normal, Normal thought process present and cooperative THOUGHT PROCESS: Normal thought process present Skin: COMMON NORMALS: no rashes or lesions noted and no wounds GENERAL SKIN EXAM: no rashes or lesions noted Course Vital Signs: Vital signs: Vital Signs Temperature 97.7 F 06/29/22 07:49 Pulse Rate 71 06/29/22 10:30 Respiratory Rate 18 06/29/22 10:30 Blood Pressure 149/80 06/29/22 10:30 Pulse Oximetry 98 06/29/22 10:30 Oxygen Delivery Me thod 06/29/22 09:33 Oxygen Flow Rate 2 06/29/22 09:33 MDM - Abdominal Pain Medical Decision Making Patient presents with abdominal pain likely a colitis. Patient CT did find in a abdominal aortic plaque that was very small I discussed this with vascular surgeon Dr. Bernabe her pains improved she has no signs of rupture blood counts normal I informed her of this plaque we will get her follow-up with Dr. Bernabe next week informed her if she pains worsen she is to return immediately she understands agrees to plan we will put her on Cipro Flagyl for the colitis. Lab Data : 06/29/22 08:05 06/29/22 08:05 Labs/Radiology: Radiology Impressions Abdomen/Pelvis CT 06/29/22 07:44 IMPRESSION: 1. Poor distension of the ascending colon and transverse colon with relative mild wall prominence. Mild segmental colitis cannot be excluded. Recommend correlation with clinical findings. Some sigmoid colonic diverticula, without CT evidence of diverticulitis. 2. Curvilinear calcification seen in the upper infrarenal abdominal aorta (series 4 images 31 and 32), which may represent a calcified intimal flap. 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 Associated intimal calcified flap seen. Contrast enhanced CT may be performed for further assessment. 3. Severe degenerative changes at the L1-L2 level. Abdomen CTA 06/29/22 08:40 IMPRESSION: 1. Mild calcified atherosclerotic plaque of the abdominal aorta with scattered eccentric irregular soft plaque. Small region of ulcerated soft plaque seen in the upper infrarenal abdominal aorta (series 5 images 78 to 80). A small intimal flap is seen in this region. This correlates with the prior noncontrast CT findings. This is suggestive of ulcerated plaque with a small focal dissection. No abdominal aortic aneurysm. 2. Right common iliac artery aneurysmal dilatation seen with maximal axial dimension of 2.2 x 2 cm. Associated 2.5 cm long segment of dissection with intimal flap seen. This correlates with the CT noncontrast CT findings. This terminates at the level of the right common iliac artery bifurcation. 3. Unchanged poor distension of the ascending colon and transverse colon with relative mild colonic wall prominence. Underlying mild proctocolitis cannot be excluded. 4. Severe degenerative disc disease changes at the L1-L2 level. Laboratory Results WBC 6.1 10^3/uL (4.0-10.0) 06/29/22 08:05 RBC 4.27 10^6/uL (4.1-5.3) 06/29/22 08:05 Hgb 12.7 g/dL (11.5-15.3) 06/29/22 08:05 Hct 41.2 % (37.0-47.0) 06/29/22 08:05 MCV 96.5 fl (81-99) 06/29/22 08:05 MCH 29.7 pg (28.0-34.0) 06/29/22 08:05 MCHC 30.8 g/dL (30.0-36.0) 06/29/22 08:05 RDW 12.6 % (12.1-15.1) 06/29/22 08:05 Plt Count 166 10^3/cmm (130-400) 06/29/22 08:05 MPV 11.3 fL (7.4-10.4) H 06/29/22 08:05 Neut % (Auto) 56.2 % 06/29/22 08:05 Lymph % (Auto) 32.5 % 06/29/22 08:05 [place] % (Auto) 7.2 % 06/29/22 08:05 Eos % (Auto) 2.8 % 06/29/22 08:05 Baso % (Auto) 0.8 % 06/29/22 08:05 Neut # (Auto) 3.45 10^3/uL (1.8-7.7) 06/29/22 08:05 Lymph # (Auto) 2.0 10^3/uL (0.8-4.8) 06/29/22 08:05 [place] # (Auto) 0.4 10^3/uL (0.2-0.9) 06/29/22 08:05 Eos # (Auto) 0.2 10^3/uL (0.0-0.8) 06/29/22 08:05 Baso # (Auto) 0.1 10^3/uL (0.0-0.1) 06/29/22 08:05 Nucleated RBC % (auto) 0 % 06/29/22 08:05 Nucleated RBCs # 0.0 /100WBC 06/29/22 08:05 Sodium 142 mmol/L (136-145) 06/29/22 08:05 Potassium 4.2 mmol/L (3.5-5.1) 06/29/22 08:05 Chloride 105 mmol/L (98-107) 06/29/22 08:05 Carbon Dioxide 31 mmol/L (22-29) H 06/29/22 08:05 Anion Gap 10.2 (5-19) 06/29/22 08:05 BUN 10 mg/dL (8-23) 06/29/22 08:05 Creatinine 0.8 mg/dL (0.5-0.9) 06/29/22 08:05 GFR Calculation 71.8 mL/min (90-130) L 06/29/22 08:05 Glucose 100 mg/dL (65-115) 06/29/22 08:05 Calculated Osmolality 293 mOsm/kg (285-295) 06/29/22 08:05 Lactate 0.8 mmol/L (0.5-2.2) 06/29/22 08:05 Calcium 9.2 mg/dL (8.5-10.5) 06/29/22 08:05 Total Bilirubin 0.2 mg/dL (0.15-1.2) 06/29/22 08:05 AST 14 U/L (0-32) 06/29/22 08:05 ALT 10 U/L (0-33) 06/29/22 08:05 Alkaline Phosphatase 75 IU/L (35-105) 06/29/22 08:05 Total Protein 6.0 g/dL (6.6-8.7) L 06/29/22 08:05 Albumin 3.9 g/dL (3.5-5.2) 06/29/22 08:05 Globulin 2.1 g/dL (1.3-4.6) 06/29/22 08:05 Lipase 33 U/L (13-60) 06/29/22 08:05 Urine Color Yellow (Yellow) 06/29/22 09:22 Urine Appearance Clear (CLEAR) 06/29/22 09:22 Urine pH 5 (5-7) 06/29/22 09:22 Ur Specific [place] 1.015 (1.005-1.030) 06/29/22 09:22 Urine Protein Neg (Negative) 06/29/22 09:22 Urine Glucose (UA) Norm (Normal) 06/29/22 09:22 Urine Ketones 1+ (Negative) H 06/29/22 09:22 Urine Blood Neg (Negative) 06/29/22 09:22 Urine Nitrate Negative (Negative) 06/29/22 09:22 Urine Bilirubin Neg (Negative) 06/29/22 09:22 Urine Urobilinogen Norm mg/dL (Negative) 06/29/22 09:22 Ur Leukocyte Esterase Negative (Negative) 06/29/22 09:22 EKG Data EKG 1: I personally reviewed and interpreted this EKG as follows: EKG interpretation date: 06/29/22 EKG interpretation time: 08:00 Interpretation: sinus brandon hr [address] or t wave abnormalities qrs 89 qtc 420 Discharge Plan Discharge Patient Disposition: Home Clinical Impression: Colitis Condition: Stable Prescriptions: New hydrocodone-acetaminophen 5-325 mg tablet 1 tab PO Q6H PRN (Reason: pain) Qty: 14 0RF Cipro 500 mg tablet 500 mg PO BID Qty: 14 0RF ondansetron 4 mg tablet,disintegrating 4 mg PO Q6H PRN (Reason: nausea and vomiting) Qty: 14 0RF metronidazole 500 mg tablet 500 mg PO Q8H 7 Days Qty: 21 0RF No Action nitroglycerin 0.4 mg tablet, sublingual 0.4 mg SUBLINGUAL Q5M PRN (Reason: chest pain) 30 Days Qty: 30 3RF Rx Instructions: until response; do not exceed 3 doses per episode fluoxetine [Prozac] 40 mg capsule 80 mg PO DAILY@1000 Qty: 30 2RF trazodone 50 mg tablet 50 mg PO BEDTIME@2200 Qty: 30 2RF Spiriva with HandiHaler 18 mcg capsule, w/inhalation device 1 cap INHALATION DAILY 30 Days Qty: 60 3RF Rx Instructions: puncture 1 cap using device; one dose = 2 inhalations azithromycin 250 mg tablet 250 mg PO .COMPLEX 90 Days Qty: 45 0RF Rx Instructions: 250 mg PO Friday; start on day 2 of therapy fluticasone propion-salmeterol [Wixela Inhub] 250-50 mcg/dose blister with device 1 inh inhalation BID losartan 100 mg tablet 100 mg PO DAILY Qty: 30 0RF lidocaine [Lidoderm] 5 % adhesive patch,medicated 2 patch topical DAILY 30 Days Qty: 60 6RF Rx Instructions: leave on most painful area for up to 12 hrs omeprazole 40 mg capsule,delayed release(DR/EC) 40 mg PO DAILY Qty: 90 3RF epinephrine [EpiPen 2-Dmitri] 0.3 mg/0.3 mL auto-injector 0.3 mg IM ONCE PRN (Reason: Allergy Symptoms) Qty: 2 1RF clonazepam 1 mg tablet 2 mg PO BID PRN (Reason: anxiety) Rx Instructions: 1/2 to 1 tablet twice daily ipratropium-albuterol 0.5 mg-3 mg(2.5 mg base)/3 mL solution for nebulization 3 ml INHALATION .every 6 hours PRN (Reason: wheezing) Qty: 180 1RF Combivent Respimat 20-100 mcg/actuation mist See Rx Instructions .ROUTE .COMPLEX Qty: 3 3RF Dose Instruction: INHALE ONE PUFF BY MOUTH FOUR TIMES A DAY SPACE EVENLY DURING WAKING HOURS- (DISCARD UNIT 3 MONTHS AFTER INITIAL USE) Rx Instructions: INHALE ONE PUFF BY MOUTH FOUR TIMES A DAY SPACE EVENLY DURING WAKING HOURS- (DISCARD UNIT 3 MONTHS AFTER INITIAL USE) albuterol sulfate [ProAir HFA] 90 mcg/actuation HFA aerosol inhaler 2 puff INHALATION QID PRN (Reason: shortness of breath or wheezing) Qty: 8.5 3RF fluticasone propionate [Flonase Allergy Relief] 50 mcg/actuation s pray,suspension 2 spray INTRANASAL DAILY@1000 Qty: 16 5RF Rx Instructions: administer into each nostril metoprolol succinate 50 mg tablet extended release 24 hr 50 mg PO DAILY@1000 Qty: 60 0RF Rx Instructions: MUST MAKE A APPOINTMENT AND BE SEEN PRIOR TO ANY MORE REFILLS clb-gimzidolwpg-jictkytdxrkce 2-30-500 mg Tablet 1 tab PO Q4H PRN (Reason: sinus/allergy symptoms) Mucinex 1,200 mg Tablet Extended Release 12hr 1,200 mg PO BID aspirin 81 mg Tablet,Delayed Release (Dr/Ec) 81 mg PO DAILY@1000 atorvastatin 40 mg tablet 40 mg PO DAILY@1000 Discharge Orders: Discharge ED (Routine); Ordered 06/29/22 Ordered By: Sherrell Flor Referrals: [place] Rosario, FLAP LINING BINDER [Primary Care Provider] - Mayank Bernabe MD [Physician] - 1-3 days Discharge Diet: Advance as tolerated Discharge Activity: Resume usual activity Patient Instructions: Abdominal Pain (ED), Opioid Safety Coding Level of Care Code ED Luggage Liner for Chg Fwd Exam Comprehensive
--- NOTE | 2022-06-29 08:00 | ECG_ITS ---
[facility] Test Date: 2022-06-29 Pat Name: Norma Varma Department: Room: Gender: Female Reel Operator: : 1955 Requested By: Sherrell Flor Order Number: [id number] Carmen MD: Praveen Gurrola M.D. Measurements Intervals [place] Rate: 53 P: 54 NC: 191 QRS: 80 QRSD: 89 T: 91 QT: 437 QTc: 412 Interpretive Statements SINUS BRADYCARDIA LOW QRS VOLTAGE IN PRECORDIAL LEADS [QRS DEFLECTION < 1.0 mV IN CHEST LEADS] SEPTAL MYOCARDIAL INFARCTION , OF INDETERMINATE AGE [40+ ms Q WAVE IN V1/V2] Compared to ECG 06/18/2021 16:51:59 Low QRS voltage now present Myocardial infarct finding now present Electronically Signed On 06-29-2022 20:31:56 CDT by Praveen Gurrola M.D. [email or web address]
[2022-06-29 08:14] LABS: Basophils # 0.1 10^3/uL (0.0-0.1); Basophils % 0.8 %; Eosinophils # 0.2 10^3/uL (0.0-0.8); Eosinophils % 2.8 %; Hematocrit 41.2 % (37.0-47.0); Hemoglobin 12.7 g/dL (11.5-15.3); Lymphocytes % 32.5 %; Mean Corpuscular HGB Conc 30.8 g/dL (30.0-36.0); Mean Corpuscular Hemoglobin 29.7 pg (28.0-34.0); Mean Corpuscular Volume 96.5 fl (81-99); Mean Platelet Volume 11.3 fL (7.4-10.4); Monocytes # 0.4 10^3/uL (0.2-0.9); Monocytes % 7.2 %; Neutrophils # 3.45 10^3/uL (1.8-7.7); Neutrophils % 56.2 %; Nucleated Red Blood Cells % 0 %; Platelet Count 166 10^3/cmm (130-400); Red Blood Count 4.27 10^6/uL (4.1-5.3); Red Cell Distribution Width 12.6 % (12.1-15.1); White Blood Count 6.1 10^3/uL (4.0-10.0)
[2022-06-29] MEDS: sodium chloride 0.9% 1,000 ML 999 ML IV (08:31)
--- NOTE | 2022-06-29 08:31 | PC.NURSE ---
patient denies pain or nausea at this time, hold medication per her request. Fluids started.
[2022-06-29 08:34] LABS: Lactate (Lactic Acid level) 0.8 mmol/L (0.5-2.2)
[2022-06-29 08:35] LABS: Alanine Aminotransferase 10 U/L (0-33); Albumin Level 3.9 g/dL (3.5-5.2); Alkaline Phosphatase 75 IU/L (35-105); Anion Gap 10.2 (5-19); Aspartate Amino Transferase 14 U/L (0-32); Blood Urea Nitrogen 10 mg/dL (8-23); Calcium 9.2 mg/dL (8.5-10.5); Carbon Dioxide 31 mmol/L (22-29); Chloride 105 mmol/L (98-107); Globulin 2.1 g/dL (1.3-4.6); Glomerular Filtration Rate 71.8 mL/min (90-130); Glucose 100 mg/dL (65-115); Lipase 33 U/L (13-60); Osmolality Calculated 293 mOsm/kg (285-295); Potassium 4.2 mmol/L (3.5-5.1); Sodium 142 mmol/L (136-145); Total Bilirubin 0.2 mg/dL (0.15-1.2)
--- NOTE | 2022-06-29 08:40 | CTR_ITS ---
PROCEDURE INFORMATION: Exam: CTA Abdomen With Contrast Exam date and time: 06/29/2022 9:36 AM Age: 66 years old Clinical indication: Abdominal pain; Epigastric; Prior surgery; Additional info: Abd pain TECHNIQUE: Imaging protocol: Computed tomographic angiography of the abdomen with contrast. 3D rendering (Not supervised by radiologist): MIP and/or 3D reconstructed images were created by the technologist. Radiation optimization: All CT scans at this facility use at least one of these dose optimization techniques: automated exposure control; mA and/or kV adjustment per patient size (includes targeted exams where dose is matched to clinical indication); or iterative reconstruction. Contrast material: OMNI 350; Contrast volume: 95 ml; Contrast route: INTRAVENOUS (IV); COMPARISON: CT abdomen pelvis wo con [id number] 06/29/2022 8:19 AM RADIATION DOSE METRICS: Total DLP (mGy-cm): 378.49 FINDINGS: Aorta: Mild calcified atherosclerotic plaque of the abdominal aorta is seen with scattered eccentric irregular soft plaque. There is a small region of ulcerated soft plaque seen in the upper infrarenal abdominal aorta (series 5 images 78 to 80). A small intimal flap is seen in this region. This correlates with the prior noncontrast CT findings. This is suggestive of ulcerated plaque with a small focal dissection. There is no abdominal aortic aneurysm. Celiac trunk and mesenteric arteries: No occlusion or significant stenosis. Renal arteries: No occlusion or significant stenosis. Right iliac arteries: Iliac arteries: Right common iliac artery aneurysmal dilatation is seen with maximal axial dimension of 2.2 x 2 cm. There is an associated 2.5 cm long segment of dissection with intimal flap seen. This correlates with the CT noncontrast CT findings. This terminates at the level of the right common iliac artery bifurcation. The visualized proximal right external and internal iliac arteries are patent. No left common iliac artery aneurysm or dissection flap is seen. The visualized left proximal internal and external iliac arteries are patent. Liver: Normal. No mass. Gallbladder and bile ducts: Normal. No calcified stones. No ductal dilation. Pancreas: Normal. No ductal dilation. Spleen: Normal. No splenomegaly. Adrenal glands: Normal. No mass. Kidneys and ureters: Normal. No hydronephrosis. Some intrarenal atherosclerotic vascular calcifications are once again seen. Stomach and bowel: The non-contrast opacified stomach is not well distended, limiting assessment. No gross abnormalities seen. The noncontrast opacified small bowel loops appear unremarkable. The visualized noncontrast opacified loops of colon show unchanged poor distension of the ascending colon and transverse colon with relative mild colonic wall prominence. Lymph nodes: No enlarged lymph nodes. Intraperitoneal space: . No free air. No significant fluid collection. Bones/joints: No acute fracture. Unchanged severe degenerative disc disease and endplate degenerative changes are seen at the L1-L2 level. Unchanged small Schmorl's nodes are seen. Soft tissues: Unremarkable. CT/CT angio abdomen [id number] IMPRESSION: 1. Mild calcified atherosclerotic plaque of the abdominal aorta with scattered eccentric irregular soft plaque. Small region of ulcerated soft plaque seen in the upper infrarenal abdominal aorta (series 5 images 78 to 80). A small intimal flap is seen in this region. This correlates with the prior noncontrast CT findings. This is suggestive of ulcerated plaque with a small focal dissection. No abdominal aortic aneurysm. 2. Right common iliac artery aneurysmal dilatation seen with maximal axial dimension of 2.2 x 2 cm. Associated 2.5 cm long segment of dissection with intimal flap seen. This correlates with the CT noncontrast CT findings. This terminates at the level of the right common iliac artery bifurcation. 3. Unchanged poor distension of the ascending colon and transverse colon with relative mild colonic wall prominence. Underlying mild proctocolitis cannot be excluded. 4. Severe degenerative disc disease changes at the L1-L2 level.
[2022-06-29 09:32] LABS: Add Urine Microscopic? NO; Charge for UA Resulting for Rev
[2022-06-29] MEDS: iohexol 350 mg/mL 100 mL Btl IV (09:41)
[2022-06-29 09:44] LABS: Bilirubin Urine Neg (Negative); Blood Urine Neg (Negative); Glucose Urine UA Norm (Normal); Ketones Urine 1+ (Negative); Nitrate Urine Negative (Negative); Protein Urine Neg (Negative); Specific Gravity, Urine 1.015 (1.005-1.030); Urine Appearance Clear (CLEAR); Urine Color Yellow (Yellow); pH Urine 5 (5-7)
[2022-06-29 09:45] LABS: Leukocyte Esterase Urine Negative (Negative); Urobilinogen Urine Norm (Negative)
--- NOTE | 2022-07-02 09:39 | DCPLANNER ---
Addendum entered by Eneida Ivey 07/19/22 08:42: Patient had a follow up appointment scheduled for 07.18.[address] Bernabe at [facility] - patient did attend appointment. Original Note: vehicle leasing and rental manager had message to schedule a follow up appointment for patient with cardiology. vehicle leasing and rental manager sent patients information to the front office staff at [facility]. Patients information will be printed and reviewed. Clinic will call patient with appointment information.
== END 2022-06-29 10:34 | disposition home or self-care (01) ==
PROVIDERS: Emergency Provider Emergency Medicine; PCP Nurse Practitioner Family
DX: K52.9 Noninfective gastroenteritis and colitis, unspecified (principal); Z79.82 Long term (current) use of aspirin; Z87.891 Personal history of nicotine dependence; Z95.1 Presence of aortocoronary bypass graft; J44.9 Chronic obstructive pulmonary disease, unspecified; I25.10 Atherosclerotic heart disease of native coronary artery without angina pectoris; I10 Essential (primary) hypertension; E78.2 Mixed hyperlipidemia
CPT/HCPCS: 74175; 74176; 80053; 81003; 83605; 83690; 85025; 93005; 96360; 99285; J7030; Q9967

== ENCOUNTER → 2022-07-11 13:06 | Outpatient (BNVA) | payer MEDICARE, OTHER, SELFPAY | PROVIDERS: PCP Nurse Practitioner Family; Visit Provider Surgery | DX: Z09 Encounter for follow-up examination after completed treatment for conditions other than malignant neoplasm (principal); K52.9 Noninfective gastroenteritis and colitis, unspecified | CPT/HCPCS: 99213 ==

== ENCOUNTER → 2022-07-18 11:14 | Outpatient (BNVA) | payer MEDICARE, OTHER, SELFPAY | PROVIDERS: PCP Nurse Practitioner Family; Visit Provider Thoracic Surgery (Cardiothoracic Vascular Surgery) | DX: I72.3 Aneurysm of iliac artery (principal); Z09 Encounter for follow-up examination after completed treatment for conditions other than malignant neoplasm; Z87.891 Personal history of nicotine dependence | CPT/HCPCS: 99203 ==

== ENCOUNTER → 2022-08-13 14:57 | Outpatient (BNVA) | payer MEDICARE, OTHER, SELFPAY | PROVIDERS: PCP Nurse Practitioner Family; Visit Provider Internal Medicine | DX: I72.3 Aneurysm of iliac artery (principal); I10 Essential (primary) hypertension; F17.210 Nicotine dependence, cigarettes, uncomplicated; Z95.1 Presence of aortocoronary bypass graft | CPT/HCPCS: 99204 ==

== ENCOUNTER 2022-10-14 19:32 | Emergency (ER) | payer MEDICARE, SELFPAY ==
[2022-10-14] VITALS (12 sets, daily range): BP systolic 126–178; BP diastolic 58–90; PULSE 63–78; RESP 16–18; TEMP 36.7; O2SAT 91–98
--- NOTE | 2022-10-14 19:34 | ECG_ITS ---
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 Measurements Intervals [place] Rate: 71 P: 66 DC: 175 QRS: 79 QRSD: 85 T: 75 QT: 404 QTc: 441 Interpretive Statements SINUS RHYTHM POSSIBLE LEFT ATRIAL ENLARGEMENT [-0.1mV P-WAVE IN V1/V2] LOW QRS VOLTAGE IN PRECORDIAL LEADS [QRS DEFLECTION < 1.0 mV IN CHEST LEADS] SEPTAL MYOCARDIAL INFARCTION , OF INDETERMINATE AGE [40+ ms Q WAVE IN V1/V2] Compared to ECG 06/29/2022 08:00:37 Sinus bradycardia no longer present Myocardial infarct finding still present Electronically Signed On 10-14-2022 23:59:02 LAYER OFF by Petty Ward M.D. [id number]
--- NOTE | 2022-10-14 19:34 | XRR_ITS ---
PROCEDURE INFORMATION: Exam: XR Chest Exam date and time: 10/14/2022 9:28 PM Age: 66 years old Clinical indication: Shortness of breath; Additional info: SOB TECHNIQUE: Imaging protocol: Radiologic exam of the chest. Views: 1 view. COMPARISON: CR XR chest 1V portable [id number] 06/18/2021 11:58 AM FINDINGS: Lungs: Unremarkable. No consolidation. Pleural spaces: Unremarkable. No pleural effusion. No pneumothorax. Heart/Mediastinum: Unremarkable. No cardiomegaly. Bones/joints: Sternotomy wires. XR/XR chest 1V portable [id number] IMPRESSION: Lungs are clear
--- NOTE | 2022-10-14 19:49 | W.ED.SOB ---
HPI - SOB/Dyspnea General: Chief Complaint: Shortness of Breath/Dyspnea Stated Complaint: SOB,fever, cough Time Seen by Provider: 10/14/22 19:43 Source: patient Mode of arrival: ambulatory Limitations: no limitations History of Present Illness: HPI Narrative: 66-year-old female has a history of COPD former smoker states she been having cough and wheezing for over a week. Patient has been on steroids she states that her shortness of breath and wheezing has not improved her pulse ox here is normal she denies any fever her cough has been dry in nature she has had a headache as well states is worse with her coughing. Associated symptoms: Deny abdominal pain, chest pain, fever(s), nausea or vomiting Review of Systems Const: Denies: fever(s), chills, body aches or change in appetite Eyes: Denies: blurry vision or eye discomfort ENMT: Denies: throat pain or dental pain Card: Denies: chest pain Resp: Reports: dyspnea, non-productive cough and wheezing GI: Denies: abdominal pain, nausea, vomiting or diarrhea : Denies: dysuria Musc: Denies: neck pain or back pain Skin/Breast: Denies: rash Neuro: Reports: headache(s) Psych: Denies: depression Tj/Lymph: Denies: easy bruising All/Imm: Denies: urticaria PFSH ED PFSH: Medical History Acute exacerbation of chronic obstructive pulmonary disease Acute UTI Anxiety Arthritis Atherosclerosis of coronary artery of [place] heart with stable angina pectoris Benign essential hypertension with target blood pressure below 140/90 Chronic obstructive pulmonary disease Comminuted fracture DDD (degenerative disc disease), lumbar Depression Desmoplastic malignant melanoma Diarrhea Endometriosis Essential hypertension H/O angiography History of lipoma Hx of myocardial infarction Iliac artery aneurysm Iliac artery aneurysm Increased urinary frequency Lower respiratory tract infection Lower respiratory tract infection Lumbar back pain with radiculopathy affecting right lower extremity Lumbar spondylolysis Lung nodules Major depressive disorder, recurrent severe without psychotic features Melanoma Mixed hyperlipidemia MRSA nasal colonization Nicotine dependence, cigarettes, uncomplicated No pertinent past medical history neghx: dm,thyroid,dvt/pe PCP: [place] Gross Osteomyelitis This is not a confirmed problem yet, patient is undergoing evaluation for possible osteomyelitis of the lumbar spine Otitis media Psychiatric care Renal artery stenosis Shortness of breath on exertion Suicide attempt Urinary incontinence UTI (urinary tract infection), bacterial Vitamin D deficiency Surgical History History of extraction of renal calculus History of laparoscopic appendectomy History of pancreatic surgery Hx of CABG Family History Father CAD (coronary artery disease) 50s Cancer Lung disease Sister CAD (coronary artery disease) 40s Cancer Chronic kidney disease (CKD) Lung disease Brother CAD (coronary artery disease) 40s Lung disease Mother Cancer Lung disease Family/Other Cancer Suicide Denies family history of Colon cancer Ovarian cancer Diabetes Clotting disorder Dementia Heart disease Hypercholesteremia Breast cancer Anesthesia complication Bleeding disorder Hypertension Uterine cancer Thyroid disease Stroke Social History Smoking and tobacco status: current every day smoker cigarettes Quit status (tobacco): has quit using tobacco Year quit tobacco: 2016 Former quit date comment: Hx of 1PPD x 40 Years Smoking risk assessment/counseling performed?: No Alcohol intake: never Counseling given: No Counseling given: No Lives independently: Yes Household members: none Marital status: / Current occupational status: retired and disabled History of recent travel: No Current gender identity: Female Physical Exam Const: COMMON NORMALS: no acute distress, patient oriented x3 and healthy appearing HENMT: COMMON NORMALS: normocephalic and atraumatic HEAD & SCALP: normocephalic and atraumatic Eye: COMMON NORMALS: Equal, round and reactive pupils present and EOMs intact bilaterally PUPIL: Yes Equal, round and reactive pupils present Neck/C-Spine: COMMON NORMALS: full ROM and supple Chest: COMMONS NORMALS: normal inspection of the chest and normal palpation of entire chest wall Resp: COMMON NORMALS: normal respiratory effort, No retractions and No use of accessory muscles AUSCULTATION: wheezes Cardio: COMMON NORMALS: regular rate, regular rhythm and No murmurs present (Cardio) RATE: regular rate RHYTHM: regular rhythm GI: COMMON NORMALS: Normal to inspection, nondistended, normoactive bowel sounds present, Soft to palpation, non-tender and no masses PALPATION: Yes Soft to palpation Extremity: COMMON NORMALS: normal to inspection and full ROM Neuro: COMMON NORMALS: patient oriented x3, moves all extremities and no focal motor deficits Psych: COMMON NORMALS: mental status grossly normal, Normal thought process present and cooperative THOUGHT PROCESS: Normal thought process present Skin: COMMON NORMALS: no rashes or lesions noted and no wounds GENERAL SKIN EXAM: no rashes or lesions noted Course Vital Signs: Vital signs: Vital Signs Temperature 98.0 F 10/14/22 19:38 Pulse Rate 67 10/14/22 21:51 Respiratory Rate 17 10/14/22 21:51 Blood Pressure 142/64 10/14/22 21:51 Pulse Oximetry 97 10/14/22 21:51 Oxygen Delivery Me thod 10/14/22 19:54 MDM - SOB/Dyspnea Medical Decision Making Patient presents here with COPD exacerbation feels improved here after steroids and breathing treatments we will place her on antibiotics for home she is continue breathing treatments return if worsening. Lab Data 10/14/22 19:48 10/14/22 19:48 Labs/Radiology: Radiology Impressions Chest X-Ray 10/14/22 19:34 IMPRESSION: Lungs are clear Laboratory Results WBC 8.5 10^3/uL (4.0-10.0) 10/14/22 19:48 RBC 4.16 10^6/uL (4.1-5.3) 10/14/22 19:48 Hgb 12.6 g/dL (11.5-15.3) 10/14/22 19:48 Hct 38.8 % (37.0-47.0) 10/14/22 19:48 MCV 93.3 fl (81-99) 10/14/22 19:48 MCH 30.3 pg (28.0-34.0) 10/14/22 19:48 MCHC 32.5 g/dL (30.0-36.0) 10/14/22 19:48 RDW 12.6 % (12.1-15.1) 10/14/22 19:48 Plt Count 330 10^3/cmm (130-400) 10/14/22 19:48 MPV 10.1 fL (7.4-10.4) 10/14/22 19:48 Neut % (Auto) 58.9 % 10/14/22 19:48 Lymph % (Auto) 30.4 % 10/14/22 19:48 [place] % (Auto) 6.0 % 10/14/22 19:48 Eos % (Auto) 3.0 % 10/14/22 19:48 Baso % (Auto) 0.5 % 10/14/22 19:48 Neut # (Auto) 4.99 10^3/uL (1.8-7.7) 10/14/22 19:48 Lymph # (Auto) 2.6 10^3/uL (0.8-4.8) 10/14/22 19:48 [place] # (Auto) 0.5 10^3/uL (0.2-0.9) 10/14/22 19:48 Eos # (Auto) 0.3 10^3/uL (0.0-0.8) 10/14/22 19:48 Baso # (Auto) 0.0 10^3/uL (0.0-0.1) 10/14/22 19:48 Nucleated RBC % (auto) 0 % 10/14/22 19:48 Nucleated RBCs # 0.0 /100WBC 10/14/22 19:48 PT 12.30 SECONDS (12.1-14.9) 10/14/22 19:48 INR 0.89 (0.8-1.2) 10/14/22 19:48 Sodium 136 mmol/L (136-145) 10/14/22 19:48 Potassium 3.7 mmol/L (3.5-5.1) 10/14/22 19:48 Chloride 100 mmol/L (98-107) 10/14/22 19:48 Carbon Dioxide 27 mmol/L (22-29) 10/14/22 19:48 Anion Gap 12.7 (5-19) 10/14/22 19:48 BUN 14 mg/dL (8-23) 10/14/22 19:48 Creatinine 0.9 mg/dL (0.5-0.9) 10/14/22 19:48 GFR Calculation 62.6 mL/min (90-130) L 10/14/22 19:48 Glucose 103 mg/dL (65-115) 10/14/22 19:48 Calculated Osmolality 283 mOsm/kg (285-295) L 10/14/22 19:48 Calcium 9.0 mg/dL (8.5-10.5) 10/14/22 19:48 Total Bilirubin 0.2 mg/dL (0.15-1.2) 10/14/22 19:48 AST 17 U/L (0-32) 10/14/22 19:48 ALT 18 U/L (0-33) 10/14/22 19:48 Alkaline Phosphatase 87 U/L (35-105) 10/14/22 19:48 NT-Pro-B Natriuret Pep 516 pg/mL (0-125) H 10/14/22 19:48 Total Protein 6.6 g/dL (6.6-8.7) 10/14/22 19:48 Albumin 3.6 g/dL (3.5-5.2) 10/14/22 19:48 Globulin 3.0 g/dL (1.3-4.6) 10/14/22 19:48 Influenza Type A Ag negative (Negative) 10/14/22 19:48 Influenza Type B Ag negative (Negative) 10/14/22 19:48 SARS-CoV-2 Ag (Rapid) negative (Negative) 10/14/22 19:48 EKG Data EKG 1: I personally reviewed and interpreted this EKG as follows: EKG Interpretation Date: 10/14/22 EKG interpretation time: 19:50 Interpretation: nsr hr [address] or t wave abnormalities qrs 85 qtc 427 Discharge Plan Discharge Patient Disposition: Home Clinical Impression: Acute exacerbation of chronic obstructive airways disease Condition: Stable Prescriptions: New levofloxacin 750 mg tablet 750 mg PO DAILY 5 Days Qty: 5 0RF No Action nitroglycerin 0.4 mg tablet, sublingual 0.4 mg SUBLINGUAL Q5M PRN (Reason: chest pain) 30 Days Qty: 30 3RF Rx Instructions: until response; do not exceed 3 doses per episode Spiriva with HandiHaler 18 mcg capsule, w/inhalation device 1 cap INHALATION DAILY 30 Days Qty: 60 3RF Rx Instructions: puncture 1 cap using device; one dose = 2 inhalations fluticasone propion-salmeterol [Wixela Inhub] 250-50 mcg/dose blister with device 1 inh inhalation BID lidocaine [Lidoderm] 5 % adhesive patch,medicated 2 patch topical DAILY 30 Days Qty: 60 6RF Rx Instructions: leave on most painful area for up to 12 hrs epinephrine [EpiPen 2-Dmitri] 0.3 mg/0.3 mL auto-injector 0.3 mg IM ONCE PRN (Reason: Allergy Symptoms) Qty: 2 1RF omeprazole 40 mg capsule,delayed release(DR/EC) 40 mg PO DAILY Qty: 90 3RF cetirizine [Zyrtec] 10 mg tablet 10 mg PO DAILY PRN (Reason: allergy symptoms) Qty: 30 0RF clonazepam 1 mg tablet 1 mg PO BID PRN (Reason: anxiety) Qty: 60 2RF Rx Instructions: 1/2 to 1 tablet twice daily trazodone 50 mg tablet 50 mg PO BEDTIME@2200 Qty: 90 0RF fluoxetine [Prozac] 40 mg capsule 80 mg PO DAILY@1000 Qty: 180 0RF ipratropium-albuterol 0.5 mg-3 mg(2.5 mg base)/3 mL solution for nebulization 3 ml INHALATION .every 6 hours PRN (Reason: wheezing) Qty: 180 1RF Combivent Respimat 20-100 mcg/actuation mist See Rx Instructions .ROUTE .COMPLEX Qty: 3 3RF Dose Instruction: INHALE ONE PUFF BY MOUTH FOUR TIMES A DAY SPACE EVENLY DURING WAKING HOURS- (DISCARD UNIT 3 MONTHS AFTER INITIAL USE) Rx Instructions: INHALE ONE PUFF BY MOUTH FOUR TIMES A DAY SPACE EVENLY DURING WAKING HOURS- (DISCARD UNIT 3 MONTHS AFTER INITIAL USE) albuterol sulfate [ProAir HFA] 90 mcg/actuation HFA aerosol inhaler 2 puff INHALATION QID PRN (Reason: shortness of breath or wheezing) Qty: 8.5 3RF fluticasone propionate [Flonase Allergy Relief] 50 mcg/actuation spray,suspension 2 spray INTRANASAL DAILY@1000 Qty: 16 5RF Rx Instructions: administer into each nostril atorvastatin 40 mg tablet 40 mg PO DAILY@1000 Qty: 90 1RF metoprolol succinate 50 mg tablet extended release 24 hr 50 mg PO DAILY@1000 Qty: 90 1RF losartan 100 mg tablet 100 mg PO DAILY Qty: 90 1RF Mucinex 1,200 mg Tablet Extended Release 12hr 1,200 mg PO BID hydrocodone-acetaminophen 5-325 mg tablet 1 tab PO Q6H PRN (Reason: pain) Qty: 14 0RF ondansetron 4 mg tablet,disintegrating 4 mg PO Q6H PRN (Reason: nausea and vomiting) Qty: 14 0RF Discharge Orders: Discharge ED (Routine); Ordered 10/14/22 Ordered By: Sherrell Flor Discharge Diet: Advance as tolerated Discharge Activity: Resume usual activity Patient Instructions: Acute Bronchitis (ED) Coding Level of Care Code ED Outreach Director for Deidre Fwd Exam Comprehensive
[2022-10-14] MEDS: albuterol 2.5 mg/3 mL Neb INHALATION (19:58)
[2022-10-14] MEDS: ipratropium-albuterol 3 mL Neb INHALATION (19:58)
[2022-10-14 20:10] LABS: Basophils % 0.5 %; Eosinophils # 0.3 10^3/uL (0.0-0.8); Hematocrit 38.8 % (37.0-47.0); Hemoglobin 12.6 g/dL (11.5-15.3); Lymphocytes # 2.6 10^3/uL (0.8-4.8); Lymphocytes % 30.4 %; Mean Corpuscular HGB Conc 32.5 g/dL (30.0-36.0); Mean Corpuscular Hemoglobin 30.3 pg (28.0-34.0); Mean Corpuscular Volume 93.3 fl (81-99); Mean Platelet Volume 10.1 fL (7.4-10.4); Monocytes # 0.5 10^3/uL (0.2-0.9); Neutrophils # 4.99 10^3/uL (1.8-7.7); Neutrophils % 58.9 %; Nucleated Red Blood Cells % 0 %; Platelet Count 330 10^3/cmm (130-400); Red Blood Count 4.16 10^6/uL (4.1-5.3); Red Cell Distribution Width 12.6 % (12.1-15.1); White Blood Count 8.5 10^3/uL (4.0-10.0)
[2022-10-14] MEDS: morphine 4 mg/mL SDV 1 mL IVP (20:19)
[2022-10-14] MEDS: ondansetron 2 mg/ML SDV 2 mL 4 MG IVP (20:20)
[2022-10-14 20:38] LABS: INR 0.89 (0.8-1.2)
[2022-10-14 20:43] LABS: Influenza A by IFA negative (Negative); Influenza B by IFA negative (Negative)
[2022-10-14 20:44] LABS: SARS Covid-2 Antigen negative (Negative)
[2022-10-14 20:57] LABS: Alanine Aminotransferase 18 U/L (0-33); Albumin Level 3.6 g/dL (3.5-5.2); Alkaline Phosphatase 87 U/L (35-105); Anion Gap 12.7 (5-19); Aspartate Amino Transferase 17 U/L (0-32); Blood Urea Nitrogen 14 mg/dL (8-23); Carbon Dioxide 27 mmol/L (22-29); Chloride 100 mmol/L (98-107); Glomerular Filtration Rate 62.6 mL/min (90-130); Glucose 103 mg/dL (65-115); NT Pro B Type Natriuretic Pept 516 pg/mL (0-125); Osmolality Calculated 283 mOsm/kg (285-295); Potassium 3.7 mmol/L (3.5-5.1); Sodium 136 mmol/L (136-145); Total Bilirubin 0.2 mg/dL (0.15-1.2); Total Protein 6.6 g/dL (6.6-8.7)
== END 2022-10-14 21:52 | disposition home or self-care (01) ==
PROVIDERS: Emergency Provider Emergency Medicine
DX: J44.1 Chronic obstructive pulmonary disease with (acute) exacerbation (principal); I10 Essential (primary) hypertension
CPT/HCPCS: 71045; 80053; 83880; 85025; 85610; 87426; 87804; 93005; 94640; 96374; 96375; 99285; J2270; J2405; J2930; J7613

== ENCOUNTER 2022-11-19 13:00 | Outpatient (CLI) | payer MEDICARE, OTHER, SELFPAY ==
--- NOTE | 2022-11-19 14:45 | CT_ITS ---
WS: [id number] LDCT LUNG CANCER SCREENING TECHNIQUE: Noncontrast CT of the chest with coronal and sagittal reformatted images. CLINICAL INFORMATION: Former Smoker COMPARISON: CT lung screening February 02, 2021 DLP: 74.70 mGy.cm DIvol: Mean CTDIvol: 1.60 (mGy) All CT scans at [facility] use at least one of these dose optimization techniques: automat ed exposure control; mA and/or kV adjustment per patient size (includes targeted exams where dose is matched to clinical indication); or iterative reconstruction. FINDINGS:Stable 3 - 3.5 mm noncalcified nodules along the fissure. 3.5 mm noncalcified nodule RIGHT u pper lobe. Small subpleural nodule RIGHT lower lobe measuring 4 mm. This is stable compared to previo us. Additional small subpleural noncalcified nodule LEFT lower lobe measuring 4 mm. Tiny 3.7 mm opaci ty LEFT lung apex. Moderate chronic erythematous changes. No acute pulmonary infiltrates. No focal pneumonia or pleural fluid. Sternotomy. CABG. Aortic calcification. Coronary calcification. No mediastinal or hilar lymphadenopat hy. Adrenal glands are normal. Normal GE junction. No axillary lymphadenopathy. Aneurysmal descending tho racic aorta measuring 3.4 cm in maximum AP dimension. This is unchanged since the CTA chest June. Moderate aortic atheromatous disease. Adrenal glands are normal. Pneumobilia. CT/CT lung screening [id number] IMPRESSION: LUNG-RADS: 2-Benign Appearance or Behavior FOLLOW UP: 12 Month: Continue annual screening with LDCT
== END 2022-11-19 13:01 | disposition home or self-care (01) ==
LOC: RAD 13:01
PROVIDERS: PCP Family Medicine; Visit Provider Internal Medicine Pulmonary Disease
DX: Z12.2 Encounter for screening for malignant neoplasm of respiratory organs (principal); Z87.891 Personal history of nicotine dependence
CPT/HCPCS: 71271

== ENCOUNTER 2022-11-19 13:00 | Outpatient (CLI) | payer MEDICARE, OTHER, SELFPAY ==
--- NOTE | 2022-11-19 13:10 | MM_ITS ---
WS: [id number] BILATERAL 3D TOMOSYNTHESIS DIGITAL SCREENING MAMMOGRAPHY WITH CAD CLINICAL INFORMATION: breast cancer screening HISTORY: Screening mammogram. No current complaints. COMPARISON: 2017 TECHNIQUE: Bilateral CC and MLO views. FINDINGS: The breasts are composed of heterogeneous fibroglandular density tissue, which can limit the detectio n of small underlying mass lesions. No suspicious mass, asymmetry, calcifications, or architectural d istortion. No evidence of malignancy. Punctate and dystrophic calcifications. Coarse Clustered calcif ications LEFT breast slightly progressed but similar in appearance. MM/[place] [id number] IMPRESSION: BI-RADS: 2-Benign FOLLOW UP: 1 Year Follow-up Recommend return to annual screening mammography.
== END 2022-11-19 13:01 | disposition home or self-care (01) ==
LOC: RAD 13:01
PROVIDERS: PCP Family Medicine; Visit Provider Family Medicine
DX: Z12.31 Encounter for screening mammogram for malignant neoplasm of breast (principal)
CPT/HCPCS: 77063; 77067

== ENCOUNTER 2022-12-18 12:07 | Outpatient (CLI) | payer MEDICARE, OTHER, SELFPAY ==
--- NOTE | 2022-12-18 12:00 | CT_ITS ---
WS: [id number] CT ANGIOGRAPHY OF THE ABDOMINAL AORTA WITH RUNOFF TO THE ANKLES HISTORY: Aneurysm of iliac artery TECHNIQUE: Arterial injection is performed during imaging to evaluate the aorta and runoff vessels to the ankles. MIP and volume rendering imaging has also been performed. All images are reviewed. All C T scans at [facility] use at least one of these dose optimization techniques: automated exposu re control; mA and/or kV adjustment per patient size (includes targeted exams where dose is matched t o clinical indication); or iterative reconstruction. Contrast: Omnipaque 350; 95 mL IV. DLP: 479.18 mGy.cm COMPARISON: 06/29/2022 CT angiogram abdomen. Lung bases are clear. Normal size heart. Small hiatal hernia. Abdominal aorta: Moderate calcified plaque and intimal thickening throughout the abdominal aorta exte nding to the bifurcation. Soft plaque with irregular surface is involving the aorta at multiple level s. There are several small plaque ulcerations in the suprarenal aorta and infrarenal aorta. Previousl y described focal dissection and plaque ulceration in the infrarenal aorta is reidentified without pr ogression. No aneurysms. Focal stenosis involving origin of the RIGHT common iliac artery. Stenosis e stimated at 50%. Mild aneurysmal dilatation of the mid RIGHT common iliac artery measuring 2.0 x 1.8 cm with an associated focal dissection and plaque. No progression of the plaque or increase in size o f the aneurysm. Internal and external iliac arteries heavily diseased. Mild atherosclerotic plaque th roughout the LEFT common iliac artery through the internal and external iliacs. No occlusions. RIGHT lower extremity arterial system: Focal plaque throughout the femoral artery into the SFA and de ep profunda. 50% stenosis near Harsha's canal. Limited runoff to the extremities due to poor bolus. T he vessels do appear patent although small. LEFT lower extremity due to system: Patent LEFT femoral artery. Bifurcation is intact. 50% stenosis d istal common femoral artery. Calcified plaque is intermittently throughout the SFA. Very high-grade s tenosis in Harsha's canal. Runoff beyond the knee is small caliber and intermittently visualized. Bes t runoff is via the posterior tibial artery. Central biliary air. There is also small amount of air in the gallbladder which may have reflux to th e cystic duct. No wall thickening of the gallbladder or evidence for acute cholecystitis. Liver and s pleen are negative otherwise. No pancreatic head mass. Pancreatic duct is normal. Normal size adrenal glands. Mild atrophy of each kidney with no obstruction. No adenopathy or ascites. The GI tract nega tive for acute process. CT/CT angio abd aorta runof [id number] IMPRESSION: 1. No abdominal aortic aneurysm. 2. The extent of the calcified plaque and soft plaque with ulcerations in the abdominal aorta has not significantly progressed. No change in appearance of th e focal aortic dissection in the infrarenal aorta. 3. RIGHT common iliac artery aneurysm with a maximum diameter of 2.0 cm with a ssociated dissection is stable. 4. High-grade stenosis LEFT SFA through Harsha's canal at approximately 70%. 5. 50% stenosis RIGHT SFA at Harsha's canal. 6. Three-vessel runoff to the ankle. Small caliber vessels but not occluded. 7. Pneumobilia and also air in the gallbladder. Probably refluxed from the GI tract. No evidence for duct dilatation or acute cholecystitis. May be related t o prior instrumentation or patulous sphincter.
[2022-12-18] MEDS: iohexol 350 mg/mL 500 mL Btl (per mL) IV (13:08)
== END 2022-12-18 12:08 | disposition home or self-care (01) ==
PROVIDERS: PCP Family Medicine; Visit Provider Internal Medicine
DX: I72.3 Aneurysm of iliac artery (principal)
CPT/HCPCS: 75635; Q9967

== ENCOUNTER → 2022-12-20 10:35 | Outpatient (BNVA) | payer MEDICARE, OTHER, SELFPAY | PROVIDERS: PCP Family Medicine; Visit Provider Internal Medicine Pulmonary Disease | DX: J44.9 Chronic obstructive pulmonary disease, unspecified (principal); J30.9 Allergic rhinitis, unspecified; G47.34 Idiopathic sleep related nonobstructive alveolar hypoventilation; R53.82 Chronic fatigue, unspecified; Z87.891 Personal history of nicotine dependence; F32.A Depression, unspecified | CPT/HCPCS: 99214 ==

== ENCOUNTER → 2022-12-31 09:08 | Outpatient (BNVA) | payer MEDICARE, OTHER, SELFPAY | PROVIDERS: PCP Family Medicine; Visit Provider Otolaryngology | DX: H91.93 Unspecified hearing loss, bilateral (principal); H93.13 Tinnitus, bilateral; M26.623 Arthralgia of bilateral temporomandibular joint | CPT/HCPCS: 99203 ==

== ENCOUNTER 2023-01-28 02:26 | Observation (INO) | payer MEDICARE, OTHER, SELFPAY ==
[2023-01-28] VITALS (20 sets, daily range): BP systolic 124–184; BP diastolic 77–113; PULSE 62–97; RESP 14–22; TEMP 36.5–36.8; O2SAT 91–99; BMI 25.7
--- NOTE | 2023-01-28 02:28 | W.ED.CHESTPA ---
HPI - Chest Pain General: Chief Complaint: Chest Pain Stated Complaint: cp; hx of cardiac activity Time Seen by Provider: 01/28/23 02:28 History of Present Illness: Ms. Varma is a 67-year-old lady with history of CABG presenting to the emergency department due to chest pain. She notes perhaps increased cough and shortness of breath earlier today as well as generally feeling unwell. Approximately 1 hour prior to arrival she began having substernal chest pain with radiation to the neck, arm, back. Associated with shortness of breath and nausea with generalized malaise. Intensity symptoms moderate to severe. Course has persisted. No improvement with nitro at home. No other specific changes in health, exacerbating, or alleviating factors identified. Onset (ago): minute(s) Timing of current episode: constant Onset: during exertion Pain location: substernal Pain radiation: left arm, back and neck Severity: severe Quality: aching and heaviness Relieving factors: nothing Exacerbating factors: nothing Associated symptoms: Reports dyspnea, nausea and other Treatment prior to arrival: nitroglycerin Review of Systems General: Reports: 10 or more systems reviewed and unremarkable except in HPI and below Resp: Reports: dyspnea GI: Reports: nausea PFSH ED PFSH: Medical History Anxiety Arthritis Atherosclerosis of coronary artery of [place] heart with stable angina pectoris Benign essential hypertension with target blood pressure below 140/90 Comminuted fracture DDD (degenerative disc disease), lumbar Desmoplastic malignant melanoma Diarrhea Essential hypertension H/O angiography History of lipoma Hx of myocardial infarction Iliac artery aneurysm Iliac artery aneurysm Lumbar back pain with radiculopathy affecting right lower extremity Lumbar spondylolysis Lung nodules Major depressive disorder, recurrent severe without psychotic features Melanoma Mixed hyperlipidemia MRSA nasal colonization Nicotine dependence, cigarettes, uncomplicated Osteomyelitis This is not a confirmed problem yet, patient is undergoing evaluation for possible osteomyelitis of the lumbar spine Psychiatric care Renal artery stenosis Suicide attempt Urinary incontinence Vitamin D deficiency Surgical History History of extraction of renal calculus History of laparoscopic appendectomy History of pancreatic surgery Hx of CABG Family History Father CAD (coronary artery disease) 50s Cancer Lung disease Sister CAD (coronary artery disease) 40s Cancer Chronic kidney disease (CKD) Lung disease Brother CAD (coronary artery disease) 40s Lung disease Mother Cancer Lung disease Family/Other Cancer Suicide Denies family history of Colon cancer Ovarian cancer Diabetes Clotting disorder Dementia Heart disease Hypercholesteremia Breast cancer Anesthesia complication Bleeding disorder Hypertension Uterine cancer Thyroid disease Stroke Social History Smoking and tobacco status: former smoker Quit status (tobacco): has quit using tobacco Year quit tobacco: 2016 Former quit date comment: Hx of 1PPD x 40 Years Smoking risk assessment/counseling performed?: No Alcohol intake: never Counseling given: No Counseling given: No Lives independently: Yes Household members: none Marital status: / Number of children: 2 Current occupational status: retired and disabled Current gender identity: Female Physical Exam Const: COMMON NORMALS: alert GENERAL APPEARANCE: cooperative, well developed and ill appearing (Uncomfortable appearing due to pain) HENMT: COMMON NORMALS: normocephalic and atraumatic HEAD & SCALP: normocephalic and atraumatic Eye: COMMON NORMALS: conjunctivae normal CONJUNCTIVA: Yes conjunctivae normal SCLERA: sclerae normal Neck/C-Spine: COMMON NORMALS: supple GENERAL: Yes trachea midline Resp: COMMON NORMALS: clear to auscultation bilaterally EFFORT & INSPECTION: Yes able to speak in complete sentences AUSCULTATION: clear to auscultation bilaterally Cardio: COMMON NORMALS: regular rate and regular rhythm RATE: regular rate RHYTHM: regular rhythm GI: COMMON NORMALS: Soft to palpation PALPATION: Yes Soft to palpation and No Tenderness to palpation present (GI) Extremity: GENERAL: Yes normal exam except as noted and No edema Neuro: COMMON NORMALS: moves all extremities SENSORIUM/ORIENTATION: Yes alert and No Orientation impaired Psych: COMMON NORMALS: mental status grossly normal and Normal thought process present THOUGHT PROCESS: Normal thought process present Course Vital Signs: Vital signs: Vital Signs Temperature 98.0 F 01/28/23 19:54 Pulse Rate 66 01/29/23 00:00 Respiratory Rate 18 01/29/23 00:00 Blood Pressure 134/77 01/28/23 19:54 Pulse Oximetry 95 01/29/23 00:00 Oxygen Delivery Me thod 01/29/23 00:00 Oxygen Flow Rate 2 01/28/23 12:00 MDM - Chest Pain Medical Decision Making 67-year-old lady with significant cardiac history presenting the emergency department due to concerning story for cardiac chest pain. She still is having some pain. Exam as above EKG notable for sinus rhythm, normal axis and intervals, no STEMI. Labs notable for essentially unremarkable hematologic panel. Metabolic panel without acute electrolyte derangement. D-dimer is elevated. Intermediate range 2-hour troponin. Lipase is mildly elevated. Chest x-ray negative for lobar consolidation or pneumothorax. Given elevated D-dimer CTA obtained. No evidence of PE on my interpretation, pending formal read at time of admission secondary to delay with [facility]. Patient treated in the emergency department with analgesia, antiemetic, aspirin. Patient is not low risk by heart score and his story is quite concerning with an intermediate range 2-hour delta troponin. She therefore requires further inpatient evaluation for cardiac etiology of symptoms. The results of ED evaluation were discussed with the patient including plan for admission due to requirement for level of care not available if discharged to prevent significant worsening/deterioration. Patient agreeable with plan. Discussed with hospitalist service who was agreeable to admit patient. Medical Records I reviewed the patient's medical records. Lab Data I reviewed the patient's lab results. 01/28/23 02:48 01/28/23 02:48 Radiology Impressions Chest X-Ray 01/28/23 02:40 IMPRESSION: 1. Mild bibasilar atelectasis. 2. No other acute findings. Chest CTA 01/28/23 03:15 IMPRESSION: 1. No evidence of pulmonary embolus. 2. Prior median sternotomy for coronary revascularization. Stable 12 mm deep infundibulum- like protrusion of the ascending thoracic aorta extending laterally adjacent to the origin of an aorto coronary arterial graft. This may represent a chronic postoperative intramural hematoma, less likely a pseudoaneurysm or penetrating ulcer. It is retrosternal in location, in the superior mediastinum. A follow-up CTA with the bolus timed to the aorta may be helpful for further characterization if clinically indicated (to see if it fills with contrast/blood). 3. No pulmonary consolidation. 4. Gas is present in the nina hepatis, likely in the intrahepatic bile ducts which may be secondary to prior common bile duct manipulation such as sphincteroplasty, sphincterotomy or surgery. Correlation with patient's history is recommended. This is a chronic finding as it is present in the CTA of the abdomen of 06/29/2022. CT scan of the abdomen and pelvis may be helpful for further characterization if clinically indicated. ADDENDUM: 01/28/23 0742 THIS REPORT CONTAINS FINDINGS THAT MAY BE CRITICAL TO PATIENT CARE. The findings were verbally communicated via telephone conference with Dr. Ferraro at 7:40 AM CDT on 01/28/2023. The findings were acknowledged and understood. Gallbladder Ultrasound 01/28/23 06:03 IMPRESSION: 1. Cholelithiasis. No evidence for acute cholecystitis. 2. No bile duct dilatation. Laboratory Results WBC 6.4 10^3/uL (4.0-10.0) 01/28/23 02:48 RBC 4.03 10^6/uL (4.1-5.3) L 01/28/23 02:48 Hgb 12.1 g/dL (11.5-15.3) 01/28/23 02:48 Hct 38.0 % (37.0-47.0) 01/28/23 02:48 MCV 94.3 fl (81-99) 01/28/23 02:48 MCH 30.0 pg (28.0-34.0) 01/28/23 02:48 MCHC 31.8 g/dL (30.0-36.0) 01/28/23 02:48 RDW 13.1 % (12.1-15.1) 01/28/23 02:48 Plt Count 180 10^3/cmm (130-400) 01/28/23 02:48 MPV 11.0 fL (7.4-10.4) H 01/28/23 02:48 Neut % (Auto) 31.2 % 01/28/23 02:48 Lymph % (Auto) 54.9 % 01/28/23 02:48 Aiken % (Auto) 6.8 % 01/28/23 02:48 Eos % (Auto) 5.9 % 01/28/23 02:48 Baso % (Auto) 0.9 % 01/28/23 02:48 Neut # (Auto) 2.00 10^3/uL (1.8-7.7) 01/28/23 02:48 Lymph # (Auto) 3.5 10^3/uL (0.8-4.8) 01/28/23 02:48 [place] # (Auto) 0.4 10^3/uL (0.2-0.9) 01/28/23 02:48 Eos # (Auto) 0.4 10^3/uL (0.0-0.8) 01/28/23 02:48 Baso # (Auto) 0.1 10^3/uL (0.0-0.1) 01/28/23 02:48 Nucleated RBC % (auto) 0 % 01/28/23 02:48 Nucleated RBCs # 0.0 /100WBC 01/28/23 02:48 D-Dimer 1.68 ug/mIFEU (0-0.59) H 01/28/23 02:48 Sodium 144 mmol/L (136-145) 01/28/23 02:48 Potassium 4.2 mmol/L (3.5-5.1) 01/28/23 02:48 Chloride 107 mmol/L (98-107) 01/28/23 02:48 Carbon Dioxide 26 mmol/L (22-29) 01/28/23 02:48 Anion Gap 15.2 (5-19) 01/28/23 02:48 BUN 11 mg/dL (8-23) 01/28/23 02:48 Creatinine 0.7 mg/dL (0.5-0.9) 01/28/23 02:48 GFR Calculation 83.5 mL/min (90-130) L 01/28/23 02:48 Glucose 98 mg/dL (65-115) 01/28/23 02:48 Calculated Osmolality 297 mOsm/kg (285-295) H 01/28/23 02:48 Calcium 9.3 mg/dL (8.5-10.5) 01/28/23 02:48 Total Bilirubin 0.2 mg/dL (0.15-1.2) 01/28/23 02:48 AST 19 U/L (0-32) 01/28/23 02:48 ALT 15 U/L (0-33) 01/28/23 02:48 Alkaline Phosphatase 72 U/L (35-105) 01/28/23 02:48 Troponin T Baseline 7 ng/L (0-10) 01/28/23 02:48 Troponin T 120 Minute 13.29 ng/L (0-10) H 01/28/23 04:43 Delta Troponin T 6.29 ABS# (0-10) 01/28/23 04:43 NT-Pro-B Natriuret Pep 109 pg/mL (0-125) 01/28/23 02:48 Total Protein 6.2 g/dL (6.6-8.7) L 01/28/23 02:48 Albumin 4.0 g/dL (3.5-5.2) 01/28/23 02:48 Globulin 2.2 g/dL (1.3-4.6) 01/28/23 02:48 Lipase 75 U/L (13-60) H 01/28/23 02:48 SARS-CoV-2 Ag (Rapid) negative (Negative) 01/28/23 02:48 Discharge Plan Discharge Patient Disposition: Placed in Observation Admit Provider: Boom Vu Clinical Impression: Chest pain Coding Level of Care Code ED 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
--- NOTE | 2023-01-28 02:32 | ECG_ITS ---
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
--- NOTE | 2023-01-28 02:40 | XRR_ITS ---
PROCEDURE INFORMATION: Exam: XR Chest Exam date and time: 01/28/2023 2:45 AM Age: 67 years old Clinical indication: Sternal or substernal pain; Prior surgery; Surgery type: Cabg; Patient HX: C/O substernal chest pain. History of copd. ; Additional info: Cp TECHNIQUE: Imaging protocol: Radiologic exam of the chest. Views: 1 view. COMPARISON: CT lung screening [id number] 11/19/2022 1:30 PM FINDINGS: Tubes, catheters and devices: EKG monitoring leads overlie the thoracic wall. Lungs: The visualized lung armstrong show mild bibasilar atelectasis. There is no evidence of focal pulmonary consolidation. Pleural spaces: There is no pleural effusion or pneumothorax. Heart/Mediastinum: Normal in size. Bones/joints: There has been a median sternotomy for coronary revascularization. The sternotomy wires remain in stable alignment. No acute fracture. XR/XR chest 1V portable [id number] IMPRESSION: 1. Mild bibasilar atelectasis. 2. No other acute findings.
[2023-01-28] MEDS: aspirin 81 mg Chew Tablet 324 MG PO (02:48)
[2023-01-28] MEDS: ondansetron 2 mg/ML SDV 2 mL 4 MG IVP (02:48)
[2023-01-28] MEDS: morphine 4 mg/mL SDV 1 mL IVP (02:48)
--- NOTE | 2023-01-28 02:57 | PC.NURSE ---
Pt presents to ED c/o chest pain. Pt took 3 nitroglycerin prior to arrival w/ no relief. Upon interviewing pt reveals that she has had productive cough and fever the last few days. Lung sounds are clear to auscultation bilaterally. Daughter revealed several family members having respiratory symptoms lately. Pt reports that chest pain radiates to epigastric region and R jaw. Tenderness noted upon palpation of epigastric region. Chronic diarrhea noted. Pt reports that she was supposed to have her gallbladder removed last year but did not due to COVID.
[2023-01-28 02:58] LABS: Basophils # 0.1 10^3/uL (0.0-0.1); Basophils % 0.9 %; Eosinophils # 0.4 10^3/uL (0.0-0.8); Eosinophils % 5.9 %; Hemoglobin 12.1 g/dL (11.5-15.3); Lymphocytes # 3.5 10^3/uL (0.8-4.8); Lymphocytes % 54.9 %; Mean Corpuscular HGB Conc 31.8 g/dL (30.0-36.0); Mean Corpuscular Volume 94.3 fl (81-99); Monocytes # 0.4 10^3/uL (0.2-0.9); Monocytes % 6.8 %; Neutrophils % 31.2 %; Nucleated Red Blood Cells % 0 %; Platelet Count 180 10^3/cmm (130-400); Red Blood Count 4.03 10^6/uL (4.1-5.3); Red Cell Distribution Width 13.1 % (12.1-15.1); White Blood Count 6.4 10^3/uL (4.0-10.0)
[2023-01-28 03:11] LABS: D Dimer 1.68 ug/mIFEU (0-0.59)
[2023-01-28 03:14] LABS: SARS Covid-2 Antigen negative (Negative)
--- NOTE | 2023-01-28 03:15 | CTR_ITS ---
PROCEDURE INFORMATION: Exam: CTA Chest With Contrast Exam date and time: 01/28/2023 3:40 AM Age: 67 years old Clinical indication: Pain and abnormal findings; Abnormal diagnostic tests; Elevated d-dimer; Sternal or substernal pain; Prior surgery; Surgery type: Cabg; Patient HX: Substernal chest pain. D dimer of 1.68. ; Additional info: Cp, elevated ddimer TECHNIQUE: Imaging protocol: Computed tomographic angiography of the chest with contrast. 3D rendering (Not supervised by radiologist): MIP and/or 3D reconstructed images were created by the technologist. Radiation optimization: All CT scans at this facility use at least one of these dose optimization techniques: automated exposure control; mA and/or kV adjustment per patient size (includes targeted exams where dose is matched to clinical indication); or iterative reconstruction. Contrast material: OMNI 350; Contrast volume: 65 ml; Contrast route: INTRAVENOUS (IV); REPORTING DATA: Count of CT and Cardiac NM exams in prior 12 months: This patient has received 4 known CTs and 0 known cardiac nuclear medicine studies in the 12 months prior to the current study. COMPARISON: CT angio chest [id number] 06/18/2021 9:32 PM RADIATION DOSE METRICS: Total DLP (mGy-cm): 364.31 FINDINGS: Pulmonary arteries: There are no filling defects in the pulmonary arteries to suggest pulmonary emboli. Aorta: There is no thoracic aortic aneurysm. In the ascending thoracic aorta proximal to the takeoff of the brachiocephalic artery, there is a small triangular exophytic dilatation of the aorta the aorta, 12 mm deep adjacent to the origin of a coronary artery graft (axial series 7, image 154; coronal series 14, image 35). This is stable from the comparison examination and likely represents a penetrating ulcer or pseudoaneurysm. It contains medial and lateral calcifications, the see it is likely in the media, between the intima the adventitia. On the CTA of 11/25/2018, this protrusion did not opacified with contrast and likely was thrombosed. As aorta is not significantly opacified on today's examination, are not able to tell whether or not there is flow in this pseudoaneurysm or hematoma. There is no para-aortic fluid or hematoma the. Lungs: The lung bases show mild bibasilar atelectasis. There is no evidence of focal pulmonary consolidation. Pleural spaces: Unremarkable. No pneumothorax. No pleural effusion. Heart: The heart is normal in size. There are no pericardial fluid collections. Coronary arteries: There is severe atherosclerotic calcification of the coronary arteries. Lymph nodes: There are multiple subcentimeter calcified left hilar lymph nodes. Some nonenlarged common nonspecific mediastinal lymph nodes are present. Liver: There are gas bubbles centrally, in the nina hepatis, presumed to be in the biliary system (axial series 7, image 418). Spleen: In the spleen, there is a 12 mm nodule with rim calcification that may be secondary to a calcified remote hematoma. The Bones/joints: There are mild chronic superior endplate compression fractures of T3 - T6. There is a hemangioma of the T6 vertebral body. There has been a median sternotomy for coronary revascularization. Soft tissues: Unremarkable. CT/CT angio chest PE protcl [id number] IMPRESSION: 1. No evidence of pulmonary embolus. 2. Prior median sternotomy for coronary revascularization. Stable 12 mm deep infundibulum- like protrusion of the ascending thoracic aorta extending laterally adjacent to the origin of an aorto coronary arterial graft. This may represent a chronic postoperative intramural hematoma, less likely a pseudoaneurysm or penetrating ulcer. It is retrosternal in location, in the superior mediastinum. A follow-up CTA with the bolus timed to the aorta may be helpful for further characterization if clinically indicated (to see if it fills with contrast/blood). 3. No pulmonary consolidation. 4. Gas is present in the nina hepatis, likely in the intrahepatic bile ducts which may be secondary to prior common bile duct manipulation such as sphincteroplasty, sphincterotomy or surgery. Correlation with patient's history is recommended. This is a chronic finding as it is present in the CTA of the abdomen of 06/29/2022. CT scan of the abdomen and pelvis may be helpful for further characterization if clinically indicated.
[2023-01-28 03:22] LABS: Troponin(5th) Baseline 7 ng/L (0-10)
--- NOTE | 2023-01-28 03:25 | PC.NURSE ---
Pt noted to have 87% saturation on monitor. Nurse at bedside. Pt repositioned and placed on 2L NC. Pt states that she normally wears oxygen at night. Pt reports feeling better, resting comfortably in bed.
[2023-01-28 03:30] LABS: Alanine Aminotransferase 15 U/L (0-33); Alkaline Phosphatase 72 U/L (35-105); Anion Gap 15.2 (5-19); Aspartate Amino Transferase 19 U/L (0-32); Blood Urea Nitrogen 11 mg/dL (8-23); Calcium 9.3 mg/dL (8.5-10.5); Carbon Dioxide 26 mmol/L (22-29); Chloride 107 mmol/L (98-107); Globulin 2.2 g/dL (1.3-4.6); Glomerular Filtration Rate 83.5 mL/min (90-130); Glucose 98 mg/dL (65-115); Lipase 75 U/L (13-60); NT Pro B Type Natriuretic Pept 109 pg/mL (0-125); Osmolality Calculated 297 mOsm/kg (285-295); Potassium 4.2 mmol/L (3.5-5.1); Sodium 144 mmol/L (136-145); Total Bilirubin 0.2 mg/dL (0.15-1.2); Total Protein 6.2 g/dL (6.6-8.7)
[2023-01-28] MEDS: iohexol 350 mg/mL 500 mL Btl (per mL) IV (03:43)
--- NOTE | 2023-01-28 04:40 | ECG_ITS ---
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1955 Requested By: Onel Chamberlain Order Number: [id number] Carmen MD: JOHAN MALHOTRA Measurements Intervals [place] Rate: 64 P: 70 VT: 179 QRS: 83 QRSD: 87 T: 86 QT: 464 QTc: 482 Interpretive Statements SINUS RHYTHM LOW QRS VOLTAGE IN PRECORDIAL LEADS [QRS DEFLECTION < 1.0 mV IN CHEST LEADS] PROLONGED QT INTERVAL Compared to ECG 10/14/2022 19:50:19 Prolonged QT interval now present Myocardial infarct finding no longer present Electronically Signed On 01-28-2023 17:42:50 CDT by JOHAN MALHOTRA [id number]
[2023-01-28 05:05] LABS: Troponin 5 2HR 13.29 ng/L (0-10)
[2023-01-28 05:26] LABS: Troponin 5 2HR Delta 6.29 ABS# (0-10)
--- NOTE | 2023-01-28 06:00 | P.HP_ITS ---
Providers/Chief Complaint Admitting Physician: Boom Vu Primary Care Provider: Eldon Corral MD Chief Complaint: cp; hx of cardiac activity History of Present Illness Pleasant 67-year-old lady with history of CABG, additionally right common iliac artery aneurysm, COPD, chronically on oxygen 2 L at night, recently increased by 1 L, other comorbidities as per PMH presented after starting to experience chest pain, central radiating to the left arm, to the back, with nausea that started around 1 AM as she was finishing watching TV and just about getting up to go to bed. Some exacerbation of pain with movement. He did not try to take deep breaths to see if it affects the pain. Having some epigastric pain as well. In ER afebrile, with unremarkable CBC. D-dimer abnormal at 1.68. Chemistry panel unremarkable. Baseline 27, chart troponin with rise up to 13.29, delta 6.29. NT proBNP 109. Lipase 75. Rapid COVID-19 negative. Chest x-ray with mild bibasilar atelectasis. CTA chest pending. In ER received morphine, aspirin and Zofran. She has not eaten since last night but has had caffeine yesterday. Review of Systems Const: Denies: fever(s), chills, body aches or malaise Eyes: Denies: change in vision, eye discomfort or eye redness ENMT: Denies: throat pain, oral sores or ear or mastoid pain Card: Reports: chest pain; Denies: edema, pre-syncope or dyspnea on exertion Resp: Reports: productive cough (chronic with COPD, kel in morning); Denies: dyspnea, change in phlegm color or hemoptysis GI: Denies: abdominal pain, nausea, vomiting, diarrhea, constipation, hematochezia or melena : Denies: flank pain, urinary frequency or hematuria Musc: Denies: back pain, joint swelling or joint redness Skin/Breast: Denies: rash or new lesions Neuro: Denies: headache(s), numbness in extremities, weakness in extremities, dizziness, confusion or seizure-like activity Endo: Denies: polyuria or polydipsia Tj/Lymph: Denies: easy bleeding or tender lymph nodes All/Imm: Denies: urticaria or tongue swelling Medications/Allergies Home Medications Medication Instructions Recorded Confirmed Last Taken Type guaifenesin 1,200 mg tablet, 1,200 mg PO BID 06/18/21 12/31/22 06/17/21 History extended release 12 hr (Mucinex) ipratropium 20 mcg-albuterol 100 See Rx Instructions .Route 11/02/21 12/31/22 Unknown Rx mcg/actuation mist for inhalation .COMPLEX #3 grams (Combivent Respimat) albuterol sulfate 90 mcg/actuation 2 puff inhalation QID PRN 11/15/21 12/31/22 Unknown Rx aerosol inhaler (ProAir HFA) shortness of breath or wheezing #8.5 grams fluticasone propionate 50 2 spray intranasal DAILY@1000 #16 11/15/21 12/31/22 Unknown Rx mcg/actuation nasal grams spray,suspension (Flonase Allergy Relief) tiotropium bromide 18 mcg capsule 1 cap inhalation DAILY 30 days #60 04/29/22 12/31/22 Unknown Rx with inhalation device (Spiriva inhalations with HandiHaler) epinephrine 0.3 mg/0.3 mL 0.3 mg (0.3 mL) IM ONCE PRN 05/22/22 12/31/22 Unknown Rx injection, auto-injector (EpiPen Allergy Symptoms #2 ea 2-Dmitri) lidocaine 5 % topical patch 2 patch topical DAILY 30 days #60 05/22/22 12/31/22 Unknown Rx (Lidoderm) ea fluticasone 250 mcg-salmeterol 50 1 inh inhalation BID 06/28/22 12/31/22 Unknown History mcg/dose blistr powdr for inhalation (Sy Inhub) ondansetron 4 mg disintegrating 4 mg PO Q6H PRN nausea and 06/29/22 12/31/22 Unknown Rx tablet vomiting #14 tabs cetirizine 10 mg tablet (Zyrtec) 10 mg PO DAILY PRN allergy 08/20/22 12/31/22 Unknown Rx symptoms #30 tabs atorvastatin 40 mg tablet 40 mg PO DAILY@1000 #90 tabs 09/12/22 12/31/22 Unknown Rx losartan 100 mg tablet 100 mg PO DAILY #90 tabs 09/12/22 12/31/22 Unknown Rx metoprolol succinate 50 mg 50 mg PO DAILY@1000 #90 tabs 09/12/22 12/31/22 Unknown Rx tablet,extended release 24 hr ipratropium 0.5 mg-albuterol 3 mg 3 ml inhalation .every 6 hours PRN 10/07/22 12/31/22 Unknown Rx (2.5 mg base)/3 mL nebulization wheezing #180 mL soln fluoxetine 40 mg capsule (Prozac) 80 mg PO DAILY@1000 #180 caps 11/14/22 12/31/22 Unknown Rx trazodone 50 mg tablet 50 mg PO BEDTIME@2200 #90 tabs 11/14/22 12/31/22 Unknown Rx clonazepam 1 mg tablet 1 mg PO TID PRN anxiety #90 tabs 12/18/22 12/31/22 Unknown Rx nitroglycerin 0.4 mg sublingual 0.4 mg sublingual Q5M PRN chest 01/14/23 Unknown Rx tablet pain #25 tabs azithromycin 500 mg tablet 500 mg PO .3 times/week 90 days 01/15/23 Unknown Rx #90 tabs Allergies Allergy/AdvReac Type Severity Reaction Status Date / Time aspirin Allergy ADR-Diarrhe Verified 12/31/22 09:15 a bee venom protein (honey bee) Allergy Unknown Verified 12/31/22 09:15 cefaclor [From Ceclor] Allergy ALGY-Anaphy Verified 12/31/22 09:15 laxis PFSH Acute PFSH: Medical History Anxiety Arthritis Atherosclerosis of coronary artery of [place] heart with stable angina pectoris Benign essential hypertension with target blood pressure below 140/90 Comminuted fracture DDD (degenerative disc disease), lumbar Desmoplastic malignant melanoma Diarrhea Essential hypertension H/O angiography History of lipoma Hx of myocardial infarction Iliac artery aneurysm Iliac artery aneurysm Lumbar back pain with radiculopathy affecting right lower extremity Lumbar spondylolysis Lung nodules Major depressive disorder, recurrent severe without psychotic features Melanoma Mixed hyperlipidemia MRSA nasal colonization Nicotine dependence, cigarettes, uncomplicated Osteomyelitis This is not a confirmed problem yet, patient is undergoing evaluation for possible osteomyelitis of the lumbar spine Psychiatric care Renal artery stenosis Suicide attempt Urinary incontinence Vitamin D deficiency Surgical History History of extraction of renal calculus History of laparoscopic appendectomy History of pancreatic surgery Hx of CABG Family History Father CAD (coronary artery disease) 50s Cancer Lung disease Sister CAD (coronary artery disease) 40s Cancer Chronic kidney disease (CKD) Lung disease Brother CAD (coronary artery disease) 40s Lung disease Mother Cancer Lung disease Family/Other Cancer Suicide Denies family history of Colon cancer Ovarian cancer Diabetes Clotting disorder Dementia Heart disease Hypercholesteremia Breast cancer Anesthesia complication Bleeding disorder Hypertension Uterine cancer Thyroid disease Stroke Social History Smoking and tobacco status: former smoker Quit status (tobacco): has quit using tobacco Year quit tobacco: 2016 Former quit date comment: Hx of 1PPD x 40 Years Smoking risk assessment/counseling performed?: No Alcohol intake: never Counseling given: No Counseling given: No Lives independently: Yes Household members: none Marital status: / Number of children: 2 Current occupational status: retired and disabled Current gender identity: Female Vitals/I&O/Wt Last Vital Signs Temp 97.7 F 01/28/23 02:38 Pulse 66 01/28/23 05:30 Resp 16 01/28/23 05:30 BP 154/81 01/28/23 05:30 Pulse Ox 98 01/28/23 05:30 O2 Del Method 01/28/23 04:36 O2 Flow Rate 2 01/28/23 04:36 Weight last 48 hrs Weight 65.771 kg Physical Exam Narrative: Accompanied by family Const: COMMON NORMALS: patient oriented x3 and alert GENERAL APPEARANCE: cooperative ORIENTATION/CONSCIOUSNESS: Yes awake HENMT: COMMON NORMALS: oropharynx normal Neck/C-Spine: COMMON NORMALS: no JVD Resp: COMMON NORMALS: normal respiratory effort and clear to auscultation bilaterally AUSCULTATION: clear to auscultation bilaterally Cardio: COMMON NORMALS: no JVD, regular rhythm, S1 normal heart sound present, S2 normal heart sound present and No murmurs present (Cardio) RHYTHM: regular rhythm HEART SOUNDS: S1 normal heart sound present and S2 normal heart sound present GI: COMMON NORMALS: Normal to inspection, nondistended, normoactive bowel sounds present, Soft to palpation and non-tender PALPATION: Yes Soft to palpation Extremity: COMMON NORMALS: no joint enlargement and no pedal edema Neuro: COMMON NORMALS: patient oriented x3 and moves all extremities SENSORIUM/ORIENTATION: Yes alert Skin: COMMON NORMALS: no rashes or lesions noted GENERAL SKIN EXAM: no rashes or lesions noted Data 01/28/23 02:48 01/28/23 02:48 A&P Assessment and plan (1) Chest pain: Complete troponin EKG series to assess for possible acute FL with noted rising troponin. Required IV morphine for chest pain. Prior history of CABG. Has not had additional issues or work-up since then. Reports having some cough recently, although also has chronic cough with COPD. CTA is pending. Monitor on telemetry. Assess TTE. Had caffeine within 24 hours, unable to obtain stress test currently. Complete cardiac work-up. Continue cardiac medication. Consider further assessment, possible stress test in the morning. Nitroglycerin as needed, morphine as needed. Continue aspirin, statin, beta-mayte. Discussed with ER physician, ER documentation reviewed. (2) Epigastric pain: Epigastric and upper quadrant pain. Lipase noted mild elevation 75. Has history of cholelithiasis. Liver parameters noted unremarkable. Assess right upper quadrant ultrasound. Follow-up lipase. Plan Elevated D-dimer: Assess lower extremity bilateral duplex for DVT. Pending CT angiogram for PE. Asthma-COPD overlap: Chronic nighttime oxygen 2 L, was increased by 1 L. Currently not in exacerbation. Right common iliac artery aneurysm: Follows with cardiology, note reviewed. Pulmonary notes reviewed. Lung nodules: Pulmonary notes reviewed. Other medical problems as per history. Attestations Medical Necessity Statement*: Place in observation for additional assessment of chest pain in a lady with history of CAD/CABG, abnormal D-dimer. Diagnoses Chest pain R07.9 Epigastric pain R10.13
--- NOTE | 2023-01-28 06:02 | USCV_ITS ---
Kojo Norma Age: 67 Gender: F : 1955 Exam Date: 01/28/2023 09:13 Ordering Phys: Boom Vu MD Technologist: Lenny Carpenter Exam Location: [facility] [place] Indication: chest pain BP: 160 / 89 HR: 64 Rhythm: Sinus Technical Quality: Fair MEASUREMENTS (Male / Female) Normal Values 2D ECHO LV Diastolic Diameter PLAX 4.6 cm 4.2 - 5.9 / 3.9 - 5.3 cm LV Systolic Diameter PLAX 3.1 cm IVS Diastolic Thickness 0.9 cm 0.6 - 1.0 / 0.6 - 0.9 cm IVS Systolic Thickness 1.2 cm LVPW Diastolic Thickness 1.0 cm 0.6 - 1.0 / 0.6 - 0.9 cm LVPW Systolic Thickness 1.7 cm LVOT Diameter 2.0 cm LV Ejection Fraction 2D Teich 61.5 % LV Ejection Fraction MOD 2C 69.4 % LV Ejection Fraction 2C AL 71.5 % LA Diameter 3.1 cm LA Width 3.0 cm LA Height 4.1 cm RA Width 3.1 cm RA Height 3.4 cm Aorta at Sinotubular Diameter 2.6 cm IVC Diameter 1.1 cm M-MODE Aortic Annulus Diameter 3.1 cm LA Ao Ratio MM 1.0 MV E Point Septal Separation 0.5 cm DOPPLER AV Peak Velocity 120.0 cm/s LVOT Peak Velocity 72.0 cm/s AV Area Cont Eq vti 2.1 cm squared AV Area Cont Eq pk 1.9 cm squared MV Peak Velocity 102.0 cm/s MV Area PHT 3.9 cm squared Mitral E to A Ratio 1.0 MV E' Velocity 35.5 cm/s Mitral E to MV E' Ratio 8.5 Mitral E to LV E' Lateral Ratio 7.7 Mitral E to LV E' Septal Ratio 9.6 TR Peak Velocity 122.3 cm/s TR Peak Gradient 6.0 mmHg TR Mean Velocity 79.1 cm/s TR Mean Gradient 2.8 mmHg TR Velocity Time Integral 21.1 cm Right Atrial Pressure 3.0 mmHg Pulmonary Artery Systolic Pressu 9.0 mmHg PV Peak Velocity 85.0 cm/s RV Acceleration Time 0.1 s RV Ejection Time 0.3 s RV AcT/ET 0.4 FINDINGS Left Ventricle Normal left ventricular size, systolic function and wall thickness, with no regional wall motion abnormalities.Grade I/IV diastolic dysfunction (abnormal relaxation filling pattern), normal to mildly elevated filling pressures. Left ventricular ejection fraction is estimated at 60 %. Right Ventricle The right ventricle is normal in size and function. Right Atrium The right atrium is normal in size. Left Atrium The left atrium is normal in size. Mitral Valve Structurally normal mitral valve without significant stenosis or prolapse. Moderate mitral annular calcification. There is no mitral regurgitation. Aortic Valve Structurally normal aortic valve without significant sclerosis or stenosis. There is no aortic regurgitation. Tricuspid Valve Structurally normal tricuspid valve without significant stenosis or regurgitation. Pulmonary artery systolic pressure is normal. Pulmonic Valve Structurally normal pulmonic valve without significant stenosis. There is no pulmonic regurgitation. Pericardium Normal pericardium without effusion. Aorta Normal ascending aorta dimension. IVC The inferior vena cava appears normal. CONCLUSIONS 1-Normal left ventricular size, systolic function and wall thickness, with no regional wall motion abnormalities.Grade I/IV diastolic dysfunction (abnormal relaxation filling pattern), normal to mildly elevated filling pressures. Left ventricular ejection fraction is estimated at 60 %. 2-Structurally normal mitral valve without significant stenosis or prolapse. Moderate mitral annular calcification. There is no mitral regurgitation. 3-There is no pericardial effusion. 4-Right atrial pressure is around 5 mm of mercury. Logan Hsieh MD (Electronically Signed) Final Date: 28 January 2023 15:27 S
--- NOTE | 2023-01-28 06:02 | USCV_ITS ---
KojoNorma Age: 67 Gender: F : 1955 Exam Date: 01/28/2023 08:05 Ordering Phys: Boom Vu MD Technologist: [place] [facility] [place] [facility] [place] Indication: swelling PROCEDURES: The venous duplex Doppler examination of both lower extremities was performed in the standard fashion. In addition, the posterior tibial and peroneal trunk were evaluated. Bilaterally, the common femoral, superficial femoral, profunda femoral, popliteal, posterior tibial, greater saphenous veins, and the peroneal trunk were identified and interrogated in the standard fashion. FINDINGS: Normal 2-D Doppler and augmentation and compressibility throughout the lower extremity venous structures. Additional imaging through the proximal calf veins also reveals no thrombus. Limited evaluation of the greater saphenous vein is patent with no thrombus. CONCLUSIONS No DVT bilateral lower extremities. Dr. Betsy Ferraro DO (Electronically Signed) Final Date: 28 January 2023 09:39 S
--- NOTE | 2023-01-28 06:03 | US_ITS ---
WS: [id number] RIGHT UPPER QUADRANT ULTRASOUND HISTORY: RUQ/epigastric pain COMPARISON: 01/28/2022 Liver: 14.1 cm in length. Normal size liver. No bile duct dilatation or mass. Portal Vein: Normal hepatopetal flow with monophasic waveform. Gallbladder: Normally distended gallbladder. There is a stone near the gallbladder neck measuring 6 m m. No wall thickening or acute cholecystitis. This stone was not identified on 01/28/2022. CBD: 0.2 cm Pancreas: Normal size and echogenicity. Right kidney: 9.6 cm in length. Normal size and echogenicity. No hydronephrosis or mass. Aorta and IVC: Unremarkable abdominal aorta and IVC. No ascites. US/US gall bladder [id number] IMPRESSION: 1. Cholelithiasis. No evidence for acute cholecystitis. 2. No bile duct dilatation.
--- NOTE | 2023-01-28 08:40 | ECG_ITS ---
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1955 Requested By: Onel Chamberlain Order Number: [id number] Reading MD: JOHAN MALHOTRA Measurements Intervals [place] Rate: 68 P: -8 ME: 182 QRS: -19 QRSD: 88 T: -22 QT: 446 QTc: 476 Interpretive Statements SINUS RHYTHM LOW QRS VOLTAGE IN PRECORDIAL LEADS [QRS DEFLECTION < 1.0 mV IN CHEST LEADS] SEPTAL MYOCARDIAL INFARCTION , OF INDETERMINATE AGE [40+ ms Q WAVE IN V1/V2] INTERPRETATION BASED ON A DEFAULT AGE OF 40 YEARS Compared to ECG 01/28/2023 05:25:21 Myocardial infarct finding now present Prolonged QT interval no longer present Electronically Signed On 01-28-2023 17:42:48 CDT by JOHAN MALHOTRA [id number]
[2023-01-28 08:55] LABS: Troponin 5 6HR 25.79 ng/L (0-10)
[2023-01-28 09:02] LABS: Troponin 5 6HR Delta 18.79 ng/L (0-12)
[2023-01-28] MEDS: atorvastatin 40 mg Tablet PO (20:56)
[2023-01-29] VITALS (11 sets, daily range): BP systolic 126–162; BP diastolic 73–97; PULSE 66–85; RESP 14–94; TEMP 36.6–36.7; O2SAT 92–95
--- NOTE | 2023-01-29 | ECG_ITS ---
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 Interpretive Statements NAME OF STUDY: LEXISCAN SESTAMIBI STRESS TEST INDICATION: Chest Pain PROCEDURE: At the baseline, the EKG revealed normal sinus rhythm with a poor R wave progression. Possible old septal [place]. Some nonspecific ST changes in the inferolateral leads. The baseline heart was 70 bpm with a blood pressue of 146/72 mm of Hg Lexiscan was infused over a period of 20 seconds. A total of 0.4 milligrams of Lexiscan was infused. The stress phase was continued for a total of 5 minutes. Heart rate at the end of the stress phase was 98 bpm with a blood pressure 128/74 mm of Hg. The EKG at the peak infusion revealed no significant changes. Sestamibi was injected 20 seconds after the Lexiscan infusion. Heart rate at the end of the recovery phase was 99 bpm with a blood pressure of 138/71 mm of Hg. CONCLUSION: 1. No significant EKG changes with the LexiScan infusion 2. No LexiScan induced chest pain or cardiac arrhythmia 3. Normal blood pressure and heart rate response 4. Sestamibi/sestamibi perfusion scan pending; see separate report. Electronically Signed On 01-31-2023 13:11:39 CDT by Petty Ward M.D. [id number]
[2023-01-29 04:38] LABS: Basophils % 0.6 %; Eosinophils # 0.4 10^3/uL (0.0-0.8); Eosinophils % 7.3 %; Hematocrit 41.7 % (37.0-47.0); Hemoglobin 12.8 g/dL (11.5-15.3); Lymphocytes # 2.3 10^3/uL (0.8-4.8); Lymphocytes % 47.5 %; Mean Corpuscular HGB Conc 30.7 g/dL (30.0-36.0); Mean Corpuscular Hemoglobin 29.8 pg (28.0-34.0); Mean Corpuscular Volume 97.2 fl (81-99); Mean Platelet Volume 11.4 fL (7.4-10.4); Monocytes # 0.3 10^3/uL (0.2-0.9); Monocytes % 5.6 %; Neutrophils # 1.86 10^3/uL (1.8-7.7); Neutrophils % 38.8 %; Nucleated Red Blood Cells % 0 %; Platelet Count 168 10^3/cmm (130-400); Red Blood Count 4.29 10^6/uL (4.1-5.3); White Blood Count 4.8 10^3/uL (4.0-10.0)
[2023-01-29 05:02] LABS: Alanine Aminotransferase 14 U/L (0-33); Albumin Level 3.5 g/dL (3.5-5.2); Alkaline Phosphatase 68 U/L (35-105); Anion Gap 14.3 (5-19); Aspartate Amino Transferase 16 U/L (0-32); Blood Urea Nitrogen 11 mg/dL (8-23); Calcium 9.2 mg/dL (8.5-10.5); Carbon Dioxide 29 mmol/L (22-29); Chloride 103 mmol/L (98-107); Globulin 2.5 g/dL (1.3-4.6); Glomerular Filtration Rate 83.5 mL/min (90-130); Glucose 77 mg/dL (65-115); Lipase 25 U/L (13-60); Osmolality Calculated 292 mOsm/kg (285-295); Potassium 4.3 mmol/L (3.5-5.1); Sodium 142 mmol/L (136-145); Total Bilirubin 0.3 mg/dL (0.15-1.2)
[2023-01-29] MEDS: regadenoson 0.4 Mg/5 ml Syringe IVP (07:24)
--- NOTE | 2023-01-29 08:00 | NMCV_ITS ---
NM hilaria perf SPECT r/s* [id number] Norma Varma Age: 67 Gender: F : 1955 Exam Date: 01/29/2023 06:46 Ordering Phys: Deon Ferraro MD Technologist: JUDITH Carty Exam Location: [facility] Indications: Chest Pain STRESS TEST Please [facility] IMAGE PROTOCOL Rest/Stress 1 Lexiscan Day Radiopharmaceutical Dose (mCi) Administration Site Administered by Rest: Tc-99m 10.4 IV Brenden Martinez, PROGRESS MAN Sestamibi Stress:Tc-99m 32.6 IV Brenedn Martinez, PROGRESS MAN Sestamibi Rest: 29-Jan-2023 60 Discovery 630 Stress: 29-Jan-2023 30 Discovery 630 0.4mg Lexiscan. Images obtained in supine and prone position. SPECT RESULTS Technical Quality: Excellent Raw Data Analysis: Breast attenuation, Adequate Image Corrections: No attenuation or motion correction applied Summed Stress Score: 0 Summed Rest Score: 0 Summed Difference Score: 0 PERFUSION FINDINGS Fairly uniform myocardial tracer uptake with no significant perfusion abnormalities FUNCTIONAL RESULTS (calculated via Gated SPECT) Stress Image LV EF (%): 61 Stress EDV (mL):64 TID: 0.94 Stress ESV (mL):25 FUNCTIONAL FINDINGS: Segmental wall motion analysis revealing no gross wall motion abnormalities IMPRESSIONS 1. Unremarkable Myocardial perfusion imaging 2. Normal LV ejection fraction of 61% 3. LV wall motion analysis revealing no gross wall motion abnormalities. 4. Normal LV volume. Low probability for coronary ischemia, based on the above findings No similar previous studies are available for comparison Dr Petty Ward MD FACC (Electronically Signed) Final Date: 29 January 2023 12:29 S
[2023-01-29] MEDS: aspirin 81 mg EC Tablet PO (09:21)
--- NOTE | 2023-01-29 14:00 | PM.PN ---
Subjective Medications: Medication Review Details: Generic Name Dose Route Start Last Admin Trade Name Komal PRN Reason Stop Dose Admin Aspirin 81 mg 01/29/23 09:00 01/29/23 09:21 Aspirin 81 Mg Ec Tablet PO 81 mg DAILY ROB Administration Atorvastatin Calci um 40 mg 01/28/23 21:00 01/28/23 20:56 Atorvastatin 40 Mg Tablet PO 40 mg BEDTIME ROB Administration Non-Formulary Medi cation 1 puff 01/29/23 06:00 01/29/23 05:09 Spiriva INHALATION Not Given QAM [facility] Vitals/I&O/Wt Last Vital Signs Temp 97.8 F 01/29/23 10:45 Pulse 82 01/29/23 12:00 Resp 94 H 01/29/23 12:00 BP 143/73 01/29/23 12:00 Pulse Ox 94 01/29/23 12:00 O2 Del Method 01/29/23 12:00 O2 Flow Rate 2 01/29/23 04:40 01/28/23 01/29/23 01/29/23 22:59 06:59 14:59 Intake Total 120 / 120 0 / 120 480 / 480 Balance 120 / 120 0 / 120 480 / 480 Weight last 48 hrs Weight 65.771 kg Physical Exam Const: COMMON NORMALS: patient oriented x3 HENMT: COMMON NORMALS: normocephalic and atraumatic HEAD & SCALP: normocephalic and atraumatic Resp: COMMON NORMALS: No use of accessory muscles and clear to auscultation bilaterally AUSCULTATION: clear to auscultation bilaterally Cardio: COMMON NORMALS: regular rate, regular rhythm, S1 normal heart sound present, S2 normal heart sound present, No gallops present (Cardio), No murmurs present (Cardio), No rub (Cardio) and Peripheral pulses 2+ throughout RATE: regular rate RHYTHM: regular rhythm HEART SOUNDS: S1 normal heart sound present and S2 normal heart sound present PERIPHERAL PULSES: Peripheral pulses 2+ throughout GI: COMMON NORMALS: Normal to inspection, nondistended, normoactive bowel sounds present, Soft to palpation, non-tender, No hepatosplenomegaly present and no masses AUSCULTATION: Yes normoactive bowel sounds PALPATION: Yes Soft to palpation and Yes No hepatosplenomegaly present RECTAL EXAM: deferred Extremity: COMMON NORMALS: no clubbing, cyanosis or edema and no pedal edema Neuro: COMMON NORMALS: patient oriented x3 Data 01/29/23 02:58 01/29/23 02:58 A&P Assessment and plan (1) Chest pain: (2) Epigastric pain: (3) CAD (coronary artery disease): (4) Asthma-COPD overlap syndrome: (5) Essential hypertension: (6) NSTEMI (non-ST elevated myocardial infarction): Coding Level of Care Code Acute Code for [facility] Diagnoses Chest pain R07.9 Epigastric pain R10.13 CAD (coronary artery disease) I25.10 Asthma-COPD overlap syndrome J44.9 Essential hypertension I10 NSTEMI (non-ST elevated myocardial infarction) I21.4
[2023-01-29] MEDS: pantoprazole DR 40 mg Tablet PO (14:31)
--- NOTE | 2023-01-29 15:56 | P.DS_ITS ---
Discharge Providers Date of Admission: 01/28/23 05:37 Date of Discharge: January 29, 2023 Attending Provider at Admission: Boom Vu Attending Provider at Discharge: Deon Ferraro MD Primary Care Provider: Eldon Corral MD Diagnoses at Discharge Discharge Diagnosis (1) Chest pain: Status: Acute (2) Epigastric pain: Status: Acute (3) CAD (coronary artery disease): Status: Acute (4) Asthma-COPD overlap syndrome: Status: Acute (5) Essential hypertension: Status: Acute (6) NSTEMI (non-ST elevated myocardial infarction): Status: Acute Reason for Visit Reason for Visit: cp; hx of cardiac activity Hospital Course Hospital Course HPI: Boom Vu Pleasant 67-year-old lady with history of CABG, additionally right common iliac artery aneurysm, COPD, chronically on oxygen 2 L at night, recently increased by 1 L, other comorbidities as per PMH presented after starting to experience chest pain, central radiating to the left arm, to the back, with nausea that started around 1 AM as she was finishing watching TV and just about getting up to go to bed.? Some exacerbation of pain with movement.? He did not try to take deep breaths to see if it affects the pain.? Having some epigastric pain as well.? In ER afebrile, with unremarkable CBC.? D-dimer abnormal at 1.68.? Chemistry panel unremarkable.? Baseline 27, chart troponin with rise up to 13.29, delta 6.29.? NT proBNP 109.? Lipase 75.? Rapid COVID-19 negative.? Chest x-ray with mild bibasilar atelectasis. In ER received morphine, aspirin and Zofran. Hospital course: She was admitted for the management of chest pain,NSTEMI: During the hospital stay patient had 2D echo: Which showed: Normal left ventricular size, systolic function and wall ?thickness, with no regional wall motion abnormalities.Grade I/IV?diastolic dysfunction (abnormal relaxation filling pattern), ?normal to mildly elevated filling pressures. Left ventricular?ejection fraction is estimated at 60 %.Structurally normal mitral valve without significant stenosis or prolapse. Moderate mitral annular calcification. There is ?no mitral regurgitation.? There is no pericardial effusion. She also underwent nuclear stress test: Which showed no ischemia. Cardiology was consulted as the patient was complaining of substernal pressure- like chest pain, for now it has been agreed upon that, patient should be started on Imdur, and should be closely monitored, in the event that if she continues to have similar chest pain, they might plan to do a coronary angiogram given her history of CAD S/P CABG.she likely experienced NSTEMI type II. Patient was also complaining of epigastric, as well as right upper quadrant abdominal pain : Ultrasound abdomen showed cholelithiasis, she has been asked to follow surgery as outpatient for possible elective cholecystectomy. She has also been started on Protonix for possible gastritis.Overall patient responded well to above medical management And she is being discharged in stable condition to home. She will continue to follow her primary care physician as outpatient. Physical Exam Const: COMMON NORMALS: patient oriented x3 HENMT: COMMON NORMALS: normocephalic, atraumatic, hearing grossly normal bilaterally and external ears normal HEAD & SCALP: normocephalic and at raumatic EXTERNAL EAR: Yes external ears normal Resp: COMMON NORMALS: clear to auscultation bilaterally AUSCULTATION: clear to auscultation bilaterally Cardio: COMMON NORMALS: regular rate, regular rhythm, S1 normal heart sound present, S2 normal heart sound present, No gallops present (Cardio), No murmurs present (Cardio), No rub (Cardio) and Peripheral pulses 2+ throughout RATE: regular rate RHYTHM: regular rhythm HEART SOUNDS: S1 normal heart sound present and S2 normal heart sound present PERIPHERAL PULSES: Peripheral pu lses 2+ throughout GI: COMMON NORMALS: Normal to inspection, nondistended, normoactive bowel sounds present, Soft to palpation, non-tender, No hepatosplenomegaly present and no masses AUSCULTATION: Yes normoactive bowel sounds PALPATION: Yes Soft to palpation and Yes No hepatosplenomegaly present RECTAL EXAM: deferred Extremity: COMMON NORMALS: no clubbing, cyanosis or edema and no pedal edema Neuro: COMMON NORMALS: patient oriented x3 Discharge Data Studies Completed and Pending Completed Studies During Hospitalization Category Date Time Status CTA chest [CT angio chest PE protcl [id number]] Stat Cat Scan 01/28/23 03:15 Completed Cardiac Stress Test MIBI [Sestamibi Stress Test Request Exams 01/29/23 06:51 Draft ] Routine XR chest 1V portable [id number] Stat Exams 01/28/23 02:40 Completed NM hilaria perf SPECT r/s* [id number] Routine Nuc Med 01/29/23 08:00 [place] [id number] Routine Ultrasound 01/28/23 06:02 Completed CV. echo complete* [id number] Routine Ultrasound 01/28/23 06:02 Completed US gall bladder [id number] Routine Ultrasound 01/28/23 06:03 Completed Pending at discharge Category Date Time Status Cardiac Stress Test MIBI [Sestamibi Stress Test Request Exams 01/28/23 10:46 Stop Req ] Routine Complete Blood Count w/Auto AM LABS Lab 01/30/23 04:00 Ordered Complete Blood Count w/Auto AM LABS Lab 01/31/23 04:00 Ordered Comprehensive Metabolic Panel AM LABS Lab 01/30/23 04:00 Ordered Comprehensive Metabolic Panel AM LABS Lab 01/31/23 04:00 Ordered Radiology Impressions Chest X-Ray 01/28/23 02:40 IMPRESSION: 1. Mild bibasilar atelectasis. 2. No other acute findings. Chest CTA 01/28/23 03:15 IMPRESSION: 1. No evidence of pulmonary embolus. 2. Prior median sternotomy for coronary revascularization. Stable 12 mm deep infundibulum- like protrusion of the ascending thoracic aorta extending laterally adjacent to the origin of an aorto coronary arterial graft. This may represent a chronic postoperative intramural hematoma, less likely a pseudoaneurysm or penetrating ulcer. It is retrosternal in location, in the superior mediastinum. A follow-up CTA with the bolus timed to the aorta may be helpful for further characterization if clinically indicated (to see if it fills with contrast/blood). 3. No pulmonary consolidation. 4. Gas is present in the nina hepatis, likely in the intrahepatic bile ducts which may be secondary to prior common bile duct manipulation such as sphincteroplasty, sphincterotomy or surgery. Correlation with patient's history is recommended. This is a chronic finding as it is present in the CTA of the abdomen of 06/29/2022. CT scan of the abdomen and pelvis may be helpful for further characterization if clinically indicated. ADDENDUM: 01/28/23 0742 THIS REPORT CONTAINS FINDINGS THAT MAY BE CRITICAL TO PATIENT CARE. The findings were verbally communicated via telephone conference with Dr. Ferraro at 7:40 AM CDT on 01/28/2023. The findings were acknowledged and understood. Gallbladder Ultrasound 01/28/23 06:03 IMPRESSION: 1. Cholelithiasis. No evidence for acute cholecystitis. 2. No bile duct dilatation. Laboratory Results WBC 4.8 10^3/uL (4.0-10.0) 01/29/23 02:58 RBC 4.29 10^6/uL (4.1-5.3) 01/29/23 02:58 Hgb 12.8 g/dL (11.5-15.3) 01/29/23 02:58 Hct 41.7 % (37.0-47.0) 01/29/23 02:58 MCV 97.2 fl (81-99) 01/29/23 02:58 MCH 29.8 pg (28.0-34.0) 01/29/23 02:58 MCHC 30.7 g/dL (30.0-36.0) 01/29/23 02:58 RDW 13.0 % (12.1-15.1) 01/29/23 02:58 Plt Count 168 10^3/cmm (130-400) 01/29/23 02:58 MPV 11.4 fL (7.4-10.4) H 01/29/23 02:58 Neut % (Auto) 38.8 % 01/29/23 02:58 Lymph % (Auto) 47.5 % 01/29/23 02:58 [place] % (Auto) 5.6 % 01/29/23 02:58 Eos % (Auto) 7.3 % 01/29/23 02:58 Baso % (Auto) 0.6 % 01/29/23 02:58 Neut # (Auto) 1.86 10^3/uL (1.8-7.7) 01/29/23 02:58 Lymph # (Auto) 2.3 10^3/uL (0.8-4.8) 01/29/23 02:58 [place] # (Auto) 0.3 10^3/uL (0.2-0.9) 01/29/23 02:58 Eos # (Auto) 0.4 10^3/uL (0.0-0.8) 01/29/23 02:58 Baso # (Auto) 0.0 10^3/uL (0.0-0.1) 01/29/23 02:58 Nucleated RBC % (auto) 0 % 01/29/23 02:58 Nucleated RBCs # 0.0 /100WBC 01/29/23 02:58 D-Dimer 1.68 ug/mIFEU (0-0.59) H 01/28/23 02:48 Sodium 142 mmol/L (136-145) 01/29/23 02:58 Potassium 4.3 mmol/L (3.5-5.1) 01/29/23 02:58 Chloride 103 mmol/L (98-107) 01/29/23 02:58 Carbon Dioxide 29 mmol/L (22-29) 01/29/23 02:58 Anion Gap 14.3 (5-19) 01/29/23 02:58 BUN 11 mg/dL (8-23) 01/29/23 02:58 Creatinine 0.7 mg/dL (0.5-0.9) 01/29/23 02:58 GFR Calculation 83.5 mL/min (90-130) L 01/29/23 02:58 Glucose 77 mg/dL (65-115) 01/29/23 02:58 Calculated Osmolality 292 mOsm/kg (285-295) 01/29/23 02:58 Calcium 9.2 mg/dL (8.5-10.5) 01/29/23 02:58 Total Bilirubin 0.3 mg/dL (0.15-1.2) 01/29/23 02:58 AST 16 U/L (0-32) 01/29/23 02:58 ALT 14 U/L (0-33) 01/29/23 02:58 Alkaline Phosphatase 68 U/L (35-105) 01/29/23 02:58 Troponin T Baseline 7 ng/L (0-10) 01/28/23 02:48 Troponin T 120 Minute 13.29 ng/L (0-10) H 01/28/23 04:43 Delta Troponin T 6.29 ABS# (0-10) 01/28/23 04:43 Troponin T Hi Sens 6Hr 25.79 ng/L (0-10) H 01/28/23 08:17 Troponin T Hi Sens 6Hr Delta 18.79 ng/L (0-12) H* 01/28/23 08:17 NT-Pro-B Natriuret Pep 109 pg/mL (0-125) 01/28/23 02:48 Total Protein 6.0 g/dL (6.6-8.7) L 01/29/23 02:58 Albumin 3.5 g/dL (3.5-5.2) 01/29/23 02:58 Globulin 2.5 g/dL (1.3-4.6) 01/29/23 02:58 Lipase 25 U/L (13-60) 01/29/23 02:58 SARS-CoV-2 Ag (Rapid) negative (Negative) 01/28/23 02:48 Vitals Last Vital Signs Temp 97.8 F 01/29/23 10:45 Pulse 82 01/29/23 12:00 Resp 94 H 01/29/23 12:00 BP 143/73 01/29/23 12:00 Pulse Ox 94 01/29/23 12:00 O2 Del Method 01/29/23 12:00 O2 Flow Rate 2 01/29/23 04:40 Discharge Plan Discharge Patient Disposition: Home Condition: Stable Prescriptions: New pantoprazole [Protonix] 40 mg tablet,delayed release (DR/EC) 40 mg PO DAILY 28 Days Qty: 30 1RF isosorbide mononitrate 30 mg tablet extended release 24 hr 30 mg PO DAILY 30 Days Qty: 30 0RF Continued Spiriva with HandiHaler 18 mcg capsule, w/inhalation device 1 cap INHALATION DAILY 30 Days Qty: 60 3RF Rx Instructions: puncture 1 cap using device; one dose = 2 inhalations fluticasone propion-salmeterol [Wixela Inhub] 250-50 mcg/dose blister with device 1 inh inhalation BID lidocaine [Lidoderm] 5 % adhesive patch,medicated 2 patch topical DAILY 30 Days Qty: 60 6RF Rx Instructions: leave on most painful area for up to 12 hrs epinephrine [EpiPen 2-Dmitri] 0.3 mg/0.3 mL auto-injector 0.3 mg IM ONCE PRN (Reason: Allergy Symptoms) Qty: 2 1RF cetirizine [Zyrtec] 10 mg tablet 10 mg PO DAILY PRN (Reason: allergy symptoms) Qty: 30 0RF fluoxetine [Prozac] 40 mg capsule 80 mg PO DAILY@1000 Qty: 180 0RF trazodone 50 mg tablet 50 mg PO BEDTIME@2200 Qty: 90 0RF ipratropium-albuterol 0.5 mg-3 mg(2.5 mg base)/3 mL solution for nebulization 3 ml INHALATION .every 6 hours PRN (Reason: wheezing) Qty: 180 1RF Combivent Respimat 20-100 mcg/actuation mist See Rx Instructions .ROUTE .COMPLEX Qty: 3 3RF Dose Instruction: INHALE ONE PUFF BY MOUTH FOUR TIMES A DAY SPACE EVENLY DURING WAKING HOURS- (DISCARD UNIT 3 MONTHS AFTER INITIAL USE) Rx Instructions: INHALE ONE PUFF BY MOUTH FOUR TIMES A DAY SPACE EVENLY DURING WAKING HOURS- (DISCARD UNIT 3 MONTHS AFTER INITIAL USE) albuterol sulfate [ProAir HFA] 90 mcg/actuation HFA aerosol inhaler 2 puff INHALATION QID PRN (Reason: shortness of breath or wheezing) Qty: 8.5 3RF fluticasone propionate [Flonase Allergy Relief] 50 mcg/actuation spray,suspension 2 spray INTRANASAL DAILY@1000 Qty: 16 5RF Rx Instructions: administer into each nostril atorvastatin 40 mg tablet 40 mg PO DAILY@1000 Qty: 90 1RF metoprolol succinate 50 mg tablet extended release 24 hr 50 mg PO DAILY@1000 Qty: 90 1RF losartan 100 mg tablet 100 mg PO DAILY Qty: 90 1RF clonazepam 1 mg tablet 1 mg PO TID PRN (Reason: anxiety) Qty: 90 2RF nitroglycerin 0.4 mg tablet, sublingual 0.4 mg SUBLINGUAL Q5M PRN (Reason: chest pain) Qty: 25 3RF Rx Instructions: until response; do not exceed 3 doses per episode Mucinex 1,200 mg Tablet Extended Release 12hr 1,200 mg PO BID ondansetron 4 mg tablet,disintegrating 4 mg PO Q6H PRN (Reason: nausea and vomiting) Qty: 14 0RF Aspir-81 81 mg Tablet,Delayed Release (Dr/Ec) 81 mg PO DAILY Discontinued azithromycin 500 mg tablet 500 mg PO .3 times/week 90 Days Qty: 90 2RF Rx Instructions: take on friday, friday and friday weekly Discharge Orders: Discharge Order (Routine); Ordered 01/29/23 Ordered By: Deon Ferraro Referrals: Broderick Bautista DO [Physician] - 2 weeks Petty Ward MD [Physician] - 1 month (Please call Dr. Ward's Office at [phone] on to schedule a follow up appointment for 1 month. Thank you.) Eldon Corral MD [Primary Care Provider] - 02/05/23 11:30 am Patient Instructions: Isosorbide Mononitrate (By mouth) (Imdur, Imdur ER, Ismo), Pantoprazole (By mouth), Cholelithiasis, Gallstones (DC), Low Fat Diet (DC) Discharge Attestations Time Spent in Discharge Care*: greater than 30 min Quality Metrics Clinical Quality Measures [ No reported AMI, CVA or VTE this stay] Coding Level of Care Code Acute Code for Chg Fwd Diagnoses Chest pain R07.9 Epigastric pain R10.13 CAD (coronary artery disease) I25.10 Asthma-COPD overlap syndrome J44.9 Essential hypertension I10 NSTEMI (non-ST elevated myocardial infarction) I21.4
--- NOTE | 2023-01-29 16:11 | PM.CONSULT ---
Providers/Reason For Consult Consulting Physician/Specialty*: Dr Ferraro Reason for Consult*: Chest pain Requesting Physician: Dr. Ferraro Attending Physician: Deon Ferraro MD Primary Care Provider: Eldon Corral MD History of Present Illness History of Present Illness Norma Varma is a 67 year old female past medical history significant for coronary disease status post CABG presented with chest pressure retrosternal sometimes epigastric at other times towards upper sternal. She was ruled out for acute coronary syndrome with minimally elevated fifth generation troponin, nuclear stress test was performed which was negative for ischemia we have been asked to assess the patient, patient says she is not sure whether it is her heart pain as she does not remembe when she had her event in the past, she does note that at home she took nitroglycerin but it did not relieve her chest pressure. EKG is suggestive of sinus rhythm but no significant ST?T changes. Medications/Allergies Home Medications Medication Instructions Recorded Confirmed Last Taken Type guaifenesin 1,200 mg tablet, 1,200 mg PO BID 06/18/21 01/28/23 06/17/21 History extended release 12 hr (Mucinex) ipratropium 20 mcg-albuterol 100 See Rx Instructions .Route 11/02/21 01/28/23 Unknown Rx mcg/actuation mist for inhalation .COMPLEX #3 grams (Combivent Respimat) albuterol sulfate 90 mcg/actuation 2 puff inhalation QID PRN 11/15/21 01/28/23 Unknown Rx aerosol inhaler (ProAir HFA) shortness of breath or wheezing #8.5 grams fluticasone propionate 50 2 spray intranasal DAILY@1000 #16 11/15/21 01/28/23 Unknown Rx mcg/actuation nasal grams spray,suspension (Flonase Allergy Relief) tiotropium bromide 18 mcg capsule 1 cap inhalation DAILY 30 days #60 04/29/22 01/28/23 Unknown Rx with inhalation device (Spiriva inhalations with HandiHaler) epinephrine 0.3 mg/0.3 mL 0.3 mg (0.3 mL) IM ONCE PRN 05/22/22 01/28/23 Unknown Rx injection, auto-injector (EpiPen Allergy Symptoms #2 ea 2-Dmitri) lidocaine 5 % topical patch 2 patch topical DAILY 30 days #60 05/22/22 01/28/23 Unknown Rx (Lidoderm) ea fluticasone 250 mcg-salmeterol 50 1 inh inhalation BID 06/28/22 01/28/23 Unknown History mcg/dose blistr powdr for inhalation (Wixela Inhub) ondansetron 4 mg disintegrating 4 mg PO Q6H PRN nausea and 06/29/22 01/28/23 Unknown Rx tablet vomiting #14 tabs cetirizine 10 mg tablet (Zyrtec) 10 mg PO DAILY PRN allergy 08/20/22 01/28/23 Unknown Rx symptoms #30 tabs atorvastatin 40 mg tablet 40 mg PO DAILY@1000 #90 tabs 09/12/22 01/28/23 Unknown Rx losartan 100 mg tablet 100 mg PO DAILY #90 tabs 09/12/22 01/28/23 Unknown Rx metoprolol succinate 50 mg 50 mg PO DAILY@1000 #90 tabs 09/12/22 01/28/23 Unknown Rx tablet,extended release 24 hr ipratropium 0.5 mg-albuterol 3 mg 3 ml inhalation .every 6 hours PRN 10/07/22 01/28/23 Unknown Rx (2.5 mg base)/3 mL nebulization wheezing #180 mL soln fluoxetine 40 mg capsule (Prozac) 80 mg PO DAILY@1000 #180 caps 11/14/22 01/28/23 Unknown Rx trazodone 50 mg tablet 50 mg PO BEDTIME@2200 #90 tabs 11/14/22 01/28/23 Unknown Rx clonazepam 1 mg tablet 1 mg PO TID PRN anxiety #90 tabs 12/18/22 01/28/23 Unknown Rx nitroglycerin 0.4 mg sublingual 0.4 mg sublingual Q5M PRN chest 01/14/23 01/28/23 Unknown Rx tablet pain #25 tabs azithromycin 500 mg tablet 500 mg PO .3 times/week 90 days 01/15/23 01/28/23 Unknown Rx #90 tabs aspirin 81 mg tablet,delayed 81 mg PO DAILY 01/28/23 01/28/23 Unknown History release Allergies Allergy/AdvReac Type Severity Reaction Status Date / Time aspirin Allergy ADR-Diarrhe Verified 01/28/23 08:37 a bee venom protein (honey bee) Allergy Unknown Verified 01/28/23 08:37 cefaclor [From [facility]] Allergy ALGY-Anaphy Verified 01/28/23 08:37 laxis Current Medications Generic Name Dose Route Start Last Admin Trade Name Komal PRN Reason Stop Dose Admin Aspirin 81 mg 01/29/23 09:00 01/29/23 09:21 Aspirin 81 Mg Ec Tablet PO 81 mg DAILY ROB Administration Atorvastatin Calcium 40 mg 01/28/23 21:00 01/28/23 20:56 Atorvastatin 40 Mg Tablet PO 40 mg BEDTIME ROB Administration Non-Formulary Medication 1 puff 01/29/23 06:00 01/29/23 05:09 Spiriva INHALATION Not Given QAM ROB Pantoprazole Sodium 40 mg 01/29/23 13:35 01/29/23 14:[address] 40 Mg Tablet PO 40 mg DAILY ROB Administration PFSH Acute PFSH: Medical History Anxiety Arthritis Atherosclerosis of coronary artery of lumbee heart with stable angina pectoris Benign essential hypertension with target blood pressure below 140/90 Comminuted fracture DDD (degenerative disc disease), lumbar Desmoplastic malignant melanoma Diarrhea Essential hypertension H/O angiography History of lipoma Hx of myocardial infarction Iliac artery aneurysm Iliac artery aneurysm Lumbar back pain with radiculopathy affecting right lower extremity Lumbar spondylolysis Lung nodules Major depressive disorder, recurrent severe without psychotic features Melanoma Mixed hyperlipidemia MRSA nasal colonization Nicotine dependence, cigarettes, uncomplicated Osteomyelitis This is not a confirmed problem yet, patient is undergoing evaluation for possible osteomyelitis of the lumbar spine Psychiatric care Renal artery stenosis Suicide attempt Urinary incontinence Vitamin D deficiency Surgical History History of extraction of renal calculus History of laparoscopic appendectomy History of pancreatic surgery Hx of CABG Family History Father CAD (coronary artery disease) 50s Cancer Lung disease Sister CAD (coronary artery disease) 40s Cancer Chronic kidney disease (CKD) Lung disease Brother CAD (coronary artery disease) 40s Lung disease Mother Cancer Lung disease Family/Other Cancer Suicide Denies family history of Colon cancer Ovarian cancer Diabetes Clotting disorder Dementia Heart disease Hypercholesteremia Breast cancer Anesthesia complication Bleeding disorder Hypertension Uterine cancer Thyroid disease Stroke Social History Smoking and tobacco status: former smoker Quit status (tobacco): has quit using tobacco Year quit tobacco: 2017 Former quit date comment: Hx of 1PPD x 40 Years Smoking risk assessment/counseling performed?: No Alcohol intake: never Counseling given: No Counseling given: No Lives independently: Yes Household members: none Marital status: / Number of children: 2 Current occupational status: retired and disabled Current gender identity: Female Vitals/I&O/Wt Last Vital Signs Temp 97.8 F 01/29/23 10:45 Pulse 82 01/29/23 12:00 Resp 94 H 01/29/23 12:00 BP 143/73 01/29/23 12:00 Pulse Ox 94 01/29/23 12:00 O2 Del Method 01/29/23 12:00 O2 Flow Rate 2 01/29/23 04:40 01/29/23 01/29/23 01/29/23 06:59 14:59 22:59 Intake Total 0 / 120 480 / 480 Balance 0 / 120 480 / 480 Weight last 48 hrs Weight 145 lb Physical Exam Narrative: Alert awake oriented x3 No JVD cyanosis or icterus Heart regular S1-S2 Abdomen soft nontender nondistended Lungs clear to auscultate bilateral 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 Advised patient in case of returning of chest pain she can come back to the ER at that time will consider left heart cath. She otherwise is going to follow-up with Dr. Ward who is her primary head pastry chef (2) Essential hypertension: Plan Well-controlled continue meds Consult Attestations Medical Necessity Statement: From cardiovascular perspective patient can be discharged Coding Level of Care Code Acute Code for [facility] Diagnoses Chest pain R07.9 Essential hypertension I10
== END 2023-01-29 17:56 | disposition home or self-care (01) ==
LOC: ER 05:32 → CSU 05:37
PROVIDERS: Admitting Provider Internal Medicine; Emergency Provider Emergency Medicine; PCP Family Medicine; Visit Provider Internal Medicine
DX: R07.89 Other chest pain (principal); R10.13 Epigastric pain; I25.10 Atherosclerotic heart disease of native coronary artery without angina pectoris; J44.9 Chronic obstructive pulmonary disease, unspecified; I25.2 Old myocardial infarction; Z95.1 Presence of aortocoronary bypass graft; Z99.81 Dependence on supplemental oxygen; M79.89 Other specified soft tissue disorders; F41.9 Anxiety disorder, unspecified; M19.90 Unspecified osteoarthritis, unspecified site; I10 Essential (primary) hypertension; E78.2 Mixed hyperlipidemia; Z86.14 Personal history of Methicillin resistant Staphylococcus aureus infection
CPT/HCPCS: 36415; 71045; 71275; 76705; 78452; 80053; 83690; 83880; 84484; 85025; 85378; 87426; 93005; 93017; 93306; 93970; 94664; 96374; 96375; 96376; 99285; A9500; G0378; J2270; J2405; J2785; Q9967

== ENCOUNTER → 2023-02-05 14:55 | Outpatient (BNVA) | payer MEDICARE, OTHER, SELFPAY | PROVIDERS: PCP Family Medicine; Visit Provider Nurse Practitioner Family | DX: I25.118 Atherosclerotic heart disease of native coronary artery with other forms of angina pectoris (principal); I10 Essential (primary) hypertension; Z87.891 Personal history of nicotine dependence; Z95.1 Presence of aortocoronary bypass graft; Z79.82 Long term (current) use of aspirin | CPT/HCPCS: 99214 ==

== ENCOUNTER → 2023-03-05 12:11 | Outpatient (BNVA) | payer MEDICARE, OTHER, SELFPAY | PROVIDERS: PCP Family Medicine; Visit Provider Family Medicine | DX: K92.1 Melena (principal) | CPT/HCPCS: 85025 ==

== ENCOUNTER → 2023-03-18 14:03 | Outpatient (BNVA) | payer MEDICARE, OTHER, SELFPAY | PROVIDERS: PCP Family Medicine; Visit Provider Dermatology | DX: L57.0 Actinic keratosis (principal); L81.4 Other melanin hyperpigmentation; Z85.820 Personal history of malignant melanoma of skin; L82.1 Other seborrheic keratosis; L57.8 Other skin changes due to chronic exposure to nonionizing radiation; L90.5 Scar conditions and fibrosis of skin; L98.8 Other specified disorders of the skin and subcutaneous tissue | CPT/HCPCS: 17000; 17003; 99214 ==

== ENCOUNTER 2023-04-02 18:10 | Emergency (ER) | payer MEDICARE, OTHER, SELFPAY ==
--- NOTE | 2023-04-02 18:11 | XRR_ITS ---
PROCEDURE INFORMATION: Exam: XR Chest Exam date and time: 04/02/2023 6:20 PM Age: 67 years old Clinical indication: Pain; Chest pressure; Prior surgery; Surgery date: 6+ months; Surgery type: Cabg; Additional info: Cp TECHNIQUE: Imaging protocol: Radiologic exam of the chest. Views: 1 view. COMPARISON: CR XR chest 1V portable [id number] 01/28/2023 2:45 AM FINDINGS: Lungs: Lungs are clear bilaterally. Pleural spaces: No pleural effusion. No pneumothorax. Heart/Mediastinum: The cardiac silhouette and mediastinal contours are unremarkable. Vasculature: Stable vascular calcifications in the aorta. Bones/joints: Poststernotomy changes in the chest. Degenerative changes in the spine and shoulders. Bones are diffusely osteopenic. Osseous findings are stable. XR/XR chest 1V portable [id number] IMPRESSION: 1. No acute cardiopulmonary process. 2. Incidental/nonacute findings are listed in the report.
[2023-04-02 18:27] VITALS: BP 152/72; PULSE 72; RESP 16; TEMP 36.6; O2SAT 94; BMI 24.9
--- NOTE | 2023-04-02 18:34 | ECG_ITS ---
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 Measurements Intervals [place] Rate: 69 P: 55 UT: 176 QRS: 73 QRSD: 82 T: 84 QT: 429 QTc: 460 Interpretive Statements SINUS RHYTHM POSSIBLE LEFT ATRIAL ENLARGEMENT [-0.1mV P-WAVE IN V1/V2] LOW QRS VOLTAGE IN PRECORDIAL LEADS [QRS DEFLECTION < 1.0 mV IN CHEST LEADS] SEPTAL MYOCARDIAL INFARCTION , OF INDETERMINATE AGE [40+ ms Q WAVE IN V1/V2] Compared to ECG 01/28/2023 09:09:07 No significant changes Electronically Signed On 04-02-2023 19:00:47 CDT by Praveen Gurrola M.D. [id number]
[2023-04-02 18:57] LABS: Basophils # 0.1 10^3/uL (0.0-0.1); Basophils % 0.8 %; Eosinophils # 0.3 10^3/uL (0.0-0.8); Eosinophils % 5.5 %; Hematocrit 36.7 % (37.0-47.0); Hemoglobin 11.8 g/dL (11.5-15.3); Lymphocytes # 2.4 10^3/uL (0.8-4.8); Lymphocytes % 38.8 %; Mean Corpuscular HGB Conc 32.2 g/dL (30.0-36.0); Mean Corpuscular Hemoglobin 30.8 pg (28.0-34.0); Mean Corpuscular Volume 95.8 fl (81-99); Mean Platelet Volume 11.4 fL (7.4-10.4); Monocytes # 0.4 10^3/uL (0.2-0.9); Monocytes % 6.5 %; Neutrophils # 2.98 10^3/uL (1.8-7.7); Neutrophils % 48.2 %; Nucleated Red Blood Cells % 0 %; Platelet Count 185 10^3/cmm (130-400); Red Blood Count 3.83 10^6/uL (4.1-5.3); Red Cell Distribution Width 12.4 % (12.1-15.1); White Blood Count 6.2 10^3/uL (4.0-10.0)
[2023-04-02 19:28] LABS: INR 0.92 (0.8-1.2)
[2023-04-02 19:38] LABS: Troponin(5th) Baseline 6 ng/L (0-10)
--- NOTE | 2023-04-02 20:31 | ECG_ITS ---
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 Measurements Intervals [place] Rate: 59 P: 85 SD: 142 QRS: 127 QRSD: 83 T: 136 QT: 446 QTc: 443 Interpretive Statements SINUS BRADYCARDIA RIGHT AXIS DEVIATION [QRS AXIS > 100] SEPTAL MYOCARDIAL INFARCTION , OF INDETERMINATE AGE [40+ ms Q WAVE IN V1/V2] Compared to ECG 04/02/2023 18:34:19 Right-axis deviation now present Sinus rhythm no longer present Myocardial infarct finding still present Electronically Signed On 04-02-2023 22:42:51 CDT by Praveen Gurrola M.D. [id number]
[2023-04-02 20:56] LABS: Troponin 5 2HR 6 ng/L (0-10); Troponin 5 2HR Delta 0 ABS# (0-10)
[2023-04-02 20:58] LABS: Alanine Aminotransferase 13 U/L (0-33); Albumin Level 4.1 g/dL (3.5-5.2); Alkaline Phosphatase 65 U/L (35-105); Aspartate Amino Transferase 15 U/L (0-32); Globulin 2.4 g/dL (1.3-4.6); Total Bilirubin 0.2 mg/dL (0.15-1.2); Total Protein 6.5 g/dL (6.6-8.7)
[2023-04-02] MEDS: lidocaine 2% viscous 15 ML, aluminum-mag hydrox-simethicon 30 ML, sucralfate oral liq 1 GM PO (21:25)
--- NOTE | 2023-04-02 21:31 | W.ED.CHESTPA ---
HPI - Chest Pain General: Chief Complaint: Chest Pain Stated Complaint: Dr Sent Here\Heart\or Gall Bladder Time Seen by Provider: 04/02/23 20:30 History of Present Illness: Patient presents to the ER from Dr. Oliveira's office. Patient complains of chest pain radiating straight into her back up into her neck and down her to her abdomen. Patient has tried 3 nitro with no relief. Patient began having the symptoms about 3-hour ago while watching TV. Patient does have a history of pancreatitis and she says this feels similar. MD complaint: chest pain (Epigastric pain) Pertinent past history: coronary artery disease, CABG and other (Pancreatitis) Onset (ago): hour(s) (3 hours ago) Timing of current episode: constant and still present (But decreasing) Prior episodes: Yes Onset: during rest Pain location: substernal and epigastric Pain radiation: back, abdomen, left shoulder and right shoulder Severity: similar to previous episodes Quality: aching Relieving factors: nothing Exacerbating factors: nothing Associated symptoms: Reports abdominal pain; Deny dyspnea, fever(s), nausea, palpitations or vomiting Review of Systems General: Reports: 10 or more systems reviewed and unremarkable except in HPI and below Const: Denies: fever(s) or chills Eyes: Denies: change in vision or photophobia ENMT: Denies: throat pain or odynophagia Card: Reports: chest pain; Denies: palpitations or irregular heart rhythm Resp: Denies: dyspnea, productive cough or non-productive cough GI: Reports: abdominal pain; Denies: nausea or vomiting : Denies: flank pain, difficulty voiding or dysuria Musc: Reports: back pain; Denies: neck pain or extremity pain Skin/Breast: Denies: rash or pruritus PFSH ED PFSH: Medical History Anxiety Arthritis Asthma-COPD overlap syndrome Atherosclerosis of coronary artery of [place] heart with stable angina pectoris CABG x4 03/18/2016 NOLASCO to the LAD, saphenous venous graft to the PDA and a Y graft to the obtuse marginal/diagonal arteries Benign essential hypertension with target blood pressure below 140/90 CAD (coronary artery disease) Chest pain Comminuted fracture DDD (degenerative disc disease), lumbar Desmoplastic malignant melanoma Diarrhea Epigastric pain Essential hypertension H/O angiography History of lipoma Hx of myocardial infarction Iliac artery aneurysm Iliac artery aneurysm Lumbar back pain with radiculopathy affecting right lower extremity Lumbar spondylolysis Lung nodules Major depressive disorder, recurrent severe without psychotic features Melanoma Mixed hyperlipidemia MRSA nasal colonization Nicotine dependence, cigarettes, uncomplicated NSTEMI (non-ST elevated myocardial infarction) Osteomyelitis This is not a confirmed problem yet, patient is undergoing evaluation for possible osteomyelitis of the lumbar spine Psychiatric care Renal artery stenosis Suicide attempt Urinary incontinence Vitamin D deficiency Surgical History History of extraction of renal calculus History of laparoscopic appendectomy History of pancreatic surgery Hx of CABG Family History Father CAD (coronary artery disease) 50s Cancer Lung disease Sister CAD (coronary artery disease) 40s Cancer Chronic kidney disease (CKD) Lung disease Brother CAD (coronary artery disease) 40s Lung disease Mother Cancer Lung disease Family/Other Cancer Suicide Denies family history of Colon cancer Ovarian cancer Diabetes Clotting disorder Dementia Heart disease Hypercholesteremia Breast cancer Anesthesia complication Bleeding disorder Hypertension Uterine cancer Thyroid disease Stroke Social History Smoking and tobacco status: former smoker Quit status (tobacco): has quit using tobacco Year quit tobacco: 2017 Former quit date comment: Hx of 1PPD x 40 Years Smoking risk assessment/counseling performed?: No Alcohol intake: never Counseling given: No Substance/Drug Use: never Counseling given: No Lives independently: Yes Household members: none Marital status: / Number of children: 2 Current occupational status: retired and disabled Do you think of yourself as: Straight/Heterosexual Current gender identity: Female Physical Exam Const: COMMON NORMALS: no acute distress, average body habitus, patient oriented x3, no limitations, healthy appearing, alert and well nourished HENMT: COMMON NORMALS: normocephalic, atraumatic, hearing grossly normal bilaterally, external ears normal, Normal external nose present and moist oral mucous membranes HEAD & SCALP: normocephalic and atraumatic NOSE: Normal external nose present EXTERNAL EAR: Yes external ears normal Eye: COMMON NORMALS: Equal, round and reactive pupils present, EOMs intact bilaterally, conjunctivae normal and no scleral icterus CONJUNCTIVA: Yes conjunctivae normal PUPIL: Yes Equal, round and reactive pupils present Neck/C-Spine: COMMON NORMALS: full ROM, no lymphadenopathy, supple, no meningeal signs, no JVD and Thyroid normal THYROID: Thyroid normal Lymph: LYMPHATIC: no lymphadenopathy noted Chest: COMMONS NORMALS: normal inspection of the chest CHEST: Yes other (Tender to palpation) Resp: COMMON NORMALS: normal respiratory effort, No retractions, No use of accessory muscles and clear to auscultation bilaterally AUSCULTATION: clear to auscultation bilaterally Cardio: COMMON NORMALS: no JVD, regular rate, regular rhythm, S1 normal heart sound present, S2 normal heart sound present, No gallops present (Cardio), No clicks present (Cardio) and No murmurs present (Cardio) RATE: regular rate RHYTHM: regular rhythm HEART SOUNDS: S1 normal heart sound present and S2 normal heart sound present GI: COMMON NORMALS: Normal to inspection, nondistended, normoactive bowel sounds present, Soft to palpation, No hepatosplenomegaly present and no masses PALPATION: Yes Soft to palpation, Yes Tenderness to palpation present (GI) (Epigastric region) and Yes No hepatosplenomegaly present : COMMON NORMALS: Yes no CVA tenderness BLADDER/KIDNEY EXAM: Yes no CVA tenderness Back/Pelvis: COMMON NORMALS: no CVA tenderness Neuro: COMMON NORMALS: patient oriented x3 SENSORIUM/ORIENTATION: Yes alert MENINGEAL SIGNS: Yes no meningeal signs Course Vital Signs: Vital signs: Vital Signs Temperature 97.9 F 04/02/23 18:27 Pulse Rate 72 04/02/23 18:27 Respiratory Rate 16 04/02/23 18:27 Blood Pressure 152/72 04/02/23 18:27 Pulse Oximetry 94 04/02/23 18:27 Oxygen Delivery Me thod Room Air 04/02/23 18:27 MDM - Chest Pain Medical Decision Making Patient presents to the ER with epigastric pain that radiated up into her chest to both shoulders to her back into her abdomen. Patient does have a history of pancreatitis which this feels similar. Physical exam was performed lab work was obtained which was essentially negative with troponin 2-hour troponin and a delta troponin being within normal limits. Lab called us and told us that her machine broke down and we were unable to run a lipase. The patient got good relief with a GI cocktail so it is unlikely that its pancreatic in nature. Patient was given the option to stay around for 2 hours while he works in a machine or go home and be notified if she had an abnormal test she chose to go home. Patient will be discharged home Differential Diagnosis Unlikely acute massive pulmonary embolism, acute respiratory failure, acute myocardial infarction, cardiac arrest or sudden cardiac Medical Records I reviewed the patient's medical records. Lab Data I reviewed the patient's lab results. 04/02/23 18:42 04/02/23 18:42 Radiology Impressions Chest X-Ray 04/02/23 18:11 IMPRESSION: 1. No acute cardiopulmonary process. 2. Incidental/nonacute findings are listed in the report. Laboratory Results WBC 6.2 10^3/uL (4.0-10.0) 04/02/23 18:42 RBC 3.83 10^6/uL (4.1-5.3) L 04/02/23 18:42 Hgb 11.8 g/dL (11.5-15.3) 04/02/23 18:42 Hct 36.7 % (37.0-47.0) L 04/02/23 18:42 MCV 95.8 fl (81-99) 04/02/23 18:42 MCH 30.8 pg (28.0-34.0) 04/02/23 18:42 MCHC 32.2 g/dL (30.0-36.0) 04/02/23 18:42 RDW 12.4 % (12.1-15.1) 04/02/23 18:42 Plt Count 185 10^3/cmm (130-400) 04/02/23 18:42 MPV 11.4 fL (7.4-10.4) H 04/02/23 18:42 Neut % (Auto) 48.2 % 04/02/23 18:42 Lymph % (Auto) 38.8 % 04/02/23 18:42 [place] % (Auto) 6.5 % 04/02/23 18:42 Eos % (Auto) 5.5 % 04/02/23 18:42 Baso % (Auto) 0.8 % 04/02/23 18:42 Neut # (Auto) 2.98 10^3/uL (1.8-7.7) 04/02/23 18:42 Lymph # (Auto) 2.4 10^3/uL (0.8-4.8) 04/02/23 18:42 [place] # (Auto) 0.4 10^3/uL (0.2-0.9) 04/02/23 18:42 Eos # (Auto) 0.3 10^3/uL (0.0-0.8) 04/02/23 18:42 Baso # (Auto) 0.1 10^3/uL (0.0-0.1) 04/02/23 18:42 Nucleated RBC % (auto) 0 % 04/02/23 18:42 Nucleated RBCs # 0.0 /100WBC 04/02/23 18:42 PT 12.60 SECONDS (12.1-14.9) 04/02/23 18:42 INR 0.92 (0.8-1.2) 04/02/23 18:42 Sodium 138 mmol/L (136-145) 04/02/23 18:42 Potassium 4.2 mmol/L (3.5-5.1) 04/02/23 18:42 Chloride 100 mmol/L (98-107) 04/02/23 18:42 Carbon Dioxide 26 mmol/L (22-29) 04/02/23 18:42 Anion Gap 16.2 (5-19) 04/02/23 18:42 BUN 16 mg/dL (8-23) 04/02/23 18:42 Creatinine 0.8 mg/dL (0.5-0.9) 04/02/23 18:42 GFR Calculation 71.5 mL/min (90-130) L 04/02/23 18:42 Glucose 92 mg/dL (65-115) 04/02/23 18:42 Calculated Osmolality 287 mOsm/kg (285-295) 04/02/23 18:42 Calcium 9.2 mg/dL (8.5-10.5) 04/02/23 18:42 Total Bilirubin 0.2 mg/dL (0.15-1.2) 04/02/23 18:42 AST 15 U/L (0-32) 04/02/23 18:42 ALT 13 U/L (0-33) 04/02/23 18:42 Alkaline Phosphatase 65 U/L (35-105) 04/02/23 18:42 Troponin T Baseline 6 ng/L (0-10) 04/02/23 18:42 Troponin T 120 Minute 6 ng/L (0-10) 04/02/23 20:15 Delta Troponin T 0 ABS# (0-10) 04/02/23 20:15 Total Protein 6.5 g/dL (6.6-8.7) L 04/02/23 18:42 Albumin 4.1 g/dL (3.5-5.2) 04/02/23 18:42 Globulin 2.4 g/dL (1.3-4.6) 04/02/23 18:42 EKG Data EKG 1: I personally reviewed and interpreted this EKG as follows: EKG interpretation date: 04/02/23 EKG interpretation time: 18:34 Prior EKG tracings: not available for review Interpretation: EKG showed normal sinus rhythm at 69 bpm, MS interval 176, QRS of 82, QTc of 460, possible left atrial enlargement, septal myocardial infarction of indeterminate age with Q waves in V1 and V2 EKG 2: I personally reviewed and interpreted this EKG as follows: EKG interpretation date: 04/02/23 EKG interpretation time: 20:31 Prior EKG tracings: available for review Interpretation: EKG showed sinus bradycardia with a ventricular rate of 59 bpm, MS interval 142, QRS duration 83, QTc 445, right axis deviation, septal myocardial infarction of indeterminate age with Q waves in V1 and V2 Discharge Plan Discharge Patient Disposition: Home Clinical Impression: Abdominal pain, acute, epigastric Gastritis Qualifiers: Gastritis type: unspecified gastritis Chronicity: acute Gastritis bleeding: without bleeding Qualified Code(s): K29.00 - Acute gastritis without bleeding Condition: Stable Prescriptions: No Action lidocaine [Lidoderm] 5 % adhesive patch,medicated 2 patch topical DAILY 30 Days Qty: 60 6RF Rx Instructions: leave on most painful area for up to 12 hrs epinephrine [EpiPen 2-Dmitri] 0.3 mg/0.3 mL auto-injector 0.3 mg IM ONCE PRN (Reason: Allergy Symptoms) Qty: 2 1RF cetirizine [Zyrtec] 10 mg tablet 10 mg PO DAILY PRN (Reason: allergy symptoms) Qty: 30 0RF trazodone 50 mg tablet 50 mg PO BEDTIME@2200 Qty: 90 0RF fluoxetine [Prozac] 40 mg capsule 80 mg PO DAILY@1000 Qty: 180 0RF clonazepam 1 mg tablet 1 mg PO TID PRN (Reason: anxiety) Qty: 90 2RF azithromycin 500 mg tablet 500 mg PO DAILY Qty: 30 2RF Rx Instructions: Take 3x per week on Fri, Fri and Friday Protonix 40 mg tablet,delayed release (DR/EC) 40 mg PO BID 42 Days Qty: 84 1RF fluticasone propionate [Flonase Allergy Relief] 50 mcg/actuation spray,suspension 2 spray INTRANASAL DAILY@1000 Qty: 16 5RF Rx Instructions: administer into each nostril atorvastatin 40 mg tablet 40 mg PO DAILY@1000 Qty: 90 1RF metoprolol succinate 50 mg tablet extended release 24 hr 50 mg PO DAILY@1000 Qty: 90 1RF losartan 100 mg tablet 100 mg PO DAILY Qty: 90 1RF nitroglycerin 0.4 mg tablet, sublingual 0.4 mg SUBLINGUAL Q5M PRN (Reason: chest pain) Qty: 25 3RF Rx Instructions: until response; do not exceed 3 doses per episode isosorbide mononitrate 30 mg tablet extended release 24 hr 30 mg PO DAILY 90 Days Qty: 90 1RF fluticasone propion-salmeterol [Wixela Inhub] 250-50 mcg/dose blister with device 1 inh inhalation BID Qty: 90 3RF Spiriva with HandiHaler 18 mcg capsule, w/inhalation device 1 cap INHALATION DAILY 30 Days Qty: 90 6RF Rx Instructions: puncture 1 cap using device; one dose = 2 inhalations Combivent Respimat 20-100 mcg/actuation mist See Rx Instructions .ROUTE .COMPLEX Qty: 4 6RF Dose Instruction: INHALE ONE PUFF BY MOUTH FOUR TIMES A DAY SPACE EVENLY DURING WAKING HOURS- (DISCARD UNIT 3 MONTHS AFTER INITIAL USE) Rx Instructions: INHALE ONE PUFF BY MOUTH FOUR TIMES A DAY SPACE EVENLY DURING WAKING HOURS- (DISCARD UNIT 3 MONTHS AFTER INITIAL USE) albuterol sulfate [ProAir HFA] 90 mcg/actuation HFA aerosol inhaler 2 puff INHALATION QID PRN (Reason: shortness of breath or wheezing) Qty: 8.5 6RF ipratropium-albuterol 0.5 mg-3 mg(2.5 mg base)/3 mL solution for nebulization 3 ml INHALATION .every 6 hours PRN (Reason: wheezing) Qty: 180 5RF Mucinex 1,200 mg Tablet Extended Release 12hr 1,200 mg PO BID ondansetron 4 mg tablet,disintegrating 4 mg PO Q6H PRN (Reason: nausea and vomiting) Qty: 14 0RF aspirin 81 mg Tablet,Delayed Release (Dr/Ec) 81 mg PO DAILY Discharge Orders: Discharge ED (Routine); Ordered 04/02/23 Ordered By: Jose J Draper Referrals: Eldon Corral MD [Primary Care Provider] - 1 week Patient Instructions: Gastritis (ED), Diet for Stomach Ulcers and Gastritis (ED), Abdominal Pain (ED) Activity Restrictions/Additional Instructions: Please follow-up with your family practice doc in the next 1 to 2 weeks. Please talk to them about going back on your omeprazole as it seemed to work better than the medicine you are on currently for your stomach. If your lipase is abnormal when it is resulted we will call you and there may be a change in plans but this is unlikely. Coding Level of Care Code ED Correspondence Review Clerk for Deidre Patton
[2023-04-02 21:42] LABS: Anion Gap 16.2 (5-19); Blood Urea Nitrogen 16 mg/dL (8-23); Calcium 9.2 mg/dL (8.5-10.5); Carbon Dioxide 26 mmol/L (22-29); Chloride 100 mmol/L (98-107); Glucose 92 mg/dL (65-115); Osmolality Calculated 287 mOsm/kg (285-295); Potassium 4.2 mmol/L (3.5-5.1); Sodium 138 mmol/L (136-145)
[2023-04-02 21:50] LABS: Creatinine Clr Calc Pharmacy 63.6965; Glomerular Filtration Rate 71.5 mL/min (90-130)
[2023-04-03 00:16] LABS: Lipase 36 U/L (13-60)
== END 2023-04-02 22:36 | disposition home or self-care (01) ==
PROVIDERS: Emergency Medicine; Emergency Provider Emergency Medicine; PCP Family Medicine
DX: K29.70 Gastritis, unspecified, without bleeding (principal)
CPT/HCPCS: 36415; 71045; 80053; 83690; 84484; 85025; 85610; 93005; 99285

== ENCOUNTER 2023-04-14 17:34 | Emergency (ER) | payer MEDICARE, OTHER, SELFPAY ==
[2023-04-14 17:41] VITALS: BP 174/90; PULSE 72; RESP 14; TEMP 36.7; O2SAT 96; BMI 24.9
--- NOTE | 2023-04-14 17:59 | ED_ITS ---
HPI - Dental/Oral General: Chief complaint: Dental/Oral Stated complaint: Tooth Ache Time Seen by Provider: 04/14/23 17:56 History of Present Illness: 67-year-old female comes in with dental pain. Patient has been on antibiotics for about 5 days for a dental infection. Patient continues to have pain and swelling to the left lower jaw. Patient has a premolar that was broken off and is now have a infection into the gingiva. Patient appears nontoxic. Patient appears in mild to moderate pain. Review of Systems General: Reports: 10 or more systems reviewed and unremarkable except in HPI and below ENMT: Reports: dental pain Card: Denies: chest pain Resp: Denies: dyspnea GI: Denies: abdominal pain : Denies: difficulty voiding PFSH ED PFSH: Medical History Anxiety Arthritis Asthma-COPD overlap syndrome Atherosclerosis of coronary artery of [place] heart with stable angina pectoris CABG x4 03/18/2016 NOLASCO to the LAD, saphenous venous graft to the PDA and a Y graft to the obtuse marginal/diagonal arteries Benign essential hypertension with target blood pressure below 140/90 CAD (coronary artery disease) Chest pain Comminuted fracture DDD (degenerative disc disease), lumbar Desmoplastic malignant melanoma Diarrhea Epigastric pain Essential hypertension H/O angiography History of lipoma Hx of myocardial infarction Iliac artery aneurysm Iliac artery aneurysm Lumbar back pain with radiculopathy affecting right lower extremity Lumbar spondylolysis Lung nodules Major depressive disorder, recurrent severe without psychotic features Melanoma Mixed hyperlipidemia MRSA nasal colonization Nicotine dependence, cigarettes, uncomplicated NSTEMI (non-ST elevated myocardial infarction) Osteomyelitis This is not a confirmed problem yet, patient is undergoing evaluation for possible osteomyelitis of the lumbar spine Psychiatric care Renal artery stenosis Suicide attempt Urinary incontinence Vitamin D deficiency Surgical History History of extraction of renal calculus History of laparoscopic appendectomy History of pancreatic surgery Hx of CABG Family History Father CAD (coronary artery disease) 50s Cancer Lung disease Sister CAD (coronary artery disease) 40s Cancer Chronic kidney disease (CKD) Lung disease Brother CAD (coronary artery disease) 40s Lung disease Mother Cancer Lung disease Family/Other Cancer Suicide Denies family history of Colon cancer Ovarian cancer Diabetes Clotting disorder Dementia Heart disease Hypercholesteremia Breast cancer Anesthesia complication Bleeding disorder Hypertension Uterine cancer Thyroid disease Stroke Social History Smoking and tobacco status: former smoker Quit status (tobacco): has quit using tobacco Year quit tobacco: 2016 Former quit date comment: Hx of 1PPD x 40 Years Smoking risk assessment/counseling performed?: No Alcohol intake: never Counseling given: No Substance/Drug Use: never Counseling given: No Lives independently: Yes Household members: none Marital status: / Number of children: 2 Current occupational status: retired and disabled Do you think of yourself as: Straight/Heterosexual Current gender identity: Female Physical Exam Const: COMMON NORMALS: alert HENMT: HEAD & SCALP: normal to inspection TEETH & GINGIVA: Yes fair dentition and Yes other (Decayed premolar left lower jaw) Neck/C-Spine: COMMON NORMALS: no lymphadenopathy Resp: COMMON NORMALS: normal respiratory effort Cardio: COMMON NORMALS: regular rate and regular rhythm RATE: regular rate RHYTHM: regular rhythm Back/Pelvis: COMMON NORMALS: thoracic and lumbar spine normal to inspection Extremity: COMMON NORMALS: normal to inspection Neuro: SENSORIUM/ORIENTATION: Yes alert Skin: COMMON NORMALS: turgor normal GENERAL SKIN EXAM: turgor normal Course Vital Signs: Vital signs: Vital Signs Temperature 98.0 F 04/14/23 17:41 Pulse Rate 72 04/14/23 17:41 Respiratory Rate 14 04/14/23 17:41 Blood Pressure 174/90 04/14/23 17:41 Pulse Oximetry 96 04/14/23 17:41 Oxygen Delivery Me thod Room Air 04/14/23 17:41 MDM - Dental/Oral Medical Decision Making 67-year-old female comes in today with dental pain and facial swelling. On exam patient has minimal to no facial swelling on the left lower jaw. Patient does have a decayed first premolar with surrounding gingival swelling and tenderness. No sublingual swelling is noted. Posterior pharynx is normal. Differential diagnosis includes but not limited to odontalgia, dental abscess, malingering. Patient will be switched from amoxicillin to clindamycin for better coverage of dental infection. Patient be started on hydrocodone 5 mg 1 tablet 3 times a day as needed for severe pain. Patient was recommended to use other therapies for further pain relief. Patient reported understanding agreed to plan. Discharge Plan Discharge Patient Disposition: Home Clinical Impression: Dental abscess Condition: Stable Prescriptions: New clindamycin HCl 300 mg capsule 300 mg PO Q8H 7 Days Qty: 21 0RF hydrocodone-acetaminophen 5-325 mg tablet 1 tab PO Q8H PRN (Reason: pain (scale score 7-10)) Qty: 10 0RF No Action lidocaine [Lidoderm] 5 % adhesive patch,medicated 2 patch topical DAILY 30 Days Qty: 60 6RF Rx Instructions: leave on most painful area for up to 12 hrs epinephrine [EpiPen 2-Dmitri] 0.3 mg/0.3 mL auto-injector 0.3 mg IM ONCE PRN (Reason: Allergy Symptoms) Qty: 2 1RF cetirizine [Zyrtec] 10 mg tablet 10 mg PO DAILY PRN (Reason: allergy symptoms) Qty: 30 0RF trazodone 50 mg tablet 50 mg PO BEDTIME@2200 Qty: 90 0RF fluoxetine [Prozac] 40 mg capsule 80 mg PO DAILY@1000 Qty: 180 0RF clonazepam 1 mg tablet 1 mg PO TID PRN (Reason: anxiety) Qty: 90 2RF azithromycin 500 mg tablet 500 mg PO DAILY Qty: 30 2RF Rx Instructions: Take 3x per week on Mon, Fri and Friday Protonix 40 mg tablet,delayed release (DR/EC) 40 mg PO BID 42 Days Qty: 84 1RF fluticasone propionate [Flonase Allergy Relief] 50 mcg/actuation spray,suspension 2 spray INTRANASAL DAILY@1000 Qty: 16 5RF Rx Instructions: administer into each nostril atorvastatin 40 mg tablet 40 mg PO DAILY@1000 Qty: 90 1RF metoprolol succinate 50 mg tablet extended release 24 hr 50 mg PO DAILY@1000 Qty: 90 1RF losartan 100 mg tablet 100 mg PO DAILY Qty: 90 1RF nitroglycerin 0.4 mg tablet, sublingual 0.4 mg SUBLINGUAL Q5M PRN (Reason: chest pain) Qty: 25 3RF Rx Instructions: until response; do not exceed 3 doses per episode isosorbide mononitrate 30 mg tablet extended release 24 hr 30 mg PO DAILY 90 Days Qty: 90 1RF fluticasone propion-salmeterol [Wixela Inhub] 250-50 mcg/dose blister with device 1 inh inhalation BID Qty: 90 3RF Spiriva with HandiHaler 18 mcg capsule, w/inhalation device 1 cap INHALATION DAILY 30 Days Qty: 90 6RF Rx Instructions: puncture 1 cap using device; one dose = 2 inhalations Combivent Respimat 20-100 mcg/actuation mist See Rx Instructions .ROUTE .COMPLEX Qty: 4 6RF Dose Instruction: INHALE ONE PUFF BY MOUTH FOUR TIMES A DAY SPACE EVENLY DURING WAKING HOURS- (DISCARD UNIT 3 MONTHS AFTER INITIAL USE) Rx Instructions: INHALE ONE PUFF BY MOUTH FOUR TIMES A DAY SPACE EVENLY DURING WAKING HOURS- (DISCARD UNIT 3 MONTHS AFTER INITIAL USE) albuterol sulfate [ProAir HFA] 90 mcg/actuation HFA aerosol inhaler 2 puff INHALATION QID PRN (Reason: shortness of breath or wheezing) Qty: 8.5 6RF ipratropium-albuterol 0.5 mg-3 mg(2.5 mg base)/3 mL solution for nebulization 3 ml INHALATION .every 6 hours PRN (Reason: wheezing) Qty: 180 5RF Mucinex 1,200 mg Tablet Extended Release 12hr 1,200 mg PO BID ondansetron 4 mg tablet,disintegrating 4 mg PO Q6H PRN (Reason: nausea and vomiting) Qty: 14 0RF aspirin 81 mg Tablet,Delayed Release (Dr/Ec) 81 mg PO DAILY Discharge Orders: Discharge ED (Routine); Ordered 04/14/23 Ordered By: Mayank Morgan Referrals: Eldon Corral MD [Primary Care Provider] - Discharge Diet: Usual diet Discharge Activity: Increase activity as tolerated Patient Instructions: Toothache (ED), Opioid Safety Activity Restrictions/Additional Instructions: Take antibiotics as directed. Use acetaminophen and ibuprofen to control pain. Use hydrocodone for severe pain. Follow-up with primary care for further instruction. Return to ED for new concerns. Coding Level of Care Code ED Strap Buckler for Deidre Patton
[2023-04-14] MEDS: clindamycin 150 mg Capsule 300 MG PO (18:09)
[2023-04-14] MEDS: HYDROcodone-acetaminophen 7.5-325 mg Tablet 1 TAB PO (18:09)
== END 2023-04-14 18:14 | disposition home or self-care (01) ==
PROVIDERS: Emergency Provider Nurse Practitioner Family; PCP Family Medicine
DX: K04.7 Periapical abscess without sinus (principal); Z79.82 Long term (current) use of aspirin; Z87.891 Personal history of nicotine dependence; I25.10 Atherosclerotic heart disease of native coronary artery without angina pectoris; I10 Essential (primary) hypertension; I25.2 Old myocardial infarction; E78.2 Mixed hyperlipidemia; Z95.1 Presence of aortocoronary bypass graft
CPT/HCPCS: 99283

== ENCOUNTER → 2023-05-06 16:15 | Outpatient (BNVA) | payer MEDICARE, OTHER, SELFPAY | PROVIDERS: PCP Family Medicine; Visit Provider Specialist | DX: I25.118 Atherosclerotic heart disease of native coronary artery with other forms of angina pectoris (principal); I10 Essential (primary) hypertension; E78.2 Mixed hyperlipidemia; Z87.891 Personal history of nicotine dependence; Z79.82 Long term (current) use of aspirin | CPT/HCPCS: 99214 ==

== ENCOUNTER → 2023-05-28 09:15 | Outpatient (BNVA) | payer MEDICARE, OTHER, SELFPAY | PROVIDERS: PCP Family Medicine; Visit Provider Otolaryngology | DX: H93.13 Tinnitus, bilateral; H61.23 Impacted cerumen, bilateral; R41.3 Other amnesia | CPT/HCPCS: 69210; 99213 ==

== ENCOUNTER → 2023-08-25 10:32 | Outpatient (BNVA) | payer MEDICARE, OTHER, SELFPAY | PROVIDERS: PCP Family Medicine; Referring Provider Otolaryngology; Visit Provider Psychiatry & Neurology Neurology | DX: R41.3 Other amnesia (principal) | CPT/HCPCS: 99203 ==

== ENCOUNTER → 2023-08-25 10:32 | Outpatient (BNVA) | payer MEDICARE, OTHER, SELFPAY | PROVIDERS: PCP Family Medicine; Referring Provider Otolaryngology; Visit Provider Psychiatry & Neurology Neurology | DX: R41.3 Other amnesia (principal) | CPT/HCPCS: 0346U; 36415; 82542 ==

== ENCOUNTER 2023-09-22 08:25 | Outpatient (CLI) | payer MEDICARE, OTHER, SELFPAY ==
--- NOTE | 2023-09-22 08:45 | MR_ITS ---
WS: [id number] MRI HEAD WITH CONTRAST TECHNIQUE: Sagittal T1, T2 axial, T2 axial FLAIR, axial susceptibility weighted imaging, axial diffus ion weighted images, and coronal T2 images were obtained. Pre and post-T1 axial and post T1 coronal i mages. ADC and FSPGR images. CLINICAL INFORMATION: R41.3 - Other amnesia COMPARISON: MRI [address] 2018 FINDINGS: No evidence of restricted diffusion to suggest acute ischemia. Ventricular system and basilar cistern s are patent. Mild small vessel changes. Mild parenchymal volume loss. Normal posterior fossa. Normal vascular flow voids at the skull base. Mild mucosal thickening RIGHT maxillary sinus. Fluid with opa cification LEFT mastoid air cells and middle ear. RIGHT mastoid air cells are well aerated. No hemosiderin on the susceptibility weighted images. Normal optic chiasm and pituitary infundibulum. Temporal lobes and hippocampal formations are normal in appearance. No abnormal gadolinium enhanceme nt. Normal dural venous sinuses. IMPRESSION: Some images degraded by patient motion. 1. No evidence of restricted diffusion to suggest acute ischemia. 2. Mild small vessel changes with mild parenchymal volume loss. 3. Temporal lobes and hippocampal formations are normal in appearance. 4. LEFT mastoid and middle ear effusion. 5. No abnormal gadolinium enhancement.
[2023-09-22] MEDS: gadobenate dimeglumine 20 mL vial IV (10:32)
== END 2023-09-22 08:26 | disposition home or self-care (01) ==
PROVIDERS: PCP Family Medicine; Visit Provider Psychiatry & Neurology Neurology
DX: R41.3 Other amnesia (principal); H74.8X2 Other specified disorders of left middle ear and mastoid
CPT/HCPCS: 70553; A9577

== ENCOUNTER → 2023-10-02 08:13 | Outpatient (BNVA) | payer MEDICARE, OTHER, SELFPAY | PROVIDERS: PCP Family Medicine; Visit Provider Nurse Practitioner Family | DX: L81.4 Other melanin hyperpigmentation (principal); Z85.820 Personal history of malignant melanoma of skin; L82.1 Other seborrheic keratosis; L57.8 Other skin changes due to chronic exposure to nonionizing radiation; L90.5 Scar conditions and fibrosis of skin | CPT/HCPCS: 99213 ==

== ENCOUNTER → 2023-11-05 14:07 | Outpatient (BNVA) | payer MEDICARE, OTHER, SELFPAY | PROVIDERS: PCP Family Medicine; Visit Provider Internal Medicine Cardiovascular Disease | DX: I25.118 Atherosclerotic heart disease of native coronary artery with other forms of angina pectoris (principal); I10 Essential (primary) hypertension; E78.2 Mixed hyperlipidemia; I72.3 Aneurysm of iliac artery; I71.02 Dissection of abdominal aorta; Z87.891 Personal history of nicotine dependence | CPT/HCPCS: 99214 ==

== ENCOUNTER → 2023-11-21 14:29 | Outpatient (BNVA) | payer MEDICARE, OTHER, SELFPAY | PROVIDERS: PCP Family Medicine; Visit Provider Family Medicine | DX: M16.12 Unilateral primary osteoarthritis, left hip (principal); J44.9 Chronic obstructive pulmonary disease, unspecified; I71.02 Dissection of abdominal aorta; Z79.899 Other long term (current) drug therapy | CPT/HCPCS: 80053; 80061; 85025 ==

== ENCOUNTER 2024-01-11 15:30 | Emergency (ER) | payer MEDICARE, OTHER, SELFPAY ==
[2024-01-11] VITALS (12 sets, daily range): BP systolic 119–154; BP diastolic 65–103; PULSE 79–120; RESP 17–24; O2SAT 87–94
--- NOTE | 2024-01-11 15:37 | XRR_ITS ---
PROCEDURE INFORMATION: Exam: XR Chest Exam date and time: 01/11/2024 4:07 PM Age: 68 years old Clinical indication: Shortness of breath; Prior surgery; Surgery date: 1-6 months; Surgery type: Cabg; Additional info: Dyspnea/cough TECHNIQUE: Imaging protocol: Radiologic exam of the chest. Views: 1 view. COMPARISON: CR XR chest 1V portable [id number] 04/02/2023 6:20 PM FINDINGS: Lungs: There is increased interstitial markings bilaterally predominantly of the bilateral lung bases. Pleural spaces: Unremarkable. No pleural effusion. No pneumothorax. Heart/Mediastinum: Stable mediastinal postprocedural changes. Bones/joints: Unremarkable. Other findings: Similar flattening of the bilateral diaphragms. Similar blunting of the bilateral diaphragms. XR/XR chest 1V portable [id number] IMPRESSION: 1. No acute cardiopulmonary findings. 2. Flattening of the diaphragms suggest chronic obstructive pulmonary disease, correlate with patient history and physical examination.
--- NOTE | 2024-01-11 15:43 | ED_ITS ---
HPI - SOB/Dyspnea 2 General: Chief Complaint: Shortness of Breath/Dyspnea Stated Complaint: SOB,cough Time Seen by Provider: 01/11/24 15:36 Source: patient Mode of arrival: ambulatory History of Present Illness: HPI Narrative: 60-year-old female history of COPD prese nts emergency room complaining cough shortness of breath nonproductive cough for the last 2 weeks. Episode of vomiting and some diarrhea as well. Family member who she lives with had influenza A. She started temp up to 101. She has been using her nebulizers at home with moderate relief of symptoms her last nebulizer treatment was this morning. She is not currently on any antibiotics. She states she quit smoking within the last month. She uses as needed oxygen at night for 2 L at a time MD elicited complaint: shortness of breath and cough Pertinent past history: COPD Onset (ago): week(s) (2) Timing: constant Associated symptoms: Reports chest congestion and cough; Deny abdominal pain, chest pain, diaphoresis, dizziness, extremity pain, fever(s), hemoptysis, lightheadedness, myalgias, nausea, orthopnea, palpitations, paresthesias, polydipsia, polyuria, rash, sense of impending doom, syncope or vomiting Treatment prior to arrival: oxygen and bronchodilator Review of Systems 2 Const: Denies: fever(s), chills or diaphoresis Card: Denies: chest pain, palpitations, lightheadedness, syncope or orthopnea Resp: Reports: dyspnea, non-productive cough, wheezing and chest congestion; Denies: hemoptysis GI: Denies: abdominal pain, nausea or vomiting : Denies: dysuria, urinary frequency or urinary urgency Musc: Denies: neck pain, back pain or extremity pain Skin/Breast: Denies: rash Neuro: Denies: dizziness Endo: Denies: polyuria or polydipsia PFSH ED 2 PFSH: Medical History NSTEMI (non-ST elevated myocardial infarction) Epigastric pain Chest pain CAD (coronary artery disease) History of lipoma Suicide attempt Hx of myocardial infarction Melanoma 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 Psychiatric care Comminuted fracture Renal artery stenosis H/O angiography Urinary incontinence Osteomyelitis This is not a confirmed problem yet, patient is undergoing evaluation for possible osteomyelitis of the lumbar spine DDD (degenerative disc disease), lumbar Lumbar spondylolysis Arthritis Lumbar back pain with radiculopathy affecting right lower extremity Vitamin D deficiency Diarrhea Asthma-COPD overlap syndrome Mixed hyperlipidemia Benign essential hypertension with target blood pressure below 140/90 Atherosclerosis of coronary artery of [place] heart with stable angina pectoris CABG x4 03/18/2016 NOL[place]CO to the LAD, saphenous venous graft to the PDA and a Y graft to the obtuse marginal/diagonal arteries Lung nodules Essential hypertension Nicotine dependence, cigarettes, uncomplicated Major depressive disorder, recurrent severe without psychotic features Anxiety Surgical History History of laparoscopic appendectomy History of extraction of renal calculus History of pancreatic surgery Hx of CABG Family History Father CAD (coronary artery disease) 50s Cancer Lung disease Sister CAD (coronary artery disease) 40s Cancer Chronic kidney disease (CKD) Lung disease Brother CAD (coronary artery disease) 40s Lung disease Mother Cancer Lung disease Family/Other Cancer Suicide Denies family history of Colon cancer Ovarian cancer Diabetes Clotting disorder Dementia Heart disease Hypercholesteremia Breast cancer Anesthesia complication Bleeding disorder Hypertension Uterine cancer Thyroid disease Stroke Social History Smoking and tobacco/nicotine status: former use of tobacco/nicotine Quit status (tobacco/nicotine): has quit using Year quit tobacco: 2016 Former quit date comment: Hx of 1PPD x 40 Years Alcohol intake: never Substance/Drug Use: never Lives independently: Yes Household members: none Marital status: / Number of children: 2 Current occupational status: retired and disabled Do you think of yourself as: Straight/Heterosexual Current gender identity: Female Physical Exam 2 Const: GENERAL APPEARANCE: cooperative and comfortable O RIENTATION/CONSCIOUSNESS: Yes awake, Yes oriented to person, Yes oriented to place and Yes oriented to time HENMT: COMMON NORMALS: normocephalic, atraumatic and hearing grossly normal bilaterally HEAD & SCALP: normocephalic and atraumatic Resp: EFFORT & INSPECTION: Yes tachypneic and Yes uses accessory muscles A USCULTATION: rhonchi and wheezes Cardio: COMMON NORMALS: regular rhythm and No murmurs present (Cardio) R ATE: tachycardic RHYTHM: regular rhythm GI: COMMON NORMALS: Soft to palpation and No hepatosplenomegaly present A USCULTATION: Yes normoactive bowel sounds PALPATION: Yes Soft to palpation, No Tenderness to palpation present (GI), No Guarding due to palpation present (GI) and Yes No hepatosplenomegaly present Extremity: COMMON NORMALS: normal to inspection, capillary refill normal, no clubbing, cyanosis or edema, no calf tenderness and no pedal edema Neuro: SENSORIUM/ORIENTATION: Yes oriented to person, Yes oriented to place and Yes oriented to time Skin: COMMON NORMALS: no rashes or lesions noted GENERAL SKIN EXAM: no rashes or lesions noted Course 2 Vital Signs: Vital signs: Vital Signs Pulse Rate 88 01/11/24 17:15 Respiratory Rate 21 H 01/11/24 17:15 Blood Pressure 133/70 01/11/24 17:15 Pulse Oximetry 91 01/11/24 17:00 Oxygen Delivery Me thod Nasal Cannula 01/11/24 17:15 Oxygen Flow Rate 2 01/11/24 17:15 MDM - SOB/Dyspnea Medical Decision Making Exacerbation COPD improved after nebulizers and steroids. If Times had symptoms we were going to start on antibiotics had difficulty with doxycycline causing GI upset the past week put her on Levaquin for 1 week. Start steroid taper tomorrow encourage aggressive use of nebulizers for relief of symptoms. Blood gas reviewed recommend at this point that she stay on 2 L/min continuously of oxygen she does have oxygen she uses as needed at home. She follow-up with her primary care doctor the next week return to the emergency room for has worsening or changes symptoms. Medical Records I reviewed the patient's medical records. Lab Data I reviewed the patient's lab results. 01/11/24 15:40 01/11/24 15:40 Labs/Radiology: Radiology Impressions Chest X-Ray 01/11/24 15:37 IMPRESSION: 1. No acute cardiopulmonary findings. 2. Flattening of the diaphragms suggest chronic obstructive pulmonary disease, correlate with patient history and physical examination. Laboratory Results WBC 6.89 10^3/uL (3.29-11.43) 01/11/24 15:40 RBC 4.63 10^6/uL (3.85-5.65) 01/11/24 15:40 Hgb 14.00 g/dL (11.27-16.99) 01/11/24 15:40 Hct 43.1 % (36-47) 01/11/24 15:40 MCV 93.1 fl (85-98) 01/11/24 15:40 MCH 30.2 pg (27-33) 01/11/24 15:40 MCHC 32.5 g/dL (30-55) 01/11/24 15:40 RDW 12.4 % (12.1-15.1) 01/11/24 15:40 Plt Count 352 10^3/cmm (157-399) 01/11/24 15:40 MPV 10.0 fL (7.4-10.4) 01/11/24 15:40 Neut % (Auto) 50.8 % 01/11/24 15:40 Lymph % (Auto) 38.0 % 01/11/24 15:40 [place] % (Auto) 7.8 % 01/11/24 15:40 Eos % (Auto) 2.5 % 01/11/24 15:40 Baso % (Auto) 0.6 % 01/11/24 15:40 Neut # (Auto) 3.50 10^3/uL (1.8-7.7) 01/11/24 15:40 Lymph # (Auto) 2.6 10^3/uL (0.8-4.8) 01/11/24 15:40 [place] # (Auto) 0.5 10^3/uL (0.2-0.9) 01/11/24 15:40 Eos # (Auto) 0.2 10^3/uL (0.0-0.8) 01/11/24 15:40 Baso # (Auto) 0.0 10^3/uL (0.0-0.1) 01/11/24 15:40 Nucleated RBC % (auto) 0 % 01/11/24 15:40 Nucleated RBCs # 0.0 /100WBC 01/11/24 15:40 Specimen Type Arterial 01/11/24 16:10 Sample Site Radial, right 01/11/24 16:10 ABG pH 7.44 (7.35-7.45) 01/11/24 16:10 ABG pCO2 45.3 mmHg (35-45) H 01/11/24 16:10 ABG pO2 52.6 mmHg (80.0-100.0) L 01/11/24 16:10 ABG PO2/FiO2 Ratio 0 01/11/24 16:10 ABG HCO3 30.9 mmol/L (22-26) H 01/11/24 16:10 ABG O2 Saturation 90.4 01/11/24 16:10 ABG Base Excess 5.8 mmol/L (-2.0-2.0) H 01/11/24 16:10 Jaquan Test Pos 01/11/24 16:10 A-a O2 Gradient 5.3 mmHg (5-10) 01/11/24 16:10 Hematocrit 43.4 % (37-47) 01/11/24 16:10 Hgb O2 Saturation 89.5 % (95-100) L 01/11/24 16:10 Carboxyhemoglobin 0.7 %THgb (0.4-20.1) 01/11/24 16:10 Methemoglobin 0.3 % (0.4-1.5) L 01/11/24 16:10 Total Hemoglobin 14.1 g/dL (12-16) 01/11/24 16:10 Sodium 141.0 mmol/L (131-143) 01/11/24 16:10 Potassium 6.7 mmol/L (3.5-5.0) H 01/11/24 16:10 Glucose 96.0 mg/dL (70-115) 01/11/24 16:10 Ionized Calcium 1.2 mmol/L (1.1-1.4) 01/11/24 16:10 O2 Delivery Device Room air 01/11/24 16:10 FiO2 21.0 % 01/11/24 16:10 Burial Vault Deliverer And Installer ID glc 01/11/24 16:10 Sodium 139 mmol/L (136-145) 01/11/24 15:40 Potassium 4.6 mmol/L (3.5-5.1) 01/11/24 15:40 Chloride 100 mmol/L (98-107) 01/11/24 15:40 Carbon Dioxide 27 mmol/L (22-29) 01/11/24 15:40 Anion Gap 16.6 (5-19) 01/11/24 15:40 BUN 15 mg/dL (8-23) 01/11/24 15:40 Creatinine 0.7 mg/dL (0.5-0.9) 01/11/24 15:40 GFR Calculation 83.2 mL/min (90-130) L 01/11/24 15:40 Glucose 87 mg/dL (65-115) 01/11/24 15:40 Calculated Osmolality 288 mOsm/kg (285-295) 01/11/24 15:40 Lactic Acid 1.7 mmol/L (0.5-2.2) 01/11/24 15:40 Calcium 9.5 mg/dL (8.5-10.5) 01/11/24 15:40 Total Bilirubin 0.3 mg/dL (0.15-1.2) 01/11/24 15:40 AST 20 U/L (0-32) 01/11/24 15:40 ALT 18 U/L (0-33) 01/11/24 15:40 Alkaline Phosphatase 78 U/L (35-105) 01/11/24 15:40 Total Protein 7.4 g/dL (6.6-8.7) 01/11/24 15:40 Albumin 4.3 g/dL (3.5-5.2) 01/11/24 15:40 Globulin 3.1 g/dL (1.3-4.6) 01/11/24 15:40 All radiology interpretation(s) finalized by discharge Discharge Plan Discharge Patient Disposition: Home Clinical Impression: Acute exacerbation of chronic obstructive airways disease Condition: Stable Prescriptions: New ipratropium-albuterol 0.5 mg-3 mg(2.5 mg base)/3 mL solution for nebulization 3 ml inhalation Q4H PRN (Reason: shortness of breath or wheezing) Qty: 90 0RF prednisone 20 mg tablet 20 mg PO TID Qty: 15 0RF Rx Instructions: 1 p.o. 3 times daily x3 days, 1 p.o. twice daily x2 days, 1 p.o. daily x2 days levofloxacin 750 mg tablet 750 mg PO DAILY 7 Days Qty: 7 0RF No Action epinephrine [EpiPen 2-Dmitri] 0.3 mg/0.3 mL auto-injector 0.3 mg IM ONCE PRN (Reason: Allergy Symptoms) Qty: 2 1RF cetirizine [Zyrtec] 10 mg tablet 10 mg PO DAILY PRN (Reason: allergy symptoms) Qty: 30 0RF amlodipine 5 mg tablet 5 mg PO DAILY Qty: 30 5RF meloxicam 15 mg tablet 15 mg PO DAILY Qty: 60 0RF (DME) home oxygen 3L at night See Rx Instructions .Route .MEDSUPPLY Qty: 1 0RF Rx Instructions: 3L nasal canula at night sumatriptan succinate 25 mg tablet See Rx Instructions PO .COMPLEX Qty: 9 1RF Rx Instructions: take 1 tab at onset of headache; if no relief may repeat 1 tab after at least 2 hrs; max = 4 tabs/24 hr PO azithromycin 500 mg tablet 500 mg PO .COMPLEX Patient Comments: TAKE ONE TABLET BY MOUTH THREE TIMES PER WEEK. ON FRIDAY, FRIDAY AND FRIDAY. Rx Instructions: 500 mg orally; fluoxetine [Prozac] 40 mg capsule 80 mg PO DAILY@1000 Qty: 180 0RF clonazepam 1 mg tablet 1 mg PO TID PRN (Reason: anxiety) Qty: 90 2RF atorvastatin 40 mg tablet 40 mg PO DAILY@1000 Qty: 90 1RF metoprolol succinate 50 mg tablet extended release 24 hr 50 mg PO DAILY@1000 Qty: 90 1RF losartan 100 mg tablet 100 mg PO DAILY Qty: 90 1RF nitroglycerin 0.4 mg tablet, sublingual 0.4 mg SUBLINGUAL Q5M PRN (Reason: chest pain) Qty: 25 3RF Rx Instructions: until response; do not exceed 3 doses per episode isosorbide mononitrate 30 mg tablet extended release 24 hr 30 mg PO DAILY 90 Days Qty: 90 1RF lidocaine [Lidoderm] 5 % adhesive patch,medicated 2 patch topical DAILY 30 Days Qty: 60 0RF Rx Instructions: leave on most painful area for up to 12 hrs omeprazole 40 mg capsule,delayed release(DR/EC) 40 mg PO DAILY Qty: 90 1RF albuterol sulfate [ProAir HFA] 90 mcg/actuation HFA aerosol inhaler 2 puff INHALATION QID PRN (Reason: shortness of breath or wheezing) Qty: 8.5 6RF fluticasone propion-salmeterol [Wixela Inhub] 250-50 mcg/dose blister with device 1 inh inhalation BID Qty: 90 3RF fluticasone propionate [Flonase Allergy Relief] 50 mcg/actuation spray,suspension 2 spray INTRANASAL DAILY@1000 Qty: 16 0RF Rx Instructions: administer into each nostril ipratropium-albuterol 0.5 mg-3 mg(2.5 mg base)/3 mL solution for nebulization 3 ml INHALATION .every 6 hours PRN (Reason: wheezing) Qty: 180 5RF Combivent Respimat 20-100 mcg/actuation mist See Rx Instructions .ROUTE .COMPLEX Qty: 4 6RF Dose Instruction: INHALE ONE PUFF BY MOUTH FOUR TIMES A DAY SPACE EVENLY DURING WAKING HOURS- (DISCARD UNIT 3 MONTHS AFTER INITIAL USE) Rx Instructions: INHALE ONE PUFF BY MOUTH FOUR TIMES A DAY SPACE EVENLY DURING WAKING HOURS- (DISCARD UNIT 3 MONTHS AFTER INITIAL USE) tiotropium bromide [Spiriva with HandiHaler] 18 mcg capsule, w/inhalation device 1 cap INHALATION DAILY 30 Days Qty: 90 6RF Rx Instructions: puncture 1 cap using device; one dose = 2 inhalations Mucinex 1,200 mg Tablet Extended Release 12hr 1,200 mg PO BID aspirin 81 mg Tablet,Delayed Release (Dr/Ec) 81 mg PO DAILY Discharge Orders: Discharge ED (Routine); Ordered 01/11/24 Ordered By: Austin Jones Referrals: Eldon Corral MD [Primary Care Provider] - Discharge Diet: Usual diet Discharge Activity: Increase activity as tolerated Patient Instructions: COPD (Chronic Obstructive Pulmonary Disease) (ED), Opioid Safety, Pain Management Activity Restrictions/Additional Instructions: Thank you for choosing [facility] for your healthcare needs today. Please realize this is an emergency room and that we are providing you with a medical screening exam and this may not be complete and all inclusive of all the testing and or work up that you may need to determine your ailment or severity of your illness. It is very important that you follow up as instructed or that you return to the Emergency Department should you have concerns or if your condition changes or worsens in any way. You are seen today for exacerbation COPD. You should wear your oxygen continuously at 2 L/min start the oral steroid taper tomorrow. You are also given a course of oral antibiotics you should start those today or tomorrow. Use your albuterol ipratropium bromide nebulizers every 4 hours while awake. Recheck with your primary care doctor within the week. Coding Level of Care Code ED Soap Mixer for Deidre Patton
[2024-01-11 15:54] LABS: Basophils % 0.6 %; Eosinophils # 0.2 10^3/uL (0.0-0.8); Eosinophils % 2.5 %; Hematocrit 43.1 % (36-47); Lymphocytes # 2.6 10^3/uL (0.8-4.8); Mean Corpuscular HGB Conc 32.5 g/dL (30-55); Mean Corpuscular Hemoglobin 30.2 pg (27-33); Mean Corpuscular Volume 93.1 fl (85-98); Monocytes # 0.5 10^3/uL (0.2-0.9); Monocytes % 7.8 %; Neutrophils % 50.8 %; Nucleated Red Blood Cells % 0 %; Platelet Count 352 10^3/cmm (157-399); Red Blood Count 4.63 10^6/uL (3.85-5.65); Red Cell Distribution Width 12.4 % (12.1-15.1); White Blood Count 6.89 10^3/uL (3.29-11.43)
[2024-01-11] MEDS: dexamethasone 10 mg/mL INJ IVP (16:05)
[2024-01-11] MEDS: ipratropium-albuterol 3 mL Neb INHALATION (16:06)
[2024-01-11 16:10] LABS: Alanine Aminotransferase 18 U/L (0-33); Albumin Level 4.3 g/dL (3.5-5.2); Alkaline Phosphatase 78 U/L (35-105); Aspartate Amino Transferase 20 U/L (0-32); Blood Urea Nitrogen 15 mg/dL (8-23); Calcium 9.5 mg/dL (8.5-10.5); Carbon Dioxide 27 mmol/L (22-29); Chloride 100 mmol/L (98-107); Globulin 3.1 g/dL (1.3-4.6); Glomerular Filtration Rate 83.2 mL/min (90-130); Glucose 87 mg/dL (65-115); Osmolality Calculated 288 mOsm/kg (285-295); Sodium 139 mmol/L (136-145); Total Bilirubin 0.3 mg/dL (0.15-1.2); Total Protein 7.4 g/dL (6.6-8.7)
[2024-01-11 16:20] LABS: ABG PCO2 45.3 mmHg (35-45); ABG PH Result 7.44 (7.35-7.45); Alveolar-Arterial Oxygen Gradi 5.3 mmHg (5-10); Arterial Blood Gas Hematocrit 43.4 % (37-47); Base Excess ABG 5.8 mmol/L (-2.0-2.0); Blood Gas Allen Test Pos; Blood Gas Operator Identificat glc; Blood Gas Sample Site Radial, right; Blood Gas Sample Type Arterial; Carboxyhemoglobin 0.7 %THgb (0.4-20.1); HCO3 ABG 30.9 mmol/L (22-26); HGB O2 Sat 89.5 % (95-100); Ionized Calcium Level - ABG 1.2 mmol/L (1.1-1.4); Methemoglobin 0.3 % (0.4-1.5); Oxygen Device ROOM AIR; Oxygen Saturation ABG 90.4; PO2 ABG 52.6 mmHg (80.0-100.0); PO2 FiO2 Ratio Arterial Blood 0; Potassium Level - ABG 6.7 mmol/L (3.5-5.0); Total Hemoglobin 14.1 g/dL (12-16)
[2024-01-11 16:21] LABS: Lactic Sepsis W/Reflex 1.7 mmol/L (0.5-2.2)
--- NOTE | 2024-01-11 16:27 | ECG_ITS ---
[facility] Test Date: 2024-01-11 Pat Name: Norma Varma Department: Room: Gender: Female Supervisor Painting: : 1955 Requested By: Austin Garnett Order Number: [id number] Carmen MD: Petty Ward M.D. Measurements Intervals [place] Rate: 94 P: 56 TN: 152 QRS: 73 QRSD: 84 T: 82 QT: 365 QTc: 458 Interpretive Statements SINUS RHYTHM POSSIBLE LEFT ATRIAL ENLARGEMENT [-0.1mV P-WAVE IN V1/V2] LOW QRS VOLTAGE IN PRECORDIAL LEADS [QRS DEFLECTION < 1.0 mV IN CHEST LEADS] NONSPECIFIC T-WAVE ABNORMALITY Compared to ECG 04/02/2023 20:31:20 Low QRS voltage now present T-wave abnormality now present Sinus bradycardia no longer present Right-axis deviation no longer present Myocardial infarct finding no longer present Electronically Signed On 01-13-2024 0:44:47 DOLLY OPERATOR by Petty Ward M.D. [email or web address]
[2024-01-11 16:39] LABS: Anion Gap 16.6 (5-19); Potassium 4.6 mmol/L (3.5-5.1)
[2024-01-11 17:58] LABS: Adenovirus Not Detected (NOT DETECT); Chlamydia Pneumoniae Not Detected (NOT DETECT); Coronavirus 229E,HKU1,NL63,OC4 Not Detected (NOT DETECT); Human Metapneumovirus Not Detected (NOT DETECT); Human Rhinovirus/Enterovirus Not Detected (NOT DETECT); Influenza A Not Detected (NOT DETECT); Influenza A H1 Not Detected (NOT DETECT); Influenza A H1-2009 Not Detected (NOT DETECT); Influenza A H3 Not Detected (NOT DETECT); Influenza B Not Detected (NOT DETECT); Mycoplasma Pneumoniae Not Detected (NOT DETECT); Parainfluenza Virus Type 1 Not Detected (NOT DETECT); Parainfluenza Virus Type 2 Not Detected (NOT DETECT); Parainfluenza Virus Type 3 Not Detected (NOT DETECT); Parainfluenza Virus Type 4 Not Detected (NOT DETECT); Respiratory Syncytial Virus A Not Detected (NOT DETECT); Respiratory Syncytial Virus B Not Detected (NOT DETECT); SARS-COV-2 Not Detected (NOT DETECT)
== END 2024-01-11 17:49 | disposition home or self-care (01) ==
PROVIDERS: Emergency Provider Family Medicine; PCP Family Medicine
DX: J44.1 Chronic obstructive pulmonary disease with (acute) exacerbation (principal); Z79.82 Long term (current) use of aspirin; Z87.891 Personal history of nicotine dependence; Z95.1 Presence of aortocoronary bypass graft; I25.2 Old myocardial infarction; E78.2 Mixed hyperlipidemia; I10 Essential (primary) hypertension; I25.118 Atherosclerotic heart disease of native coronary artery with other forms of angina pectoris
CPT/HCPCS: 36415; 36600; 71045; 80051; 80053; 82330; 82805; 83605; 85025; 87040; 87486; 87581; 87633; 93005; 94640; 96374; 99285; J1100

== ENCOUNTER → 2024-03-11 09:58 | Outpatient (BNVA) | payer MEDICARE, OTHER, SELFPAY | PROVIDERS: PCP Family Medicine; Visit Provider Internal Medicine Pulmonary Disease | DX: J44.9 Chronic obstructive pulmonary disease, unspecified (principal); J30.9 Allergic rhinitis, unspecified; G47.34 Idiopathic sleep related nonobstructive alveolar hypoventilation; R53.82 Chronic fatigue, unspecified; Z12.2 Encounter for screening for malignant neoplasm of respiratory organs; Z87.891 Personal history of nicotine dependence | CPT/HCPCS: 99214 ==

== ENCOUNTER → 2024-04-07 11:44 | Outpatient (BNVA) | payer MEDICARE, OTHER, SELFPAY | PROVIDERS: PCP Family Medicine; Referring Provider Family Medicine; Visit Provider Surgery | DX: K21.9 Gastro-esophageal reflux disease without esophagitis (principal) | CPT/HCPCS: 99204; 99214 ==

== ENCOUNTER 2024-04-27 07:35 | Day surgery (SDC) | payer MEDICARE, OTHER, SELFPAY ==
--- NOTE | 2024-04-27 06:06 | W.PM.OPSUD ---
Surgery/Procedure H&P Update DATE OF PROCEDURE: April 27, 2024 DATE H&P PERFORMED: 04/07/24 H&P UPDATE INFORMATION: I have reviewed H&P completed within last 30 days, I have examined patient prior to procedure, No changes to prior documentation and H&P is in [facility] EMR on date indicated PLANNED PROCEDURE: Operation Date: 04/27/24 08:20 Proposed Procedures p EGD 13801. K21.9(Not Applicable) - Sotero Christianson MD
[2024-04-27 08:01] VITALS: BP 154/99; PULSE 124; RESP 18; TEMP 36.3; O2SAT 92; BMI 26.6
[2024-04-27 08:04] VITALS: PULSE 111
[2024-04-27] MEDS: sodium chloride 0.9% 1,000 ML 30 ML IV (08:04)
--- NOTE | 2024-04-27 08:26 | ANES.PREANE2 ---
Pre-Anesthetic Assessment Height/Weight: Height 1.63 m Weight 70.307 kg Temp Pulse Resp BP Pulse Ox O2 Del Method 97.3 F L 111 H 18 154/99 92 Room Air 04/27/24 08:01 04/27/24 08:04 04/27/24 08:01 04/27/24 08:01 04/27/24 08:01 04/27/24 08:01 Preop Diagnosis: gerd Operation Date: 04/27/24 08:20 Proposed Procedures p EGD 41397. K21.9(Not Applicable) - Sotero Christianson MD Was Beta Pete taken within 24 hours: Yes Was Clonidine taken within 24 hours: N/A Last intake: Intake Last Liquid Date 04/26/24 Last Liquid Time 22:00 Last Solid Date 04/26/24 Last Solid Time 20:00 Social No alcohol and No tobacco Exam alert, oriented x 3, clear to auscultation bilaterally and regular rate & rhythm Airway Submandibular: within normal limits Cervical ROM: within normal limits Mallampati: Class II Dentition: false and partials Pulmonary Asthma, Chronic Obstructive Pulmonary Disease, Exertional Dyspnea and Sleep Apnea 3L O2 at night CV/HEM Coronary Artery Disease and Hypertension CABG 7 years ago 4 vessels None reported Hepatic None reported GI Gastroesophageal Reflux Disease Metabolic Hyperlipidemia Musc/skel Lower Back Pain Neuropsych Anxiety, Depression, Seizure ( years ago ) and Transient Ischemic Attack ( several years ago ) Anesthetic Plan ASA status: 3 Anesthesia: MAC Risk of > 500 ml blood loss (7ml/kg in children): No Medications/Allergies Home Medications Medication Instructions Recorded Confirmed Last Taken Type guaifenesin 1,200 mg tablet, 1,200 mg PO BID 06/18/21 04/23/24 04/23/24 History extended release 12 hr (Mucinex) epinephrine 0.3 mg/0.3 mL 0.3 mg (0.3 mL) IM ONCE PRN 05/22/22 04/23/24 Unknown Rx injection, auto-injector (EpiPen Allergy Symptoms #2 ea 2-Dmitri) cetirizine 10 mg tablet (Zyrtec) 10 mg PO DAILY PRN allergy 08/20/22 04/23/24 04/23/24 Rx symptoms #30 tabs aspirin 81 mg tablet,delayed 81 mg PO DAILY 01/28/23 04/23/24 04/23/24 History release isosorbide mononitrate 30 mg 30 mg PO DAILY 90 days #90 tabs 03/10/23 04/23/24 04/23/24 Rx tablet,extended release 24 hr nitroglycerin 0.4 mg sublingual 0.4 mg sublingual Q5M PRN chest 03/10/23 04/23/24 04/23/24 Rx tablet pain #25 tabs lidocaine 5 % topical patch 2 patch topical DAILY 30 days #60 06/09/23 04/23/24 04/23/24 Rx (Lidoderm) ea sumatriptan succinate 25 mg tablet See Rx Instructions PO .COMPLEX #9 09/23/23 04/23/24 04/23/24 Rx tabs amlodipine 5 mg tablet 5 mg PO DAILY #30 tabs 11/05/23 04/23/24 04/23/24 Rx meloxicam 15 mg tablet 15 mg PO DAILY #60 tabs 11/21/23 04/23/24 04/23/24 Rx home oxygen 3L at night #1 ea 11/24/23 04/23/24 04/23/24 Rx ipratropium 0.5 mg-albuterol 3 mg 3 ml inhalation .every 6 hours PRN 12/11/23 04/23/24 04/23/24 Rx (2.5 mg base)/3 mL nebulization wheezing #180 mL soln ipratropium 0.5 mg-albuterol 3 mg 3 ml inhalation Q4H PRN shortness 01/11/24 04/23/24 04/23/24 Rx (2.5 mg base)/3 mL nebulization of breath or wheezing #90 mL soln atorvastatin 40 mg tablet 40 mg PO DAILY@1000 #90 tabs 01/19/24 04/23/24 04/23/24 Rx losartan 100 mg tablet 100 mg PO DAILY #90 tabs 01/19/24 04/23/24 04/23/24 Rx metoprolol succinate 50 mg 50 mg PO DAILY@1000 #90 tabs 01/19/24 04/23/24 04/23/24 Rx tablet,extended release 24 hr omeprazole 40 mg capsule,delayed 40 mg PO BID #84 caps 01/19/24 04/23/24 04/23/24 Rx release clonazepam 1 mg tablet 1 mg PO TID PRN anxiety #90 tabs 02/25/24 04/23/24 04/23/24 Rx fluoxetine 40 mg capsule (Prozac) 80 mg (2 x 40 mg) PO DAILY@1000 02/25/24 04/23/24 04/23/24 Rx #180 caps hydroxyzine HCl 25 mg tablet 50 mg (2 x 25 mg) PO BID PRN 02/25/24 04/23/24 04/23/24 Rx itching #60 tabs albuterol sulfate 90 mcg/actuation 2 puff inhalation QID PRN 03/11/24 04/23/24 04/23/24 Rx aerosol inhaler (ProAir HFA) shortness of breath or wheezing 90 days #25.5 grams azithromycin 500 mg tablet 500 mg PO .3 X week 03/11/24 04/23/24 04/23/24 History fluticasone 250 mcg-salmeterol 50 1 inh inhalation BID #180 ea 03/11/24 04/23/24 04/23/24 Rx mcg/dose blistr powdr for inhalation (Wixela Inhub) fluticasone propionate 50 2 spray intranasal DAILY@1000 90 03/11/24 04/23/24 04/23/24 Rx mcg/actuation nasal days #48 grams spray,suspension (Flonase Allergy Relief) ipratropium 20 mcg-albuterol 100 1 puff .Route QID PRN shortness of 03/11/24 04/23/24 04/23/24 Rx mcg/actuation mist for inhalation breath or wheezing 90 days #12 (Combivent Respimat) grams tiotropium bromide 18 mcg capsule 1 cap inhalation DAILY 30 days 03/11/24 04/23/24 04/23/24 Rx with inhalation device (Spiriva #180 inhalations with HandiHaler) Allergies Allergy/AdvReac Type Severity Reaction Status Date / Time doxycycline Allergy Intermediate ADR-Nausea Verified 04/23/24 14:18 aspirin Allergy ADR-Diarrhe Verified 04/23/24 14:18 a bee venom protein (honey bee) Allergy Unknown Verified 04/23/24 14:18 [facility] Allergy ALGY-Anaphy Verified 04/23/24 14:18 laxis Current Medications Generic Name Dose Route Start Last Admin Trade Name Freq PRN Reason Stop Dose Admin Sodium Chloride 1,000 mls @ 30 mls/hr 04/27/24 07:45 04/27/24 08:04 Sodium Chloride 0.9% IV 04/28/24 07:44 30 mls/hr .Q24H ROB Administration PFSH Anesthesia Medical History NSTEMI (non-ST elevated myocardial infarction) Epigastric pain Chest pain CAD (coronary artery disease) History of lipoma Suicide attempt Hx of myocardial infarction Melanoma 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 Psychiatric care Comminuted fracture Renal artery stenosis H/O angiography Urinary incontinence Osteomyelitis This is not a confirmed problem yet, patient is undergoing evaluation for possible osteomyelitis of the lumbar spine DDD (degenerative disc disease), lumbar Lumbar spondylolysis Arthritis Lumbar back pain with radiculopathy affecting right lower extremity Vitamin D deficiency Diarrhea Asthma-COPD overlap syndrome Mixed hyperlipidemia Benign essential hypertension with target blood pressure below 140/90 Atherosclerosis of coronary artery of [place] heart with stable angina pectoris CABG x4 03/18/2016 NOLASCO to the LAD, saphenous venous graft to the PDA and a Y graft to the obtuse marginal/diagonal arteries Lung nodules Essential hypertension Nicotine dependence, cigarettes, uncomplicated Major depressive disorder, recurrent severe without psychotic features Anxiety Surgical History History of laparoscopic appendectomy History of extraction of renal calculus History of pancreatic surgery Hx of CABG Family History Father CAD (coronary artery disease) 50s Cancer Lung disease Sister CAD (coronary artery disease) 40s Cancer Chronic kidney disease (CKD) Lung disease Brother CAD (coronary artery disease) 40s Lung disease Mother Cancer Lung disease Family/Other Cancer Suicide Denies family history of Colon cancer Ovarian cancer Diabetes Clotting disorder Dementia Heart disease Hypercholesteremia Breast cancer Anesthesia complication Bleeding disorder Hypertension Uterine cancer Thyroid disease Stroke Social History Smoking and tobacco/nicotine status: former use of tobacco/nicotine Quit status (tobacco/nicotine): has quit using Year quit tobacco: 2017 Former quit date comment: Hx of 1PPD x 40 Years Alcohol intake: never Substance/Drug Use: never Lives independently: Yes Household members: none Marital status: / Number of children: 2 Current occupational status: retired and disabled Do you think of yourself as: Straight/Heterosexual Current gender identity: Female Data Anesthesia Cardiac Studies: Echocardiogram 01/28/23 Echocardiogram Ultrasound 05/09/20 Sestamibi Stress Test (Cardiology) 01/29/23
[2024-04-27 08:48] VITALS: BP 127/81; PULSE 76; RESP 12; TEMP 36.2; O2SAT 96
[2024-04-27 09:02] VITALS: BP 124/84; PULSE 95; RESP 16; O2SAT 95
--- NOTE | 2024-04-27 14:05 | ANE.PACU2 ---
Inpatient post-anesthesia follow up: Airway intact: Yes Vital signs: Temperature 97.2 F Pulse Rate 95 Respiratory Rate 16 Blood Pressure 124/84 Pulse Oximetry 95 Oxygen Delivery Me thod Room Air Oxygen Flow Rate 2 Fraction of Inspir ed Oxygen Hydration adequate: Yes Nausea and vomiting: No Pain level: 2 Mental status: Baseline
== END 2024-04-27 09:21 | disposition home or self-care (01) ==
PROVIDERS: PCP Family Medicine; Visit Provider Surgery
PROC: 0DJ08ZZ Inspection of Upper Intestinal Tract, Via Natural or Artificial Opening Endoscopic (ICD-10-PCS; CPT 43235; principal; 2024-04-27 08:20)
DX: K21.9 Gastro-esophageal reflux disease without esophagitis (principal); K44.9 Diaphragmatic hernia without obstruction or gangrene; K29.80 Duodenitis without bleeding; K29.70 Gastritis, unspecified, without bleeding; G47.30 Sleep apnea, unspecified; Z99.81 Dependence on supplemental oxygen; Z95.1 Presence of aortocoronary bypass graft; I25.10 Atherosclerotic heart disease of native coronary artery without angina pectoris; I10 Essential (primary) hypertension; Z79.82 Long term (current) use of aspirin; E78.2 Mixed hyperlipidemia; Z87.891 Personal history of nicotine dependence
CPT/HCPCS: 43239; 88305; J2704; J7030

== ENCOUNTER → 2024-05-05 10:31 | Outpatient (BNVA) | payer MEDICARE, OTHER, SELFPAY | PROVIDERS: PCP Family Medicine; Visit Provider Internal Medicine Cardiovascular Disease | DX: I25.118 Atherosclerotic heart disease of native coronary artery with other forms of angina pectoris (principal); I10 Essential (primary) hypertension; E78.2 Mixed hyperlipidemia; I72.3 Aneurysm of iliac artery; I71.02 Dissection of abdominal aorta; F17.210 Nicotine dependence, cigarettes, uncomplicated | CPT/HCPCS: 99214 ==

== ENCOUNTER → 2024-05-14 09:35 | Outpatient (BNVA) | payer MEDICARE, OTHER, SELFPAY | PROVIDERS: PCP Family Medicine; Visit Provider Surgery | DX: K44.9 Diaphragmatic hernia without obstruction or gangrene (principal); Z09 Encounter for follow-up examination after completed treatment for conditions other than malignant neoplasm; R03.0 Elevated blood-pressure reading, without diagnosis of hypertension | CPT/HCPCS: 99213 ==

== ENCOUNTER → 2024-05-26 13:51 | Outpatient (BNVA) | payer MEDICARE, OTHER, SELFPAY | PROVIDERS: PCP Family Medicine; Visit Provider Nurse Practitioner Family | DX: L81.4 Other melanin hyperpigmentation (principal); L82.1 Other seborrheic keratosis; L90.5 Scar conditions and fibrosis of skin; L98.8 Other specified disorders of the skin and subcutaneous tissue; L57.0 Actinic keratosis; D36.11 Benign neoplasm of peripheral nerves and autonomic nervous system of face, head, and neck; Z85.820 Personal history of malignant melanoma of skin | CPT/HCPCS: 17000; 99213 ==

== ENCOUNTER 2024-06-08 08:17 | Outpatient (CLI) | payer MEDICARE, OTHER, SELFPAY ==
--- NOTE | 2024-06-08 08:30 | FL_ITS ---
WS: [id number] FL barium swallow [id number] REASON FOR EXAM: Intermittent difficulty with swallowing. FLUOROSCOPY TIME: 2min [id number] # OF SPOT FILMS: Multiple FINDINGS: Patient was examined in the upright AP and lateral position, the prone JASSO position, in the supine po sition. The swallowing of barium was monitored fluoroscopically and multiple spot films were obtained. No abnormality of the cervical esophagus was identified. No intrinsic or extrinsic mass effect on the thoracic esophagus. There were intermittent episodes of tertiary contractions in the mid esophagus with resolved with additional swallowing. There was a small hiatal hernia without stricture or reflux. FL/FL barium swallow [id number] IMPRESSION: Mild esophageal dysmotility as above.
== END 2024-06-08 08:18 | disposition home or self-care (01) ==
LOC: RAD 08:18
PROVIDERS: PCP Family Medicine; Visit Provider Surgery
DX: K44.9 Diaphragmatic hernia without obstruction or gangrene (principal)
CPT/HCPCS: 74220

== ENCOUNTER → 2024-06-23 15:14 | Outpatient (BNVA) | payer MEDICARE, OTHER, SELFPAY | PROVIDERS: PCP Family Medicine; Visit Provider Psychiatry & Neurology Neurology | DX: R41.3 Other amnesia (principal); R29.90 Unspecified symptoms and signs involving the nervous system; Z87.891 Personal history of nicotine dependence; I25.10 Atherosclerotic heart disease of native coronary artery without angina pectoris; I10 Essential (primary) hypertension; I25.2 Old myocardial infarction | CPT/HCPCS: 99212 ==

== ENCOUNTER 2025-01-16 01:56 | Emergency (ER) | payer MEDICARE, OTHER, SELFPAY ==
[2025-01-16 01:59] VITALS: BP 165/128; PULSE 108; RESP 22; TEMP 36.3; O2SAT 94; BMI 27.4
--- NOTE | 2025-01-16 02:06 | ECG_ITS ---
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 Measurements Intervals [place] Rate: 105 P: 62 ID: [id number] QRS: 93 QRSD: 88 T: 66 QT: 349 QTc: 462 Interpretive Statements SINUS TACHYCARDIA BORDERLINE RIGHT AXIS DEVIATION [QRS AXIS > 90] LOW QRS VOLTAGE IN PRECORDIAL LEADS [QRS DEFLECTION < 1.0 mV IN CHEST LEADS] NONSPECIFIC ST & T-WAVE ABNORMALITY ABNORMAL RHYTHM ECG Compared to ECG 01/11/2024 16:27:57 Sinus rhythm no longer present T-wave abnormality still present Electronically Signed On 01-16-2025 12:06:25 EXTERMINATOR HELPER by Toni Taylor M.D. [email or web address] [id number]
--- NOTE | 2025-01-16 02:17 | XRR_ITS ---
PROCEDURE INFORMATION: Exam: XR Chest Exam date and time: 01/16/2025 2:22 AM Age: 69 years old Clinical indication: Shortness of breath and wheezing; Chest pressure; Prior surgery; Surgery date: 6+ months; Surgery type: Cabg; C/O chest pain with SOB and wheezing. History of copd. ; Additional info: Cp SOB TECHNIQUE: Imaging protocol: Radiologic exam of the chest. Views: 1 view. COMPARISON: CT chest w con* [id number] 28/01/2024 12:37 FINDINGS: Lungs: Unremarkable. No consolidation. Pleural spaces: Unremarkable. No pleural effusion. No pneumothorax. Heart/Mediastinum: Stable cardiomediastinal silhouette. The patient is status post CABG. Bones/joints: Median sternotomy changes seen. XR/XR chest 1V portable [id number] IMPRESSION: No evidence of active cardiopulmonary disease.
[2025-01-16 02:22] LABS: Basophils % 0.5 %; Eosinophils # 0.2 10^3/uL (0.0-0.8); Eosinophils % 2.4 %; Hematocrit 41.5 % (36-47); Lymphocytes # 2.8 10^3/uL (0.8-4.8); Lymphocytes % 36.2 %; Mean Corpuscular Hemoglobin 29.6 pg (27-33); Mean Corpuscular Volume 92.2 fl (85-98); Mean Platelet Volume 9.9 fL (7.4-10.4); Monocytes # 0.5 10^3/uL (0.2-0.9); Monocytes % 5.8 %; Neutrophils # 4.25 10^3/uL (1.8-7.7); Neutrophils % 54.7 %; Nucleated Red Blood Cells % 0 %; Platelet Count 230 10^3/cmm (157-399); White Blood Count 7.77 10^3/uL (3.29-11.43)
[2025-01-16] MEDS: ipratropium-albuterol 3 mL Neb INHALATION (02:24)
[2025-01-16 02:25] VITALS: PULSE 102; RESP 17; O2SAT 90
[2025-01-16 02:31] VITALS: PULSE 99
[2025-01-16 02:46] LABS: Troponin(5th) Baseline 7 ng/L (0-10)
[2025-01-16 02:51] LABS: Alanine Aminotransferase 14 U/L (0-33); Albumin Level 4.2 g/dL (3.5-5.2); Alkaline Phosphatase 72 U/L (35-105); Anion Gap 13.9 (5-19); Aspartate Amino Transferase 15 U/L (0-32); Blood Urea Nitrogen 11 mg/dL (8-23); Calcium 9.7 mg/dL (8.5-10.5); Carbon Dioxide 28 mmol/L (22-29); Chloride 104 mmol/L (98-107); Creatinine Clr Calc Pharmacy 64.8029; Globulin 2.5 g/dL (1.3-4.6); Glomerular Filtration Rate 71.1 mL/min (90-130); Glucose 109 mg/dL (65-115); NT Pro B Type Natriuretic Pept 129 pg/mL (0-125); Osmolality Calculated 294 mOsm/kg (285-295); Potassium 3.9 mmol/L (3.5-5.1); Sodium 142 mmol/L (136-145); Total Bilirubin 0.2 mg/dL (0.15-1.2); Total Protein 6.7 g/dL (6.6-8.7)
[2025-01-16 02:59] LABS: Influenza A NEGATIVE (Negative); Influenza B NEGATIVE (Negative); Respiratory Syncytial Virus Ce NEGATIVE (Negative); SARS-CoV-2 PCR NEGATIVE (Negative)
--- NOTE | 2025-01-16 03:16 | W.ED.CHESTPA ---
HPI - Chest Pain General: Chief Complaint: Chest Pain Stated Complaint: SOB Chest Pain Time Seen by Provider: 01/16/25 02:10 History of Present Illness: 69-year-old female with a history of multiple medical problems including COPD. She presents with wheezing, cough, chest discomfort, on and off for 2 weeks. Shortness of breath was worse tonight with chest burning and hurting. This is worse with cough. No fever. No vomiting or diarrhea currently, although she states that the illness really began with those symptoms. Related Data Home Medications ?Medication ?Instructions ?Recorded ?Confirmed guaifenesin 1,200 mg tablet, 1,200 mg PO BID 06/18/21 12/22/24 extended release 12 hr (Mucinex) aspirin 81 mg tablet,delayed 81 mg PO DAILY 01/28/23 12/22/24 release Previous Rx's ?Medication ?Instructions ?Recorded isosorbide mononitrate 30 mg 30 mg PO DAILY 90 days #90 tabs 03/10/23 tablet,extended release 24 hr nitroglycerin 0.4 mg sublingual 0.4 mg sublingual Q5M PRN chest 03/10/23 tablet pain #25 tabs lidocaine 5 % topical patch 2 patch topical DAILY 30 days #60 06/09/23 (Lidoderm) ea amlodipine 5 mg tablet 5 mg PO DAILY #30 tabs 11/05/23 home oxygen 3L at night #1 ea 11/24/23 ipratropium 0.5 mg-albuterol 3 mg 3 ml inhalation Q4H PRN shortness 01/11/24 (2.5 mg base)/3 mL nebulization of breath or wheezing #90 mL soln atorvastatin 40 mg tablet 40 mg PO DAILY@1000 #90 tabs 01/19/24 losartan 100 mg tablet 100 mg PO DAILY #90 tabs 01/19/24 metoprolol succinate 50 mg 50 mg PO DAILY@1000 #90 tabs 01/19/24 tablet,extended release 24 hr albuterol sulfate 90 mcg/actuation 2 puff inhalation QID PRN 03/11/24 aerosol inhaler (ProAir HFA) shortness of breath or wheezing 90 days #25.5 grams fluticasone 250 mcg-salmeterol 50 1 inh inhalation BID #180 ea 03/11/24 mcg/dose blistr powdr for inhalation (Wixela Inhub) fluticasone propionate 50 2 spray intranasal DAILY@1000 90 03/11/24 mcg/actuation nasal days #48 grams spray,suspension (Flonase Allergy Relief) ipratropium 20 mcg-albuterol 100 1 puff .Route QID PRN shortness of 03/11/24 mcg/actuation mist for inhalation breath or wheezing 90 days #12 (Combivent Respimat) grams tiotropium bromide 18 mcg capsule 1 cap inhalation DAILY 30 days 03/11/24 with inhalation device (Spiriva #180 inhalations with HandiHaler) epinephrine 0.3 mg/0.3 mL 0.3 mg (0.3 mL) IM ONCE PRN 07/28/24 injection, auto-injector (EpiPen Allergy Symptoms #2 ea 2-Dmitri) azithromycin 500 mg tablet See Rx Instructions PO DAILY #60 10/08/24 tabs hydroxyzine HCl 25 mg tablet 50 mg (2 x 25 mg) PO BID PRN sleep 10/18/24 #60 tabs sumatriptan succinate 25 mg tablet See Rx Instructions PO .COMPLEX #9 10/27/24 tabs clonazepam 1 mg tablet 1 mg PO TID PRN anxiety #90 tabs 11/22/24 fluoxetine 40 mg capsule (Prozac) 80 mg (2 x 40 mg) PO DAILY@1000 11/23/24 #180 caps azithromycin 250 mg tablet See Rx Instructions PO .COMPLEX #6 01/16/25 tabs codeine 10 mg-guaifenesin 100 mg/5 5 ml PO Q4H PRN cold symptoms #120 01/16/25 mL oral liquid mL ipratropium 0.5 mg-albuterol 3 mg 3 ml inhalation .every 6 hours PRN 01/16/25 (2.5 mg base)/3 mL nebulization wheezing #180 mL soln prednisone 10 mg tablet 10 mg PO DIRECTED #30 tabs 01/16/25 Allergies Allergy/AdvReac Type Severity Reaction Status Date / Time doxycycline Allergy Intermediate ADR-Nausea Verified 12/22/24 11:38 aspirin Allergy ADR-Diarrhe Verified 12/22/24 11:38 a bee venom protein (honey bee) Allergy Unknown Verified 12/22/24 11:38 [place] [facility] [place] Allergy ALGY-Anaphy Verified 12/22/24 11:38 laxis [facility] PFSH: Medical History NSTEMI (non-ST elevated myocardial infarction) Epigastric pain Chest pain CAD (coronary artery disease) History of lipoma Suicide attempt Hx of myocardial infarction Melanoma 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 Psychiatric care Comminuted fracture Renal artery stenosis H/O angiography Urinary incontinence Osteomyelitis This is not a confirmed problem yet, patient is undergoing evaluation for possible osteomyelitis of the lumbar spine DDD (degenerative disc disease), lumbar Lumbar spondylolysis Arthritis Lumbar back pain with radiculopathy affecting right lower extremity Vitamin D deficiency Diarrhea Asthma-COPD overlap syndrome Mixed hyperlipidemia Benign essential hypertension with target blood pressure below 140/90 Atherosclerosis of coronary artery of [place] heart with stable angina pectoris CABG x4 03/18/2016 N[place]CO to the LAD, saphenous venous graft to the PDA and a Y graft to the obtuse marginal/diagonal arteries Lung nodules Essential hypertension Nicotine dependence, cigarettes, uncomplicated Major depressive disorder, recurrent severe without psychotic features Anxiety Surgical History History of laparoscopic appendectomy History of extraction of renal calculus History of pancreatic surgery Hx of CABG Family History Father CAD (coronary artery disease) 50s Cancer Lung disease Sister CAD (coronary artery disease) 40s Cancer Chronic kidney disease (CKD) Lung disease Brother CAD (coronary artery disease) 40s Lung disease Mother Cancer Lung disease Family/Other Cancer Suicide Denies family history of Colon cancer Ovarian cancer Diabetes Clotting disorder Dementia Heart disease Hypercholesteremia Breast cancer Anesthesia complication Bleeding disorder Hypertension Uterine cancer Thyroid disease Stroke Social History Smoking and tobacco/nicotine status: former use of tobacco/nicotine Quit status (tobacco/nicotine): has quit using Year quit tobacco: 2017 Former quit date comment: Hx of 1PPD x 40 Years Alcohol intake: never Substance/Drug Use: never Lives independently: Yes Household members: none Marital status: / Number of children: 2 Current occupational status: retired and disabled Do you think of yourself as: Straight/Heterosexual Current gender identity: Female Physical Exam Const: GENERAL APPEARANCE: cooperative and ill appearing (Mildly) HENMT: COMMON NORMALS: normocephalic HEAD & SCALP: normocephalic Eye: COMMON NORMALS: Equal, round and reactive pupils present and EOMs intact bilaterally PUPIL: Yes Equal, round and reactive pupils present Neck/C-Spine: GENERAL: Yes trachea midline Chest: CHEST: Yes Symmetrical chest wall rise Resp: EFFORT & INSPECTION: Yes labored (Mildly) and Yes Actively coughing AUSCULTATION: wheezes Cardio: COMMON NORMALS: regular rate and regular rhythm RATE: regular rate RHYTHM: regular rhythm Extremity: COMMON NORMALS: no pedal edema Neuro: ANDERSON COMA SCALE: document GCS findings Anderson coma scale eye opening: Spontaneous [place] coma scale verbal response: Orientated [place] coma scale motor response: Obey commands Anderson coma scale total score: 15 Course Vital Signs: Vital signs: Vital Signs Temperature 97.4 F L 01/16/25 01:59 Pulse Rate 99 01/16/25 02:31 Respiratory Rate 16 01/16/25 03:31 Blood Pressure 155/105 01/16/25 03:31 Pulse Oximetry 92 01/16/25 03:31 Oxygen Delivery Me thod Nasal Cannula 01/16/25 03:31 Oxygen Flow Rate 2 01/16/25 02:31 MDM - Chest Pain Medical Decision Making The patient is hypertensive here. She is afebrile. BMP is normal. CBC is normal. Troponin is normal. EKG shows no acute ST wave changes. BNP is 129. Swabs for flu COVID and RSV are negative. Potassium is 3.9. Chest x-ray is clear. She will be treated for COPD exacerbation. Given the duration of her symptoms, slow steroid taper, with increased use of her DuoNeb treatments at home, antibiotic coverage, and cough suppressant. She will return for worsening symptoms despite treatment. Lab Data 01/16/25 02:15 01/16/25 02:15 Laboratory Results WBC 7.77 10^3/uL (3.29-11.43) 01/16/25 02:15 RBC 4.50 10^6/uL (3.85-5.65) 01/16/25 02:15 Hgb 13.30 g/dL (11.27-16.99) 01/16/25 02:15 Hct 41.5 % (36-47) 01/16/25 02:15 MCV 92.2 fl (85-98) 01/16/25 02:15 MCH 29.6 pg (27-33) 01/16/25 02:15 MCHC 32.0 g/dL (30-55) 01/16/25 02:15 RDW 13.0 % (12.1-15.1) 01/16/25 02:15 Plt Count 230 10^3/cmm (157-399) 01/16/25 02:15 MPV 9.9 fL (7.4-10.4) 01/16/25 02:15 Neut % (Auto) 54.7 % 01/16/25 02:15 Lymph % (Auto) 36.2 % 01/16/25 02:15 [place] % (Auto) 5.8 % 01/16/25 02:15 Eos % (Auto) 2.4 % 01/16/25 02:15 Baso % (Auto) 0.5 % 01/16/25 02:15 Neut # (Auto) 4.25 10^3/uL (1.8-7.7) 01/16/25 02:15 Lymph # (Auto) 2.8 10^3/uL (0.8-4.8) 01/16/25 02:15 [place] # (Auto) 0.5 10^3/uL (0.2-0.9) 01/16/25 02:15 Eos # (Auto) 0.2 10^3/uL (0.0-0.8) 01/16/25 02:15 Baso # (Auto) 0.0 10^3/uL (0.0-0.1) 01/16/25 02:15 Nucleated RBC % (auto) 0 % 01/16/25 02:15 Nucleated RBCs # 0.0 /100WBC 01/16/25 02:15 Sodium 142 mmol/L (136-145) 01/16/25 02:15 Potassium 3.9 mmol/L (3.5-5.1) 01/16/25 02:15 Chloride 104 mmol/L (98-107) 01/16/25 02:15 Carbon Dioxide 28 mmol/L (22-29) 01/16/25 02:15 Anion Gap 13.9 (5-19) 01/16/25 02:15 BUN 11 mg/dL (8-23) 01/16/25 02:15 Creatinine 0.8 mg/dL (0.5-0.9) 01/16/25 02:15 GFR Calculation 71.1 mL/min (90-130) L 01/16/25 02:15 Glucose 109 mg/dL (65-115) 01/16/25 02:15 Calculated Osmolality 294 mOsm/kg (285-295) 01/16/25 02:15 Calcium 9.7 mg/dL (8.5-10.5) 01/16/25 02:15 Total Bilirubin 0.2 mg/dL (0.15-1.2) 01/16/25 02:15 AST 15 U/L (0-32) 01/16/25 02:15 ALT 14 U/L (0-33) 01/16/25 02:15 Alkaline Phosphatase 72 U/L (35-105) 01/16/25 02:15 Troponin T Baseline 7 ng/L (0-10) 01/16/25 02:15 NT-Pro-B Natriuret Pep 129 pg/mL (0-125) H 01/16/25 02:15 Total Protein 6.7 g/dL (6.6-8.7) 01/16/25 02:15 Albumin 4.2 g/dL (3.5-5.2) 01/16/25 02:15 Globulin 2.5 g/dL (1.3-4.6) 01/16/25 02:15 Influenza A (PCR) Negative (Negative) 01/16/25 02:15 Influenza Type B (PCR) Negative (Negative) 01/16/25 02:15 RSV (PCR) Negative (Negative) 01/16/25 02:15 SARS-CoV-2 (PCR) Negative (Negative) 01/16/25 02:15 XR interpretation done by ED provider, pending radiology final review Discharge Plan Discharge Patient Disposition: Home Clinical Impression: Acute exacerbation of chronic obstructive pulmonary disease Condition: Stable Prescriptions: New azithromycin 250 mg tablet See Rx Instructions .ROUTE .COMPLEX Qty: 6 0RF Rx Instructions: For 250 mg dose pack: take 500 mg today (day 1), then 250 mg for 4 days (days 2-5) prednisone 10 mg tablet 10 mg PO DIRECTED Qty: 30 0RF Rx Instructions: [id number], [id number], [id number], [id number] codeine-guaifenesin 10-100 mg/5 mL liquid 5 ml PO Q4H PRN (Reason: cold symptoms) Qty: 120 0RF Continued ipratropium-albuterol 0.5 mg-3 mg(2.5 mg base)/3 mL solution for nebulization 3 ml INHALATION .every 6 hours PRN (Reason: wheezing) Qty: 180 0RF No Action amlodipine 5 mg tablet 5 mg PO DAILY Qty: 30 5RF (DME) home oxygen 3L at night See Rx Instructions .Route .MEDSUPPLY Qty: 1 0RF Rx Instructions: 3L nasal canula at night atorvastatin 40 mg tablet 40 mg PO DAILY@1000 Qty: 90 1RF losartan 100 mg tablet 100 mg PO DAILY Qty: 90 1RF metoprolol succinate 50 mg tablet extended release 24 hr 50 mg PO DAILY@1000 Qty: 90 1RF fluticasone propion-salmeterol [Wixela Inhub] 250-50 mcg/dose blister with device 1 inh inhalation BID Qty: 180 3RF tiotropium bromide [Spiriva with HandiHaler] 18 mcg capsule, w/inhalation device 1 cap INHALATION DAILY 30 Days Qty: 180 3RF Rx Instructions: puncture 1 cap using device; one dose = 2 inhalations Combivent Respimat 20-100 mcg/actuation mist 1 puff .ROUTE QID PRN (Reason: shortness of breath or wheezing) 90 Days Qty: 12 3RF Rx Instructions: 1 puff four times daily PRN; fluticasone propionate [Flonase Allergy Relief] 50 mcg/actuation spray,suspension 2 spray INTRANASAL DAILY@1000 90 Days Qty: 48 3RF Rx Instructions: administer into each nostril albuterol sulfate [ProAir HFA] 90 mcg/actuation HFA aerosol inhaler 2 puff INHALATION QID PRN (Reason: shortness of breath or wheezing) 90 Days Qty: 25.5 3RF fluoxetine [Prozac] 40 mg capsule 80 mg PO DAILY@1000 Qty: 180 0RF azithromycin 500 mg tablet See Rx Instructions PO DAILY Qty: 60 3RF Rx Instructions: take medication FRIDAY, FRIDAY, FRIDAY orally daily; nitroglycerin 0.4 mg tablet, sublingual 0.4 mg SUBLINGUAL Q5M PRN (Reason: chest pain) Qty: 25 3RF Rx Instructions: until response; do not exceed 3 doses per episode isosorbide mononitrate 30 mg tablet extended release 24 hr 30 mg PO DAILY 90 Days Qty: 90 1RF lidocaine [Lidoderm] 5 % adhesive patch,medicated 2 patch topical DAILY 30 Days Qty: 60 0RF Rx Instructions: leave on most painful area for up to 12 hrs epinephrine [EpiPen 2-Dmitri] 0.3 mg/0.3 mL auto-injector 0.3 mg IM ONCE PRN (Reason: Allergy Symptoms) Qty: 2 1RF hydroxyzine HCl 25 mg tablet 50 mg PO BID PRN (Reason: sleep) Qty: 60 2RF Rx Instructions: 1-2 tablets at bedtime as needed for sleep. sumatriptan succinate 25 mg tablet See Rx Instructions PO .COMPLEX Qty: 9 4RF Rx Instructions: take 1 tab at onset of headache; if no relief may repeat 1 tab after at least 2 hrs; max = 4 tabs/24 hr PO clonazepam 1 mg tablet 1 mg PO TID PRN (Reason: anxiety) Qty: 90 2RF guaifenesin [Mucinex] 1,200 mg Tablet Extended Release 12hr 1,200 mg PO BID aspirin 81 mg Tablet,Delayed Release (Dr/Ec) 81 mg PO DAILY ipratropium-albuterol 0.5 mg-3 mg(2.5 mg base)/3 mL solution for nebulization 3 ml inhalation Q4H PRN (Reason: shortness of breath or wheezing) Qty: 90 0RF Discharge Orders: Discharge ED (Routine); Ordered 01/16/25 Ordered By: Sean Doran Referrals: Eldon Corral MD [Primary Care Provider] - 1-3 days Patient Instructions: COPD (Chronic Obstructive Pulmonary Disease) (ED), Opioid Safety, Pain Management Activity Restrictions/Additional Instructions: Medications as directed. Use your DuoNeb nebulizer every 4 hours while awake scheduled for the first 48 hours, then as needed following that. Return for worsening chest discomfort, shortness of breath, fever, other concerning symptoms. Call your doctor Friday morning for a follow-up appointment. Print Language: Vietnamese Coding Level of Care Code ED Capacity Analyst for Deidre Patton
[2025-01-16] MEDS: azithromycin 250 mg Tablet 500 MG PO (03:26)
[2025-01-16] MEDS: methylPREDNISolone sod succ 125 mg/2 mL INJ IVP (03:27)
[2025-01-16 03:31] VITALS: BP 155/105; RESP 16; O2SAT 92
[2025-01-16 03:38] VITALS: BP 155/105; PULSE 91; RESP 16; O2SAT 93
== END 2025-01-16 03:40 | disposition home or self-care (01) ==
PROVIDERS: Emergency Provider Emergency Medicine; PCP Family Medicine
DX: J44.1 Chronic obstructive pulmonary disease with (acute) exacerbation (principal); Z11.52 Encounter for screening for COVID-19; Z79.82 Long term (current) use of aspirin; Z87.891 Personal history of nicotine dependence; I25.10 Atherosclerotic heart disease of native coronary artery without angina pectoris; I10 Essential (primary) hypertension; Z95.1 Presence of aortocoronary bypass graft; E78.2 Mixed hyperlipidemia; Z85.820 Personal history of malignant melanoma of skin
CPT/HCPCS: 36415; 71045; 80053; 83880; 84484; 85025; 87637; 93005; 94640; 96374; 99285; J2919; Q0144

== ENCOUNTER 2025-01-19 15:15 | Outpatient (CLI) | payer OTHER, SELFPAY ==
--- NOTE | 2025-01-19 15:20 | MR_ITS ---
WS: [id number] MRA CAROTID WITHOUT AND WITH GADOLINIUM ENHANCEMENT TECHNIQUE: Axial 2-D TOF and gadolinium bolus images obtained with axial images and axial, sagittal, and coronal 2-D reformatted images. CLINICAL INFORMATION: H53.489 - Generalized contraction of visual field, unspec... COMPARISON: None. FINDINGS: Some images are limited by motion artifact. RIGHT: RIGHT common carotid artery is patent. No significant RIGHT ICA stenosis. RIGHT ICA is patent to the skull base. LEFT: LEFT common carotid artery is patent. No significant LEFT ICA stenosis. LEFT ICA is patent to the skull base. LEFT dominant vertebral artery. Smaller but patent RIGHT vertebral artery. Tiny basilar artery with anterior dominant circulation as described on the head MRA. Proximal subclavian arteries are patent. MR/MR angio neck w con* [id number] IMPRESSION: Somewhat limited study due to motion artifact 1. No significant cervical ICA stenosis visualized. 2. LEFT dominant vertebral artery. Smaller but patent RIGHT vertebral artery. 3. Tiny basilar artery with anterior dominant circulation
--- NOTE | 2025-01-19 15:20 | MR_ITS ---
WS: [id number] MRA HEAD TECHNIQUE: Axial 3-D TOF images obtained with axial images and axial, sagittal, and coronal 2-D reformatted images. CLINICAL INFORMATION: H53.489 - Generalized contraction of visual field, unspec... FINDINGS: Tiny distal vertebral arteries. Basilar artery is patent. Tiny basilar artery. Persistent bilateral REGULATORY AFFAIRS PORTFOLIO LEADER supply the majority of the REGULATORY AFFAIRS PORTFOLIO LEADER territory. Both ICAs are patent at the skull base. Normal vascularity to the PAULE[place]E and MCA territories bilaterally. No evidence of high-grade proximal stenosis or aneurysm. No other acute findings. MR/MR angio head wo con [id number] IMPRESSION: 1. Anterior dominant circulation with tiny basilar artery. 2. Otherwise unremarkable intracranial MRA
[2025-01-19] MEDS: gadobenate dimeglumine 20 mL vial 15 ML IV (16:38)
== END 2025-01-19 15:16 | disposition home or self-care (01) ==
PROVIDERS: PCP Family Medicine; Visit Provider Psychiatry & Neurology Neurology
DX: H53.489 Generalized contraction of visual field, unspecified eye (principal); G43.519 Persistent migraine aura without cerebral infarction, intractable, without status migrainosus; R93.0 Abnormal findings on diagnostic imaging of skull and head, not elsewhere classified
CPT/HCPCS: 70544; 70548

== ENCOUNTER → 2025-02-09 09:56 | Outpatient (BNVA) | payer MEDICARE, OTHER, SELFPAY | PROVIDERS: PCP Family Medicine; Visit Provider Internal Medicine Cardiovascular Disease | DX: I50.9 Heart failure, unspecified (principal); I25.118 Atherosclerotic heart disease of native coronary artery with other forms of angina pectoris; I10 Essential (primary) hypertension; E78.2 Mixed hyperlipidemia; I72.3 Aneurysm of iliac artery; I71.02 Dissection of abdominal aorta; F17.210 Nicotine dependence, cigarettes, uncomplicated | CPT/HCPCS: 99214 ==

== ENCOUNTER 2025-02-15 10:15 | Emergency (ER) | payer MEDICARE, OTHER, SELFPAY ==
[2025-02-15 10:26] VITALS: BP 159/110; PULSE 111; RESP 16; TEMP 36.4; O2SAT 94; BMI 28.1
--- NOTE | 2025-02-15 10:33 | ED_ITS ---
HPI - Extremity Problem 2 General: Chief complaint: Extremity Injury, Lower Stated complaint: urgent care Mariola rooney leg pain Time Seen by Provider: 02/15/25 10:23 Source: patient and family (daughter) Mode of arrival: ambulatory Limitations: no limitations History of Present Illness: Patient is a pleasant 69-year-old female who presents today with complaint of left lower leg pain. She reports that she noticed this pain 2 days ago while laying in bed, noting that the sheets against her leg caused pain. Patient reports that since then her leg has been painful, red, and warm to the anterior aspect of the left lower leg. Patient's daughter notes that the left foot has been somewhat swollen as well after she walks on it all day. No swelling at time of arrival to ED. Denies pain in the calf. She denies any injury/trauma. She initially thought maybe she was bit by a spider. Patient has a history of a small focal aortic dissection/plaque ulceration. No aneurysm. 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 States these are stable and just saw Dr. Ward last week who recommended continued surveillance. She has known peripheral arterial disease. Patient is not complaining of any numbness, tingling, loss of sensation to the leg. She has not noticed any pallor. States both of her legs are always cold . MD Complaint: extremity pain Onset (ago): day(s) Pain Consistency: constant Location: left and lower extremity Radiation: none Relieving factors: nothing Exacerbating factors: weight bearing and walking Associated symptoms: Deny chest pain, fever(s), rash, short of breath or other Related Data Home Medications ?Medication ?Instructions ?Recorded ?Confirmed guaifenesin 1,200 mg tablet, 1,200 mg PO DAILY PRN Con gestion 06/18/21 02/15/25 extended release 12 hr (Mucinex) aspirin 81 mg tablet,delayed 81 mg PO DAILY 01/28/23 0 02/15/25 release albuterol sulfate 90 mcg/actuation 2 puff inhalation Q 4H PRN 02/15/25 02/15/25 aerosol inhaler Shortness Of Breath Or Wheez ing Previous Rx's ?Medication ?Instructions ?Recorded nitroglycerin 0.4 mg sublingual 0.4 mg sublingual Q5M PRN chest 03/10/23 tablet pain #25 tabs lidocaine 5 % topical patch 2 patch topical DAILY 30 d ays #60 06/09/23 (Lidoderm) ea home oxygen 3L at night #1 ea 11/24/23 atorvastatin 40 mg tablet 40 mg PO DAILY@1000 #90 tabs 01/19/24 metoprolol succinate 50 mg 50 mg PO DAILY@1000 #90 tab s 01/19/24 tablet,extended release 24 hr fluticasone 250 mcg-salmeterol 50 1 inh inhalation BID #180 ea 03/11/24 mcg/dose blistr powdr for inhalation (Wixela Inhub) fluticasone propionate 50 2 spray intranasal DAILY@100 0 90 03/11/24 mcg/actuation nasal days #48 grams spray,suspension (Flonase Allergy Relief) ipratropium 20 mcg-albuterol 100 1 puff .Route QID PRN shortness of 03/11/24 mcg/actuation mist for inhalation breath or wheezing 9 0 days #12 (Combivent Respimat) grams tiotropium bromide 18 mcg capsule 1 cap inhalation DEJAN LY 30 days 03/11/24 with inhalation device (Spiriva #180 inhalations with HandiHaler) epinephrine 0.3 mg/0.3 mL 0.3 mg (0.3 mL) IM ONCE PRN 07/28/24 injection, auto-injector (EpiPen Allergy Symptoms #2 e a 2-Dmitri) azithromycin 500 mg tablet See Rx Instructions PO ANTHONY Y #60 10/08/24 tabs hydroxyzine HCl 25 mg tablet 50 mg (2 x 25 mg) PO BID PRN sleep 10/18/24 #60 tabs sumatriptan succinate 25 mg tablet See Rx Instructions PO .COMPLEX #9 10/27/24 tabs clonazepam 1 mg tablet 1 mg PO TID PRN anxiety #90 tabs 11/22/24 fluoxetine 40 mg capsule (Prozac) 80 mg (2 x 40 mg) PO DAILY@1000 11/23/24 #180 caps ipratropium 0.5 mg-albuterol 3 mg 3 ml inhalation .ghulam ry 6 hours PRN 01/16/25 (2.5 mg base)/3 mL nebulization wheezing #180 mL soln rimegepant 75 mg disintegrating 75 mg PO .COMPLEX #16 tabs 01/26/25 tablet (Nurtec ODT) amlodipine 10 mg tablet 10 mg PO DAILY 90 days #90 t abs 02/09/25 isosorbide mononitrate 30 mg 30 mg PO DAILY 90 days #9 0 tabs 02/09/25 tablet,extended release 24 hr losartan 100 mg tablet 100 mg PO DAILY #90 tabs clindamycin HCl 300 mg capsule 300 mg PO Q6H 7 days #2 8 caps 02/15/25 Allergies Allergy/AdvReac Type Severity Reaction Status Date / Time doxycycline Allergy Intermediate ADR-Nausea Verified 02/15/25 10:31 aspirin Allergy ADR-Diarrhe Verified 02/15/25 10:31 a bee venom protein (honey bee) Allergy Unknown Verified 02/15/25 10:31 cefaclor (From Ceclor) Allergy ALGY-Anaphy Verified 02/15/25 10:31 laxis Review of Systems 2 Const: Denies: fever(s), chills, body aches, fatigue or malaise Card: Denies: chest pain Resp: Denies: dyspnea GI: Denies: abdominal pain Musc: Reports: extremity pain and extremity swelling (none currently); Denies: neck pain, back pain, joint pain, joint swelling, joint redness, joint warmth, joint stiffness, limited range of motion, muscle cramps or muscle weakness Skin/Breast: Reports: erythema (L anterior lower leg); Denies: rash Neuro: Denies: numbness in extremities, weakness in extremities or sensory changes PFSH ED 2 PFSH: Medical History NSTEMI (non-ST elevated myocardial infarction) Epigastric pain Chest pain CAD (coronary artery disease) History of lipoma Suicide attempt Hx of myocardial infarction Melanoma 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 Psychiatric care Comminuted fracture Renal artery stenosis H/O angiography Urinary incontinence Osteomyelitis This is not a confirmed problem yet, patient is undergoing evaluation for possible osteomyelitis of the lumbar spine DDD (degenerative disc disease), lumbar Lumbar spondylolysis Arthritis Lumbar back pain with radiculopathy affecting right lower extremity Vitamin D deficiency Diarrhea Asthma-COPD overlap syndrome Mixed hyperlipidemia Benign essential hypertension with target blood pressure below 140/90 Atherosclerosis of coronary artery of [place] heart with stable angina pectoris CABG x4 03/18/2016 NOLASCO to the LAD, saphenous venous graft to the PDA and a Y graft to the obtuse marginal/diagonal arteries Lung nodules Essential hypertension Nicotine dependence, cigarettes, uncomplicated Major depressive disorder, recurrent severe without psychotic features Anxiety Surgical History History of laparoscopic appendectomy History of extraction of renal calculus History of pancreatic surgery Hx of CABG Family History Father CAD (coronary artery disease) 50s Cancer Lung disease Sister CAD (coronary artery disease) 40s Cancer Chronic kidney disease (CKD) Lung disease Brother CAD (coronary artery disease) 40s Lung disease Mother Cancer Lung disease Family/Other Cancer Suicide Denies family history of Colon cancer Ovarian cancer Diabetes Clotting disorder Dementia Heart disease Hypercholesteremia Breast cancer Anesthesia complication Bleeding disorder Hypertension Uterine cancer Thyroid disease Stroke Social History Smoking and tobacco/nicotine status: former use of tobacco/nicotine Quit status (tobacco/nicotine): has quit using Year quit tobacco: 2016 Former quit date comment: Hx of 1PPD x 40 Years Alcohol intake: never Substance/Drug Use: never Lives independently: Yes Household members: none Marital status: / Number of children: 2 Current occupational status: retired and disabled Do you think of yourself as: Straight/Heterosexual Current gender identity: Female Physical Exam 2 Const: COMMON NORMALS: no acute distress, average body habitus, patient oriented x3, no limitations, healthy appearing, alert and well nourished G ENERAL APPEARANCE: cooperative ORIENTATION/CONSCIOUSNESS: Yes awake, Yes oriented to person, Yes oriented to place and Yes oriented to time Resp: COMMON NORMALS: normal respiratory effort and clear to auscultation bilaterally AUSCULTATION: clear to auscultation bilaterally Cardio: COMMON NORMALS: regular rhythm RATE: tachycardic (mild-102 during my exam) RHYTHM: regular rhythm GI: COMMON NORMALS: Normal to inspection, nondistended, normoactive bowel sounds present, Soft to palpation, non-tender, No hepatosplenomegaly present and no masses PALPATION: Yes Soft to palpation and Yes No hepatosplenomegaly present : COMMON NORMALS: Yes no CVA tenderness BLADDER/KIDNEY EXAM: Yes no CVA tenderness Back/Pelvis: COMMON NORMALS: no CVA tenderness Extremity: COMMON NORMALS: full ROM, capillary refill normal, no joint enlargement, no clubbing, cyanosis or edema, no calf tenderness and no pedal edema GENERAL: Yes normal exam except as noted LEFT LOWER EXTREMITY: Yes lower leg EXTREMITY IMAGE (FRONT): 1. mild erythema/tenderness to palpation; mild edema/no palpable cord; no breaks in skin or bite like lesions; area is warm to the touch; DP/PT pulses weak bilaterally but cap refill is normal; normal popliteal pulse; sensation normal; no calf pain Neuro: COMMON NORMALS: patient oriented x3, moves all extremities, no focal motor deficits and no sensory deficits noted SENSORIUM/ORIENTATION: Yes alert, Yes oriented to person, Yes oriented to place and Yes oriented to time Skin: NARRATIVE SKIN EXAM: see above Course 2 Vital Signs: Vital signs: Vital Signs Temperature 97.5 F L 02/15/25 10:26 Pulse Rate 111 H 02/15/25 10:26 Respiratory Rate 16 02/15/25 10:26 Blood Pressure 159/110 02/15/25 10:26 Pulse Oximetry 94 02/15/25 10:26 MDM - Extremity (Nontraumatic) Medical Decision Making Patient is a 69-year-old female here for erythema, warmth and pain to her left anterior lower leg over the past 2 days. Patient denies numbness, tingling, loss of sensation to the leg. Clinically here, the leg is not edematous. Ultrasound of her lower extremity showing no DVT. I did have ultrasound scan to verify arterial flow. He did report triphasic flow to her lower extremity. Clinically I feel this most likely is a cellulitis will cover for with antibiotic therapy. Recommend follow-up with PCP if symptoms are not improving. Medical Records I reviewed the patient's medical records. XR interpretation done by ED provider, pending radiology final review Discharge Plan Discharge Patient Disposition: Home Clinical Impression: Cellulitis of left lower extremity Condition: Stable Prescriptions: New clindamycin HCl 300 mg capsule 300 mg PO Q6H 7 Days Qty: 28 0RF No Action (DME) home oxygen 3L at night See Rx Instructions .Route .MEDSUPPLY Qty: 1 0RF Rx Instructions: 3L nasal canula at night atorvastatin 40 mg tablet 40 mg PO DAILY@1000 Qty: 90 1RF metoprolol succinate 50 mg tablet extended release 24 hr 50 mg PO DAILY@1000 Qty: 90 1RF fluticasone propion-salmeterol [Wixela Inhub] 250-50 mcg/dose blister with device 1 inh inhalation BID Qty: 180 3RF tiotropium bromide [Spiriva with HandiHaler] 18 mcg capsule, w/inhalation device 1 cap INHALATION DAILY 30 Days Qty: 180 3RF Rx Instructions: puncture 1 cap using device; one dose = 2 inhalations Combivent Respimat 20-100 mcg/actuation mist 1 puff .ROUTE QID PRN (Reason: shortness of breath or wheezing) 90 Days Qty: 12 3RF Rx Instructions: 1 puff four times daily PRN; fluticasone propionate [Flonase Allergy Relief] 50 mcg/actuation spray,suspension 2 spray INTRANASAL DAILY@1000 90 Days Qty: 48 3RF Rx Instructions: administer into each nostril amlodipine 10 mg tablet 10 mg PO DAILY 90 Days Qty: 90 3RF isosorbide mononitrate 30 mg tablet extended release 24 hr 30 mg PO DAILY 90 Days Qty: 90 1RF losartan 100 mg tablet 100 mg PO DAILY Qty: 90 1RF fluoxetine [Prozac] 40 mg capsule 80 mg PO DAILY@1000 Qty: 180 0RF azithromycin 500 mg tablet See Rx Instructions PO DAILY Qty: 60 3RF Rx Instructions: take medication FRIDAY, FRIDAY, FRIDAY orally daily; nitroglycerin 0.4 mg tablet, sublingual 0.4 mg SUBLINGUAL Q5M PRN (Reason: chest pain) Qty: 25 3RF Rx Instructions: until response; do not exceed 3 doses per episode lidocaine [Lidoderm] 5 % adhesive patch,medicated 2 patch topical DAILY 30 Days Qty: 60 0RF Rx Instructions: leave on most painful area for up to 12 hrs epinephrine [EpiPen 2-Dmitri] 0.3 mg/0.3 mL auto-injector 0.3 mg IM ONCE PRN (Reason: Allergy Symptoms) Qty: 2 1RF hydroxyzine HCl 25 mg tablet 50 mg PO BID PRN (Reason: sleep) Qty: 60 2RF Rx Instructions: 1-2 tablets at bedtime as needed for sleep. sumatriptan succinate 25 mg tablet See Rx Instructions PO .COMPLEX Qty: 9 4RF Rx Instructions: take 1 tab at onset of headache; if no relief may repeat 1 tab after at least 2 hrs; max = 4 tabs/24 hr PO clonazepam 1 mg tablet 1 mg PO TID PRN (Reason: anxiety) Qty: 90 2RF Nurtec ODT 75 mg tablet,disintegrating 75 mg PO .COMPLEX Qty: 16 5RF Rx Instructions: 75 mg orally; Dissolve one tablet by mouth once as needed for migraine headache. Do not take more than one tablet per 24 hours guaifenesin [Mucinex] 1,200 mg Tablet Extended Release 12hr 1,200 mg PO DAILY PRN (Reason: Congestion) aspirin 81 mg Tablet,Delayed Release (Dr/Ec) 81 mg PO DAILY ipratropium-albuterol 0.5 mg-3 mg(2.5 mg base)/3 mL solution for nebulization 3 ml INHALATION .every 6 hours PRN (Reason: wheezing) Qty: 180 0RF albuterol sulfate 90 mcg/actuation HFA aerosol inhaler 2 puff INHALATION Q4H PRN (Reason: Shortness Of Breath Or Wheezing) Discharge Orders: Discharge ED (Routine); Ordered 02/15/25 Ordered By: Maile Chappell Referrals: Eldon Corral MD [Primary Care Provider] - Patient Instructions: Cellulitis (ED) Activity Restrictions/Additional Instructions: This will your antibiotics and start them immediately. Monitor for worsening symptoms such as worsening pain, swelling, redness, warmth, fevers, or any other concerns you may have. Please seek medical re-evaluation if these occur. Print Language: Estonian Coding Level of Care Code ED Sole Conditioner for Deidre Patton
--- NOTE | 2025-02-15 10:51 | USCV_ITS ---
KojoNorma Age: 69 Gender: F : 1955 Exam Date: 02/15/2025 11:19 Ordering Phys: Maile Chappell Technologist: JONATHAN Exam Location: [facility] [place] Indication: LE Pain. Eval anterior tib HISTORY: Lower extremity pain. PROCEDURES: Venous duplex imaging was performed in only the left lower extremity. The following venous structures were evaluated: common femoral vein, profunda vein, proximal portion of the greater saphenous vein, superficial femoral vein, and the popliteal vein. In addition, the posterior, anterior tibial and peroneal trunk were evaluated. FINDINGS: Normal 2-D Doppler and augmentation and compressibility throughout the lower extremity venous structures. Additional imaging through the proximal calf veins also reveals no thrombus. Limited evaluation of the greater saphenous vein is patent with no thrombus. CONCLUSIONS No DVT left lower extremity. Dr. Betsy Ferraro DO (Electronically Signed) Final Date: 15 February 2025 11:53 S
[2025-02-15 12:01] VITALS: BP 168/104; PULSE 106; O2SAT 91
== END 2025-02-15 12:01 | disposition home or self-care (01) ==
PROVIDERS: Emergency Provider Physician Assistant; PCP Family Medicine
DX: L03.116 Cellulitis of left lower limb (principal); Z79.82 Long term (current) use of aspirin; Z87.891 Personal history of nicotine dependence; I25.10 Atherosclerotic heart disease of native coronary artery without angina pectoris; Z95.1 Presence of aortocoronary bypass graft
CPT/HCPCS: 93971; 99284

== ENCOUNTER → 2025-02-23 15:23 | Outpatient (BNVA) | payer MEDICARE, OTHER, SELFPAY | PROVIDERS: PCP Family Medicine; Visit Provider Dermatology | DX: R59.0 Localized enlarged lymph nodes (principal); Z08 Encounter for follow-up examination after completed treatment for malignant neoplasm; Z85.820 Personal history of malignant melanoma of skin; D03.39 Melanoma in situ of other parts of face | CPT/HCPCS: 11643; 12053; 99213 ==

== ENCOUNTER 2025-03-18 08:05 | Outpatient (CLI) | payer MEDICARE, OTHER, SELFPAY ==
--- NOTE | 2025-03-18 08:13 | CT_ITS ---
WS: [id number] CT scan of the chest with IV contrast, additional two-dimensional coronal and sagittal reconstruction was performed. 03/18/2025 Clinical Data: R MEDOAL MALAR CHEEK Comparison: None. DLP: 342.[address] scans at [facility] use at least one of these dose optimization techniques: automated exposure control; mA and/or kV adjustment per patient size (includes targeted exams where dose is matched to clinical indication); or iterative reconstruction. Findings: No masses or effusions are seen. There is a 0.4 cm nodule in the periphery of the right upper lobe seen best on image 36 of 60 unchanged. The heart size is normal with no pericardial effusion. There is coronary artery calcification. Midline sternotomy sutures are present. The pulmonary arterial system and thoracic aorta demonstrate no abnormalities or dilatations. There is no axillary or significant mediastinal adenopathy. The upper abdomen shows cholecystectomy clips. No abnormalities are seen. CT/CT chest w con* [id number] Impression: 1. Small right upper lobe nodule unchanged. 2. Negative CT scan of the chest with IV contrast.
--- NOTE | 2025-03-18 08:13 | CT_ITS ---
WS: [email or web address] CT scan of the head, with and without IV contrast, 03/18/2025 Clinical Data: R MEDIAL MALAR CHEEK Comparison: None. DLP: 1057.[address] scans at [facility] use at least one of these dose optimization techniques: automated exposure control; mA and/or kV adjustment per patient size (includes targeted exams where dose is matched to clinical indication); or iterative reconstruction. Findings: The ventricular system is normal without shift. No recent infarct or hemorrhage is seen. There are no abnormal intracerebral masses. The cerebellum and brainstem are not remarkable. No abnormal contrast enhancement of any structure occurs. Bony windows of the skull and skull base show no fractures or erosions. The mastoid air cells, internal auditory canals, sella turcica, intraorbital contents, and paranasal sinuses are unremarkable. CT/CT head wo/w con [id number] Impression: Negative CT scan of the head with and without IV contrast.
--- NOTE | 2025-03-18 08:13 | CTR_ITS ---
PROCEDURE INFORMATION: Exam: CT Neck With Contrast Exam date and time: 03/18/2025 9:02 AM Age: 69 years old Clinical indication: Condition or disease; Prior surgery; Surgery date: 6+ months; Surgery type: RT cheek, heart stent; Follow up right medial cheek/melanoma; Additional info: R medial malar cheek TECHNIQUE: Imaging protocol: Computed tomography of the neck with contrast. Radiation optimization: All CT scans at this facility use at least one of these dose optimization techniques: automated exposure control; mA and/or kV adjustment per patient size (includes targeted exams where dose is matched to clinical indication); or iterative reconstruction. Contrast material: OMNI 350; Contrast volume: 75 ml; Contrast route: INTRAVENOUS (IV); COMPARISON: MR angio neck w con* [id number] 01/19/2025 4:19 PM RADIATION DOSE METRICS: Total DLP (mGy-cm): 176.34 FINDINGS: Salivary glands: Normal. Glands are normal in size. Pharynx: Unremarkable. No significant tonsillar enlargement. Larynx: Unremarkable. Epiglottis is normal. Thyroid: Normal. No enlarged or calcified nodules. Trachea: Visualized trachea is unremarkable. Lungs: Unremarkable as visualized. Lymph nodes: Visible upper mediastinal lymph nodes are not pathologically enlarged. Visible cervical lymph nodes are not pathologically enlarged. Bones/joints: Unremarkable. No acute fracture. Soft tissues: There is slight soft tissue stranding of the subcutaneous fat of the right cheek without measurable mass. This appears to be a surgical site without evidence of recurrence. CT/CT neck w con* [id number] IMPRESSION: No evidence of neoplastic disease.
[2025-03-18 08:52] LABS: Blood Urea Nitrogen 8 mg/dL (8-23); Glomerular Filtration Rate 62.1 mL/min (90-130)
[2025-03-18] MEDS: iohexol 350 mg/mL 500 mL Btl (per mL) IV ×2 (09:12)
== END 2025-03-18 08:06 | disposition home or self-care (01) ==
LOC: RAD 08:07
PROVIDERS: PCP Family Medicine; Visit Provider Dermatology
DX: Z85.820 Personal history of malignant melanoma of skin (principal); M79.89 Other specified soft tissue disorders; R91.1 Solitary pulmonary nodule; I25.10 Atherosclerotic heart disease of native coronary artery without angina pectoris; Z98.890 Other specified postprocedural states; Z90.49 Acquired absence of other specified parts of digestive tract
CPT/HCPCS: 70470; 70491; 71260; 82565; 84520

== ENCOUNTER 2025-05-24 14:32 | Outpatient (CLI) | payer MEDICARE, OTHER, SELFPAY ==
[2025-05-24 16:39] LABS: Blood Urea Nitrogen 8 mg/dL (8-23); Free T4 Free Thyroxine 0.92 ng/dL (0.82-1.77); Thyroid Stimulating Hormone 1.50 uIU/mL (0.27-4.20)
[2025-05-28 20:25] LABS: Phosphorylated tau217 0.37 pg/mL (< OR = 0.15)
== END 2025-05-24 14:33 | disposition home or self-care (01) ==
LOC: LAB 14:34
PROVIDERS: PCP Family Medicine; Visit Provider Psychiatry & Neurology Neurology
DX: R41.3 Other amnesia (principal); E78.00 Pure hypercholesterolemia, unspecified; Z85.820 Personal history of malignant melanoma of skin
CPT/HCPCS: 82565; 83520; 83615; 84439; 84443; 84520; 99212

== ENCOUNTER → 2025-05-30 14:52 | Outpatient (BNVA) | payer MEDICARE, OTHER, SELFPAY | PROVIDERS: PCP Family Medicine; Visit Provider Nurse Practitioner Family | DX: D22.72 Melanocytic nevi of left lower limb, including hip (principal); L81.4 Other melanin hyperpigmentation; L82.1 Other seborrheic keratosis; Z08 Encounter for follow-up examination after completed treatment for malignant neoplasm; Z85.820 Personal history of malignant melanoma of skin; L82.0 Inflamed seborrheic keratosis; R20.8 Other disturbances of skin sensation; Z78.9 Other specified health status; L53.8 Other specified erythematous conditions; L29.89 Other pruritus; D48.5 Neoplasm of uncertain behavior of skin; L57.0 Actinic keratosis | CPT/HCPCS: 11102; 17000; 17110; 99213 ==

== ENCOUNTER → 2025-07-27 13:39 | Outpatient (BNVA) | payer MEDICARE, OTHER, SELFPAY | PROVIDERS: PCP Family Medicine; Visit Provider Nurse Practitioner Family | DX: D22.72 Melanocytic nevi of left lower limb, including hip (principal); L81.4 Other melanin hyperpigmentation; L57.8 Other skin changes due to chronic exposure to nonionizing radiation; L82.1 Other seborrheic keratosis; Z08 Encounter for follow-up examination after completed treatment for malignant neoplasm; Z85.820 Personal history of malignant melanoma of skin; L57.0 Actinic keratosis | CPT/HCPCS: 17000; 99213 ==

== ENCOUNTER → 2025-10-03 10:37 | Outpatient (BNVA) | payer MEDICARE, OTHER, SELFPAY | PROVIDERS: PCP Family Medicine; Visit Provider Nurse Practitioner Family | DX: I71.02 Dissection of abdominal aorta (principal); I25.10 Atherosclerotic heart disease of native coronary artery without angina pectoris; I10 Essential (primary) hypertension; I72.3 Aneurysm of iliac artery; F17.210 Nicotine dependence, cigarettes, uncomplicated; Z95.1 Presence of aortocoronary bypass graft; R00.0 Tachycardia, unspecified | CPT/HCPCS: 99213 ==

== ENCOUNTER 2025-10-19 08:16 | Outpatient (CLI) | payer MEDICARE, OTHER, SELFPAY ==
--- NOTE | 2025-10-19 08:00 | CTR_ITS ---
PROCEDURE INFORMATION: Exam: CTA Abdomen and Pelvis With Contrast Exam date and time: 10/19/2025 8:56 AM Age: 69 years old Clinical indication: Condition or disease; Other: Aneurysm of iliac artery; Prior surgery; Surgery date: 6+ months; Surgery type: Gb, appy, heart stent; Additional info: I72.3 - aneurysm of iliac artery TECHNIQUE: Imaging protocol: Computed tomographic angiography of the abdomen and pelvis with contrast. Exam focused on the arteries. 3D rendering (Not supervised by radiologist): MIP and/or 3D reconstructed images were created by the technologist. Radiation optimization: All CT scans at this facility use at least one of these dose optimization techniques: automated exposure control; mA and/or kV adjustment per patient size (includes targeted exams where dose is matched to clinical indication); or iterative reconstruction. Contrast material: OMNI 350; Contrast volume: 100 ml; Contrast route: INTRAVENOUS (IV); COMPARISON: CT angio abdomen [id number] 06/29/2022 9:36 AM RADIATION DOSE METRICS: Total DLP (mGy-cm): 1101.38 FINDINGS: Aorta: Severe atherosclerotic change. Multifocal ectasia of the abdominal aorta but without significant aneurysmal dilatation. Significant internal luminal irregularity compatible with mural thrombus/soft plaque. Celiac and mesenteric arteries: Celiac, SMA are patent but with significant atherosclerotic calcification. Renal arteries: Approximate each 90% narrowing origin right renal artery. Approximate 80% narrowing origin left renal artery. Right iliac arteries: Right common iliac artery shows short length focal dissection with associated aneurysmal dilatation maximum 2.3 cm. This is not extended into the internal or external iliac arteries. This is similar to prior. Left iliac arteries: No occlusion or significant stenosis. Other arteries: Severe atherosclerotic disease is evident. Liver: No suspicious focal liver lesion. Gallbladder and biliary ducts: Prior cholecystectomy. No suspicious biliary dilatation. There is pneumobilia. Arterial phase is obtained, this is suboptimal for assessing the solid organs. Pancreas: Normal. No pancreatic ductal dilation. Spleen: Normal. No splenomegaly. A coarse calcified structure in the spleen is stable from prior and of doubtful clinical significance. Adrenal glands: Normal. No adrenal mass. Normal. No adrenal mass. Kidneys and ureters: Areas of cortical scarring are present in the lower pole right kidney. No suspicious renal lesion or hydronephrosis. Stomach and bowel: Unremarkable. No bowel obstruction. No mucosal thickening. Intraperitoneal space: Unremarkable. No free air. No significant fluid collection. Lymph nodes: Unremarkable. No enlarged lymph nodes. Urinary bladder: Unremarkable. No mass. Reproductive: Unremarkable as visualized. Bones/joints: With bladderThere are mild degenerative changes throughout the visible areas of the spine. Soft tissues: Unremarkable. CT/CT [facility] [id number] IMPRESSION: 1. Similar appearance of short length focal dissection of the right common iliac artery with associated aneurysmal dilatation, as compared to 06/29/2022 2. Severe atherosclerotic changes with multifocal ectasia of the abdominal aorta, no acute abnormality of the abdominal aorta. The appearance is similar to prior. See separate dictation for chest CT findings
[2025-10-19 08:51] LABS: Blood Urea Nitrogen 9 mg/dL (8-23)
[2025-10-19] MEDS: iohexol 350 mg/mL 500 mL Btl (per mL) IV (09:49)
== END 2025-10-19 08:17 | disposition home or self-care (01) ==
LOC: RAD 08:17
PROVIDERS: PCP Family Medicine; Visit Provider Internal Medicine Cardiovascular Disease
DX: I72.3 Aneurysm of iliac artery (principal); I73.9 Peripheral vascular disease, unspecified; I77.819 Aortic ectasia, unspecified site; I77.1 Stricture of artery; I25.10 Atherosclerotic heart disease of native coronary artery without angina pectoris; Z90.49 Acquired absence of other specified parts of digestive tract; M47.819 Spondylosis without myelopathy or radiculopathy, site unspecified
CPT/HCPCS: 71275; 74174; 82565; 84520